=== PATIENT | male | born 1950 | race Caucasian/White ===

== ENCOUNTER 2020-12-18 05:49 | Inpatient (IN) ==
--- NOTE | 2020-12-13 11:47 | Anesthesiology Consultation ---
Date of Service December 13, 2020 Assessment & Plan (1) Encounter for pre-operative examination: Chart Review Chart Review: Acceptable Risk for Surgery (pending preop Covid testing results and DOS PRP ) and Patient NOT seen in Pre Admission Testing -Will order PRP for stat AM of surgery (not done with preop labs) Per nursing assessment 12/13/2020, patient denies any recent travel. No known Covid infection in the past 90 days. No known Covid positive contacts or Covid related symptoms. Preop Covid testing scheduled 12/16/20= will await results. History Surgery Operation Date: 12/18/20 08:45 Proposed Procedures p Posterior Fusion Instrumentation - Luz Heard MD Height/Weight Height: 5 ft 10 in Weight: 95.254 kg Allergies Allergy/AdvReac Type Severity Reaction Status Date / Time bee venom protein (honey bee) Allergy Severe ANAPHYLAXIS Verified 12/13/20 10:49 capsaicin Allergy Intermediate Mouth sores Verified 12/13/20 10:49 diclofenac Allergy Intermediate Mouth sores Verified 12/13/20 10:49 Diclopak Allergy Intermediate Mouth sores Verified 04/07/16 15:22 meloxicam Allergy Unknown mouth sores Verified 12/13/20 10:49 Medications Home Medications Medication Instructions Recorded Confirmed Last Taken EPINEPHRINE (EPIPEN) 0.3 mg IM UD #0 inj 05/11/12 12/13/20 Unknown duloxetine 30 mg capsule,delayed 30 mg PO QAM 08/17/19 12/13/20 Unknown release amoxicillin 500 mg capsule 2,000 mg PO ONCE #4 cap 08/28/19 12/13/20 Unknown atorvastatin 10 mg tablet 10 mg PO PM 09/12/19 12/13/20 Unknown methylprednisolone 4 mg tablets in 4 mg PO UD #1 packet 11/19/20 12/13/20 Unknown a dose pack diphenhydramine-acetaminophen 1 tab PO HS 12/13/20 12/13/20 Unknown [Tylenol PM Extra Strength] loratadine [Claritin] 10 mg PO DAILY PRN 12/13/20 12/13/20 Unknown pantoprazole 40 mg PO DAILY PRN 12/13/20 12/13/20 Unknown Past Medical History Medical History Degenerative joint disease, right, ankle GERD (gastroesophageal reflux disease) Hyperlipidemia Kidney stones hx Lumbar spondylosis Migraine on occasion Nausea and vomiting after administration of anesthetic agent Osteoarthritis Spinal stenosis of lumbar region Past Surgical History Surgical History History of bilateral knee replacement History of colonoscopy History of cystoscopy History of hip replacement left History of tooth extraction Hx of inguinal hernia repair Social History Smoking Status: Former smoker Do You Dip or Chew Tobacco: No (quit 2011) Smoking End Date: 1982 Hx Alcohol Use: Yes Alcohol type: beer and wine alcohol intake frequency: a few times a month Hx Substance Use: No substance use type: does not use Lab Results Anesthesia Preop Results Results Anesthesia Widget: WBC 6.51 K/uL (4.8-10.8) 12/10/20 Hgb 15.2 g/dL (14.0-18.0) 12/10/20 Hct 43.4 % (42-52) 12/10/20 Plt 142 K/uL (130-400) 12/10/20 Testing Laboratory Results Blood Type O Positive 12/10/20 11:17 Antibody Screen NEGATIVE 12/10/20 11:17 Electrocardiogram Date: 12/10/20 Findings: + NSR @ (98 bpm) Right bundle branch block. When compared to EKG from November 15, 2015PACs are no longer present, right bundle branch block is now present. Stress Test Date: 11/02/17 Type: exercise (Echo) Resting EF: 60-64% Resting LV Function: normal Stress echo was negative for inducible ischemia. Exercise capacity is above average. MPHR 97%. 10 METS achieved. Hypertensive baseline BP with a normal response to exercise. EKG response showed no evidence of ischemia. Mild concentric LVH. Grade 1 diastolic dysfunction. Moderate aortic valve r egurgitation. Proximal ascending thoracic aorta is mildly enlarged.
[2020-12-18] MEDS ORDERED: LR 15ML/HR IV SCH (06:00)
[2020-12-18] MEDS ORDERED: ceFAZolin 2000MG 2,000 MG/15 ML SYR IV SCH (06:00)
[2020-12-18] MEDS ORDERED: LR 60ML/HR IV SCH (06:00)
[2020-12-18] MEDS ORDERED: PROPOFOL IV EMULSION 10 MG/ML 20 ML VIAL IV ONE (06:44)
[2020-12-18] MEDS ORDERED: fentaNYL citrate 100 MCG/2 ML VIAL ONE ×2 (06:44→15:33)
[2020-12-18] MEDS ORDERED: GLYCOPYRROLATE 0.2 MG/ML VIAL ONE (06:44)
[2020-12-18] MEDS ORDERED: MIDAZOLAM HCL 1 MG/ML 2ML VIAL ONE (06:44)
[2020-12-18] MEDS ORDERED: LIDOCAINE 2% 2 ML VIAL/AMP(20MG/ML) INFIL ONE (06:44)
[2020-12-18] MEDS ORDERED: ONDANSETRON INJ 2 MG/ML 2 ML VIAL ONE (06:44)
[2020-12-18] MEDS ORDERED: NEOSTIGMINE METHYLSULFATE 5 MG/5 ML SYR ONE (06:44)
[2020-12-18] MEDS ORDERED: DEXAMETHASONE SOD INJ 4 MG/ML VIAL ONE (06:44)
[2020-12-18] MEDS ORDERED: SUGAMMADEX SODIUM 200 MG/2 ML VIAL IV ONE (06:50)
--- NOTE | 2020-12-18 06:54 | History & Physical Bridge Note ---
Date of Service December 18, 2020 History & Physical Bridge Note I have examined the patient, reviewed the History & Physical and in the interval since the performance of the History & Physical I have noted the following changes of clinical significance: no changes noted New changes compared to last appointment: nil Musculoskeletal: 5/5 motor strength bilateral L2-S1. Neurologic: Sensation 2/2 to light touch bilateral L2-S1. Patient marked for surgery. All new questions about procedure answered. Informed consent confirmed
[2020-12-18] MEDS ORDERED: VANCOMYCIN HCL 1000MG/20ML VIAL ONE ×2 (07:04→13:47)
[2020-12-18] MEDS ORDERED: GELATIN SPONGE SZ 100 ONE (07:04)
[2020-12-18] MEDS ORDERED: THROMBIN FOR SOLN 20000 UNIT KIT ONE (07:04)
[2020-12-18] MEDS ORDERED: ONDANSETRON INJ 2 MG/ML 2 ML VIAL IV PRN ×3 (07:08→17:26)
[2020-12-18] MEDS ORDERED: ePHEDrine sulfate 50 MG/ML AMP IV PRN ×2 (07:08→15:33)
[2020-12-18] MEDS ORDERED: ATROPINE SULFATE 0.1 MG/ML 10ML SYR IV PRN ×2 (07:08→15:33)
[2020-12-18] MEDS ORDERED: fentaNYL citrate 100 MCG/2 ML VIAL IV PRN (07:08)
[2020-12-18] MEDS ORDERED: METOCLOPRAMIDE HCL INJ 5 MG/ML 2 ML VIAL IV PRN ×2 (07:08→17:26)
[2020-12-18] MEDS ORDERED: PROMETHAZINE HCL 12.5 MG in SODIUM CHLORIDE 0.9% 50 ML IV PRN ×2 (07:08→17:26)
[2020-12-18] MEDS ORDERED: HYDROmorphone INJ 2 MG/ML SYR/VIAL IV PRN (07:08)
[2020-12-18 07:11] LABS: BUN Creatinine Ratio 22.3 (10-20); Calcium 9.1 mg/dl (8.5-10.1); Creatinine Clr Calc Pharmacy 79.2 ml/min; Est GFR (African American) 87.4 ml/min; Est GFR (Non-African American) 75.4 ml/min; Potassium 4.3 mmol/L (3.5-5.1)
[2020-12-18] MEDS ORDERED: ROCURONIUM BROMIDE 10 MG/ML 5 ML VIAL IV ONE (09:03)
[2020-12-18] MEDS ORDERED: HYDROmorphone INJ 1 MG/ML SYRINGE ONE (09:30)
[2020-12-18] MEDS ORDERED: PHENYLEPHRINE HCL 10 MG/ML VIAL ONE (09:53)
[2020-12-18] MEDS ORDERED: ALBUMIN HUMAN 5% 12.5 GM/250 ML VIAL IV ONE ×2 (10:59→13:05)
[2020-12-18] MEDS ORDERED: ceFAZolin 2000MG 2,000 MG/15 ML SYR IV ONE (12:19)
[2020-12-18] MEDS ORDERED: FLOSEAL HEMOSTATIC MATRIX 10ML TOP ONE (14:21)
--- NOTE | 2020-12-18 15:15 | Post Operative Brief Note ---
PG Immediate Post Op with CF Date of Surgery December 18, 2020 Pre & Post Diagnosis Operation Date: 12/18/20 07:15 Pre-Op Diagnosis: Neurogenic claudication from central stenosis at L4-5 with grade 2 degenerative spondylolisthesis, facet and ligamentum hypertrophy, broad-based disc bulge with right foraminal disc herniation causing severe right formainal stenosis Post-Op Diagnosis: Neurogenic claudication from central stenosis at L4-5 with grade 2 degenerative spondylolisthesis, facet and ligamentum hypertrophy, broad-based disc bulge with right foraminal disc herniation causing severe right formainal stenosis I identified the patient and participated in the time-out.: Yes Procedure L4-L5 Posterior Lumbar Decompression and Instrumented Fusion, right transforaminal lumbar interbody fusion, local autograft, allograft Surgeon Luz Heard MD In Service Coordinator Kris Dan PA-C Estimated Blood Loss 800 Findings Consistent with Post-Op Diagnosis Specimens Specimen Description: None per surgeon Drains Pineda Catheter and Marcos-Meza Drain (x2 (10fr))
--- NOTE | 2020-12-18 15:19 | XRay Report ---
LUMBAR SPINE 5 VIEWS HISTORY: L4-L5 DECOMPRESSION AND FUSION COMPARISON: November 19, 2020 FINDINGS: Multiple radiographs of the lumbar spine show placement of transpedicular screws, fixating plates in the L4-5 level as well as disc spacer into L4-5 intervertebral disc space. No acute fracture or dislocation seen. Redemonstration of mild anterolisthesis of L4 on L5. Mild narrowing of the L3-L4 intervertebral disc space is again seen. IMPRESSION: As above. ACT 112: Negative or not required by law. Electronically signed by: Cony Beck DO 12/18/2020 3:18 PM
[2020-12-18 15:24] LABS: iSTAT Arterial Blood Gas HCO3 24 meg/L (19-24); iSTAT Arterial Blood Gas pCO2 42 mmHg (35-46); iSTAT Arterial Blood Gas pH 7.37 (7.35-7.45); iSTAT Arterial Blood Gas pO2 58 mmHg (80-95); iSTAT Carbon Dioxide 26 mmol/L (24-31); iSTAT Hematocrit 32 % (42-52); iSTAT Hemoglobin 10.9 g/dl (14.0-18.0); iSTAT Potassium 4.1 mmol/L (3.3-5.0); iSTAT Sodium 139 mmol/L (135-144)
[2020-12-18 15:24] LABS: iSTAT Arterial Blood Gas HCO3 24 meg/L (19-24); iSTAT Arterial Blood Gas pCO2 40 mmHg (35-46); iSTAT Arterial Blood Gas pH 7.38 (7.35-7.45); iSTAT Arterial Blood Gas pO2 63 mmHg (80-95); iSTAT Carbon Dioxide 25 mmol/L (24-31); iSTAT Hematocrit 30 % (42-52); iSTAT Hemoglobin 10.2 g/dl (14.0-18.0); iSTAT Potassium 4.4 mmol/L (3.3-5.0); iSTAT Sodium 140 mmol/L (135-144)
[2020-12-18] MEDS ORDERED: METOPROLOL TARTRATE 1 MG/ML VIAL IV STA (15:32)
[2020-12-18] MEDS ORDERED: METOPROLOL TARTRATE 1 MG/ML VIAL IV ONE (15:32)
[2020-12-18] MEDS ORDERED: PHENYLEPHRINE 100MCG/ML 5ML SYR IV PRN (15:33)
[2020-12-18] MEDS ORDERED: HYDROmorphone INJ 1 MG/ML SYRINGE IV PRN (15:33)
[2020-12-18] MEDS: fentaNYL citrate 100 MCG/2 ML VIAL IV PRN ×4 (15:37→15:52)
--- NOTE | 2020-12-18 15:38 | Communication Note ---
Date of Service: December 18, 2020 Post-op routine neurological assessment completed Patient awake, alert No new neurological deficits noted Musculoskeletal: 5/5 motor strength bilateral L2-S1. Neurologic: Sensation 2/2 to light touch bilateral L2-S1.
--- NOTE | 2020-12-18 16:09 | Anesthesiology Progress Note ---
Date of Service December 18, 2020 Anesthesia Post Procedure Vital Signs Vital Signs: Temp Pulse Pulse Pulse Resp BP BP 12/18/20 16:05 36.6 C 86 20 12/18/20 15:55 85 20 12/18/20 15:45 85 20 12/18/20 15:37 102 H 150/86 H 12/18/20 15:35 102 H 14 12/18/20 15:25 100 H 15 12/18/20 15:15 104 H 12 12/18/20 15:08 36.7 C 127 H 16 12/18/20 06:30 36.9 C 89 22 168/92 H BP Pulse Ox 12/18/20 16:05 129/87 96 12/18/20 15:55 135/87 98 12/18/20 15:45 136/87 98 12/18/20 15:37 12/18/20 15:35 150/86 H 95 12/18/20 15:25 144/91 H 100 12/18/20 15:15 144/93 H 99 12/18/20 15:08 144/88 H 99 12/18/20 06:30 97 Pain Intensity Right Leg: Pain Intensity: 2 Back: Pain Intensity: 3 Transfer of Care Handoff Completed per policy Notes Mental Status: alert / awake / arousable Patient Amnestic to Procedure: Yes Nausea / Vomiting: adequately controlled Pain: adequately controlled Airway Patency, RR, SpO2: stable & adequate BP & HR: stable & adequate Hydration State: stable & adequate Anesthetic Complications: no major complications apparent and Pt Satisfied with anesthetic care Notes: The patient is awake and comfortable. He is moving all of his extremities and has no vision changes. His vital signs are stable.
[2020-12-18] MEDS ORDERED: diphenhydrAMINE Capsule 25 MG CAP PO PRN (17:26)
[2020-12-18] MEDS ORDERED: LORATADINE 10 MG TAB PO PRN (17:26)
[2020-12-18] MEDS ORDERED: LORazepam 0.5 MG TAB PO PRN (17:26)
[2020-12-18] MEDS ORDERED: LACTATED RINGER'S 1,000 ML IV SCH (17:26)
[2020-12-18] MEDS ORDERED: ONDANSETRON 4 MG OD TAB PO PRN (17:26)
[2020-12-18] MEDS ORDERED: HYDROmorphone INJ 0.5 MG/0.5 ML SYR IV PRN (17:26)
[2020-12-18] MEDS ORDERED: PANTOprazole 40 MG TAB PO PRN (17:26)
[2020-12-18] MEDS ORDERED: bisacodyL 10 MG SUPP PR PRN (17:26)
[2020-12-18] MEDS ORDERED: MAGNESIUM HYDROXIDE SUSP 30 ML UDC PO PRN (17:26)
[2020-12-18] MEDS ORDERED: SOD PHOSPHATE/SOD BIPHOSPHATE ENEMA 132 ML BTL PR PRN (17:26)
[2020-12-18] MEDS ORDERED: DO NOT ADMINISTER PNEUMOCOCCAL VACCINE PRN (17:26)
[2020-12-18] MEDS ORDERED: NALOXONE HCL 0.4 MG/1 ML VIAL/CARP IV PRN (17:26)
[2020-12-18] MEDS ORDERED: ALUMINUM/MAGNESIUM SUSP 30 ML UDC PO PRN (17:26)
[2020-12-18] MEDS ORDERED: DO NOT ADMINISTER FLU VACCINE PRN (17:26)
[2020-12-18] MEDS ORDERED: hydrOXYzine HCl 25 MG TAB PO PRN (17:26)
[2020-12-18] MEDS ORDERED: FAMOTIDINE 20 MG TAB PO PRN (17:26)
[2020-12-18] MEDS: HYDROCODONE/ACETAMOPHEN 5/325MG TAB PO PRN ×2 (18:27→23:22)
[2020-12-18] MEDS: ceFAZolin 2000MG 2,000 MG/15 ML SYR IV SCH (18:43)
[2020-12-18] MEDS: DOCUSATE SODIUM/SENNA 50/8.6MG TAB PO SCH (20:16)
[2020-12-18] MEDS: CYCLOBENZAPRINE HCL 10 MG TAB PO SCH (20:17)
[2020-12-18] MEDS: ATORVASTATIN 10 MG TAB PO SCH (20:17)
[2020-12-18] MEDS: GABAPENTIN 300 MG CAP PO SCH (20:18)
[2020-12-18] MEDS ORDERED: MELATONIN 3 MG TAB PO PRN (22:22)
--- NOTE | 2020-12-18 22:57 | Hospitalist Consultation ---
Date of Consultation December 18, 2020 Assessment & Plan (1) Spinal stenosis, lumbar: Final Assessment and Recommendations as follows : LSS sp surgery Clinically well Postop anemia, BP stable Hyperglycemia likely steroid-induced, rule out DM Follow H&H, transfuse PRBC if hemoglobin less than 7 and or for symptomatic anemia Hold parameters for gabapentin for sedation/confusion. Check hemoglobin A1c DVT prophylaxis. SCDs as per postop Orthopedics orders. Thank you very much for this consultation. Dr. Aquino will follow patient's progress. Text document was generated using [employer] voice recognition software. It may contain grammatical or spelling errors. Kindly contact undersigned for clarification of any documentation item in question. History of Present Illness Reason for Consultation: Medical management Requesting Physician: Dr. Heard Attending Physician: Luz Heard MD History of Present Illness PCP : Dr. Pacheco History obtained from patient and records. Medical history significant for chronic back pain, hyperlipidemia, BPH, GERD, past tobacco abuse. Last confinement June 2016 under Orthopedics service for elective left FLOR. Patient underwent elective decompression surgery for LSS today. Patient currently comfortable. Denies chest pain, S OB. 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 Allergies Allergy/AdvReac Type Severity Reaction Status Date / Time bee venom protein (honey bee) Allergy Severe ANAPHYLAXIS Verified 12/18/20 06:22 capsaicin Allergy Intermediate Mouth sores Verified 12/18/20 06:22 diclofenac Allergy Intermediate Mouth sores Verified 12/18/20 06:22 Diclopak Allergy Intermediate Mouth sores Verified 04/07/16 15:22 meloxicam Allergy Mild mouth sores Verified 12/18/20 06:22 Home Medications Medication Instructions Recorded Confirmed Type EPINEPHRINE (EPIPEN) 0.3 mg IM UD #0 inj 05/11/12 12/18/20 History duloxetine 30 mg capsule,delayed 30 mg PO QAM 08/17/19 12/18/20 History release amoxicillin 500 mg capsule 2,000 mg PO ONCE #4 cap 08/28/19 12/18/20 Rx atorvastatin 10 mg tablet 10 mg PO PM 09/12/19 12/18/20 History diphenhydramine-acetaminophen 1 tab PO HS 12/13/20 12/18/20 History [Tylenol PM Extra Strength] loratadine [Claritin] 10 mg PO DAILY PRN 12/13/20 12/18/20 History pantoprazole [Protonix] 40 mg PO DAILY PRN 12/13/20 12/18/20 History Excedrin Migraine 2 tabs PO Q4-5H PRN 12/18/20 12/18/20 History ibuprofen 3 tab PO Q6 PRN 12/18/20 12/18/20 History Patient History Medical History Degenerative joint disease, right, ankle GERD (gastroesophageal reflux disease) Hyperlipidemia Kidney stones hx Lumbar spondylosis Migraine on occasion Nausea and vomiting after administration of anesthetic agent Osteoarthritis Spinal stenosis of lumbar region Surgical History (Updated 12/18/20 @ 06:23 by Laisha Mora RN) History of bilateral knee replacement History of bilateral knee replacement History of colonoscopy History of cystoscopy History of hip replacement left History of tooth extraction Hx of inguinal hernia repair Social History Smoking Status: Former smoker Smoking End Date: 1982; Second Hand Exposure: No; Do You Dip or Chew Tobacco: No (quit 2011); Tobacco Cessation Education Requested by Patient: No Hx Alcohol Use: Yes Alcohol type: beer and wine Hx Substance Use: No Preferred Language: Egyptian Communication Ability: Effective Hands Assembler Required: No Beliefs That Will Affect Care: None marital status: Current Living Situation: Spouse current occupational status: retired Other Information That Helps Us Care for You: No Feels Safe at Home: Yes Safety Concerns: Feels Safe At This Time Assistive Devices: Glasses and Walker Review of Systems Review of Systems: As per HPI, all 10 systems reviewed, all other ROS negative Physical Exam Physical Exam: GENERAL: Comfortable, obese, pleasant, no respiratory distress SKIN: Pallor, warm HEENT: Alopecia, pale palpebral conjunctivae, no ptosis, dry buccal mucosa NECK : Supple, no tenderness CHEST : CTA, no tenderness HEART : RRR, no obvious murmurs ABDOMEN: Some distention, nontender BACK : Dressing noted EXTREMITIES : No LE swelling/tenderness, no other conspicuous deformities noted NEUROLOGIC : Coherent, no facial asymmetry, no other gross focality Results & Data Results & Data ([facility]) Vital Signs (Past 12 Hours) Vital Signs Temp Pulse Pulse Pulse Resp BP BP 12/18/20 20:05 36.7 C 91 H 20 111/66 12/18/20 19:05 36.8 C 94 H 20 124/69 12/18/20 18:01 37.1 C 90 18 12/18/20 17:31 37.0 C 95 H 17 12/18/20 17:05 36.7 C 96 H 18 12/18/20 16:35 36.6 C 89 20 12/18/20 16:25 36.6 C 91 H 20 12/18/20 16:15 36.6 C 86 20 12/18/20 16:05 36.6 C 86 20 12/18/20 15:55 85 20 12/18/20 15:45 85 20 12/18/20 15:37 102 H 150/86 H 12/18/20 15:35 102 H 14 12/18/20 15:25 100 H 15 12/18/20 15:15 104 H 12 12/18/20 15:08 36.7 C 127 H 16 BP Pulse Ox 12/18/20 20:05 98 12/18/20 19:05 97 12/18/20 18:01 120/67 98 12/18/20 17:31 115/76 98 12/18/20 17:05 131/83 98 12/18/20 16:35 128/81 97 12/18/20 16:25 134/85 97 12/18/20 16:15 139/85 96 12/18/20 16:05 129/87 96 12/18/20 15:55 135/87 98 12/18/20 15:45 136/87 98 12/18/20 15:37 12/18/20 15:35 150/86 H 95 12/18/20 15:25 144/91 H 100 12/18/20 15:15 144/93 H 99 12/18/20 15:08 144/88 H 99 Laboratory Results Laboratory Results POC Hgb 10.2 g/dl (14.0-18.0) L 12/18/20 14:09 POC Hct 30 % (42-52) L 12/18/20 14:09 POC pH 7.38 (7.35-7.45) 12/18/20 14:09 POC pCO2 40 mmHg (35-46) 12/18/20 14:09 POC pO2 63 mmHg (80-95) L 12/18/20 14:09 POC HCO3 24 iker/L (19-24) 12/18/20 14:09 POC Total CO2 25 mmol/L (24-31) 12/18/20 14:09 POC Base Excess -2.0 iker/L (-9-1.8) 12/18/20 14:09 POC ABG O2 Sat 91.0 % (90-95) 12/18/20 14:09 POC Sodium 140 mmol/L (135-144) 12/18/20 14:09 Sodium 143 mmol/L (136-145) 12/18/20 06:33 POC Potassium 4.4 mmol/L (3.3-5.0) 12/18/20 14:09 Potassium 4.3 mmol/L (3.5-5.1) 12/18/20 06:33 Chloride 110 mmol/L (98-107) H 12/18/20 06:33 Carbon Dioxide 29 mmol/L (21-32) 12/18/20 06:33 Anion Gap 4.0 (3-11) 12/18/20 06:33 BUN 22 mg/dl (7-18) H 12/18/20 06:33 Creatinine 1.00 mg/dl (0.6-1.4) 12/18/20 06:33 Est Cr Clr Drug Dosing 79.2 ml/min 12/18/20 06:33 Est GFR ( Amer) 87.4 ml/min 12/18/20 06:33 Est GFR (Non-Af Amer) 75.4 ml/min 12/18/20 06:33 BUN/Creatinine Ratio 22.3 (10-20) H 12/18/20 06:33 Glucose 113 mg/dl (70-99) H 12/18/20 06:33 POC Glucose 166 mg/dl (70-99) H 12/18/20 18:11 Calcium 9.1 mg/dl (8.5-10.1) 12/18/20 06:33 COVID-19 Eval Order Covid19 [facility] 12/18/20 06:19 SARS-CoV-2, RNA, NAAT NEGATIVE (NEGATIVE) 12/18/20 06:19 Blood Type O Positive 12/10/20 11:17 Antibody Screen NEGATIVE 12/10/20 11:17 Impressions Lumbar Spine X-Ray 12/18/20 07:15 LUMBAR SPINE 5 VIEWS HISTORY: L4-L5 DECOMPRESSION AND FUSION COMPARISON: November 19, 2020 FINDINGS: Multiple radiographs of the lumbar spine show placement of transpedicular screws, fixating plates in the L4-5 level as well as disc spacer into L4-5 intervertebral disc space. No acute fracture or dislocation seen. Redemonstration of mild anterolisthesis of L4 on L5. Mild narrowing of the L3-L4 intervertebral disc space is again seen. IMPRESSION: As above. ACT 112: Negative or not required by law. Electronically signed by: Cony Beck DO 12/18/2020 3:18 PM
[2020-12-19] MEDS: ceFAZolin 2000MG 2,000 MG/15 ML SYR IV SCH (03:04)
[2020-12-19] MEDS: CYCLOBENZAPRINE HCL 10 MG TAB PO SCH ×3 (03:04→20:16)
[2020-12-19] MEDS: POLYETHYLENE (MIRALAX) 17 GM PACK PO SCH ×4 (06:01→23:04)
[2020-12-19] MEDS: ACETAMINOPHEN 500 MG TAB PO PRN (06:01)
[2020-12-19 06:49] LABS: Basophils # (auto) 0.01 K/uL (0-0.2); Basophils % (auto) 0.1 %; Eosinophils # (auto) 0.07 K/uL (0-0.5); Eosinophils % (auto) 0.9 %; Hematocrit (blood only) 29.8 % (42-52); Hemoglobin 10.2 g/dL (14.0-18.0); Immature Granulocytes # (auto) 0.01 K/uL (0.00-0.02); Immature Granulocytes % (auto) 0.1 %; Lymphocytes % (auto) 9.8 %; Mean Corpuscular Hemoglobin 33.8 pg (25-34); Mean Corpuscular Hgb Conc 34.2 g/dL (32-36); Mean Corpuscular Volume 98.7 fL (80-100); Monocytes # (auto) 1.23 K/uL (0.11-0.59); Neutrophils # (auto) 6.06 K/uL (1.4-6.5); Neutrophils % (auto) 74.1 %; Platelet Count 139 K/uL (130-400); RDW Coefficient of Variation 12.9 % (11.5-14.5); RDW Standard Deviation 46.8 fL (36.4-46.3); Red Blood Count 3.02 M/uL (4.7-6.1); White Blood Count 8.18 K/uL (4.8-10.8)
[2020-12-19 07:16] LABS: BUN Creatinine Ratio 19.5 (10-20); Calcium 8.8 mg/dl (8.5-10.1); Creatinine Clr Calc Pharmacy 102.9 ml/min; Est GFR (African American) 105.8 ml/min; Est GFR (Non-African American) 91.3 ml/min
[2020-12-19 07:48] LABS: Estimated Average Glucose 111 mg/dl; Hemoglobin A1C 5.5 % (4.5-5.6)
--- NOTE | 2020-12-19 08:00 | Orthopedic Progress Note ---
Date of Service December 19, 2020 Assessment & Plan (1) Status post spinal surgery: PT for mobility standing x-rays when able monitor drain output with removal once output decreased d/c home once mobilizing well and drains out, possibly tomorrow Admission and Anticipated Discharge Date Admission Date: December 18, 2020 Subjective pain well controlled no new numbness/weakness no radicular pain to lower extremity mobilized out of bed after OR yesterday evening Hgb 10.2 this AM Glucose 118 this AM Physical Exam Physical Exam: vitals: see vital signs section; stable on room air this AM dressing: clean, dry intact drain: 100 deep/0 superficial cc/8hr vascular: no calf tenderness or swelling bilaterally. no signs of DVT neuro: 5/5 motor strength bilateral L2-S1 2/2 sensation to light touch bilateral L2-S1 Results & Data ([facility]) Vital Signs (Past 12 Hours) Vital Signs Temp Pulse Resp BP BP Pulse Ox 12/19/20 03:06 36.5 C 93 H 16 109/64 95 12/18/20 23:00 36.9 C 97 H 16 115/69 96 12/18/20 20:05 36.7 C 91 H 20 111/66 98 Diagnostic Findings post-op x-rays pending PG Care Time/CCT Total # of Minutes Spent Total Time Spent with Patient: Total time spent is greater than 50% in coordination of care (as documented) at patient's floor/unit and/or counseling patient: Coding Level of Care Code None Diagnoses Status post spinal surgery Z98.890
--- NOTE | 2020-12-19 08:33 | Anesthesiology Progress Note ---
Date of Service December 19, 2020 Anesthesia Post Procedure Vital Signs Vital Signs: Temp Pulse Pulse Pulse Resp BP BP 12/19/20 08:00 37.1 C 88 17 113/71 12/19/20 03:06 36.5 C 93 H 16 109/64 12/18/20 23:00 36.9 C 97 H 16 12/18/20 20:05 36.7 C 91 H 20 111/66 12/18/20 19:05 36.8 C 94 H 20 124/69 12/18/20 18:01 37.1 C 90 18 12/18/20 17:31 37.0 C 95 H 17 12/18/20 17:05 36.7 C 96 H 18 12/18/20 16:35 36.6 C 89 20 12/18/20 16:25 36.6 C 91 H 20 12/18/20 16:15 36.6 C 86 20 12/18/20 16:05 36.6 C 86 20 12/18/20 15:55 85 20 12/18/20 15:45 85 20 12/18/20 15:37 102 H 150/86 H 12/18/20 15:35 102 H 14 12/18/20 15:25 100 H 15 12/18/20 15:15 104 H 12 12/18/20 15:08 36.7 C 127 H 16 BP Pulse Ox 12/19/20 08:00 97 12/19/20 03:06 95 12/18/20 23:00 115/69 96 12/18/20 20:05 98 12/18/20 19:05 97 12/18/20 18:01 120/67 98 12/18/20 17:31 115/76 98 12/18/20 17:05 131/83 98 12/18/20 16:35 128/81 97 12/18/20 16:25 134/85 97 12/18/20 16:15 139/85 96 12/18/20 16:05 129/87 96 12/18/20 15:55 135/87 98 12/18/20 15:45 136/87 98 12/18/20 15:37 12/18/20 15:35 150/86 H 95 12/18/20 15:25 144/91 H 100 12/18/20 15:15 144/93 H 99 12/18/20 15:08 144/88 H 99 Pain Intensity Right Leg: Pain Intensity: 0 Back: Pain Intensity: 0 Notes Mental Status: alert / awake / arousable and participated in evaluation Patient Amnestic to Procedure: Yes Nausea / Vomiting: adequately controlled Pain: adequately controlled Airway Patency, RR, SpO2: stable & adequate BP & HR: stable & adequate Hydration State: stable & adequate Anesthetic Complications: no major complications apparent
--- NOTE | 2020-12-19 08:50 | XRay Report ---
LUMBAR SPINE 2 VIEWS HISTORY: Evaluate hardware. Status post lumbar spine fusion. COMPARISON: Lumbar spine 12/18/2020. FINDINGS: There is no fracture. No change in the grade 1 anterolisthesis of L4 on L5. There are pedi dipak screws and rods at L4-L5 with a disc spacer. The hardware appears intact. Mild disc space narrowi ng at L3-L4 remains unchanged. Partially visualized left total arthroplasty. There appear to be surgi genesis drains within the lumbar region. IMPRESSION: Status post L4-5 posterior decompression and fusion with pedicle screws and rods. The hardware appear s intact. ACT 112: Negative or not required by law. Electronically signed by: Jeremy Bangura M.D. 12/19/2020 8:48 AM
[2020-12-19] MEDS: DULoxetine HCL 30 MG CAP PO SCH (09:01)
[2020-12-19] MEDS: GABAPENTIN 300 MG CAP PO SCH ×2 (09:01→20:16)
--- NOTE | 2020-12-19 09:31 | Hospitalist Progress Note ---
Date of Service December 19, 2020 Assessment & Plan (1) Spinal stenosis, lumbar: This is a 70yo M with a PMH of chronic back pain, HLD, BPH, GERD, past tobacco abuse who is POD#1 s/p L4-L5 Posterior Lumbar Decompression and Instrumented Fusion. POD#1 s/p L4-L5 Posterior Lumbar Decompression and Instrumented Fusion by Dr. Heard Per ortho for pain control, wound care, anticoagulation and activities Continue incentive spirometry, PT/OT when appropriate Monitor H/H Postop anemia, BP stable Hyperglycemia improving with bsg 130 today - in postop setting after steroids. Hgb a1c from yesterday 5.5 (2) Postoperative anemia: Acute blood loss anemia in post op setting Hgb 10.2 (pre-op hgb 15.2) Asymptomatic, VSS Monitor with daily CBC (3) Hyperlipidemia: Continue statin Dispo: Per primary service Patient seen in collaboration with Dr. Aquino. Please see addendum. Admission and Anticipated Discharge Date Admission Date: December 18, 2020 Supervising Physician Co-Signing Physician Notes Pt was seen and examined. Agreed with Josi ALEXANDER exam, assessment and plan. 70yo M with a PMH of chronic back pain, HLD, BPH, GERD, Failed conservative management, s/p day#1 L4-L5 Posterior Lumbar Decompression and Instrumented Fusion. No postop complication. Continue incentive spirometry. Continue pain control as per ortho. Continue monitor H/H. PT/OT eval and fall precaution. Will continue monitor closely during the hospital course. MD Kenia Subjective Seen and examined in 305-1. Feeling well today with some surgical site pain after participating with PT/OT. Denies any pain or paresthesias in bilateral lower extremities. Denies any chest pain or shortness of breath. No nausea, vomiting or abdominal pain. Tolerating diet without issue. No issues urinating. Passing flatus. Review of Systems Review of Systems: At least ten systems reviewed and negative except as noted in the HPI. Physical Exam Physical Exam: General Appearance: WD/WN, vitals as above, NAD, sitting up in bed, pleasant, conversing easily Head: normocephalic, atraumatic Eyes: normal inspection, PERRL, conjunctivae normal, anicteric sclerae ENT: external ear and nose normal, oropharynx normal Neck: normal visual inspection, trachea midline, no thyromegaly Respiratory: normal respiratory effort, lungs clear to auscultation, no wheeze, rales, rhonchi. No accessory muscle use Cardiovascular: regular rate, rhythm, no murmur, normal peripheral pulses, no BLE edema. Vessels: no JVD Chest: normal inspection of chest Abdomen/GI: normal bowel sounds, soft, nontender, no hepatosplenomegaly Extremities/Musculoskeletal: + Lumbosacral spinal dressing c/d/i. + 2 drains visualized. No cyanosis or clubbing, extremities motor strength 5/5 Neurologic: PERRL, EOMI, accommodation nl, no face palsy, no dysarthria, CN's II-XI intact bilaterally and moves all extremities Psychiatric: A+Ox3, euthymic affect Skin: no rashes, normal color, warm/dry Results & Data Results & Data ([facility]) Vital Signs (Past 12 Hours) Vital Signs Temp Pulse Resp BP BP Pulse Ox 12/19/20 08:00 37.1 C 88 17 113/71 97 12/19/20 03:06 36.5 C 93 H 16 109/64 95 12/18/20 23:00 36.9 C 97 H 16 115/69 96 Laboratory Results Short CBC 12/19/20 Range/Units 05:28 WBC 8.18 (4.8-10.8) K/uL Hgb 10.2 L (14.0-18.0) g/dL Hct 29.8 L (42-52) % Plt Count 139 (130-400) K/uL BMP 12/19/20 05:28 Sodium 143 Potassium 4.0 Chloride 110 H Carbon Dioxide 30 BUN 15 Creatinine 0.77 Glucose 118 H Calcium 8.8 Diagnostic Findings Lumbar Spine X-Ray 12/18/20 07:15 LUMBAR SPINE 5 VIEWS HISTORY: L4-L5 DECOMPRESSION AND FUSION COMPARISON: November 19, 2020 FINDINGS: Multiple radiographs of the lumbar spine show placement of transpedicular screws, fixating plates in the L4-5 level as well as disc spacer into L4-5 intervertebral disc space. No acute fracture or dislocation seen. Redemonstration of mild anterolisthesis of L4 on L5. Mild narrowing of the L3-L4 intervertebral disc space is again seen. IMPRESSION: As above. ACT 112: Negative or not required by law. Electronically signed by: Cony Beck DO 12/18/2020 3:18 PM Lumbar Spine X-Ray 12/19/20 07:00 LUMBAR SPINE 2 VIEWS HISTORY: Evaluate hardware. Status post lumbar spine fusion. COMPARISON: Lumbar spine 12/18/2020. FINDINGS: There is no fracture. No change in the grade 1 anterolisthesis of L4 on L5. There are pedicle screws and rods at L4-L5 with a disc spacer. The hardware appears intact. Mild disc space narrowing at L3-L4 remains unchanged. Partially visualized left total arthroplasty. There appear to be surgical drains within the lumbar region. IMPRESSION: Status post L4-5 posterior decompression and fusion with pedicle screws and rods. The hardware appears intact. ACT 112: Negative or not required by law. Electronically signed by: Jeremy Bangura M.D. 12/19/2020 8:48 AM
[2020-12-19] MEDS: HYDROCODONE/ACETAMOPHEN 5/325MG TAB PO PRN ×3 (10:10→20:17)
--- NOTE | 2020-12-19 14:35 | XRay Report ---
XR lumbar spine 1V CLINICAL HISTORY: REPEAT LATERAL VIEW. Postop. Evaluate L4-5 endplates. COMPARISON STUDY: Lumbar spine 12/19/2020. FINDINGS: Single lateral view of the lumbar spine demonstrate posterior decompression and fusion at L 4-L5 with pedicle screws and rods. There is a disc spacer at this level which is unchanged in positio n. No endplate erosive changes identified. Grade 1 anterolisthesis of L4-L5 remains unchanged. There is a left hip prosthesis. Lumbar surgical drains are again noted. No fractures within the lower lumba r spine. IMPRESSION: Postoperative changes consistent with recent L4-5 posterior decompression and fusion. Th e hardware appears intact. ACT 112: Negative or not required by law. Electronically signed by: Jeremy Bangura M.D. 12/19/2020 2:34 PM
[2020-12-19] MEDS: ATORVASTATIN 10 MG TAB PO SCH (20:16)
[2020-12-19] MEDS: DOCUSATE SODIUM/SENNA 50/8.6MG TAB PO SCH (20:17)
[2020-12-20] MEDS: CYCLOBENZAPRINE HCL 10 MG TAB PO SCH ×3 (03:37→20:32)
[2020-12-20] MEDS: HYDROCODONE/ACETAMOPHEN 5/325MG TAB PO PRN (05:53)
[2020-12-20] MEDS: POLYETHYLENE (MIRALAX) 17 GM PACK PO SCH ×4 (05:54→23:11)
[2020-12-20 06:03] LABS: Hematocrit (blood only) 29.6 % (42-52); Hemoglobin 9.9 g/dL (14.0-18.0); Mean Corpuscular Hemoglobin 33.6 pg (25-34); Mean Corpuscular Hgb Conc 33.4 g/dL (32-36); Mean Corpuscular Volume 100.3 fL (80-100); Platelet Count 125 K/uL (130-400); RDW Coefficient of Variation 12.8 % (11.5-14.5); RDW Standard Deviation 46.7 fL (36.4-46.3); Red Blood Count 2.95 M/uL (4.7-6.1); White Blood Count 6.49 K/uL (4.8-10.8)
[2020-12-20 06:35] LABS: BUN Creatinine Ratio 14.6 (10-20); Est GFR (African American) 99.7 ml/min; Potassium 3.9 mmol/L (3.5-5.1)
--- NOTE | 2020-12-20 08:54 | Orthopedic Progress Note ---
Date of Service December 20, 2020 Assessment & Plan (1) Status post spinal surgery: continue PT for mobility monitor drain output with removal once output decreased d/c home once mobilizing well and drains out, likely tomorrow will need clearance from hospitalist service before discharge Admission and Anticipated Discharge Date Admission Date: December 18, 2020 Subjective pain well controlled no new numbness/weakness no radicular pain to lower extremity mobilizing well with PT Hgb 9.9 this AM Physical Exam Physical Exam: vitals: see vital signs section; stable on room air this AM, HR 100-113 dressing: clean, dry intact drain: 50 deep/0 superficial cc/8hr vascular: no calf tenderness or swelling bilaterally. no signs of DVT neuro: 5/5 motor strength bilateral L2-S1 2/2 sensation to light touch bilateral L2-S1 Results & Data ([facility] [place]) Vital Signs (Past 12 Hours) Vital Signs Temp Pulse Resp BP Pulse Ox 12/20/20 06:20 37.4 C 107 H 16 119/72 91 12/20/20 03:38 36.5 C 106 H 16 127/78 95 12/19/20 22:56 37.3 C 113 H 16 129/74 93 Diagnostic Findings post-op standing x-ray lumbar spine shows hardware in acceptable alignment PG Care Time/CCT Total # of Minutes Spent Total Time Spent with Patient: Total time spent is greater than 50% in coordination of care (as documented) at patient's floor/unit and/or counseling patient: Coding Level of Care Code None Diagnoses Status post spinal surgery Z98.890
[2020-12-20] MEDS: DULoxetine HCL 30 MG CAP PO SCH (09:17)
[2020-12-20] MEDS: GABAPENTIN 300 MG CAP PO SCH ×2 (09:17→20:33)
[2020-12-20] MEDS ORDERED: bisacodyL 5 MG TABEC PO ONE ×2 (11:25→13:45)
--- NOTE | 2020-12-20 11:44 | Electrocardiogram Report ---
Test Reason : Blood Pressure : / mmHG Vent. Rate : 107 BPM Atrial Rate : 107 BPM P-R Int : 160 ms QRS Dur : 142 ms QT Int : 392 ms P-R-T Axes : 040 -13 001 degrees QTc Int : 523 ms Sinus tachycardia Right bundle branch block Voltage criteria for left ventricular hypertrophy possible Inferior infarct , age undetermined Abnormal ECG When compared with ECG of 10-DEC-2020 11:06, Inferior infarct is now Present Confirmed by Herman Mackenzie ([id number]) on 12/20/2020 11:43:41 AM Referred By: Luz Heard Confirmed By:Sarthak Mackenzie
[2020-12-20] MEDS: METOPROLOL TARTRATE 25 MG TAB PO SCH ×2 (13:52→20:34)
[2020-12-20] MEDS: ACETAMINOPHEN 500 MG TAB PO PRN (15:18)
--- NOTE | 2020-12-20 15:39 | Hospitalist Progress Note ---
Date of Service December 20, 2020 Assessment & Plan (1) Spinal stenosis, lumbar: This is a 70yo M with a PMH of chronic back pain, HLD, BPH, GERD, past tobacco abuse with s/p L4-L5 Posterior Lumbar Decompression and Instrumented Fusion. POD#2 s/p L4-L5 Posterior Lumbar Decompression and Instrumented Fusion performed by Dr. Heard No postop complication Continue pain control as per ortho Continue incentive spirometry PT/OT eval Monitor H/H Continue monitor H/H Hyperglycemia Possible related to steroid during the hospital course Most recent Hba1c 5.5 Continue monitor BS (2) Tachycardia: Denies any chest pain and palpitation HR has been elevated during the course of the admission EKG back in 12/10 showed HR was 99 Tachycardia might be related to post op and hospital setting EKG done today showed no T wave inversion in Lead 3, that is not new compare to the EKG back in 2016 EKG reviewed with traffic sergeant that read it and agreed with my interpretation No concern as per cardiology Will start on a low dose beta martina for the tachycardia (3) Postoperative anemia: Acute blood loss anemia in post op setting Hgb 9.9 today (pre-op hgb 15.2) Continue monitor H/H (4) Hyperlipidemia: Continue statin Dispo: Per primary service Admission and Anticipated Discharge Date Admission Date: December 18, 2020 Subjective Pt was seen and examined for post op follow up Sitting in chair with no distress Pt said that he feels ok Denies any chest pain, palpitation, dizziness and SOB Review of Systems Review of Systems: All systems reviewed & are unremarkable except as noted in Subjective Physical Exam Physical Exam: General- No acute distress Head- atraumatic Eyes- PERRL, EOMI, ENT- oropharynx clear Neck- supple, no JVD Lungs- clear to auscultation Heart- +tachycardia Abdomen- normal bowel sounds, soft, nontender Extremities- no calf tenderness, +drainage Neuro- alert, oriented x 3; PERRL, EOMI; no facial palsy; no dysarthria Skin- warm & dry Results & Data Results & Data ([facility]) Vital Signs (Past 12 Hours) Vital Signs Temp Pulse Resp BP BP Pulse Ox 12/20/20 14:51 37.7 C H 114 H 18 119/65 93 12/20/20 11:10 37.6 C H 107 H 18 152/69 H 96 12/20/20 06:20 37.4 C 107 H 16 119/72 91 12/20/20 03:38 36.5 C 106 H 16 127/78 95
--- NOTE | 2020-12-20 17:28 | Orthopedic Progress Note ---
Date of Service December 21, 2020 Assessment & Plan (1) Status post spinal surgery: d/c home once cleared by hospitalist service f/u 2 weeks in office with me (already arranged) patient aware of need for a follow-up appointment with PCP this week given start of new medication (metoprolol) by hospitalist service Admission and Anticipated Discharge Date Admission Date: December 18, 2020 Subjective pain well controlled no new numbness/weakness no radicular pain to lower extremity mobilizing well with PT Assessed with ECG by hospitalist yesterday for persistent tachycardia with no concern by hospitalist as per direct discussions and note in chart Started on beta martina by hospitalist service, increased to metoprolol 25mg po otoday Focal tenderness around areas of chest paddings from surgical bed, no other chest pain No shortness of breath resolved nausea from yesterday Hgb 10.9 this AM Physical Exam Physical Exam: vitals: see vital signs section; stable on room air this AM, HR 98-114 dressing: clean, dry intact drain: removed yesterday evening vascular: no calf tenderness or swelling bilaterally. no signs of DVT neuro: 5/5 motor strength bilateral L2-S1 2/2 sensation to light touch bilateral L2-S1 Results & Data ([facility]) Vital Signs (Past 12 Hours) Vital Signs Temp Pulse Resp BP BP Pulse Ox 12/20/20 14:51 37.7 C H 114 H 18 119/65 93 12/20/20 11:10 37.6 C H 107 H 18 152/69 H 96 12/20/20 06:20 37.4 C 107 H 16 119/72 91 PG Care Time/CCT Total # of Minutes Spent Total Time Spent with Patient: Total time spent is greater than 50% in coordination of care (as documented) at patient's floor/unit and/or counseling patient: Coding Level of Care Code None Diagnoses Status post spinal surgery Z98.890
--- NOTE | 2020-12-20 17:31 | Discharge Summary ---
Date of Service December 20, 2020 Principal Diagnosis neurogenic claudication from lumbar stenosis and degenerative spondylolisthesis L4-5 Discharge Data Allergies Allergy/AdvReac Type Severity Reaction Status Date / Time bee venom protein (honey bee) Allergy Severe ANAPHYLAXIS Verified 12/18/20 06:22 capsaicin Allergy Intermediate Mouth sores Verified 12/18/20 06:22 diclofenac Allergy Intermediate Mouth sores Verified 12/18/20 06:22 Diclopak Allergy Intermediate Mouth sores Verified 04/07/16 15:22 meloxicam Allergy Mild mouth sores Verified 12/18/20 06:22 Consultations 12/18/20 22:22 Consult Hospitalist Routine Procedures Performed Operation Date: 12/18/20 07:15 Actual Procedures p L4-L5 Posterior Lumbar Decompression and Instrumented Fusion, Allograft Spinal Cord Monitoring(Not Applicable) - Luz Heard MD Hospital Course (1) Status post spinal surgery: Patient underwent the above mentioned procedure. There were no complications noted intra-op. Post-operatively, patient was sent to recovery and then floor. Pain was well-controlled throughout stay. Drain was removed on post- op day 2. Patient was followed closely by hospitalist service throughout stay and was cleared for discharge medically by this team on day of discharge. As part of care provided to patient by hospitalist service, an ECG was completed and patient was started on beta blockers. Patient is to follow-up with family doctor in upcoming week for follow-up given recent start of beta blockers in hospital. Patient was stable and able to ambulate, void, and tolerate PO intake at time of discharge. Verbal discharge and follow-up instructions were given. Total Time Total Time Spent Total Time Spent (In Minutes): 25 Discharge Plan Discharge Items Patient Disposition: Home - Home Health Services Reason For Visit: Dengenerative Spondylolisthesis L4-L5 Discharge Diagnosis: neurogenic claudication from central stenosis at L4-5 with grade 2 degenerative spondylolisthesis, facet and ligamentum hypertrophy, broad-based disc bulge with right foraminal disc herniation causing severe right formainal stenosis Activity: Per Instructions section Non-emergency contact: Surgeon Call non-emergency contact if: you have any medication questions Follow-up/Referrals: Jose Pacheco MD [Primary Care Provider] - Diet: Regular Addtl Attending Provider Instructions: Posterior Lumbar Decompression and Fusion (PLDF) Recovery What to expect You've had surgery, the first step toward the goals of decreasing back and leg pain, and stopping symptoms of nerve compression or an unstable spine from getting worse. Now it's time to focus on healing. By following these tips, you will set yourself up for a successful outcome after surgery. Top 4 things to know 1. A moderate or increased amount of back pain is expected after PLDF surgery. This will get better over the next four to six weeks. 2. Leg pain usually gets better after surgery, but may not be completely gone. Numbness, tingling and weakness take longer to get better after surgery. This is normal. 3. Do not use nicotine for at least three months. Nicotine will slow down your healing. 4. Avoid taking anti-inflammatory medications (NSAIDs) for six to 12 weeks or until your surgeon tells you it's safe to use them. NSAIDs include ibuprofen (Motrin. Advil), naproxen (Aleve. Naprosyn), meloxicam (Mobic), Celebrex and diclofenac. Pain and weakness Surgical back pain and muscle spasms are normal after spine surgery. This should get better over the next few weeks. Numbness, tingling and weakness that you had before surgery may take time to improve. Taking care of your incision Your incision may bleed and your dressing may get saturated with blood. This is normal. Change your dressing as often as needed to keep the incision clean and dry. If your incision has no drainage, you can take your dressing off three days after surgery, but always keep the incision area clean and dry. If you have skin glue or tape on your incision, try to leave it in place for the first two weeks. Showering You can take a shower three days after surgery once the incision is closed and doesn't have drainage. Let gentle soap and water run over the incision. Do not scrub it. Pat dry with a clean towel. Avoid taking tub baths, swimming and going in hot tubs until the incision is completely healed (four to six weeks). Taking medication Do not take anti-inflammatory medications (NSAIDs) for six to 12 weeks after surgery. These drugs can interfere with how you heal. NSAIDs include ibuprofen, Advil, Aleve, naproxen, Naprosyn, Mobic, meloxicam, Celebrex and diclofenac. If you need refills on your prescriptions, you may contact our office at least two days before you are out of pills so we have sufficient time to process your request. Refill requests on Wednesday afternoons and holidays likely will be addressed on the next business day Start weaning yourself from pain medications as soon as you are able. Remember, pain is a natural part of the healing process. The goal is not to eliminate all pain but to keep you comfortable as you heal. Pain medications should be used only for a short period of time. Before taking Tylenol (acetaminophen), be aware that your pain medication probably has acetaminophen in it. Taking additional Tylenol or acetaminophen can put you over the daily recommended 3,000 milligrams, which can harm your liver. If you are taking a muscle relaxant, one of the side effects is drowsiness. If you feel too drowsy to safely get up and move around, take the muscle relaxant less often. Do not use tobacco products If you had been a smoker or used tobacco, you were required to stop before surgery. You've come this far, so why not quit for good. If you cannot do so, you must not use tobacco products for at least three months. Nicotine will keep you from properly healing. Be active, but no lifting We want you to be active as soon as you get home from the hospital Get up and walk often. If you go up and down stairs, make sure you hold onto the railing and have someone with you. Avoid excessive bending and twisting your back as much as you can, and do not lift anything over 10 pounds until your surgeon says it's OK. And no driving You cannot drive until you are no longer taking narcotic pain medications or muscle relaxants and you can move well enough to be safe behind the wheel. Most patients can begin driving after the 6 week postoperative appointment. Your surgeon will let you know when you can start driving. Constipation and bloating Constipation is a common side effect of taking narcotic pain medication and a good reason to begin tapering yourself off of pain medication as soon as you can. Drink lots of fluids, be active and eat foods high in fiber to help relieve constipation. If constipation is bothering you, a stool softener or laxative may help. Try one of the following, and always follow the instructions: Milk of Magnesia, MiraLAX, Dulcolax suppository, Fleet enema, magnesium citrate Follow up with your primary care provider If you have any health concerns, see your primary care provider within one week after surgery, especially if you have any of the following: Heart disease or have had a stroke Lung disease Diabetes Are over age 65 Take a blood thinner Take more than 10 prescription medications When is it an emergency? If you have any of the following symptoms, call 911 or go to an emergency room right away: Trouble breathing Chest pain Significant new weakness since your surgery If you have any other concerns, call our office at [phone] before going to an emergency room. In most cases we can help you or get you an appointment quickly. Pending Studies at Discharge: No Stand-Alone Forms: My [facility] [place] olook, Smoking Cessation Medications and DC Order Prescriptions: New hydrocodone-acetaminophen 5-325 mg Tablet 1 - 2 tab PO Q4H PRN (Reason: pain) Qty: 30 RF: 0 ondansetron 4 mg Tablet,Disintegrating 4 mg PO Q6H PRN (Reason: nausea and vomiting) Qty: 10 RF: 0 hydrocodone-acetaminophen 5-300 mg tablet 1 tab PO Q4H PRN (Reason: pain) Qty: 20 RF: 0 cyclobenzaprine 10 mg Tablet 10 mg PO Q8H Qty: 42 RF: 0 metoprolol tartrate 25 mg Tablet 25 mg PO BID Qty: 30 RF: 0 Continued EPINEPHRINE (EPIPEN) 0.3 MG/0.3 ML INJECTION 0.3 mg IM UD Qty: 0 RF: 0 duloxetine [Cymbalta] 30 mg capsule,delayed release(DR/EC) 30 mg PO QAM RF: 0 atorvastatin [Lipitor] 10 mg tablet 10 mg PO PM RF: 0 pantoprazole [Protonix] 40 mg Tablet,Delayed Release (Dr/Ec) 40 mg PO DAILY PRN (Reason: Heartburn) RF: 0 loratadine [Claritin] 10 mg Tablet 10 mg PO DAILY PRN (Reason: Allergy Symptoms) RF: 0 Discontinued amoxicillin 500 mg capsule 2,000 mg PO ONCE Qty: 4 RF: 2 diphenhydramine-acetaminophen [Tylenol PM Extra Strength] 25-500 mg Tablet 1 tab PO HS RF: 0 Excedrin Migraine 2 tabs PO Q4-5H PRN (Reason: Pain) RF: 0 ibuprofen 3 tab PO Q6 PRN (Reason: Pain) RF: 0 Discharge Orders: Discharge Order (Routine); Ordered 12/21/20 Ordered By: Luz Heard Admission Data Admit Date/Time: 12/18/20 15:27 Attending Provider: Luz Heard Admit Provider: Luz Heard Primary Care Provider: Jose Pacheco Other Providers: Zane Guerrero ; Magdalene Aquino ; [facility] Coding Level of Care Code D/C Day Management <30 mins Diagnoses Status post spinal surgery Z98.890
[2020-12-20] MEDS: DOCUSATE SODIUM/SENNA 50/8.6MG TAB PO SCH (20:32)
[2020-12-20] MEDS: ATORVASTATIN 10 MG TAB PO SCH (20:32)
[2020-12-21] MEDS ORDERED: Nursing to Pharmacy Communication SCH (02:45)
[2020-12-21] MEDS: CYCLOBENZAPRINE HCL 10 MG TAB PO SCH ×2 (04:39→12:06)
[2020-12-21 06:12] LABS: Hematocrit (blood only) 32.5 % (42-52); Hemoglobin 10.9 g/dL (14.0-18.0); Mean Corpuscular Hemoglobin 33.9 pg (25-34); Mean Corpuscular Hgb Conc 33.5 g/dL (32-36); Mean Corpuscular Volume 100.9 fL (80-100); Mean Platelet Volume 11.2 fL (7.4-10.4); Platelet Count 176 K/uL (130-400); RDW Coefficient of Variation 12.6 % (11.5-14.5); RDW Standard Deviation 46.2 fL (36.4-46.3); Red Blood Count 3.22 M/uL (4.7-6.1); White Blood Count 8.78 K/uL (4.8-10.8)
[2020-12-21] MEDS ORDERED: METOPROLOL TARTRATE 25 MG TAB PO SCH (09:00)
[2020-12-21] MEDS: GABAPENTIN 300 MG CAP PO SCH (09:52)
[2020-12-21] MEDS: DULoxetine HCL 30 MG CAP PO SCH (09:52)
--- NOTE | 2020-12-21 11:11 | Hospitalist Progress Note ---
Date of Service December 21, 2020 Assessment & Plan (1) Spinal stenosis, lumbar: This is a 70yo M with a PMH of chronic back pain, HLD, BPH, GERD, past tobacco abuse with s/p L4-L5 Posterior Lumbar Decompression and Instrumented Fusion. POD#3 s/p L4-L5 Posterior Lumbar Decompression and Instrumented Fusion performed by Dr. Heard No postop complication Continue pain control as per ortho Continue incentive spirometry PT/OT eval Monitor H/H Continue monitor H/H Hyperglycemia Possible related to steroid during the hospital course Most recent Hba1c 5.5 Continue monitor BS (2) Tachycardia: Denies any chest pain and palpitation HR has been elevated during the course of the admission EKG back in 12/10 showed HR was 99 Tachycardia might be related to post op and hospital setting EKG done today showed no T wave inversion in Lead 3, that is not new compare to the EKG back in 2016 EKG reviewed with 2 cardiologists that read it and agreed with my interpretation No further cardiac work up since pt denies any chest pain, palpitation and SOB Metoprolol increase to 25mg BID Will need to follow up with PCP within 1 work Pt was advised if he develops any chest pain, palpitation or SOB to seek medical attention Stable from medicine standpoint to discharge with metoprolol 25mg BID (3) Postoperative anemia: Acute blood loss anemia in post op setting Hgb 10.9 today (pre-op hgb 15.2) Continue monitor H/H (4) Hyperlipidemia: Continue statin Disposition: Per primary service Admission and Anticipated Discharge Date Admission Date: December 18, 2020 Subjective Pt was seen and examined for follow up of tachycardia Sitting in chair with no distress Pt said that he feels fine He said that he is not having any chest pain, palpitation, dizziness and SOB Review of Systems Review of Systems: All systems reviewed & are unremarkable except as noted in Subjective Physical Exam Physical Exam: General- No acute distress Head- atraumatic Eyes- PERRL, EOMI, ENT- oropharynx clear Neck- supple, no JVD Lungs- clear to auscultation Heart- +tachycardia Abdomen- normal bowel sounds, soft, nontender Extremities- no calf tenderness Neuro- alert, oriented x 3; PERRL, EOMI; no facial palsy; no dysarthria Skin- warm & dry Results & Data Results & Data ([facility]) Vital Signs (Past 12 Hours) Vital Signs Temp Pulse Resp BP BP Pulse Ox 12/21/20 09:51 102 H 107/68 12/21/20 08:49 118 H 107/69 12/21/20 07:38 37.5 C 116 H 18 98/64 L 94
--- NOTE | 2020-12-24 21:22 | Operative Report ---
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 Post-Op Diagnosis: Neurogenic claudication from central stenosis at L4-5 with grade 2 degenerative spondylolisthesis, facet and ligamentum hypertrophy, broad-based disc bulge with right foraminal disc herniation causing severe right foraminal stenosis. I identified the patient and participated in the time-out.: Yes Procedure 1. Posterolateral Lumbar Fusion L4-L5 with right transforaminal lumbar interbody fusion 2. Bilateral posterior lumbar laminectomy L4-L5, medial facetectomies and foraminotomies 3. Posterior Lumbar Instrumentation same levels 4. Placement of interbody device L4-L5 5. Local Autograft for posterior lumbar fusion 6. Allograft, morselized (DBM) Surgeon Luz Heard MD Financial Management Analyst Kris Dan PA-C Estimated Blood Loss 800 Findings Consistent with Post-Op Diagnosis Specimens none Description of Procedure Indications: Patient is a 70 year old male with many year history of lower back pain and neurogenic claudication symptoms with imaging-confirmed central stenosis at L4-5 with grade 2 degenerative spondylolisthesis, facet and ligamentum hypertrophy, broad-based disc bulge with right foraminal disc herniation causing severe right foraminal stenosis. He had previously been seen by a spine surgeon in 2019 and offered a fusion procedure for this level but decided to continue with non- operative management for this problem. However, with continued exhaustion of non-op management and worsening of symptom, patient sought an appointment with me with regards to consideration for surgical management for this problem. After obtaining updated MRI imaging, and ensuring all potential remaining options for non-operative management were discussed and tried by the patient (with exception of lumbar KATHY which patient did not want to pursue), informed consent was obtained and patient was booked for above procedure. On day of surgery, patient was identified in pre-op holding area. History and Physical was updated, surgical site was marked, and consent was confirmed. Risks, benefits and alternatives were discussed again and I answered all their questions. Implants: 1. Medtronic Solera Spinal System L4: left 45mmx5.5mm, right 45mmx5.5mm polyaxial screw L5: left 40mmx5.5mm, right 45mmx5.5mm polyaxial screw 5.5mm Chromaloy Pre-Bent Ajay, 35 mm right, 30mm left 2. Medtronic [place] Transforaminal Lumbar Interbody Fusion Spinal System - Titanium 7mm height x 10mm width x 30mm length 3. Medtronic [place] DBM Drains: 1. Hemovac drain x 2 (10 [place] Island[place]), one deep and one superficial to fascia Description of procedure: Patient was brought to the operating room and underwent general anesthesia. SCDs were applied to bilateral legs to reduce risk of DVT. Patient was place prone on a Marcos table. Face, eyes, bony prominences, and peripheral nerves were well protected. The lumbar spine was prepped with alcohol and Chloraprep and draped in standard sterile fashion. A time-out was performed and documented. This included confirmation of administration of prophylactic antibiotics. A spinal needle was inserted and a lateral xray taken to localize the incision. A midline incision was made. The incision was carried through the subcutaneous tissue with cautery. The fascia was incised and subperiosteal dissection carried over the lamina. The Marta retractor was placed. A #4 [place] elevator was positioned under the lamina and a tim was place on the exposed spinous process. Lateral localization xray was taken and once appropriate level was confirmed, the level was marked. Cerebellar retractors followed by Anastasia were used to perform dissection of the facet capsule off the caudal level, carrying out the dissection to the lateral gutters with both involved transverse processes on each side dissected in full posteriorly. Facetectomies were performed of the included level bilaterally with an osteotome. Freehand pedicle screws were then placed bilaterally from L4 to L5. Screw tracts were started with a 3mm matchstick. Trajectory was assessed using localizing lateral x-ray for each level along with pre-op templating using x-ray and advanced imaging. A curved pedicle probe was used gently to identify appropriate trajectory to the length of the screw, followed by palpation with a pedicle feeler, tapping, re-palpation, burring of the transverse process posterior surface for fusion, and insertion of the screws. A 4.5mm tap was used for 5.5mm screws. Lateral and AP portable x-rays confirmed satisfactory position of all screws. Triggered EMG confirmed no activity on all screws up to a threshold of 20mA. I then proceeded with decompressing the central thecal sac and the traversing and exiting nerve roots. A high speed angel was used to perform a bilateral laminectomy of L4 up to the insertion of the ligamentum flavum. An up-angled curette was used to free the ligamentum flavum from its cranial and caudal attachments and it was removed with Kerrison rongeurs. Partial medial facetectomies and foraminotomies were performed using a angel and Kerrison rongeurs to open up the lateral recess and decompress the traversing and exiting nerve roots bilaterally. On the TLIF side, the entire facet joint was removed flush with each pedicle. Once the decompression was complete, I placed an intralaminar photoengraving apprentice. I gently retracted the traversing nerve root. I used a bipolar to cauterize and control bleeding from the epidural vessels, used a nerve root retractor to carefully retract the traversing nerve root and identified the posterior annulus. There was adhesion of the dura at the area of the disc protrusion and this was gently teased off without any dural tears noted. The annulus was incised with an 11 blade. A pituitary rongeur was used to remove the protruded disc. Pituitary rongour, disc space adiel, serrated curettes, push-pull adiel and a rasp were then used to prepare the interspace for fusion. The endplates were cleaned to punctate bleeding cortical bone. Trial sizers were used to correctly size the interbody device. It was found that size 7mm trial fit well and that size 8mm trial required significant amount of malleting to insert and maneuver within the disc space. As such, size 7 was chosen for the patient. The wound and disc space were then irrigated. Local bone that had been saved from the spinous process, lamina, and facets was morselized in a bone mill. Local bone graft and DBM allograft was inserted in the anterior half of the disc space using a cone and pusher device. The interbody device was filled with local autograft and DBM allograft prior to insertion into the interspace. The location of the interbody device was directly visualized after insertion. Lateral and AP portable x-rays confirmed satisfactory position of the inserted interbody device. It was however noted that there might be a gapin the inferior aspect of the interbody. This appeared to be secondary to concave shape of the endplates after close review of the AP films. Given this concern, the interspace was examined again in detail. Both endplates were visualized to show punctate bleeding cortical bone around visible areas anterior to the interbody. A #4 penfield was used to assess for any motion of the interbody and the interbody appeared to be firmly in place with no obvious movements under direct visualization. Serrated currettes were used on the exposed endplates and no f urther cartilage was noted on further attempts at improving the previous preparation of the endplates. I then removed the laminar photoengraving apprentice and used precut and contoured rods, performing compression to load the interbody device and prevent motion. The annulotomy was assessed and found to be further collapsed to smaller than the 7mm interbody height. All the set screws were sheared off using the torque counter-torque mechanism. The wound was then copiously irrigated. No spinal fluid leaks were identified. I decorticated the contralateral facet joint and perforemd posterolateral bone grafting. Local autograft and [place] DBM allograft was inserted in bilateral gutters between the transverse processes, and in the contralateral facet joint to the TLIF side. The wound was assessed for any sources of bleed and hemostasis was achieved prior to closure. To reduce risk of post-op infection, 2g of vancomycin powder was applied to the deep and superficial layers prior to closure. Deep and supe rficial drains were placed. The wound was closed in layers with #1 Vicryl for fascia, 2-0 Vicryl sutures for subcutaneous superficial closure and 3-0 Stratafix suture for subcuticular superficial closure. Steri-strips and sterile dressings were applied. The patient was then flipped supine, awakened and taken to the recovery room in stable condition. Neuromonitoring was performed throughout the case using EMG and triggered EMG as above. There were no intra-operative complications noted. Sponge and needle counts were correct x2 at the conclusion of the case. I attest to the content of the Intraoperative Record and any orders documented therein. Any exceptions are noted below.
== END 2020-12-21 12:37 | disposition home health service (06) | DRG 454 ==
LOC: ASU 05:49 → 3E 15:27

== ENCOUNTER 2025-06-05 06:33 | Observation (INO) ==
--- NOTE | 2025-05-08 09:35 | PAT Medication Instructions ---
Medication Instructions Date of Service May 08, 2025 Home Medications loratadine 10 mg tablet (Claritin) 10 mg PO DAILY PRN Allergy Symptoms pantoprazole 40 mg tablet,delayed release (Protonix) 40 mg PO DAILY PRN Heartburn acetaminophen 500 mg capsule 500 mg PO HS PRN Pain amoxicillin 500 mg tablet 2,000 mg PO ONCE PRN Dental Procedure ascorbic acid (vitamin C) 500 mg tablet (Vitamin C) 500 mg PO DAILY [id number]-[id number]-[id number] 250 mg-250 mg-65 mg tablet (Excedrin Extra Strength) 1 tab PO DAILY PRN Headaches atorvastatin 20 mg tablet 20 mg PO HS cholecalciferol (vitamin D3) 50 mcg (2,000 unit) capsule (Vitamin D3) 50 mcg PO DAILY clobetasol 0.05 % topical ointment 1 applic topical DAILY epinephrine 0.3 mg/0.3 mL injection, auto-injector (EpiPen) 0.3 mg IM Q4H PRN Anaphylaxis fluorouracil 5 % topical cream 1 applic topical BID PRN UD Dermatology ibuprofen 300 mg tablet 600 mg PO HS PRN Pain losartan 25 mg tablet 25 mg PO QAM Continue as directed epinephrine 0.3 mg/0.3 mL injection, auto-injector (EpiPen) 0.3 mg IM Q4H PRN Anaphylaxis ASK your surgeon for instructions ibuprofen 300 mg tablet 600 mg PO HS PRN Pain zxtgizz-xfeekkgkrnuuf-nlrxscwm 250 mg-250 mg-65 mg tablet (Excedrin Extra Strength) 1 tab PO DAILY PRN Headaches STOP taking 24 hours before surgery clobetasol 0.05 % topical ointment 1 applic topical DAILY fluorouracil 5 % topical cream 1 applic topical BID PRN UD Dermatology DO NOT take the morning of surgery loratadine 10 mg tablet (Claritin) 10 mg PO DAILY PRN Allergy Symptoms ascorbic acid (vitamin C) 500 mg tablet (Vitamin C) 500 mg PO DAILY cholecalciferol (vitamin D3) 50 mcg (2,000 unit) capsule (Vitamin D3) 50 mcg PO DAILY losartan 25 mg tablet 25 mg PO QAM Take morning of surgery With a small sip of water, OTHERWISE NOTHING TO EAT OR DRINK AFTER MIDNIGHT: pantoprazole 40 mg tablet,delayed release (Protonix) 40 mg PO DAILY PRN Heartburn (if needed) Take evening before surgery loratadine 10 mg tablet (Claritin) 10 mg PO DAILY PRN Allergy Symptoms (if needed) pantoprazole 40 mg tablet,delayed release (Protonix) 40 mg PO DAILY PRN Heartburn (if needed) acetaminophen 500 mg capsule 500 mg PO HS PRN Pain (if needed) atorvastatin 20 mg tablet 20 mg PO HS Other Notes If you have any questions please call us at [phone] or [phone] or [phone] or [phone]
--- NOTE | 2025-05-14 11:36 | Anesthesiology Consultation ---
Date of Service May 14, 2025 Assessment & Plan (1) Encounter for pre-operative examination: Chart Review Chart Review: Acceptable Risk for Surgery and Patient seen in Pre Admission Testing Pt currently scheduled as 23 hours observation. If surgeon decides to change patient to Same Day Joint, patient would be acceptable risk for FLOR, pending patient is motivated, has good support and surgeon's office completes Same Day Joint Program preop requirements. Per PAT appt on 05/14/25, no recent illness/disease exposures, illness related symptoms, or recent illness/disease positive tests. Will leave to surgeon's discretion if preop Covid testing needed Posterior L4-5 Decompression and Instrumented Fusion 12/18/20= Done under GA with Grade 3 view with MAC #3. ETT #8.0. Atraumatic. 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 MDA x 1 successful Teaching & Discussion Pre-Anesthesia Teaching/Discussion Notes: Instructed NPO after midnight before surgery,except medications with 15 cc of water. Medication instructions provided according to the PAT guidelines. History Surgery Operation Date: 06/05/25 07:00 Proposed Procedures p Right Total Hip Arthroplasty - Ronald Arreguin MD Height/Weight Height: 5 ft 11 in Weight: 101.9 kg Allergies Allergy/AdvReac Type Severity Reaction Status Date / Time bee venom protein (honey bee) Allergy Severe Anaphylaxis Verified 05/04/25 11:49 Diclopak Allergy Intermediate Mouth sores Verified 04/07/16 15:22 capsaicin AdvReac Intermediate Mouth sores Verified 05/04/25 11:49 diclofenac AdvReac Intermediate Mouth sores Verified 05/04/25 11:49 meloxicam AdvReac Intermediate Mouth sores Verified 05/04/25 11:49 Medications Home Medications Medication Instructions Recorded Confirmed Last Taken loratadine 10 mg tablet (Claritin) 10 mg PO DAILY PRN Allergy Symptoms 12/13/20 05/04/25 12/15/20 pantoprazole 40 mg tablet,delayed 40 mg PO DAILY PRN Heartburn 12/13/20 05/04/25 12/16/20 21:00 release (Protonix) acetaminophen 500 mg capsule 500 mg PO HS PRN Pain 05/04/25 05/04/25 Unknown amoxicillin 500 mg tablet 2,000 mg PO ONCE PRN Dental 05/04/25 05/04/25 Unknown Procedure ascorbic acid (vitamin C) 500 mg 500 mg PO DAILY 05/04/25 05/04/25 Unknown tablet (Vitamin C) eucaxvk-bxbykxxicpfml-sabcxvec 250 1 tab PO DAILY PRN Headaches 05/04/25 05/04/25 Unknown mg-250 mg-65 mg tablet (Excedrin Extra Strength) atorvastatin 20 mg tablet 20 mg PO HS 05/04/25 05/04/25 Unknown cholecalciferol (vitamin D3) 50 50 mcg PO DAILY 05/04/25 05/04/25 Unknown mcg (2,000 unit) capsule (Vitamin D3) clobetasol 0.05 % topical ointment 1 applic topical DAILY 05/04/25 05/04/25 Unknown epinephrine 0.3 mg/0.3 mL 0.3 mg IM Q4H PRN Anaphylaxis 05/04/25 05/04/25 Unknown injection, auto-injector (EpiPen) fluorouracil 5 % topical cream 1 applic topical BID PRN UD 05/04/25 05/04/25 Unknown Dermatology ibuprofen 300 mg tablet 600 mg PO HS PRN Pain 05/04/25 05/04/25 Unknown losartan 25 mg tablet 25 mg PO QAM 05/04/25 05/04/25 Unknown Past Medical History Medical History GERD (gastroesophageal reflux disease) well controlled and stable Hyperlipidemia Hypertension Kidney stones hx Migraine on occasion Nausea and vomiting after administration of anesthetic agent Osteoarthritis PMR (polymyalgia rheumatica) follows with Dr Lucia stable and controlled has weaned off prednisone Precancerous skin lesion Follows with [facility] Psoriasis Follows with [facility] Spinal stenosis of lumbar region Exercise / Class Metabolic Activity II 4-5 Yardwork/Stairs/Walk up hill (one flight of stairs - no chest pain or SOB ) Past Surgical History Surgical History History of ankle surgery Right - hardware present History of bilateral cataract extraction History of bilateral knee replacement History of colonoscopy History of cystoscopy with stent History of lumbar spinal fusion Hardware Present History of tooth extraction History of total left hip arthroplasty Hx of inguinal hernia repair Past Anesthesia History No Hx of Anesthesia Complications (with exception to PONV (improved/controlled with pre and perioperative anti nausea medication) ) and No Family Hx of Anesthesia Complications History of PONV No Hx of Motion Sickness and History of PONV Social History Smoking Status: Former smoker tobacco type: cigarettes Smoking cigarettes per day: 1 pack day x 20 years Do You Dip or Chew Tobacco: No (quit 08/2011 ) Smoking End Date: Hx Alcohol Use: Yes Alcohol type: beer and wine alcohol intake frequency: a few times a month Hx Substance Use: No substance use type: does not use Review of Systems - LEE - only with strenuous activity - feels due to deconditioning- chronic and stable - Hx of snoring - no hx of sleep study Patient denies chest pain, shortness of breath, cough, wheezing, palpitations. No hx of seizures, stroke, RI. No hx of blood clots or blood transfusions Physical Exam Vital Signs VITALS BP 146/77 P 69 TEMP 98.0 SP02 96% RESP 16 Constitutional no acute distress ENMT Mouth: no TMJ clicking Thyromental Distance: > or= 3.5 Finger Breadths (3.5) Mallampati Class: II Missing molars x 2 [place] to molar Neck + short neck and + limited neck extension Respiratory normal respiratory effort; no respiratory distress Auscultation: lungs clear to auscultation bilaterally; no wheezes Cardiovascular Rate/Rhythm: regular rate and regular rhythm Heart Sounds: no murmur Vessels: no carotid bruit Musculoskeletal Spine: + pain with cervical ROM Extremities: extremities normal to inspection Psychiatric Orientation: alert Lab Results Anesthesia Preop Results Results Anesthesia Widget: WBC 4.97 K/ul (4.8-10.8) 05/14/25 Hgb 14.0 g/dl (14.0-18.0) 05/14/25 Hct 41.1 % (42.0-52.0) L 05/14/25 Plt 151 K/uL (130-400) 05/14/25 Na 140 mmol/L (136-145) 05/14/25 K 4.6 mmol/L (3.5-5.1) 05/14/25 Cl 105 mmol/L (98-107) 05/14/25 CO2 28 mmol/L (21-32) 05/14/25 BUN 20 mg/dl (6-23) 05/14/25 Creat 0.89 mg/dl (0.6-1.4) 05/14/25 Glucose Level 89 mg/dl (70-99(Fasting)) 05/14/25 PT 10.7 Seconds (9.0-12.0) 05/14/25 PTT 29 Seconds (21-31) 05/14/25 INR 1.0 (0.9-1.1) 05/14/25 Blood Type O Positive 05/14/25 Antibody Screen NEGATIVE 05/14/25 Testing Electrocardiogram Date: 05/14/25 Findings: + NSR @ (70bpm) RBBB Minimal voltage criteria for LVH, may be normal variant (R in aVL) When compared to EKG from December 20, 2020- vent rate has decreased by 37 bpm, no significant change per cardio Chest X-Ray Date: 05/14/25 Findings: + NAD
--- NOTE | 2025-05-30 17:38 | History & Physical Report ---
Date of Service May 30, 2025 Assessment & Plan (1) Arthritis of right hip: 74-year-old gentleman with a history of left hip replacement and bilateral knee replacements in the past with progressive right hip pain consistent with advanced and progressive hip arthritis. He has failed conservative measures. It is felt that most of his pain is coming from his hip and though undoubtedly he is get some spine disease as well. He like to have his hip fixed. Plan: We are going to take him to the operating do a right total hip replacement. The risks met this procedure were explained. Informed consent was obtained. Will use baby head as possible to maximize his stability due to his previous spine surgery as well which increases his risk for instability. Will take Protonix for GI prophylaxis. Will use aspirin for DVT prophylaxis. He is planned to be discharged to home using [facility]. (2) History of hip replacement: (3) History of bilateral knee replacement: (4) Lumbar spondylosis: (5) Status post spinal surgery: (6) PMR (polymyalgia rheumatica): (7) Hyperlipidemia: History of Present Illness Chief Complaint: . Persistent and progressive increasing right hip pain. Primary Care Provider: Jose Pacheco MD . The patient is a 74-year-old gentleman with a history of orthopedic joint problems in the past. I have replaced his left hip and both of his knees. They have done pretty well over time. Over the past year he has developed increased pain discomfort in his right hip and leg. We did send him to the spine doctor to see if they thought this was coming from the spine. He has extensive imaging which shows progressive right hip arthritis over the past 10 months. He is got near complete loss of his joint space. It was felt that most of the pain was coming from his hip. He is now looking to have his right hip replaced. Very happy with his other joints. Allergies Allergy/AdvReac Type Severity Reaction Status Date / Time bee venom protein (honey bee) Allergy Severe Anaphylaxis Verified 05/04/25 11:49 Diclopak Allergy Intermediate Mouth sores Verified 04/07/16 15:22 capsaicin AdvReac Intermediate Mouth sores Verified 05/04/25 11:49 diclofenac AdvReac Intermediate Mouth sores Verified 05/04/25 11:49 meloxicam AdvReac Intermediate Mouth sores Verified 05/04/25 11:49 Home Medications Medication Instructions Recorded Confirmed Type loratadine 10 mg tablet (Claritin) 10 mg PO DAILY PRN Allergy Symptoms 12/13/20 05/04/25 History pantoprazole 40 mg tablet,delayed 40 mg PO DAILY PRN Heartburn 12/13/20 05/04/25 History release (Protonix) acetaminophen 500 mg capsule 500 mg PO HS PRN Pain 05/04/25 05/04/25 History amoxicillin 500 mg tablet 2,000 mg PO ONCE PRN Dental 05/04/25 05/04/25 History Procedure ascorbic acid (vitamin C) 500 mg 500 mg PO DAILY 05/04/25 05/04/25 History tablet (Vitamin C) [id number]-[id number]-[id number] 250 1 tab PO DAILY PRN Headaches 05/04/25 05/04/25 History mg-250 mg-65 mg tablet (Excedrin Extra Strength) atorvastatin 20 mg tablet 20 mg PO HS 05/04/25 05/04/25 History cholecalciferol (vitamin D3) 50 50 mcg PO DAILY 05/04/25 05/04/25 History mcg (2,000 unit) capsule (Vitamin D3) clobetasol 0.05 % topical ointment 1 applic topical DAILY 05/04/25 05/04/25 History epinephrine 0.3 mg/0.3 mL 0.3 mg IM Q4H PRN Anaphylaxis 05/04/25 05/04/25 History injection, auto-injector (EpiPen) fluorouracil 5 % topical cream 1 applic topical BID PRN UD 05/04/25 05/04/25 History Dermatology ibuprofen 300 mg tablet 600 mg PO HS PRN Pain 05/04/25 05/04/25 History losartan 25 mg tablet 25 mg PO QAM 05/04/25 05/04/25 History Past Med/Surg History Problem List Encounter for pre-operative examination Arthritis of right hip PMR (polymyalgia rheumatica) Tachycardia Status post spinal surgery Hyperlipidemia Neurogenic claudication Low back pain Spinal stenosis, lumbar Spondylolisthesis, lumbar region History of hip replacement left History of bilateral knee replacement Lumbar spondylosis Degenerative joint disease, right, ankle Medical History Hyperlipidemia Hypertension PMR (polymyalgia rheumatica) follows with Dr Lucia stable and controlled has weaned off prednisone Psoriasis Follows with [facility] Precancerous skin lesion Follows with [facility] Nausea and vomiting after administration of anesthetic agent Osteoarthritis Kidney stones hx GERD (gastroesophageal reflux disease) well controlled and stable Migraine on occasion Spinal stenosis of lumbar region Surgical History History of lumbar spinal fusion Hardware Present History of ankle surgery Right - hardware present History of total left hip arthroplasty History of bilateral cataract extraction History of bilateral knee replacement History of colonoscopy Hx of inguinal hernia repair History of cystoscopy with stent History of tooth extraction Social History Smoking Status: Former smoker Cigarettes Per Day: 1 pack day x 20 years; Second Hand Exposure: No; Do You Dip or Chew Tobacco: No (quit 08/2011 ); Hx Alcohol Use: Yes Alcohol type: beer and wine Hx Substance Use: No Preferred Language: Martiniquais Communication Ability: Effective 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 Physical Exam . Physical examination is a pleasant middle-age male. Looks in pretty good health. His HEENT exam is benign. Neck supple no lymphadenopathy. Lungs are clear to auscultation. Heart has a regular rate and rhythm. Abdomen is soft nontender nondistended extremity Emge grossly neuro vas intact as follows. Examination of right hip and leg reveal patient walks with a slight bit of a limp. He is about a half a centimeter shorter on the right compared to the l eft. He does have pain and stiffness with hip internal rotation Stickley. No knee effusion. Well-healed knee incision. He is neurologically intact. Constitutional WD/WN, vitals as above Neck trachea midline, no thyromegaly Respiratory normal respiratory effort, lungs clear to auscultation Cardiovascular RRR, no murmur, no edema Gastrointestinal (Abdomen) normal bowel sounds, soft, nontender, no hepatosplenomegaly Results & Data Results & Data Laboratory Results . Diagnostic Findings . X-rays of the hip were reviewed. It shows advanced right hip arthritis. He does have symptoms sequential films over the past year which show progression of the hip arthritis. Got near complete loss of the joint space. Mild lateral osteophyte formation. He does have a left hip replacement in place. PG Care Time/CCT Total # of Minutes Spent Total Time Spent with Patient: Total time spent is greater than 50% in coordination of care (as documented) at patient's floor/unit and/or counseling patient: Coding Level of Care Code None Diagnoses Arthritis of right hip M16.11 History of hip replacement Z96.649 History of bilateral knee replacement Z96.653 Lumbar spondylosis M47.816 Status post spinal surgery Z98.890 PMR (polymyalgia rheumatica) M35.3 Hyperlipidemia E78.5
[~2025-06-05 06:33] MED LIST: CeleBREX 200 MG CAP PO SCH
--- NOTE | 2025-06-05 06:44 | History & Physical Bridge Note ---
Date of Service June 05, 2025 History & Physical Bridge Note I have examined the patient, reviewed the History & Physical and in the interval since the performance of the History & Physical I have noted the following changes of clinical significance: no changes noted
[2025-06-05] MEDS ORDERED: BUPIVACAINE 0.5 % 5 MG/1 ML PF 10ML VIAL ONE (07:07)
[2025-06-05] MEDS ORDERED: PROPOFOL IV EMULSION 10 MG/ML 20 ML VIAL IV ONE (07:33)
[2025-06-05] MEDS ORDERED: LIDOCAINE 2% 2 ML VIAL/AMP(20MG/ML) INFIL ONE (07:33)
[2025-06-05] MEDS: dexAMETHasone**PF** 10 MG/ML VIAL IV SCH (07:34)
[2025-06-05] MEDS: ACETAMINOPHEN 500 MG TAB PO SCH ×2 (07:34→16:23)
[2025-06-05] MEDS: METOCLOPRAMIDE HCL 10 MG TABLET PO SCH (07:34)
[2025-06-05] MEDS: FAMOTIDINE 20 MG TAB PO SCH (07:34)
[2025-06-05] MEDS ORDERED: MIDAZOLAM HCL 1 MG/ML 2ML VIAL ONE (07:34)
[2025-06-05] MEDS: LR 60ML/HR IV SCH (07:34)
[2025-06-05] MEDS ORDERED: ONDANSETRON INJ 2 MG/ML 2 ML VIAL IV PRN ×2 (08:06→13:43)
[2025-06-05] MEDS ORDERED: PROMETHAZINE HCL 6.25 MG in SODIUM CHLORIDE 0.9% 50 ML IV PRN (08:06)
[2025-06-05] MEDS ORDERED: ATROPINE SULFATE 0.1 MG/ML 10ML SYR IV PRN (08:06)
[2025-06-05] MEDS: TRANEXAMIC ACID 1,000 MG **IV Pre-op IV SCH (08:50)
[2025-06-05] MEDS ORDERED: ePHEDrine sulfate 50 MG/5 ML SYR ONE (09:45)
[2025-06-05] MEDS ORDERED: PHENYLEPHRINE HCL 10 MG/ML VIAL ONE (09:45)
[2025-06-05] MEDS ORDERED: PHENYLEPHRINE 100MCG/ML 5ML SYR ONE (09:45)
[2025-06-05] MEDS: BUPIVACAINE/EPINEPHRINE 0.5% MPF 1:200,000 30 ML VIAL ONE (09:50)
[2025-06-05] MEDS ORDERED: METOPROLOL TARTRATE 1 MG/ML VIAL IV ONE ×3 (10:21→10:22)
[2025-06-05] MEDS ORDERED: ESMOLOL HCL INJ 10 MG/ML 10ML VIAL IV ONE (10:21)
--- NOTE | 2025-06-05 10:58 | Operative Report ---
"PG Post Operative Report Pre & Post Diagnosis Operation Date: 06/05/25 08:50 Pre-Op Diagnosis: Right Hip Osteoarthritis Post-Op Diagnosis: Right Hip Osteoarthritis I identified the patient and participated in the time-out.: Yes Procedure Operation Date: 06/05/25 08:50 Actual Procedures p Right Total Hip Arthroplasty(Right) - Ronald Arreguin MD Surgeon Ronald Arreguin MD Securities Consultant Madhav Zavala PA-C Estimated Blood Loss 200 Findings Consistent with Post-Op Diagnosis Operative findings were advanced right hip arthritis. He had significant joint effusion. 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 Not a lot of osteophyte formation. Specimens Right femoral head sent for pathology. Anesthesia Type Spinal MAC Complications none Disposition Accompanied Patient To Recovery: No Indications The patient is a 74-year-old gentleman with a history of multiple orthopedic joint problems and multiple joint replacements. Over the past several years she has developed increased pain discomfort in the right leg and hip. He has gone undergone extensive evaluation by the spine doctors as well as the orthopedic surgeons. It was felt that most of this pain was coming from his hip. He did show progressive hip arthritis on x-ray over the past year. He elected proceed with a right total hip arthroplasty. Description of Procedure Operative implants consist of: 1. Biomet G7 size 54 mm acetabular shell. 2. 6.5 cancellous acetabular screws 1 of 35 mm in length and 130 mm length. 3. Sidney hole registered nurse fetal. 4. Highly cross-linked polyethylene liner with a 54 mm outer diameter and a 40 mm inner diameter. 5. DePuy Karaya I size 13 KLA femoral stem. 6. +5/40 mm ceramic articular ball. The patient was taken to the operating room and placed on the operating table in the supine position. All contact areas were appropriately padded. IV antibiotics were provided by the anesthesia team. A spinal anesthetic had been implemented holding area. The patient was then placed in the left lateral decubitus position. An axillary roll was placed. A stool Birkett position was used for positioning. The right hip and leg were then prepped and draped in the usual sterile fashion. A posterolateral approach of the right hip was then performed to a curvilinear incision centered over the greater trochanter. Sharp dissection was Through subcutaneous tissue down to level the IT band gluteal fascia. The IT band gluteal fascia then incised longitudinally in line with skin incision. The underlying greater bursa was excised. The piriformis and external rotators along with the posterior hip joint capsule were then released in the posterior aspect of the hip as a single layer. The hip was internally rotated and dislocated. A femoral neck osteotomy cut was made with Final Cut about 15 mm above the lesser trochanter. Femoral head was removed and sent for pathology. The femur was retracted anteriorly. Attention then drawn the acetabulum. The acetabular labrum was excised. The Pulvinal fat was excised. Sequential reaming of the acetabulum was then performed again with a size 45 and progressing up to 53. I reamed a little bit with a 54 reamer and then placed a 54 mm Biomet cup and about 40 degrees lateral opening and 20 degrees of anteversion. I tried to put a little more anteversion in the cup due to his prior spine fusion. The cup was then secured with 2 screws. A trial liner was placed. Attention then drawn the femur. The proximal femur was entered with a cookie cutter followed by canal finder. I then broached again the size 8 and progressing up to 13. The 13 provide excellent fit. Calcar reamer was used smoothed off the calcar. Trialed the hip and the +5 | provided appropriate soft tissue tensioning and equal leg lengths and excellent stability. We elected place these implants. I did elect to placed a 40 mm head in order to maximize his stability due to his history of spine fusion and therefore increased risk for instability. All trial implants were removed. An apex hole registered nurse fetal was placed. Highly cross-linked polyethylene liner was placed. A size 13 KLA femoral stem was impacted in position. A +5/40 mm ceramic articular ball was placed. Hip was located and once again found to be stable. Attention drawn toward closing. The wound was irrigated cosigns pulsatile lavage solution. I did inject locally with 60 cc of half percent Marcaine with epinephrine. The posterior capsule and external rotators then repaired through drill holes in the posterior trochanter with #2 Tycron suture. The IT band gluteal fascia then closed in 1 PDS suture in a running fashion. Subcutaneous tissue was then closed in 2 layers the deep layer with #1 Vicryl suture in the subcutaneous tissues with 2-0 Dexon suture in a buried interrupted fashion. Skin was then closed with skin reinaldo. Leg was then cleaned and dried and a sterile dressing with Xeroform, 4 fours, sterile ABD pad and foam tape was applied. Patient then transferred to the recovery room in stable condition. Patient tolerated procedure well and there were no complications. Of note, the patient did apparently go into atrial fibrillation for a brief period during the operative intervention. The anesthesia team recognizes quickly and provided some medicine to correct that and noted he went back into sinus rhythm. I attest to the content of the Intraoperative Record and any orders documented therein. Any exceptions are noted below."
--- NOTE | 2025-06-05 11:19 | Communication Note ---
Date of Service: June 05, 2025 Intraoperative event: Patient spontaneously spiked HR 130-150, irregular. Slowing rate with esmolol showed a rhythm strip consistent with AFib/Aflut (d ifficult to differentiate because of surgical manipulation to baseline). After 5-10 minutes, the patient spontaneously converted to sinus rhythm. He then reverted to AFib+RVR which was rate controlled by metoprolol. The anesthetic was lightenened and the patient denied shortness of breath, chest pain, or palpitations. By the end of the case, the patient had again spontaneously converted to sinus rhythm in the 80s and remained hemodynamically stable. As he does not have a history of arrhythmias, we will send him to telemetry floor to catch any further arrhythmias and consult cardiology for evaluation prior to discharge.
--- NOTE | 2025-06-05 11:51 | XRay Report ---
XR hip 1V RT w pelvis CLINICAL HISTORY: IN PACU - Post Surgical COMPARISON: 04/20/2019 FINDINGS: Bilateral hip prostheses show no hardware complication. There is expected soft tissue gas on the right. Skin reinaldo are present laterally on the right. IMPRESSION: Unremarkable postoperative exam. ACT 112: Negative or not required by law. Electronically signed by: Scott Brito M.D. 06/05/2025 11:50 AM
--- NOTE | 2025-06-05 13:25 | Electrocardiogram Report ---
Test Reason : Blood Pressure : */* mmHG Vent. Rate : 84 BPM Atrial Rate : 84 BPM P-R Int : 198 ms QRS Dur : 156 ms QT Int : 440 ms P-R-T Axes : 41 -12 -5 degrees QTcB Int : 519 ms Normal sinus rhythm Right bundle branch block Minimal voltage criteria for LVH, may be normal variant ( R in aVL ) Abnormal ECG When compared with ECG of 14-May-2025 11:53, Nonspecific T wave abnormality now evident in Anterolateral leads Confirmed by Prashant Dacosta ([id number]) on 06/05/2025 1:25:26 PM Referred By: Ronald Arreguin Confirmed By: Prashant Dacosta
--- NOTE | 2025-06-05 13:34 | Anesthesiology Progress Note ---
Date of Service June 05, 2025 Anesthesia Post Procedure Vital Signs Vital Signs: Temp Pulse Resp BP Pulse Ox O2 Del Method O2 Flow Rate 06/05/25 13:25 82 15 116/75 96 Room Air 06/05/25 13:10 83 18 103/70 96 Room Air 06/05/25 12:55 36.4 C L 81 16 101/71 96 Room Air 06/05/25 12:45 84 22 112/71 96 Room Air 06/05/25 12:35 80 15 92/65 L 95 Room Air 06/05/25 12:25 81 19 107/69 96 Room Air 06/05/25 12:15 82 19 112/70 94 Room Air 06/05/25 12:05 81 19 107/72 95 Room Air 06/05/25 11:55 84 16 92/63 L 95 Room Air 06/05/25 11:45 83 21 100/61 94 Room Air 06/05/25 11:35 83 23 89/56 L 94 Room Air 06/05/25 11:25 83 25 H 94/65 L 94 Room Air 06/05/25 11:15 83 17 92/58 L 94 Room Air 06/05/25 11:05 83 20 95/64 L 94 Room Air 06/05/25 10:55 83 15 109/63 95 Oxymask 2 06/05/25 10:49 36.1 C L 85 19 90/58 L 96 Oxymask 4 06/05/25 06:40 36.8 C 104 H 18 138/87 98 Room Air Pain Intensity Right Hip: Pain Intensity: 4 Transfer of Care Handoff Completed per policy Notes Mental Status: alert / awake / arousable Patient Amnestic to Procedure: Yes Nausea / Vomiting: adequately controlled Pain: adequately controlled Airway Patency, RR, SpO2: stable & adequate BP & HR: stable & adequate Hydration State: stable & adequate Neuraxial Anesthesia: was administered and sensory block is resolving Anesthetic Complications: no major complications apparent and Pt Satisfied with anesthetic care Notes: new onset afib/aflutter with rvr seen intraoperatively. now in sinus rhythm in pacu after spontaneous conversion. patient to med-telemetry floor. Please see supplemental communication note for further details.
[2025-06-05] MEDS ORDERED: METOCLOPRAMIDE HCL INJ 5 MG/ML 2 ML VIAL IV PRN (13:43)
[2025-06-05] MEDS ORDERED: FLUOROURACIL TOP CR 5% 40 GM TUBE EXT PRN (13:43)
[2025-06-05] MEDS ORDERED: NALOXONE HCL 0.4 MG/1 ML VIAL/CARP IV PRN (13:43)
[2025-06-05] MEDS ORDERED: ALUMINUM/MAGNESIUM SUSP 30 ML UDC PO PRN (13:43)
[2025-06-05] MEDS ORDERED: HYDROmorphone INJ 0.5 MG/0.5 ML SYR IV PRN (13:43)
[2025-06-05] MEDS ORDERED: MAGNESIUM HYDROXIDE SUSP 30 ML UDC PO PRN (13:43)
[2025-06-05] MEDS ORDERED: LORATADINE 10 MG TAB PO PRN (13:43)
[2025-06-05] MEDS ORDERED: ACETAMINOPHEN 500 MG TAB PO SCH (14:00)
--- NOTE | 2025-06-05 14:33 | Cardiology Consultation ---
Date of Consultation June 05, 2025 Assessment & Plan (1) New onset atrial flutter: (2) Arthritis of right hip: (3) Hyperlipidemia: Plan 74-year-old male with only cardiac concern previously noted was right bundle branch block on routine EKG who presented underwent routine right hip replacement. Intraoperatively noted to have intermittent atrial flutter responsive to beta-martina therapy. Postoperatively asymptomatic is once again lapsed into atrial flutter with 3-1 conduction rate approximately 110 bpm. Issues addressed as follows 1. New onset atrial flutter, typical. Paroxysmal: EKG performed. Will initiate oral beta-martina with metoprolol succinate 25 mg initially once daily first dose today Lab work ordered BMP TSH magnesium level Echocardiogram order placed assess structural heart Discussed implications in detail with patient and including options of therapy as above as well as indications for anticoagulation, antiarrhythmic therapy, flutter ablation. Will plan on initiating full anticoagulation in a.m. if no bleeding issues with Eliquis 5 mg twice per day History of Present Illness Reason for Consultation: Atrial flutter, paroxysmal Requesting Physician: Dr. Arreguin Attending Physician: Ronald Arreguin MD History of Present Illness Patient is a 74-year-old male without prior history of cardiac disease with longstanding arthritic and orthopedic issues who presented for routine right hip replacement. Intraoperatively was noted to have transient atrial flutter treated with metoprolol with rate control. He spontaneously converted before case was completed and remained so in the PACU On transfer to telemetry floor was found to be in atrial flutter with controlled ventricular response rate 3-1 conduction asymptomatically. No prior history of arrhythmia or significant conduction abnormality other than right bundle branch block routinely on EKG Patient without prior history of heart disease, heart murmur, angina or myocardial infarction. No sense of tachypalpitations other than rare episode of heart pounding harder when climbing stairs. No fevers chills unexplained infections. No bleeding difficulties. No history of diabetes mellitus renal or hepatic disease. No prior history of TIA or stroke Allergies Allergy/AdvReac Type Severity Reaction Status Date / Time bee venom protein (honey bee) Allergy Severe Anaphylaxis Verified 06/05/25 06:44 Diclopak Allergy Intermediate Mouth sores Verified 04/07/16 15:22 capsaicin AdvReac Intermediate Mouth sores Verified 06/05/25 06:44 diclofenac AdvReac Intermediate Mouth sores Verified 06/05/25 06:44 meloxicam AdvReac Intermediate Mouth sores Verified 06/05/25 06:44 Home Medications Medication Instructions Recorded Confirmed Type loratadine 10 mg tablet (Claritin) 10 mg PO DAILY PRN Allergy Symptoms 12/13/20 06/05/25 History pantoprazole 40 mg tablet,delayed 40 mg PO DAILY PRN Heartburn 12/13/20 06/05/25 History release (Protonix) acetaminophen 500 mg capsule 500 mg PO HS PRN Pain 05/04/25 06/05/25 History amoxicillin 500 mg tablet 2,000 mg PO ONCE PRN Dental 05/04/25 06/05/25 History Procedure ascorbic acid (vitamin C) 500 mg 500 mg PO DAILY 05/04/25 06/05/25 History tablet (Vitamin C) uagboca-xiwizqblirgqn-bqycojbj 250 1 tab PO DAILY PRN Headaches 05/04/25 06/05/25 History mg-250 mg-65 mg tablet (Excedrin Extra Strength) atorvastatin 20 mg tablet 20 mg PO HS 05/04/25 06/05/25 History cholecalciferol (vitamin D3) 50 50 mcg PO DAILY 05/04/25 06/05/25 History mcg (2,000 unit) capsule (Vitamin D3) clobetasol 0.05 % topical ointment 1 applic topical DAILY 05/04/25 06/05/25 History epinephrine 0.3 mg/0.3 mL 0.3 mg IM Q4H PRN Anaphylaxis 05/04/25 06/05/25 History injection, auto-injector (EpiPen) fluorouracil 5 % topical cream 1 applic topical BID PRN UD 05/04/25 06/05/25 History Dermatology ibuprofen 300 mg tablet 600 mg PO HS PRN Pain 05/04/25 06/05/25 History losartan 25 mg tablet 25 mg PO QAM 05/04/25 06/05/25 History acetaminophen 500 mg tablet 1,000 mg (2 x 500 mg) PO TID pain 06/01/25 06/05/25 Rx (Tylenol Extra Strength) 30 days #180 tabs aspirin 81 mg tablet,delayed 81 mg PO BID 45 days #90 tabs 06/01/25 06/05/25 Rx release (Berto Low Dose Aspirin) cefadroxil 500 mg capsule 500 mg PO BID 7 days #14 caps 06/01/25 06/05/25 Rx ketorolac 10 mg tablet 10 mg PO Q6 pain 5 days #20 tabs 06/01/25 06/05/25 Rx ondansetron 4 mg disintegrating 4 mg PO Q8 PRN nausea #20 tabs 06/01/25 06/05/25 Rx tablet sennosides 8.6 mg tablet (Senokot) 8.6 mg PO BID prevent constipation 06/01/25 06/05/25 Rx 14 days #28 tabs tamsulosin 0.4 mg capsule (Flomax) 0.4 mg PO DAILY #7 caps 06/01/25 06/05/25 Rx tramadol 50 mg tablet 50 - 100 mg (1 - 2 x 50 mg) PO Q6 06/01/25 06/05/25 Rx PRN pain #40 tabs Patient History Medical History Hyperlipidemia Hypertension PMR (polymyalgia rheumatica) follows with Dr Lucia stable and controlled has weaned off prednisone Psoriasis Follows with [facility] Precancerous skin lesion Follows with [facility] Nausea and vomiting after administration of anesthetic agent Osteoarthritis Kidney stones hx GERD (gastroesophageal reflux disease) well controlled and stable Migraine on occasion Spinal stenosis of lumbar region Surgical History History of lumbar spinal fusion Hardware Present History of ankle surgery Right - hardware present History of total left hip arthroplasty History of bilateral cataract extraction History of bilateral knee replacement History of colonoscopy Hx of inguinal hernia repair History of cystoscopy with stent History of tooth extraction Social History Smoking Status: Former smoker Cigarettes Per Day: 1 pack day x 20 years; Smoking End Date: ; Second Hand Exposure: No; Do You Dip or Chew Tobacco: No (quit 08/2011 ); Tobacco Cessation Education Requested by Patient: No Hx Alcohol Use: Yes Alcohol type: beer Hx Substance Use: No Preferred Language: Irish Communication Ability: Effective Telemetry Tech Required: No Beliefs That Will Affect Care: None marital status: Current Living Situation: Spouse current occupational status: retired Other Information That Helps Us Care for You: No Feels Safe at Home: Yes Safety Concerns: Feels Safe At This Time Assistive Devices: Glasses and Other Assistive Devices Comment: x1 Dental Carl Review of Systems Review of Systems: All systems reviewed & are unremarkable except as noted in HPI & below Physical Exam Constitutional: WD/WN, vitals as above Eyes: PERRL, conjunctivae normal, anicteric sclerae ENMT: external ear and nose normal, oropharynx normal Neck: trachea midline, no thyromegaly Cardiovascular: Rate/Rhythm: regular rate (Irregular rhythm) and + tachycardic Heart Sounds: normal S1 and normal S2 Vessels: no JVD Extremities: no edema Gastrointestinal (Abdomen): normal bowel sounds, soft, nontender, no hepatosplenomegaly Musculoskeletal: no cyanosis or clubbing, extremities motor strength 5/5 Results & Data Vital Signs (Past 12 Hours) Vital Signs Temp Pulse Resp BP Pulse Ox O2 Del Method O2 Flow Rate 06/05/25 13:45 36.3 C L 84 16 118/74 96 Room Air 06/05/25 13:25 82 15 116/75 96 Room Air 06/05/25 13:10 83 18 103/70 96 Room Air 06/05/25 12:55 36.4 C L 81 16 101/71 96 Room Air 06/05/25 12:45 84 22 112/71 96 Room Air 06/05/25 12:35 80 15 92/65 L 95 Room Air 06/05/25 12:25 81 19 107/69 96 Room Air 06/05/25 12:15 82 19 112/70 94 Room Air 06/05/25 12:05 81 19 107/72 95 Room Air 06/05/25 11:55 84 16 92/63 L 95 Room Air 06/05/25 11:45 83 21 100/61 94 Room Air 06/05/25 11:35 83 23 89/56 L 94 Room Air 06/05/25 11:25 83 25 H 94/65 L 94 Room Air 06/05/25 11:15 83 17 92/58 L 94 Room Air 06/05/25 11:05 83 20 95/64 L 94 Room Air 06/05/25 10:55 83 15 109/63 95 Oxymask 2 06/05/25 10:49 36.1 C L 85 19 90/58 L 96 Oxymask 4 06/05/25 06:40 36.8 C 104 H 18 138/87 98 Room Air PG Care Time/CCT Total # of Minutes Spent Total Time Spent with Patient: Total time spent is greater than 50% in coordination of care (as documented) at patient's floor/unit and/or counseling patient: Coding Level of Care Code 90661 IN/OBS CONSULT LVL 4,60M Diagnoses New onset atrial flutter I48.92 Arthritis of right hip M16.11 Hyperlipidemia E78.5
[2025-06-05] MEDS: PERFLUTREN LIPID MICROSPHERE (DEFINITY) IV ONE (15:16)
[2025-06-05] MEDS: TRANEXAMIC ACID / 0.7% NACL 1,000 MG/100 ML BAG IV SCH (16:23)
[2025-06-05] MEDS: SODIUM CHLORIDE 0.9% 1,000 ML IV SCH (16:23)
--- NOTE | 2025-06-05 16:23 | XCELERA ---
[id number] [id number]
[2025-06-05] MEDS: ASCORBIC ACID 500 MG TAB PO SCH (16:56)
[2025-06-05] MEDS: METOPROLOL SUCC 25MG EXT REL TAB PO SCH (16:56)
[2025-06-05 17:33] LABS: Anion Gap 9.0 (3-11); Blood Urea Nitrogen 19.0 mg/dl (6-23); Calcium 9.1 mg/dl (8.6-10.3); Carbon Dioxide 22.0 mmol/L (21-32); Chloride 109.0 mmol/L (98-107); Creatinine Clr Calc Pharmacy 79.0 ml/min; Glucose 221.0 mg/dl (70-99(Fasting)); Magnesium 1.9 mg/dl (1.7-2.4); Potassium 4.1 mmol/L (3.5-5.1); Sodium 140.0 mmol/L (136-145)
[2025-06-05 17:42] LABS: Thyroid Stimulating Hormone 0.616 uIu/ml (0.300-4.500)
[2025-06-05] MEDS: ATORVASTATIN 20 MG TAB PO SCH (20:56)
[2025-06-05] MEDS: SENNA 8.6 MG TAB PO SCH (20:59)
[2025-06-05] MEDS: DOCUSATE SODIUM 100 MG CAP PO SCH (20:59)
[2025-06-05] MEDS ORDERED: SENNA 8.6 MG TAB PO SCH (21:00)
[2025-06-05] MEDS: KETOROLAC TROMETHAMINE 15 MG/ML VIAL IV SCH (21:03)
[2025-06-05] MEDS: ASPIRIN 81 MG ECTAB PO SCH (21:07)
[2025-06-06 07:20] VITALS: RESP 18; TEMP 97.9; O2SAT 95
[2025-06-06 07:27] LABS: Hematocrit (blood only) 33.7 % (42.0-52.0); Hemoglobin 11.8 g/dl (14.0-18.0); Immature Granulocytes # (auto) 0.06 K/uL (0.01-0.20); Immature Granulocytes % (auto) 0.5 %; Mean Corpuscular Hemoglobin 33.8 pg (25.0-34.0); Mean Corpuscular Volume 96.6 fL (80.0-100.0); Platelet Count 130 K/uL (130-400); RDW Standard Deviation 44.5 fL (36.4-46.3); Red Blood Count 3.49 M/uL (4.70-6.10); White Blood Count 12.12 K/ul (4.8-10.8)
[2025-06-06 08:06] LABS: Anion Gap 6.0 (3-11); Blood Urea Nitrogen 22.0 mg/dl (6-23); Calcium 8.7 mg/dl (8.6-10.3); Carbon Dioxide 24.0 mmol/L (21-32); Chloride 111.0 mmol/L (98-107); Creatinine Clr Calc Pharmacy 83.3 ml/min; Glucose 112.0 mg/dl (70-99(Fasting)); Potassium 4.2 mmol/L (3.5-5.1); Sodium 141.0 mmol/L (136-145)
[2025-06-06] MEDS: LOSARTAN POTASSIUM 25 MG TAB PO SCH (08:20)
[2025-06-06] MEDS: dexAMETHasone 10 MG in SYRINGE 0 ML IV SCH (08:20)
[2025-06-06] MEDS: MULTIVITAMIN TAB PO SCH (08:20)
[2025-06-06] MEDS: CHOLECALCIFEROL 25 MCG (1000 UNITS) TAB PO SCH (08:20)
[2025-06-06] MEDS: TAMSULOSIN HCL 0.4 MG CAP PO SCH (08:20)
[2025-06-06] MEDS: CLOBETASOL PROPIONATE 0.05% OINT 15 GM TUBE EXT SCH (08:20)
[2025-06-06] MEDS ORDERED: ASCORBIC ACID 500 MG TAB PO SCH (09:00)
--- NOTE | 2025-06-06 09:07 | Orthopedic Progress Note ---
Date of Service June 06, 2025 Assessment & Plan (1) S/P total right hip arthroplasty: * Continue Current Treatment * Disposition: Home * Daily treatment: Physical Therapy/ Occupational Therapy per protocol * Weight bearing status: WBAT, hip or cautions * Continue to monitor for ABLA * Pain control * DVT prophylaxis * Office/hospital f/u 2 weeks for progress check and staple/suture removal * Plan for discharge today pending PT/OT clearance, cardiology clearance (2) New onset atrial flutter: * Appreciate cardiology evaluation and treatment recommendations * Okay to initiate Eliquis from Ortho standpoint Subjective .Active Problems: S/p right FLOR POD 1 74y/o male s/p right FLOR. Doing well overall, pain managed and improved function. New onset A-fib noted during procedure, cardiology evaluation appreciated. Denies fever/chills, chest pain/SOB, nausea/vomiting. Otherwise no complaints. Review of Systems All systems reviewed & are unremarkable except as noted in HPI & below. Physical Exam . * General: Alert and oriented, no acute distress * Constitutional: well-developed, well-nourished. * Respiratory: Normal respiratory effort, no distress * Gastrointestinal: No tenderness to palpation, no rigidity or guarding. * Skin: No rash or lesion. * Neurologic: Grossly normal * Musculoskeletal: Right hip surgical dressing CDI, not removed for exam. Otherwise no obvious deformity or overlying skin changes. Diffuse TTP proximal thigh and hip region. Otherwise no specific tenderness of distal thigh, lower leg, foot/ankle. AROM hip flexion intact. AROM foot/ankle intact. Sensation intact plantar/dorsal foot. Brisk capillary refill. Results & Data Results & Data Laboratory Results . Diagnostic Findings . Hip/Pelvis X-Ray 06/05/25 10:50 XR hip 1V RT w pelvis CLINICAL HISTORY: IN PACU - Post Surgical COMPARISON: 04/20/2019 FINDINGS: Bilateral hip prostheses show no hardware complication. There is expected soft tissue gas on the right. Skin reinaldo are present laterally on the right. IMPRESSION: Unremarkable postoperative exam. ACT 112: Negative or not required by law. Electronically signed by: Scott Brito M.D. 06/05/2025 11:50 AM PG Care Time/CCT Total # of Minutes Spent Total Time Spent with Patient: Total time spent is greater than 50% in coordination of care (as documented) at patient's floor/unit and/or counseling patient: Coding Level of Care Code 19791 Post Operative Follow-Up Diagnoses S/P total right hip arthroplasty Z96.641 New onset atrial flutter I48.92
[2025-06-06 10:09] VITALS: BP 126/76; PULSE 83
--- NOTE | 2025-06-06 10:33 | Cardiology Progress Note ---
Date of Service June 06, 2025 Assessment & Plan (1) New onset atrial flutter: (2) Arthritis of right hip: (3) Hyperlipidemia: Plan 74-year-old male with only cardiac concern previously noted was right bundle branch block on routine EKG who presented underwent routine right hip replacement. Intraoperatively noted to have intermittent atrial flutter responsive to beta-martina therapy. Postoperatively asymptomatic is once again lapsed into atrial flutter with 3-1 conduction rate approximately 110 bpm. Issues addressed as follows 1. New onset atrial flutter, typical. Paroxysmal: EKG performed. Will initiate oral beta-martina with metoprolol succinate 25 mg initially once daily first dose today Lab work ordered BMP TSH magnesium level Echocardiogram order placed assess structural heart Discussed implications in detail with patient and including options of therapy as above as well as indications for anticoagulation, antiarrhythmic therapy, flutter ablation. Will plan on initiating full anticoagulation in a.m. if no bleeding issues with Eliquis 5 mg twice per day 06/06/2025 Patient doing well today converted to sinus rhythm from atrial flutter yesterday afternoon issues addressed as follows 1. New onset/paroxysmal atrial flutter Plan continue metoprolol succinate 25 mg daily Indications for anticoagulation discussed with patient we will prescribe Eliquis 5 mg twice per day Aspirin may be discontinued Pharmacy discount card forwarded to [facility] [place] w Will see patient on return in the next 3 to 4 weeks time 2. Hypertension continue losartan in addition to above changes Admission and Anticipated Discharge Date Admission Date: June 05, 2025 Subjective Patient was seen and personally examined, chart, medications, telemetry reviewed Feels well this morning Surgical incision healing Converted from atrial flutter to sinus rhythm yesterday evening. No further arrhythmias. Physical Exam Constitutional: WD/WN, vitals as above Eyes: PERRL, conjunctivae normal, anicteric sclerae ENMT: external ear and nose normal, oropharynx normal Neck: trachea midline, no thyromegaly Cardiovascular: Rate/Rhythm: regular rate (Irregular rhythm) and + tachycardic Heart Sounds: normal S1 and normal S2 Vessels: no JVD Extremities: no edema Gastrointestinal (Abdomen): normal bowel sounds, soft, nontender, no hepatosplenomegaly Musculoskeletal: no cyanosis or clubbing, extremities motor strength 5/5 Results & Data Vital Signs (Past 12 Hours) Vital Signs Temp Pulse Pulse Pulse Resp BP BP 11/05/25 10:00 36.6 C 83 84 18 137/80 126/76 06/06/25 07:19 36.6 C 84 18 137/80 06/06/25 06:45 87 06/06/25 03:42 36.5 C 83 20 125/72 06/06/25 00:04 36.6 C 58 L 18 126/76 Pulse Ox O2 Del Method 06/06/25 10:00 95 06/06/25 07:19 95 Room Air 06/06/25 06:45 06/06/25 03:42 93 Room Air 06/06/25 00:04 93 Room Air PG Care Time/CCT Total # of Minutes Spent Total Time Spent with Patient: Total time spent is greater than 50% in coordination of care (as documented) at patient's floor/unit and/or counseling patient: Coding Level of Care Code 18128 SUB INP/OBS CARE 3/50MIN Diagnoses New onset atrial flutter I48.92 Arthritis of right hip M16.11 Hyperlipidemia E78.5 Time Spent (min) 60
--- NOTE | 2025-06-06 12:31 | Electrocardiogram Report ---
Test Reason : Blood Pressure : */* mmHG Vent. Rate : 109 BPM Atrial Rate : 277 BPM P-R Int : * ms QRS Dur : 160 ms QT Int : 370 ms P-R-T Axes : * -11 -13 degrees QTcB Int : 498 ms Atrial flutter with variable A-V block with premature ventricular or aberrantly conducted complexes Right bundle branch block Minimal voltage criteria for LVH, may be normal variant ( R in aVL ) Abnormal ECG When compared with ECG of 05-Jun-2025 10:55, Atrial flutter has replaced Sinus rhythm T wave inversion now evident in Anterior leads Confirmed by Prashant Dacosta ([id number]) on 06/06/2025 12:31:24 PM Referred By: Ronald Arreguin Confirmed By: Prashant Dacosta
[2025-06-06] MEDS ORDERED: APIXABAN 5 MG TABLET PO SCH (21:00)
== END 2025-06-06 14:33 | disposition home health service (06) ==
LOC: 2N 06:33 → ASU 06:33

== ENCOUNTER 2025-06-08 19:47 | Inpatient (IN) ==
[2025-06-08] MEDS: SODIUM CHLORIDE 0.9% 1,000 ML IV ONE ×2 (20:00→20:53)
[2025-06-08 20:31] LABS: Hematocrit (blood only) 37.6 % (42.0-52.0); Hemoglobin 13.3 g/dl (14.0-18.0); Immature Granulocytes # (auto) 0.03 K/uL (0.01-0.20); Immature Granulocytes % (auto) 0.3 %; Mean Corpuscular Hemoglobin 33.8 pg (25.0-34.0); Mean Corpuscular Volume 95.4 fL (80.0-100.0); Platelet Count 145 K/uL (130-400); RDW Standard Deviation 44.1 fL (36.4-46.3); Red Blood Count 3.94 M/uL (4.70-6.10); White Blood Count 9.96 K/ul (4.8-10.8)
[2025-06-08 20:50] LABS: Alanine Aminotransferase 18.0 U/L (7-52); Albumin Level 3.7 gm/dl (3.4-5.0); Alkaline Phosphatase 49.0 U/L (34-104); Anion Gap 9.0 (3-11); Bilirubin,Total 2.5 mg/dl (0.2-1.0); Blood Urea Nitrogen 18.0 mg/dl (6-23); Calcium 9.0 mg/dl (8.6-10.3); Carbon Dioxide 24.0 mmol/L (21-32); Chloride 106.0 mmol/L (98-107); Creatinine Clr Calc Pharmacy 94.0 ml/min; Glucose 129.0 mg/dl (70-99(Fasting)); Magnesium 1.7 mg/dl (1.7-2.4); Potassium 3.8 mmol/L (3.5-5.1); Sodium 139.0 mmol/L (136-145); Total Protein 6.9 gm/dl (6.0-8.3)
[2025-06-08 21:14] LABS: INR 1.1 (0.9-1.1); Partial Thromboplastin Time 30 Seconds (21-31); Prothrombin Time 11.3 Seconds (9.0-12.0)
[2025-06-08 21:52] LABS: Base Excess VBG -1.7 mEq/L; HCO3 VBG 24 mmol/L; Oxygen Saturation VBG < 60.0 %; PCO2 VBG 45 mmHg (38-50); PO2 VBG 31 mmHg; pH VBG 7.34 (7.36-7.41)
--- NOTE | 2025-06-08 22:09 | XRay Report ---
Exam(s): XR HIP + PELVIS, 2-3 views EXAM: XR Right Hip With Pelvis When Performed, 2 or 3 Views CLINICAL HISTORY: Post op Fever. TECHNIQUE: Two or three views of the right hip with pelvis when performed. COMPARISON: No relevant prior studies available. FINDINGS: Bones/joints: Bilateral hip prostheses are in good position without evidence of hardware failure. No acute fracture. No dislocation. Soft tissues: Postsurgical changes of the soft tissues of the right thigh are noted. IMPRESSION: Bilateral hip prostheses are in good position without evidence of hardware failure. Electronically signed by: Patria Main MD 06/08/25 22:09 PM
--- NOTE | 2025-06-08 22:11 | XRay Report ---
Exam(s): XR CXR 1 VIEW EXAM: XR Chest, 1 View CLINICAL HISTORY: Sepsis. TECHNIQUE: Frontal view of the chest. COMPARISON: No relevant prior studies available. FINDINGS: Lungs: Low lung volumes accentuate pulmonary markings. No consolidation. Pleural space: Unremarkable. No pneumothorax. Heart: Cardiomegaly. Mediastinum: Unremarkable. Normal mediastinal contour. Bones/joints: There are degenerative changes of the spine. No acute fracture. Tubes, lines and devices: A left implanted cardiac device is noted. IMPRESSION: Cardiomegaly. Electronically signed by: Patria Main MD 06/08/25 22:11 PM
[2025-06-08 22:21] LABS: Appearance Urine Clear (Clear); Glucose Urine UA Negative (Negative)
[2025-06-08] MEDS: SODIUM CHLORIDE 0.9% 1,000 ML IV SCH (22:49)
[2025-06-08] MEDS: STAT IV Infusion **Titration per Protocol STA (23:05)
[2025-06-08 23:09] LABS: Chlamydia pneumoniae PCR Not Detected (NotDetected); Coronavirus 229E PCR Not Detected (NotDetected); Coronavirus CoV-2 (COVID19)PCR Not Detected (NotDetected); Coronavirus HKU1 PCR Not Detected (NotDetected); Coronavirus NL63 PCR Not Detected (NotDetected); Coronavirus OC43PCR Not Detected (NotDetected); Human Metapneumovirus PCR Not Detected (NotDetected); Parainfluenza Virus 1 PCR Not Detected (NotDetected); Parainfluenza Virus 2 PCR Not Detected (NotDetected); Parainfluenza Virus 3 PCR Not Detected (NotDetected); Parainfluenza Virus 4 PCR Not Detected (NotDetected); Respiratory Syncytial VirusPCR Not Detected (NotDetected); Rhinovirus/Enterovirus PCR Not Detected (NotDetected)
--- NOTE | 2025-06-08 23:54 | Emergency Department Note ---
History of Present Illness General Chief complaint: Fever Stated complaint: POST SURGERY, PAIN AND HIGH FEVER Time Seen by Provider: 06/08/25 20:07 History of Present Illness Provider complaint: Fever Onset (ago): day(s) 2 Maximum Pain Intensity: 2 74-year-old male presents emergency department for fever. Patient reports he has had fever for last 2 days. Patient reports he had just recently had his hip replaced by Dr. Arreguin. He reports no drainage or redness around the incision. He reports no dysuria or hematuria. He reports no chest pain difficulty breathing. Home Medications Medication Instructions Recorded Confirmed Type loratadine 10 mg tablet (Claritin) 10 mg PO DAILY PRN Allergy Symptoms 12/13/20 06/08/25 History pantoprazole 40 mg tablet,delayed 40 mg PO HS PRN Heartburn 12/13/20 06/08/25 History release (Protonix) amoxicillin 500 mg tablet 2,000 mg PO DIRECTED PRN Dental 05/04/25 06/08/25 History Procedure ascorbic acid (vitamin C) 500 mg 500 mg PO DAILY 05/04/25 06/08/25 History tablet (Vitamin C) [id number]-[id number]-jmbbslmc 250 1 tab PO DAILY PRN Headaches 05/04/25 06/08/25 History mg-250 mg-65 mg tablet (Excedrin Extra Strength) atorvastatin 20 mg tablet 20 mg PO HS 05/04/25 06/08/25 History cholecalciferol (vitamin D3) 50 50 mcg PO DAILY 05/04/25 06/08/25 History mcg (2,000 unit) capsule (Vitamin D3) clobetasol 0.05 % topical ointment 1 applic topical DAILY PRN Skin 05/04/25 06/08/25 History Irritation epinephrine 0.3 mg/0.3 mL 0.3 mg IM Q4H PRN Anaphylaxis 05/04/25 06/08/25 History injection, auto-injector (EpiPen) fluorouracil 5 % topical cream 1 applic topical BID PRN UD 05/04/25 06/08/25 History Dermatology losartan 25 mg tablet 25 mg PO QAM 05/04/25 06/08/25 History acetaminophen 500 mg tablet 1,000 mg (2 x 500 mg) PO TID pain 06/01/25 06/08/25 Rx (Tylenol Extra Strength) 30 days #180 tabs ondansetron 4 mg disintegrating 4 mg PO Q8 PRN nausea #20 tabs 06/01/25 06/08/25 Rx tablet sennosides 8.6 mg tablet (Senokot) 8.6 mg PO BID prevent constipation 06/01/25 06/08/25 Rx 14 days #28 tabs tramadol 50 mg tablet 50 - 100 mg (1 - 2 x 50 mg) PO Q6 06/01/25 06/08/25 Rx PRN pain #40 tabs Amnio Acid Tablets 2 tab PO TID 06/08/25 06/08/25 History apixaban 5 mg tablet (Eliquis) 5 mg PO BID 06/08/25 06/08/25 History metoprolol succinate 25 mg 25 mg PO QAM 06/08/25 06/08/25 History tablet,extended release 24 hr tamsulosin 0.4 mg capsule (Flomax) 0.4 mg PO DAILY PRN TROUBLE 06/08/25 06/08/25 History URINATING Allergies Allergy/AdvReac Type Severity Reaction Status Date / Time bee venom protein (honey bee) Allergy Severe Anaphylaxis Verified 06/08/25 22:56 capsaicin AdvReac Intermediate Mouth sores Verified 06/08/25 22:56 diclofenac AdvReac Intermediate Mouth sores Verified 06/08/25 22:56 meloxicam AdvReac Intermediate Mouth sores Verified 06/08/25 22:56 Past Med/Surg History Problem List (Updated 06/09/25 @ 00:01 by Joe Nguyen MD) Atrial flutter with rapid ventricular response (Acute) S/P total right hip arthroplasty New onset atrial flutter Encounter for pre-operative examination Arthritis of right hip PMR (polymyalgia rheumatica) Tachycardia Status post spinal surgery Hyperlipidemia Neurogenic claudication Low back pain Spinal stenosis, lumbar Spondylolisthesis, lumbar region History of hip replacement left History of bilateral knee replacement Lumbar spondylosis Degenerative joint disease, right, ankle Medical History Hyperlipidemia Hypertension PMR (polymyalgia rheumatica) follows with Dr Lucia stable and controlled has weaned off prednisone Psoriasis Follows with Abner Shelley Precancerous skin lesion Follows with Abner Shelley Nausea and vomiting after administration of anesthetic agent Osteoarthritis Kidney stones hx GERD (gastroesophageal reflux disease) well controlled and stable Migraine on occasion Spinal stenosis of lumbar region Surgical History History of lumbar spinal fusion Hardware Present History of ankle surgery Right - hardware present History of total left hip arthroplasty History of bilateral cataract extraction History of bilateral knee replacement History of colonoscopy Hx of inguinal hernia repair History of cystoscopy with stent History of tooth extraction Social History Smoking Status: Never smoker Cigarettes Per Day: 1 pack day x 20 years; Second Hand Exposure: No; Do You Dip or Chew Tobacco: No (quit 08/2011 ); Hx Alcohol Use: Yes Alcohol type: beer Hx Substance Use: No Preferred Language: Nepalese Communication Ability: Effective Motorized Squad Captain Required: No Beliefs That Will Affect Care: None marital status: Current Living Situation: Spouse current occupational status: retired Feels Safe at Home: Yes Assistive Devices: Crutches, Walker and Other Physical Exam Vital Signs Vital Signs - 24 hr 06/08/25 19:51 06/08/25 20:10 06/08/25 20:24 Temperature 38.3 C H Temperature Source Oral Pulse Rate 125 H 155 H Pulse Rate [Apical] 149 H Pulse Rate from SpO2 Sensor Pulse Rhythm Regular Pulse Rhythm [Apical] Regular Pulse Strength [Apical] Normal Respiratory Rate 18 25 H Respiratory Effort / Characteristics Non-Labored Spontaneous Respiratory Depth Normal Normal Respiratory Pattern Blood Pressure 112/69 Blood Pressure [Left Arm] 120/81 Blood Pressure Mean 83 Blood Pressure Mean [Left Arm] 94 Blood Pressure Position [Left Arm] Pulse Oximetry 94 93 Oxygen Delivery Method Room Air Room Air Sepsis Recent Fever Within 48 Hours Yes Sepsis New/Unexplained Change in Mental Status No Sepsis Action Taken by Nursing No Action Required 06/08/25 20:24 06/08/25 20:25 06/08/25 20:29 Temperature Temperature Source Pulse Rate 138 H 148 H Pulse Rate [Apical] 149 H Pulse Rate from SpO2 Sensor 125 H Pulse Rhythm Pulse Rhythm [Apical] Regular Pulse Strength [Apical] Normal Respiratory Rate 23 25 H 23 Respiratory Effort / Characteristics Spontaneous Respiratory Depth Normal Respiratory Pattern Blood Pressure 120/81 131/66 Blood Pressure [Left Arm] 120/81 Blood Pressure Mean 93 86 Blood Pressure Mean [Left Arm] 94 Blood Pressure Position [Left Arm] Sitting Pulse Oximetry 93 93 92 Oxygen Delivery Method Room Air Sepsis Recent Fever Within 48 Hours Sepsis New/Unexplained Change in Mental Status Sepsis Action Taken by Nursing 06/08/25 20:30 06/08/25 20:30 06/08/25 20:30 Temperature Temperature Source Pulse Rate Pulse Rate [Apical] Pulse Rate from SpO2 Sensor Pulse Rhythm Pulse Rhythm [Apical] Pulse Strength [Apical] Respiratory Rate Respiratory Effort / Characteristics Respiratory Depth Respiratory Pattern Blood Pressure 133/66 133/66 133/66 Blood Pressure [Left Arm] Blood Pressure Mean 105 105 105 Blood Pressure Mean [Left Arm] Blood Pressure Position [Left Arm] Pulse Oximetry Oxygen Delivery Method Sepsis Recent Fever Within 48 Hours Sepsis New/Unexplained Change in Mental Status Sepsis Action Taken by Nursing 06/08/25 20:30 06/08/25 20:42 06/08/25 20:45 Temperature Temperature Source Pulse Rate 135 H 150 H Pulse Rate [Apical] Pulse Rate from SpO2 Sensor 241 H 130 H Pulse Rhythm Pulse Rhythm [Apical] Pulse Strength [Apical] Respiratory Rate 22 22 Respiratory Effort / Characteristics Respiratory Depth Respiratory Pattern Blood Pressure 133/66 Blood Pressure [Left Arm] Blood Pressure Mean 105 Blood Pressure Mean [Left Arm] Blood Pressure Position [Left Arm] Pulse Oximetry 93 94 Oxygen Delivery Method Sepsis Recent Fever Within 48 Hours Sepsis New/Unexplained Change in Mental Status Sepsis Action Taken by Nursing 06/08/25 20:45 06/08/25 20:45 06/08/25 20:45 Temperature Temperature Source Pulse Rate Pulse Rate [Apical] Pulse Rate from SpO2 Sensor Pulse Rhythm Pulse Rhythm [Apical] Pulse Strength [Apical] Respiratory Rate Respiratory Effort / Characteristics Respiratory Depth Respiratory Pattern Blood Pressure 146/92 H 146/92 H 146/92 H Blood Pressure [Left Arm] Blood Pressure Mean 107 107 107 Blood Pressure Mean [Left Arm] Blood Pressure Position [Left Arm] Pulse Oximetry Oxygen Delivery Method Sepsis Recent Fever Within 48 Hours Sepsis New/Unexplained Change in Mental Status Sepsis Action Taken by Nursing 06/08/25 20:45 06/08/25 20:48 06/08/25 20:50 Temperature Temperature Source Pulse Rate 126 H Pulse Rate [Apical] Pulse Rate from SpO2 Sensor 132 H Pulse Rhythm Pulse Rhythm [Apical] Pulse Strength [Apical] Respiratory Rate 23 Respiratory Effort / Characteristics Respiratory Depth Respiratory Pattern Blood Pressure 146/92 H 149/94 H Blood Pressure [Left Arm] Blood Pressure Mean 107 112 Blood Pressure Mean [Left Arm] Blood Pressure Position [Left Arm] Pulse Oximetry 92 Oxygen Delivery Method Sepsis Recent Fever Within 48 Hours Sepsis New/Unexplained Change in Mental Status Sepsis Action Taken by Nursing 06/08/25 20:50 06/08/25 20:50 06/08/25 20:51 Temperature Temperature Source Pulse Rate 152 H Pulse Rate [Apical] Pulse Rate from SpO2 Sensor 215 H Pulse Rhythm Pulse Rhythm [Apical] Pulse Strength [Apical] Respiratory Rate 24 Respiratory Effort / Characteristics Respiratory Depth Respiratory Pattern Blood Pressure 149/94 H 149/94 H Blood Pressure [Left Arm] Blood Pressure Mean 112 112 Blood Pressure Mean [Left Arm] Blood Pressure Position [Left Arm] Pulse Oximetry 93 Oxygen Delivery Method Sepsis Recent Fever Within 48 Hours Sepsis New/Unexplained Change in Mental Status Sepsis Action Taken by Nursing 06/08/25 20:52 06/08/25 20:52 06/08/25 20:52 Temperature Temperature Source Pulse Rate Pulse Rate [Apical] Pulse Rate from SpO2 Sensor Pulse Rhythm Pulse Rhythm [Apical] Pulse Strength [Apical] Respiratory Rate Respiratory Effort / Characteristics Respiratory Depth Respiratory Pattern Blood Pressure 144/87 H 144/87 H 144/87 H Blood Pressure [Left Arm] Blood Pressure Mean 98 98 98 Blood Pressure Mean [Left Arm] Blood Pressure Position [Left Arm] Pulse Oximetry Oxygen Delivery Method Sepsis Recent Fever Within 48 Hours Sepsis New/Unexplained Change in Mental Status Sepsis Action Taken by Nursing 06/08/25 20:52 06/08/25 20:52 06/08/25 20:54 Temperature Temperature Source Pulse Rate 120 H Pulse Rate [Apical] Pulse Rate from SpO2 Sensor 162 H Pulse Rhythm Pulse Rhythm [Apical] Pulse Strength [Apical] Respiratory Rate 31 H Respiratory Effort / Characteristics Respiratory Depth Respiratory Pattern Blood Pressure 144/87 H 144/87 H Blood Pressure [Left Arm] Blood Pressure Mean 98 98 Blood Pressure Mean [Left Arm] Blood Pressure Position [Left Arm] Pulse Oximetry 82 L Oxygen Delivery Method Sepsis Recent Fever Within 48 Hours Sepsis New/Unexplained Change in Mental Status Sepsis Action Taken by Nursing 06/08/25 21:00 06/08/25 21:00 06/08/25 21:00 Temperature Temperature Source Pulse Rate 114 H Pulse Rate [Apical] Pulse Rate from SpO2 Sensor 111 H Pulse Rhythm Pulse Rhythm [Apical] Pulse Strength [Apical] Respiratory Rate 24 Respiratory Effort / Characteristics Respiratory Depth Respiratory Pattern Blood Pressure 147/87 H 147/87 H 147/87 H Blood Pressure [Left Arm] Blood Pressure Mean 109 109 109 Blood Pressure Mean [Left Arm] Blood Pressure Position [Left Arm] Pulse Oximetry 93 Oxygen Delivery Method Sepsis Recent Fever Within 48 Hours Sepsis New/Unexplained Change in Mental Status Sepsis Action Taken by Nursing 06/08/25 21:00 06/08/25 21:00 06/08/25 21:05 Temperature Temperature Source Pulse Rate 112 H Pulse Rate [Apical] Pulse Rate from SpO2 Sensor Pulse Rhythm Pulse Rhythm [Apical] Pulse Strength [Apical] Respiratory Rate 23 Respiratory Effort / Characteristics Respiratory Depth Respiratory Pattern Blood Pressure 147/87 H 147/87 H Blood Pressure [Left Arm] Blood Pressure Mean 109 109 Blood Pressure Mean [Left Arm] Blood Pressure Position [Left Arm] Pulse Oximetry 93 Oxygen Delivery Method Room Air Sepsis Recent Fever Within 48 Hours Sepsis New/Unexplained Change in Mental Status Sepsis Action Taken by Nursing 06/08/25 21:12 06/08/25 21:15 06/08/25 21:15 Temperature Temperature Source Pulse Rate 111 H 121 H Pulse Rate [Apical] Pulse Rate from SpO2 Sensor 114 H 115 H Pulse Rhythm Pulse Rhythm [Apical] Pulse Strength [Apical] Respiratory Rate 20 25 H Respiratory Effort / Characteristics Respiratory Depth Respiratory Pattern Blood Pressure 144/86 H Blood Pressure [Left Arm] Blood Pressure Mean 104 Blood Pressure Mean [Left Arm] Blood Pressure Position [Left Arm] Pulse Oximetry 92 93 Oxygen Delivery Method Sepsis Recent Fever Within 48 Hours Sepsis New/Unexplained Change in Mental Status Sepsis Action Taken by Nursing 06/08/25 21:15 06/08/25 21:15 06/08/25 21:15 Temperature Temperature Source Pulse Rate Pulse Rate [Apical] Pulse Rate from SpO2 Sensor Pulse Rhythm Pulse Rhythm [Apical] Pulse Strength [Apical] Respiratory Rate Respiratory Effort / Characteristics Respiratory Depth Respiratory Pattern Blood Pressure 144/86 H 144/86 H 144/86 H Blood Pressure [Left Arm] Blood Pressure Mean 104 104 104 Blood Pressure Mean [Left Arm] Blood Pressure Position [Left Arm] Pulse Oximetry Oxygen Delivery Method Sepsis Recent Fever Within 48 Hours Sepsis New/Unexplained Change in Mental Status Sepsis Action Taken by Nursing 06/08/25 21:15 06/08/25 21:15 06/08/25 21:21 Temperature Temperature Source Pulse Rate 127 H Pulse Rate [Apical] Pulse Rate from SpO2 Sensor Pulse Rhythm Pulse Rhythm [Apical] Pulse Strength [Apical] Respiratory Rate 24 Respiratory Effort / Characteristics Respiratory Depth Respiratory Pattern Blood Pressure 144/86 H Blood Pressure [Left Arm] Blood Pressure Mean 104 Blood Pressure Mean [Left Arm] Blood Pressure Position [Left Arm] Pulse Oximetry 99 Oxygen Delivery Method Room Air Sepsis Recent Fever Within 48 Hours Sepsis New/Unexplained Change in Mental Status Sepsis Action Taken by Nursing 06/08/25 21:30 06/08/25 21:30 06/08/25 21:31 Temperature Temperature Source Pulse Rate 117 H Pulse Rate [Apical] Pulse Rate from SpO2 Sensor 128 H Pulse Rhythm Pulse Rhythm [Apical] Pulse Strength [Apical] Respiratory Rate 28 H Respiratory Effort / Characteristics Respiratory Depth Respiratory Pattern Blood Pressure 138/72 Blood Pressure [Left Arm] Blood Pressure Mean 81 Blood Pressure Mean [Left Arm] Blood Pressure Position [Left Arm] Pulse Oximetry 90 98 Oxygen Delivery Method Room Air Sepsis Recent Fever Within 48 Hours Sepsis New/Unexplained Change in Mental Status Sepsis Action Taken by Nursing 06/08/25 21:31 06/08/25 21:31 06/08/25 21:31 Temperature Temperature Source Pulse Rate Pulse Rate [Apical] Pulse Rate from SpO2 Sensor Pulse Rhythm Pulse Rhythm [Apical] Pulse Strength [Apical] Respiratory Rate Respiratory Effort / Characteristics Respiratory Depth Respiratory Pattern Blood Pressure 138/72 138/72 138/72 Blood Pressure [Left Arm] Blood Pressure Mean 81 81 81 Blood Pressure Mean [Left Arm] Blood Pressure Position [Left Arm] Pulse Oximetry Oxygen Delivery Method Sepsis Recent Fever Within 48 Hours Sepsis New/Unexplained Change in Mental Status Sepsis Action Taken by Nursing 06/08/25 21:31 06/08/25 21:33 06/08/25 21:42 Temperature Temperature Source Pulse Rate 129 H 140 H Pulse Rate [Apical] Pulse Rate from SpO2 Sensor 137 H 118 H Pulse Rhythm Pulse Rhythm [Apical] Pulse Strength [Apical] Respiratory Rate 26 H 29 H Respiratory Effort / Characteristics Respiratory Depth Respiratory Pattern Blood Pressure 138/72 Blood Pressure [Left Arm] Blood Pressure Mean 81 Blood Pressure Mean [Left Arm] Blood Pressure Position [Left Arm] Pulse Oximetry 93 92 Oxygen Delivery Method Sepsis Recent Fever Within 48 Hours Sepsis New/Unexplained Change in Mental Status Sepsis Action Taken by Nursing 06/08/25 21:45 06/08/25 22:00 06/08/25 22:15 Temperature Temperature Source Pulse Rate 143 H 140 H Pulse Rate [Apical] Pulse Rate from SpO2 Sensor 123 H Pulse Rhythm Pulse Rhythm [Apical] Pulse Strength [Apical] Respiratory Rate 26 H 32 H 16 Respiratory Effort / Characteristics Respiratory Depth Respiratory Pattern Blood Pressure 134/78 122/67 106/59 L Blood Pressure [Left Arm] Blood Pressure Mean 96 77 75 Blood Pressure Mean [Left Arm] Blood Pressure Position [Left Arm] Pulse Oximetry 92 91 91 Oxygen Delivery Method Sepsis Recent Fever Within 48 Hours Sepsis New/Unexplained Change in Mental Status Sepsis Action Taken by Nursing 06/08/25 22:30 06/08/25 22:42 06/08/25 22:45 Temperature Temperature Source Pulse Rate 148 H 141 H 132 H Pulse Rate [Apical] Pulse Rate from SpO2 Sensor 132 H 132 H Pulse Rhythm Pulse Rhythm [Apical] Pulse Strength [Apical] Respiratory Rate 21 26 H 25 H Respiratory Effort / Characteristics Respiratory Depth Respiratory Pattern Blood Pressure 90/46 L 128/62 Blood Pressure [Left Arm] Blood Pressure Mean 68 84 Blood Pressure Mean [Left Arm] Blood Pressure Position [Left Arm] Pulse Oximetry 91 91 91 Oxygen Delivery Method Sepsis Recent Fever Within 48 Hours Sepsis New/Unexplained Change in Mental Status Sepsis Action Taken by Nursing 06/08/25 22:46 06/08/25 22:46 06/08/25 22:51 Temperature Temperature Source Pulse Rate 130 H Pulse Rate [Apical] Pulse Rate from SpO2 Sensor 134 H Pulse Rhythm Pulse Rhythm [Apical] Pulse Strength [Apical] Respiratory Rate 24 Respiratory Effort / Characteristics Respiratory Depth Respiratory Pattern Blood Pressure 128/62 128/62 Blood Pressure [Left Arm] Blood Pressure Mean 74 74 Blood Pressure Mean [Left Arm] Blood Pressure Position [Left Arm] Pulse Oximetry 90 Oxygen Delivery Method Sepsis Recent Fever Within 48 Hours Sepsis New/Unexplained Change in Mental Status Sepsis Action Taken by Nursing 06/08/25 23:00 Temperature Temperature Source Pulse Rate Pulse Rate [Apical] 133 H Pulse Rate from SpO2 Sensor Pulse Rhythm Pulse Rhythm [Apical] Regular Pulse Strength [Apical] Normal Respiratory Rate 25 H Respiratory Effort / Characteristics Non-Labored Respiratory Depth Normal Respiratory Pattern Regular Blood Pressure Blood Pressure [Left Arm] 116/69 Blood Pressure Mean Blood Pressure Mean [Left Arm] 84 Blood Pressure Position [Left Arm] Lying Pulse Oximetry 90 Oxygen Delivery Method Room Air Sepsis Recent Fever Within 48 Hours Sepsis New/Unexplained Change in Mental Status Sepsis Action Taken by Nursing Physical Exam GENERAL: oriented to person, place, and time. appears well-developed and well- nourished. HENT: Exam performed. - Head: Normocephalic and atraumatic. EYES: Conjunctivae and EOM are normal. Right eye exhibits no discharge. Left eye exhibits no discharge. No scleral icterus. NECK: Normal range of motion. Neck supple. No JVD present. CV: Tachycardic rate, irregular rhythm, normal heart sounds and intact distal pulses. There is no peripheral edema. Palpable radial pulses bue. PULM/CHEST: Effort normal and breath sounds normal. No respiratory distress. No stridor. no wheezes. no rales. ABD: The abdomen is soft. There is no tenderness. NEURO: Motor and sensation grossly intact. SKIN: Surgical incision on patient's right hip is clean and dry with no surrounding erythema or discharge from the surgical incision. Course Course 2006: The patient was evaluated in room B3. A complete history and physical exam was performed Cardiac monitoring: An order was placed for continuous cardiac monitoring. The monitor shows a rate of 140-160 with atrial flutter rhythm interpreted by me Patient is febrile and tachycardic. Sepsis protocols initiated. Medical records reviewed. During the patient's admission it was discovered the patient had atrial flutter with RVR. Patient was started on Eliquis and metoprolol in the a.m. reports that the patient has been compliant with his medications and took metoprolol this morning as well as the Eliquis. Echocardiogram during the patient's admission showed ejection fraction with 55%. 2054: Patient's white blood cell count and lactic acid are within normal limits. Patient still remains tachycardic with ventricular rate 140-170. Less likely thought to be true sepsis from bacterial infection given the patient's negative white blood cell count and lactic acid. Cardizem 15 mg ordered for the patient IV push which improved the patient's ventricular rate. Patient will be started on Cardizem drip. 2244: Labs are unremarkable. Imaging unremarkable. [facility]. Administered Medications Diltiazem HCl 125 mg/ Dextrose 125 mls @ 5 mls/hr IV .Q24H [facility]; Protocol Stop: 07/08/25 20:59 Last Titration: 06/09/25 00:31 Dose: 10 mg/hr, 10 mls/hr Documented By: BRANNON Co-signed By: david Titration: 06/08/25 22:49 Dose: 7.5 mg/hr, 7.5 mls/hr Documented By: BRANNON Co-signed By: nicole Admin: 06/08/25 21:24 Dose: 5 mg/hr, 5 mls/hr Documented By: BRANNON Co-signed By: nicole Sodium Chloride (Nss) 1,000 mls @ 125 mls/hr IV .Q8H CARINA Stop: 06/11/25 22:44 Last Admin: 06/08/25 22:49 Dose: 125 mls/hr Documented By: BRANNON Discontinued Medications Diltiazem HCl (Diltiazem Hcl 5 Mg/Ml 5 Ml Vial) 15 mg IV NOW STA Stop: 06/08/25 20:45 Last Admin: 06/08/25 20:54 Dose: 15 mg Documented By: BRANNON Co-signed By: [facility] [place] Sodium Chloride (Nss) 1,000 mls @ 999 mls/hr IV .Q1H1M ONE Stop: 06/08/25 21:07 Last Infusion: 06/08/25 21:01 Dose: Infused Documented By: Admin: 06/08/25 20:00 Dose: 999 mls/hr Documented By: BRANNON Sodium Chloride (Nss) 1,000 mls @ 999 mls/hr IV .Q1H1M ONE Stop: 06/08/25 21:22 Last Infusion: 06/08/25 21:54 Dose: Infused Documented By: Admin: 06/08/25 20:53 Dose: 999 mls/hr Documented By: BRANNON Ioversol (Optiray 320 125ml) 115 ml IV ONCE ONE Stop: 06/09/25 00:14 Last Admin: 06/09/25 00:13 Dose: 115 ml Documented By: ABILIO Miscellaneous (Stat Iv Infusion Titration Per Protocol) 1 each N/A NOW STA Stop: 06/08/25 20:55 Last Admin: 06/08/25 23:05 Dose: Not Given Documented By: BRANNON Critical Care Time Critical Care Time: Yes Total Critical Care Time: 57 I have personally spent greater than 57 minutes of critical care time in the direct management of this patient. This includes bedside care, interpretation of diagnostic studies, and testing, discussion with consultants, patient, and family members, and other required patient management activities. This 57 minutes is in excess of all separately billable procedures. Medical Decision Making Laboratory Data Attestation: I reviewed the patient's lab results. 06/08/25 20:17 06/08/25 20:17 Lab Results 06/08/25 06/08/25 06/08/25 Range/Units 20:17 21:41 22:00 WBC 9.96 (4.8-10.8) K/ul RBC 3.94 L (4.70-6.10) M/uL Hgb 13.3 L (14.0-18.0) g/dl Hct 37.6 L (42.0-52.0) % MCV 95.4 (80.0-100.0) fL MCH 33.8 (25.0-34.0) pg MCHC 35.4 (32.0-36.0) g/dL RDW Std Deviation 44.1 (36.4-46.3) fL RDW Coeff of Chiny[place] 12.6 (11.5-14.5) % Plt Count 145 (130-400) K/uL MPV 11.9 (9.4-12.4) fL Immature Gran % (Auto) 0.3 % Neut % (Auto) 86.0 % Lymph % (Auto) 7.9 % Bonner % (Auto) 5.3 % Eos % (Auto) 0.3 % Baso % (Auto) 0.2 % Neut # (Auto) 8.56 H (1.40-6.50) K/uL Lymph # (Auto) 0.79 L (1.20-3.40) K/uL Bonner # (Auto) 0.53 (0.11-0.59) K/uL Eos # (Auto) 0.03 (0.00-0.50) K/uL Baso # (Auto) 0.02 (0.00-0.20) K/uL Immature Gran # (Auto) 0.03 (0.01-0.20) K/uL PT 11.3 (9.0-12.0) Seconds INR 1.1 (0.9-1.1) APTT 30 (21-31) Seconds PTT Ratio 1.1 VBG pH 7.34 L (7.36-7.41) VBG pCO2 45 (38-50) mmHg VBG pO2 31 mmHg VBG HCO3 24 mmol/L VBG O2 Saturation < 60.0 % VBG Base Excess -1.7 mEq/L Sodium 139 (136-145) mmol/L Potassium 3.8 (3.5-5.1) mmol/L Chloride 106 (98-107) mmol/L Carbon Dioxide 24 (21-32) mmol/L Anion Gap 9 (3-11) BUN 18 (6-23) mg/dl Creatinine 0.81 (0.6-1.4) mg/dl Est Cr Clr Drug Dosing 94.0 ml/min eGFR 91.95 BUN/Creatinine Ratio 22.2 H (10-20) Glucose 129 H (70-99(Fasting)) mg/dl Lactate 1.2 (0.4-2.0) mmol/L Calcium 9.0 (8.6-10.3) mg/dl Magnesium 1.7 (1.7-2.4) mg/dl Total Bilirubin 2.5 H (0.2-1.0) mg/dl Direct Bilirubin 0.4 H (0-0.2) mg/dl AST 38 (13-39) U/L ALT 18 (7-52) U/L Alkaline Phosphatase 49 (34-104) U/L Troponin I High Sens 15.0 (0-20) pg/ml Total Protein 6.9 (6.0-8.3) gm/dl Albumin 3.7 (3.4-5.0) gm/dl Procalcitonin 0.08 (0-0.5) ng/ml Urine Color Yellow Urine Appearance Clear (Clear) Urine pH 5.5 (4.5-7.5) Ur Specific [place] 1.014 (1.000-1.030) Urine Protein Negative (Negative) Urine Glucose (UA) Negative (Negative) Urine Ketones 1+ H (Negative) Urine Blood Negative (Negative) Urine Nitrite Negative (Negative) Urine Bilirubin Negative (Negative) Urine Urobilinogen Negative (Negative) Ur Leukocyte Esterase Negative (Negative) Urine Comment Adenovirus (PCR) Not Detected (NotDetected) B. pertussis DNA (PCR) Not Detected (NotDetected) B.parapertussis DNA PCR Not Detected (NotDetected) C. pneumoniae DNA (PCR) Not Detected (NotDetected) Coronavirus OC43 (PCR) Not Detected (NotDetected) Coronavirus HKU1 (PCR) Not Detected (NotDetected) Coronavirus 229E (PCR) Not Detected (NotDetected) SARS-CoV-2 (PCR) Not Detected (NotDetected) Coronavirus NL63 (PCR) Not Detected (NotDetected) Human Metapneumovir PCR Not Detected (NotDetected) Influenza Type A (PCR) Not Detected (NotDetected) Influenza Type B (PCR) Not Detected (NotDetected) M. pneumoniae (PCR) Not Detected (NotDetected) Parainfluenza 1 (PCR) Not Detected (NotDetected) Parainfluenza 2 (PCR) Not Detected (NotDetected) Parainfluenza 3 (PCR) Not Detected (NotDetected) Parainfluenza 4 (PCR) Not Detected (NotDetected) RSV (PCR) Not Detected (NotDetected) Entero/Rhino (PCR) Not Detected (NotDetected) Imaging Data Attestation: I personally reviewed and interpreted this imaging study as follows: My Impression: Chest x-ray negative. Airway clear. No pneumothorax. No consolidation. No cardiomegaly or cephalization.. No free air under the diaphragm. No fractures of the skeletal structures. Radiologist's Impression: Chest X-Ray 06/08/25 20:07 Exam(s): XR CXR 1 VIEW EXAM: XR Chest, 1 View CLINICAL HISTORY: Sepsis. TECHNIQUE: Frontal view of the chest. COMPARISON: No relevant prior studies available. FINDINGS: Lungs: Low lung volumes accentuate pulmonary markings. No consolidation. Pleural space: Unremarkable. No pneumothorax. Heart: Cardiomegaly. Mediastinum: Unremarkable. Normal mediastinal contour. Bones/joints: There are degenerative changes of the spine. No acute fracture. Tubes, lines and devices: A left implanted cardiac device is noted. IMPRESSION: Cardiomegaly. Electronically signed by: Patria Main MD 06/08/25 22:11 PM Hip/Pelvis X-Ray 06/08/25 20:08 Exam(s): XR HIP + PELVIS, 2-3 views EXAM: XR Right Hip With Pelvis When Performed, 2 or 3 Views CLINICAL HISTORY: Post op Fever. TECHNIQUE: Two or three views of the right hip with pelvis when performed. COMPARISON: No relevant prior studies available. FINDINGS: Bones/joints: Bilateral hip prostheses are in good position without evidence of hardware failure. No acute fracture. No dislocation. Soft tissues: Postsurgical changes of the soft tissues of the right thigh are noted. IMPRESSION: Bilateral hip prostheses are in good position without evidence of hardware failure. Electronically signed by: Patria Main MD 06/08/25 22:09 PM ECG Data Attestation: I personally reviewed and interpreted this ECG as follows: Additional Comments: EKG #1 at 2008: Atrial flutter with a rate of 143. QRS [address] elevation or ST depression EKG #2 at 2052: Atrial flutter with a rate of 117. QRS [address] elevation or ST depression [facility] Narrative 2006: The patient was evaluated in room B3. A complete history and physical exam was performed Cardiac monitoring: An order was placed for continuous cardiac monitoring. The monitor shows a rate of 140-160 with atrial flutter rhythm interpreted by me Patient is febrile and tachycardic. Sepsis protocols initiated. Medical records reviewed. During the patient's admission it was discovered the patient had atrial flutter with RVR. Patient was started on Eliquis and metoprolol in the a.m. reports that the patient has been compliant with his medications and took metoprolol this morning as well as the Eliquis. Echocardiogram during the patient's admission showed ejection fraction with 55%. 2054: Patient's white blood cell count and lactic acid are within normal limits. Patient still remains tachycardic with ventricular rate 140-170. Less likely thought to be true sepsis from bacterial infection given the patient's negative white blood cell count and lactic acid. Cardizem 15 mg ordered for the patient IV push which improved the patient's ventricular rate. Patient will be started on Cardizem drip. 2244: Labs are unremarkable. Imaging unremarkable. Patient will be admitted to the [facility] hospitalist team. Impression & Plan Atrial flutter with rapid ventricular response Discharge Plan Visit Data Chief Complaint: Fever Stated Complaint: POST SURGERY, PAIN AND HIGH FEVER ED Provider: Joe Nguyen Discharge Problem: Atrial flutter with rapid ventricular response Patient Disposition: Being Evaluated by Hospitalist Condition: Serious Forms Stand Alone Forms: My [employer] Prescriptions Prescriptions: No Action tramadol 50 mg tablet 50 - 100 mg PO Q6 PRN (Reason: pain) Qty: 40 0RF Rx Instructions: Take as needed for pain ondansetron 4 mg tablet,disintegrating 4 mg PO Q8 PRN (Reason: nausea) Qty: 20 1RF Rx Instructions: Take as needed for nausea sennosides [Senokot] 8.6 mg tablet 8.6 mg PO BID 14 Days Qty: 28 0RF Rx Instructions: Take two times a day to prevent/treat constipation acetaminophen [Tylenol Extra Strength] 500 mg tablet 1,000 mg PO TID 30 Days Qty: 180 0RF Rx Instructions: Take 3 times per day to lessen pain. pantoprazole [Protonix] 40 mg Tablet,Delayed Release (Dr/Ec) 40 mg PO HS PRN (Reason: Heartburn) loratadine [Claritin] 10 mg Tablet 10 mg PO DAILY PRN (Reason: Allergy Symptoms) atorvastatin 20 mg tablet 20 mg PO HS epinephrine [EpiPen] 0.3 mg/0.3 mL Auto-Injector 0.3 mg IM Q4H PRN (Reason: Anaphylaxis) amoxicillin 500 mg tablet 2,000 mg PO DIRECTED PRN (Reason: Dental Procedure) Rx Instructions: TAKE 4 TABLETS ONE HOUR PRIOR TO DENTAL WORK ascorbic acid (vitamin C) [Vitamin C] 500 mg Tablet 500 mg PO DAILY losartan 25 mg Tablet 25 mg PO QAM clobetasol 0.05 % ointment 1 applic TOPICAL DAILY PRN (Reason: Skin Irritation) cholecalciferol (vitamin D3) [Vitamin D3] 50 mcg (2,000 unit) Capsule 50 mcg PO DAILY fluorouracil 5 % Cream 1 applic TOPICAL BID PRN (Reason: UD Dermatology ) Patient Comments: "I haven't started it, I am waiting to speak with Derm before starting" Rx Instructions: ON HOLD [id number] [Excedrin Extra Strength] 250-250-65 mg Tablet 1 tab PO DAILY PRN (Reason: Headaches) metoprolol succinate 25 mg tablet extended release 24 hr 25 mg PO QAM Eliquis 5 mg tablet 5 mg PO BID tamsulosin [Flomax] 0.4 mg capsule 0.4 mg PO DAILY PRN (Reason: TROUBLE URINATING) Amnio Acid Tablets 2 tab PO TID Referrals Referrals: Jose Pacheco MD [Primary Care Provider] -
[2025-06-09] MEDS: OPTIRAY 320 125ml IV ONE (00:13)
--- NOTE | 2025-06-09 00:18 | History & Physical Report ---
Date of Service June 08, 2025 Assessment & Plan (1) Atrial flutter with rapid ventricular response: Plan: 74-year-old male with past medical history significant for gout, dyslipidemia, allergic rhinitis, GERD, BPH, polymyalgia rheumatica, osteoarthritis, history of kidney stones presents with fevers and found to be in rapid A-Flutter Patient recently on 06/05/2025 had right hip replacement. During the surgery patient went into a flutter which was responsive to beta-martina. Postoperatively he was asymptomatic but again went into rapid a flutter. During that admission he was seen by cardiology for new onset a flutter and was started on metoprolol s uccinate and also Eliquis. Patient was discharged on 06/06/2025. Patient had monitor placed today. Patient states since yesterday evening having fevers. His fevers are not getting better so he came to the ER today. In the ER he was found to be in rapid A-Flutter. Currently on Cardizem drip. Patient complains of some knotty feeling in his stomach and is having abdominal discomfort. Denies any chest pain or shortness of breath. No cough. No headache. No runny nose or sore throat. He has some watering and itching of the eyes. Appetite is okay. Normal bowel and bladder movements. A-flutter with rapid ventricular response Currently on Cardizem will drip which will be continued Continue Eliquis Close monitor in telemetry Continue home metoprolol succinate Echo done 06/05/2025 shows normal EF 55 to 60%. Mild concentric left ventricular hypertrophy. Left atrium mildly dilated. Cardial consult in a.m. for further recommendations Fevers Recent right hip replacement Surgical sites look okay No leukocytosis. Lactic acid okay. Procalcitonin okay Respiratory BioFire negative. Chest x-ray no acute findings. UA negative. Has abdominal discomfort Will follow CT chest and CT abdomen pelvis Close monitor Prolonged QTc Avoid QT prolonging drugs Follow repeat EKG. Mild elevation of bilirubin Will follow repeat labs Hyperlipidemia On statin Hypertension On losartan and metoprolol succinate Will monitor Recent Right hip replacement surgery site looks ok will consult ortho. DVT prophylaxis Eliquis Disposition Telemetry Full code. Addendum: CT abd/pelvis showing b/l perinephric fat stranding and mild diverticulitis. Will follow repeat UA. Started on Zosyn. History of Present Illness Chief Complaint: Rapid A-fib and fevers Primary Care Provider: Jose Pacheco MD 74-year-old male with past medical history significant for gout, dyslipidemia, allergic rhinitis, GERD, BPH, polymyalgia rheumatica, osteoarthritis, history of kidney stones presents with fevers and found to be in rapid A-Flutter Patient recently on 06/05/2025 had right hip replacement. During the surgery patient went into a flutter which was responsive to beta-martina. Postoperatively he was asymptomatic but again went into rapid a flutter. During that admission he was seen by cardiology for new onset a flutter and was started on metoprolol succinate and also Eliquis. Patient was discharged on 06/06/2025. Patient had monitor placed today. Patient states since yesterday evening having fevers. His fevers are not getting better so he came to the ER today. In the ER he was found to be in rapid A-Flutter. Currently on Cardizem drip. Patient complains of some knotty feeling in his stomach and is having abdominal discomfort. Denies any chest pain or shortness of breath. No cough. No headache. No runny nose or sore throat. He has some watering and itching of the eyes. Appetite is okay. Normal bowel and bladder movements. Past medical history. As mentioned above. Past surgical history. Bilateral knee arthroplasties. Colonoscopy. Cystoscopy. Cystoscopy and stent removal. Bilateral cataracts. Repair of left inguinal hernia. Left total hip replacement in 2016. Right total hip replacement 06/05/2025. Social history. . Quit smoking 1983. Smoked 1 pack a day for 15 years. Alcohol 1 or 2/week. No drug use. Family history. Father had arthritis. Subdural hematoma. Mother had diabetes. CHF. Cirrhosis. Allergies Allergy/AdvReac Type Severity Reaction Status Date / Time bee venom protein (honey bee) Allergy Severe Anaphylaxis Verified 06/08/25 22:56 capsaicin AdvReac Intermediate Mouth sores Verified 06/08/25 22:56 diclofenac AdvReac Intermediate Mouth sores Verified 06/08/25 22:56 meloxicam AdvReac Intermediate Mouth sores Verified 06/08/25 22:56 Home Medications Medication Instructions Recorded Confirmed Type loratadine 10 mg tablet (Claritin) 10 mg PO DAILY PRN Allergy Symptoms 12/13/20 06/08/25 History pantoprazole 40 mg tablet,delayed 40 mg PO HS PRN Heartburn 12/13/20 06/08/25 History release (Protonix) amoxicillin 500 mg tablet 2,000 mg PO DIRECTED PRN Dental 05/04/25 06/08/25 History Procedure ascorbic acid (vitamin C) 500 mg 500 mg PO DAILY 05/04/25 06/08/25 History tablet (Vitamin C) [id number] 250 1 tab PO DAILY PRN Headaches 05/04/25 06/08/25 History mg-250 mg-65 mg tablet (Excedrin Extra Strength) atorvastatin 20 mg tablet 20 mg PO HS 05/04/25 06/08/25 History cholecalciferol (vitamin D3) 50 50 mcg PO DAILY 05/04/25 06/08/25 History mcg (2,000 unit) capsule (Vitamin D3) clobetasol 0.05 % topical ointment 1 applic topical DAILY PRN Skin 05/04/25 06/08/25 History Irritation epinephrine 0.3 mg/0.3 mL 0.3 mg IM Q4H PRN Anaphylaxis 05/04/25 06/08/25 History injection, auto-injector (EpiPen) fluorouracil 5 % topical cream 1 applic topical BID PRN UD 05/04/25 06/08/25 History Dermatology losartan 25 mg tablet 25 mg PO QAM 05/04/25 06/08/25 History acetaminophen 500 mg tablet 1,000 mg (2 x 500 mg) PO TID pain 06/01/25 06/08/25 Rx (Tylenol Extra Strength) 30 days #180 tabs ondansetron 4 mg disintegrating 4 mg PO Q8 PRN nausea #20 tabs 06/01/25 06/08/25 Rx tablet sennosides 8.6 mg tablet (Senokot) 8.6 mg PO BID prevent constipation 06/01/25 06/08/25 Rx 14 days #28 tabs tramadol 50 mg tablet 50 - 100 mg (1 - 2 x 50 mg) PO Q6 06/01/25 06/08/25 Rx PRN pain #40 tabs Amnio Acid Tablets 2 tab PO TID 06/08/25 06/08/25 History apixaban 5 mg tablet (Eliquis) 5 mg PO BID 06/08/25 06/08/25 History metoprolol succinate 25 mg 25 mg PO QAM 06/08/25 06/08/25 History tablet,extended release 24 hr tamsulosin 0.4 mg capsule (Flomax) 0.4 mg PO DAILY PRN TROUBLE 06/08/25 06/08/25 History URINATING Past Med/Surg History Problem List (Updated 06/09/25 @ 00:01 by Joe Nguyen MD) Atrial flutter with rapid ventricular response (Acute) S/P total right hip arthroplasty New onset atrial flutter Encounter for pre-operative examination Arthritis of right hip PMR (polymyalgia rheumatica) Tachycardia Status post spinal surgery Hyperlipidemia Neurogenic claudication Low back pain Spinal stenosis, lumbar Spondylolisthesis, lumbar region History of hip replacement left History of bilateral knee replacement Lumbar spondylosis Degenerative joint disease, right, ankle Medical History Hyperlipidemia Hypertension PMR (polymyalgia rheumatica) follows with Dr Lucia stable and controlled has weaned off prednisone Psoriasis Follows with [facility] Precancerous skin lesion Follows with [facility] Nausea and vomiting after administration of anesthetic agent Osteoarthritis Kidney stones hx GERD (gastroesophageal reflux disease) well controlled and stable Migraine on occasion Spinal stenosis of lumbar region Surgical History History of lumbar spinal fusion Hardware Present History of ankle surgery Right - hardware present History of total left hip arthroplasty History of bilateral cataract extraction History of bilateral knee replacement History of colonoscopy Hx of inguinal hernia repair History of cystoscopy with stent History of tooth extraction Social History Smoking Status: Former smoker Cigarettes Per Day: 1 pack day x 20 years; Second Hand Exposure: No; Do You Dip or Chew Tobacco: No; Hx Alcohol Use: Yes Alcohol type: beer and wine Hx Substance Use: No Preferred Language: Portuguese Communication Ability: Effective Building And Construction Manager Required: No Beliefs That Will Affect Care: None marital status: Current Living Situation: Spouse current occupational status: retired Feels Safe at Home: Yes Safety Concerns: Feels Safe At This Time Assistive Devices: Walker Review of Systems Review of Systems: All systems reviewed & are unremarkable except as noted in HPI & below Physical Exam Physical Exam: General- Not in acute distress. Head- atraumatic Eyes- PERRL, EOMI. ENT- oropharynx clear Neck- supple, no JVD. Lungs- clear to auscultation no wheezing or crackles. Heart- irregular rhythm; tachycardia murmur, no gallop. Abdomen- normal bowel sounds, soft, nontender, no distension Extremities- no pretibial edema, no erythema seen. Right hip surgery site sutures intact, no erythema or obvious drainage seen Neuro- alert, oriented PERRL, no facial palsy; no dysarthria; moves extremities Results & Data Results & Data Vital Signs (Past 12 Hours) Vital Signs Temp Pulse Pulse Resp BP BP Pulse Ox 06/08/25 23:00 133 H 25 H 116/69 90 06/08/25 22:51 130 H 24 90 06/08/25 22:46 128/62 06/08/25 22:46 128/62 06/08/25 22:45 132 H 25 H 128/62 91 06/08/25 22:42 141 H 26 H 91 06/08/25 22:30 148 H 21 90/46 L 91 06/08/25 22:15 140 H 16 106/59 L 91 06/08/25 22:00 143 H 32 H 122/67 91 06/08/25 21:45 26 H 134/78 92 06/08/25 21:42 140 H 29 H 92 06/08/25 21:33 129 H 26 H 93 06/08/25 21:31 138/72 06/08/25 21:31 138/72 06/08/25 21:31 138/72 06/08/25 21:31 138/72 06/08/25 21:31 138/72 06/08/25 21:30 98 06/08/25 21:30 117 H 28 H 90 06/08/25 21:21 127 H 24 06/08/25 21:15 99 06/08/25 21:15 144/86 H 06/08/25 21:15 144/86 H 06/08/25 21:15 144/86 H 06/08/25 21:15 144/86 H 06/08/25 21:15 144/86 H 06/08/25 21:15 121 H 25 H 93 06/08/25 21:12 111 H 20 92 06/08/25 21:05 112 H 23 93 06/08/25 21:00 147/87 H 06/08/25 21:00 147/87 H 06/08/25 21:00 147/87 H 06/08/25 21:00 147/87 H 06/08/25 21:00 114 H 24 147/87 H 93 06/08/25 20:54 120 H 31 H 82 L 06/08/25 20:52 144/87 H 06/08/25 20:52 144/87 H 06/08/25 20:52 144/87 H 06/08/25 20:52 144/87 H 06/08/25 20:52 144/87 H 06/08/25 20:51 152 H 24 93 06/08/25 20:50 149/94 H 06/08/25 20:50 149/94 H 06/08/25 20:50 149/94 H 06/08/25 20:48 126 H 23 92 06/08/25 20:45 146/92 H 06/08/25 20:45 146/92 H 06/08/25 20:45 146/92 H 06/08/25 20:45 146/92 H 06/08/25 20:45 150 H 22 94 06/08/25 20:42 135 H 22 93 06/08/25 20:30 133/66 06/08/25 20:30 133/66 06/08/25 20:30 133/66 06/08/25 20:30 133/66 06/08/25 20:29 148 H 23 131/66 92 06/08/25 20:25 149 H 25 H 120/81 93 06/08/25 20:24 138 H 23 120/81 93 06/08/25 20:24 149 H 25 H 120/81 93 06/08/25 20:10 155 H 06/08/25 19:51 38.3 C H 125 H 18 112/69 94 O2 Del Method 06/08/25 23:00 Room Air 06/08/25 22:51 06/08/25 22:46 06/08/25 22:46 06/08/25 22:45 06/08/25 22:42 06/08/25 22:30 06/08/25 22:15 06/08/25 22:00 06/08/25 21:45 06/08/25 21:42 06/08/25 21:33 06/08/25 21:31 06/08/25 21:31 06/08/25 21:31 06/08/25 21:31 06/08/25 21:31 06/08/25 21:30 Room Air 06/08/25 21:30 06/08/25 21:21 06/08/25 21:15 Room Air 06/08/25 21:15 06/08/25 21:15 06/08/25 21:15 06/08/25 21:15 06/08/25 21:15 06/08/25 21:15 06/08/25 21:12 06/08/25 21:05 Room Air 06/08/25 21:00 06/08/25 21:00 06/08/25 21:00 06/08/25 21:00 06/08/25 21:00 06/08/25 20:54 06/08/25 20:52 06/08/25 20:52 06/08/25 20:52 06/08/25 20:52 06/08/25 20:52 06/08/25 20:51 06/08/25 20:50 06/08/25 20:50 06/08/25 20:50 06/08/25 20:48 06/08/25 20:45 06/08/25 20:45 06/08/25 20:45 06/08/25 20:45 06/08/25 20:45 06/08/25 20:42 06/08/25 20:30 06/08/25 20:30 06/08/25 20:30 06/08/25 20:30 06/08/25 20:29 06/08/25 20:25 Room Air 06/08/25 20:24 06/08/25 20:24 Room Air 06/08/25 20:10 06/08/25 19:51 Room Air Diagnostic Findings Laboratory Results WBC 9.96 K/ul (4.8-10.8) 06/08/25 20:17 RBC 3.94 M/uL (4.70-6.10) L 06/08/25 20:17 Hgb 13.3 g/dl (14.0-18.0) L 06/08/25 20:17 Hct 37.6 % (42.0-52.0) L 06/08/25 20:17 MCV 95.4 fL (80.0-100.0) 06/08/25 20:17 MCH 33.8 pg (25.0-34.0) 06/08/25 20:17 MCHC 35.4 g/dL (32.0-36.0) 06/08/25 20:17 RDW Std Deviation 44.1 fL (36.4-46.3) 06/08/25 20:17 RDW Coeff of [place] 12.6 % (11.5-14.5) 06/08/25 20:17 Plt Count 145 K/uL (130-400) 06/08/25 20:17 MPV 11.9 fL (9.4-12.4) 06/08/25 20:17 Immature Gran % (Auto) 0.3 % 06/08/25 20:17 Neut % (Auto) 86.0 % 06/08/25 20:17 Lymph % (Auto) 7.9 % 06/08/25 20:17 [place] % (Auto) 5.3 % 06/08/25 20:17 Eos % (Auto) 0.3 % 06/08/25 20:17 Baso % (Auto) 0.2 % 06/08/25 20:17 Neut # (Auto) 8.56 K/uL (1.40-6.50) H 06/08/25 20:17 Lymph # (Auto) 0.79 K/uL (1.20-3.40) L 06/08/25 20:17 [place]ion # (Auto) 0.53 K/uL (0.11-0.59) 06/08/25 20:17 Eos # (Auto) 0.03 K/uL (0.00-0.50) 06/08/25 20:17 Baso # (Auto) 0.02 K/uL (0.00-0.20) 06/08/25 20:17 Immature Gran # (Auto) 0.03 K/uL (0.01-0.20) 06/08/25 20:17 PT 11.3 Seconds (9.0-12.0) 06/08/25 20:17 INR 1.1 (0.9-1.1) 06/08/25 20:17 APTT 30 Seconds (21-31) 06/08/25 20:17 PTT Ratio 1.1 06/08/25 20:17 VBG pH 7.34 (7.36-7.41) L 06/08/25 21:41 VBG pCO2 45 mmHg (38-50) 06/08/25 21:41 VBG pO2 31 mmHg 06/08/25 21:41 VBG HCO3 24 mmol/L 06/08/25 21:41 VBG O2 Saturation < 60.0 % 06/08/25 21:41 VBG Base Excess -1.7 mEq/L 06/08/25 21:41 Sodium 139 mmol/L (136-145) 06/08/25 20:17 Potassium 3.8 mmol/L (3.5-5.1) 06/08/25 20:17 Chloride 106 mmol/L (98-107) 06/08/25 20:17 Carbon Dioxide 24 mmol/L (21-32) 06/08/25 20:17 Anion Gap 9 (3-11) 06/08/25 20:17 BUN 18 mg/dl (6-23) 06/08/25 20:17 Creatinine 0.81 mg/dl (0.6-1.4) 06/08/25 20:17 Est Cr Clr Drug Dosing 94.0 ml/min 06/08/25 20:17 eGFR 91.95 06/08/25 20:17 BUN/Creatinine Ratio 22.2 (10-20) H 06/08/25 20:17 Glucose 129 mg/dl (70-99(Fasting)) H 06/08/25 20:17 Lactate 1.2 mmol/L (0.4-2.0) 06/08/25 20:17 Calcium 9.0 mg/dl (8.6-10.3) 06/08/25 20:17 Magnesium 1.7 mg/dl (1.7-2.4) 06/08/25 20:17 Total Bilirubin 2.5 mg/dl (0.2-1.0) H 06/08/25 20:17 Direct Bilirubin 0.4 mg/dl (0-0.2) H 06/08/25 20:17 AST 38 U/L (13-39) 06/08/25 20:17 ALT 18 U/L (7-52) 06/08/25 20:17 Alkaline Phosphatase 49 U/L (34-104) 06/08/25 20:17 Troponin I High Sens 15.0 pg/ml (0-20) 06/08/25 20:17 Total Protein 6.9 gm/dl (6.0-8.3) 06/08/25 20:17 Albumin 3.7 gm/dl (3.4-5.0) 06/08/25 20:17 Procalcitonin 0.08 ng/ml (0-0.5) 06/08/25 20:17 Urine Color Yellow 06/08/25 22:00 Urine Appearance Clear (Clear) 06/08/25 22:00 Urine pH 5.5 (4.5-7.5) 06/08/25 22:00 Ur Specific [place] 1.014 (1.000-1.030) 06/08/25 22:00 Urine Protein Negative (Negative) 06/08/25 22:00 Urine Glucose (UA) Negative (Negative) 06/08/25 22:00 Urine Ketones 1+ (Negative) H 06/08/25 22:00 Urine Blood Negative (Negative) 06/08/25 22:00 Urine Nitrite Negative (Negative) 06/08/25 22:00 Urine Bilirubin Negative (Negative) 06/08/25 22:00 Urine Urobilinogen Negative (Negative) 06/08/25 22:00 Ur Leukocyte Esterase Negative (Negative) 06/08/25 22:00 Urine Comment 06/08/25 22:00 Adenovirus (PCR) Not Detected (NotDetected) 06/08/25 22:00 B. pertussis DNA (PCR) Not Detected (NotDetected) 06/08/25 22:00 B.parapertussis DNA PCR Not Detected (NotDetected) 06/08/25 22:00 C. pneumoniae DNA (PCR) Not Detected (NotDetected) 06/08/25 22:00 Coronavirus OC43 (PCR) Not Detected (NotDetected) 06/08/25 22:00 Coronavirus HKU1 (PCR) Not Detected (NotDetected) 06/08/25 22:00 Coronavirus 229E (PCR) Not Detected (NotDetected) 06/08/25 22:00 SARS-CoV-2 (PCR) Not Detected (NotDetected) 06/08/25 22:00 Coronavirus NL63 (PCR) Not Detected (NotDetected) 06/08/25 22:00 Human Metapneumovir PCR Not Detected (NotDetected) 06/08/25 22:00 Influenza Type A (PCR) Not Detected (NotDetected) 06/08/25 22:00 Influenza Type B (PCR) Not Detected (NotDetected) 06/08/25 22:00 M. pneumoniae (PCR) Not Detected (NotDetected) 06/08/25 22:00 Parainfluenza 1 (PCR) Not Detected (NotDetected) 06/08/25 22:00 Parainfluenza 2 (PCR) Not Detected (NotDetected) 06/08/25 22:00 Parainfluenza 3 (PCR) Not Detected (NotDetected) 06/08/25 22:00 Parainfluenza 4 (PCR) Not Detected (NotDetected) 06/08/25 22:00 RSV (PCR) Not Detected (NotDetected) 06/08/25 22:00 Entero/Rhino (PCR) Not Detected (NotDetected) 06/08/25 22:00 Impressions Chest X-Ray 06/08/25 20:07 Exam(s): XR CXR 1 VIEW EXAM: XR Chest, 1 View CLINICAL HISTORY: Sepsis. TECHNIQUE: Frontal view of the chest. COMPARISON: No relevant prior studies available. FINDINGS: Lungs: Low lung volumes accentuate pulmonary markings. No consolidation. Pleural space: Unremarkable. No pneumothorax. Heart: Cardiomegaly. Mediastinum: Unremarkable. Normal mediastinal contour. Bones/joints: There are degenerative changes of the spine. No acute fracture. Tubes, lines and devices: A left implanted cardiac device is noted. IMPRESSION: Cardiomegaly. Electronically signed by: Patria Main MD 06/08/25 22:11 PM Hip/Pelvis X-Ray 06/08/25 20:08 Exam(s): XR HIP + PELVIS, 2-3 views EXAM: XR Right Hip With Pelvis When Performed, 2 or 3 Views CLINICAL HISTORY: Post op Fever. TECHNIQUE: Two or three views of the right hip with pelvis when performed. COMPARISON: No relevant prior studies available. FINDINGS: Bones/joints: Bilateral hip prostheses are in good position without evidence of hardware failure. No acute fracture. No dislocation. Soft tissues: Postsurgical changes of the soft tissues of the right thigh are noted. IMPRESSION: Bilateral hip prostheses are in good position without evidence of hardware failure. Electronically signed by: Patria Main MD 06/08/25 22:09 PM ECG Additional Comments: ECG. A flutter with variable AV block at rate of 117. Right bundle branch block. QTc 530 Code Status & VTE Plan VTE Prophylaxis Plan VTE Prophylaxis will be ordered: Yes
--- NOTE | 2025-06-09 01:29 | CT Scan Report ---
EXAM: CT angio chest PE protocol CLINICAL HISTORY: PE TECHNIQUE: Contiguous axial images were obtained from the base of the neck through the upper abdomen following intravenous administration of iodinated contrast material. Angiographic images were processed, and 3D MIP images were acquired for interpretation. If IV contrast material had not been administered, the likelihood of detecting abnormalities relevant to the patient's condition would have been substantially decreased. Coronal and sagittal 3-D MIPs were likewise performed and indicated to increase the sensitivity of detecting diffuse clinically relevant pathology. The CT scan was performed according to ALARA (as low as reasonably achievable) principles. COMPARISON: None. FINDINGS: There is an adequate contrast bolus without evidence of pulmonary embolism. Dependent reticulations are seen. Few subsegmental atelectasis bands in bilateral lung bases. The central airways are patent. The remainder of the lungs is clear. There is no pleural effusion. The heart, aorta, and pulmonary arteries are of normal size and configuration. No pericardial effusion is identified. There are appreciable coronary artery and aortic atherosclerotic calcifications. The thyroid is unremarkable. No mediastinal, hilar, or axillary lymphadenopathy is noted. No suspicious lytic or sclerotic osseous lesions are identified. Degenerative changes are seen in the visualized spine. Note is made of a left renal cortical cyst. IMPRESSION: 1. No evidence of pulmonary embolism or significant pulmonary disease. 2. Few subsegmental atelectasis bands in bilateral lung bases.Likely post inflammatory changes Electronically signed by Lemuel Yepez 06-09-2025 01:29 AM
--- NOTE | 2025-06-09 01:30 | CT Scan Report ---
EXAM: CT abd pelvis IV con only CLINICAL HISTORY: abd pain TECHNIQUE: Multiple contiguous axial images were obtained from the level of the diaphragm to the pubic symphysis. This study was acquired after the IV administration of iodinated contrast material, given the patient's indications for the examination. If IV contrast material had not been administered, the likelihood of detecting abnormalities relevant to the patient's condition would have been substantially decreased. Coronal and sagittal reformatted images were generated and reviewed to improve anatomic localization and optimize lesion detection. CT scan was performed according to ALARA (as low as reasonably achievable). COMPARISON: None. FINDINGS: Dependent reticulations and atelectasis are seen. The rest of the visualized lung bases are clear. The liver is normal in size and attenuation. No focal liver lesions are seen. There is no intrahepatic or extrahepatic biliary ductal dilatation. Hepatic vasculature is patent. The gallbladder is unremarkable. The spleen, pancreas, and adrenal glands are unremarkable. The kidneys are normal in size and attenuation. A well-defined, thin-walled cyst measuring 23 mm is seen in the upper pole of the left kidney. There is no hydronephrosis. Mild bilateral perinephric fat stranding is seen. Two tiny foci of calcification, measuring 2-3 mm, are seen in the interpolar calyceal region of the left kidney. The ureters are normal in caliber and no ureteral calculi are seen. The bladder is normal in contour. A small sliding hiatal hernia is seen. Multiple colonic diverticula are seen. No evidence of focal or diffuse bowel wall thickening or bowel obstruction is identified. No adenopathy or fluid collections are seen. The aorta is normal in caliber and shows atherosclerotic wall calcification. No aggressive-appearing osseous lesions are identified. Degenerative changes are seen in the visualized spine. There is grade 1 anterolisthesis of L4 over L5. Metallic artifacts are seen arising from lower lumbar spine fixation screws and bilateral hip replacement prostheses. IMPRESSION: 1. Left renal simple cortical cyst. Non-obstructive left renal concretions. 2. Mild bilateral perinephric fat stranding. 3. Colonic diverticulosis with mild inflammatory changes adjoining the sigmoid colon, suggesting acute diverticulitis. 4. Small sliding hiatal hernia. Electronically signed by Lemuel Yepez 06-09-2025 01:30 AM
[2025-06-09] MEDS ORDERED: LORATADINE 10 MG TAB PO PRN (02:10)
[2025-06-09] MEDS ORDERED: NITROGLYCERIN SL 0.4 MG/TAB TAB SL PRN (02:10)
[2025-06-09] MEDS ORDERED: EPINEPHrine INJ 1 MG/ML AMP IM PRN (02:26)
[2025-06-09] MEDS: KETOROLAC TROMETHAMINE 15 MG/ML VIAL IV ONE (02:39)
[2025-06-09 06:28] LABS: Hematocrit (blood only) 31.4 % (42.0-52.0); Hemoglobin 10.9 g/dl (14.0-18.0); Immature Granulocytes # (auto) 0.09 K/uL (0.01-0.20); Immature Granulocytes % (auto) 0.6 %; Mean Corpuscular Hemoglobin 33.9 pg (25.0-34.0); Mean Corpuscular Volume 97.5 fL (80.0-100.0); Platelet Count 119 K/uL (130-400); RDW Standard Deviation 46.2 fL (36.4-46.3); Red Blood Count 3.22 M/uL (4.70-6.10); White Blood Count 16.04 K/ul (4.8-10.8)
[2025-06-09] MEDS ORDERED: VANCOMYCIN CONSULT ACTIVE PRN (06:45)
[2025-06-09 06:46] LABS: Alanine Aminotransferase 12.0 U/L (7-52); Albumin Level 3.2 gm/dl (3.4-5.0); Alkaline Phosphatase 35.0 U/L (34-104); Anion Gap 7.0 (3-11); Bilirubin,Total 2.8 mg/dl (0.2-1.0); Blood Urea Nitrogen 15.0 mg/dl (6-23); Calcium 8.0 mg/dl (8.6-10.3); Carbon Dioxide 23.0 mmol/L (21-32); Chloride 109.0 mmol/L (98-107); Creatinine Clr Calc Pharmacy 81.0 ml/min; Glucose 113.0 mg/dl (70-99(Fasting)); Magnesium 1.7 mg/dl (1.7-2.4); Potassium 3.6 mmol/L (3.5-5.1); Sodium 139.0 mmol/L (136-145); Total Protein 5.5 gm/dl (6.0-8.3)
--- NOTE | 2025-06-09 07:13 | Hospitalist Progress Note ---
Date of Service June 09, 2025 Assessment & Plan (1) Atrial flutter with rapid ventricular response: Plan: 74 yo M with past medical history significant for gout, dyslipidemia, allergic rhinitis, GERD, BPH, polymyalgia rheumatica, osteoarthritis, history of kidney stones presents with fevers and found to be in rapid A-Flutter Patient recently on 06/05/2025 had right hip replacement. During the surgery patient went into a flutter which was responsive to beta-martina. Postoperatively he was asymptomatic but again went into rapid a flutter. During that admission he was seen by cardiology for new onset a flutter and was started on metoprolol succinate and also Eliquis. Patient was discharged on 06/06/2025. Patient had monitor placed today. Patient states since yesterday evening having fevers. His fevers are not getting better so he came to the ER today. In the ER he was found to be in rapid A-Flutter. Currently on Cardizem drip. Patient complains of some knotty feeling in his stomach and is having abdominal discomfort. Denies any chest pain or shortness of breath. No cough. No headache. No runny nose or sore throat. He has some watering and itching of the eyes. Appetite is okay. Normal bowel and bladder movements. A-flutter with rapid ventricular response Was started on Cardizem drip on admission --> Pt converted to sinus rhythm this AM (06/09) Continue Eliquis Close monitor in telemetry Continue home metoprolol succinate Echo done 06/05/2025 shows normal EF 55 to 60%. Mild concentric left ventricular hypertrophy. Left atrium mildly dilated. Will keep K > 4, Mag > 2 Cardiology consulted Fevers Recent right hip replacement Surgical sites look okay No leukocytosis in ER but this AM WBC 16K (06/09). Lactic acid normal, Procalcitonin negat. in ED Respiratory BioFire negative. Chest x-ray no acute findings. UA negative. Blood cultx - pending Orthopedics consulted Has abdominal discomfort CT chest - 1. No evidence of pulmonary embolism or significant pulmonary disease. 2. Few subsegmental atelectasis bands in bilateral lung bases.Likely post inflammatory changes CT abdomen pelvis - 1. Left renal simple cortical cyst. Non-obstructive left renal concretions. 2. Mild bilateral perinephric fat stranding. 3. Colonic diverticulosis with mild inflammatory changes adjoining the sigmoid colon, suggesting acute diverticulitis. 4. Small sliding hiatal hernia. Acute diverticulitis - started on broad spectrum abx - will follow blood cultx Prolonged QTc Avoid QT prolonging drugs Follow repeat EKG. Mild elevation of bilirubin Will follow repeat labs Hyperlipidemia On statin Hypertension On losartan and metoprolol succinate Will monitor Recent Right hip replacement surgery site looks ok will consult ortho. DVT prophylaxis Eliquis Disposition Telemetry Full code. Admission and Anticipated Discharge Date Admission Date: June 08, 2025 Subjective Pt seen in follow up, presents with Afib RVR and fevers, recent hx of hip surgery Was started on cardizem drip and converted to sinus rhythm this AM WBC in ED normal but elevated at 16K this AM. Imaging obtained and c/w diverticulitis. Blood cultx obtained in ED - pending Started on broad spectrum antibiotic Pt is lying in bed in NAD, says he already feels much better. Pt's present at the bedside. Pt reports lower abd. discomfort/ pain Denies chest pain, shortness of breath R hip with some postsurgical pain, no drainage, erythema , or significant edema noted, and per pt pain is not that significant. Review of Systems Review of Systems: All systems reviewed & are unremarkable except as noted in Subjective Physical Exam Physical Exam: General- WD/WN M in NAD Head- atraumatic Eyes- PERRL, EOMI. Neck- supple, no JVD. Lungs- clear to auscultation no wheezing or crackles. Heart- rrr Abdomen- normal bowel sounds, soft, + mildly tender to palp. lower abd. Extremities- no pretibial edema, no erythema seen. Right hip surgery site sutures intact, no erythema or obvious drainage seen Neuro- alert, oriented PERRL, no facial palsy; no dysarthria; moves extremities Results & Data Results & Data Vital Signs (Past 12 Hours) Vital Signs Temp Pulse Pulse Resp BP BP Pulse Ox 06/09/25 02:10 06/09/25 01:45 38.4 C H 122 H 18 127/75 92 06/09/25 01:20 119 H 18 116/66 92 06/09/25 00:11 119 H 06/09/25 00:00 37.3 C 120 H 20 115/67 92 06/08/25 23:00 133 H 25 H 116/69 90 06/08/25 22:51 130 H 24 90 06/08/25 22:46 128/62 06/08/25 22:46 128/62 06/08/25 22:45 132 H 25 H 128/62 91 06/08/25 22:42 141 H 26 H 91 06/08/25 22:30 148 H 21 90/46 L 91 06/08/25 22:15 140 H 16 106/59 L 91 06/08/25 22:00 143 H 32 H 122/67 91 06/08/25 21:45 26 H 134/78 92 06/08/25 21:42 140 H 29 H 92 06/08/25 21:33 129 H 26 H 93 06/08/25 21:31 138/72 06/08/25 21:31 138/72 06/08/25 21:31 138/72 06/08/25 21:31 138/72 06/08/25 21:31 138/72 06/08/25 21:30 98 06/08/25 21:30 117 H 28 H 90 06/08/25 21:21 127 H 24 06/08/25 21:15 99 06/08/25 21:15 144/86 H 06/08/25 21:15 144/86 H 06/08/25 21:15 144/86 H 06/08/25 21:15 144/86 H 06/08/25 21:15 144/86 H 06/08/25 21:15 121 H 25 H 93 06/08/25 21:12 111 H 20 92 06/08/25 21:05 112 H 23 93 06/08/25 21:00 147/87 H 06/08/25 21:00 147/87 H 06/08/25 21:00 147/87 H 06/08/25 21:00 147/87 H 06/08/25 21:00 114 H 24 147/87 H 93 06/08/25 20:54 120 H 31 H 82 L 06/08/25 20:52 144/87 H 06/08/25 20:52 144/87 H 06/08/25 20:52 144/87 H 06/08/25 20:52 144/87 H 06/08/25 20:52 144/87 H 06/08/25 20:51 152 H 24 93 06/08/25 20:50 149/94 H 06/08/25 20:50 149/94 H 06/08/25 20:50 149/94 H 06/08/25 20:48 126 H 23 92 06/08/25 20:45 146/92 H 06/08/25 20:45 146/92 H 06/08/25 20:45 146/92 H 06/08/25 20:45 146/92 H 06/08/25 20:45 150 H 22 94 06/08/25 20:42 135 H 22 93 06/08/25 20:30 133/66 06/08/25 20:30 133/66 06/08/25 20:30 133/66 06/08/25 20:30 133/66 06/08/25 20:29 148 H 23 131/66 92 06/08/25 20:25 149 H 25 H 120/81 93 06/08/25 20:24 138 H 23 120/81 93 06/08/25 20:24 149 H 25 H 120/81 93 06/08/25 20:10 155 H 06/08/25 19:51 38.3 C H 125 H 18 112/69 94 Pulse Ox O2 Del Method O2 Del Method 06/09/25 02:10 92 Room Air 06/09/25 01:45 Room Air 06/09/25 01:20 Room Air 06/09/25 00:11 06/09/25 00:00 Room Air 06/08/25 23:00 Room Air 06/08/25 22:51 06/08/25 22:46 06/08/25 22:46 06/08/25 22:45 06/08/25 22:42 06/08/25 22:30 06/08/25 22:15 06/08/25 22:00 06/08/25 21:45 06/08/25 21:42 06/08/25 21:33 06/08/25 21:31 06/08/25 21:31 06/08/25 21:31 06/08/25 21:31 06/08/25 21:31 06/08/25 21:30 Room Air 06/08/25 21:30 06/08/25 21:21 06/08/25 21:15 Room Air 06/08/25 21:15 06/08/25 21:15 06/08/25 21:15 06/08/25 21:15 06/08/25 21:15 06/08/25 21:15 06/08/25 21:12 06/08/25 21:05 Room Air 06/08/25 21:00 06/08/25 21:00 06/08/25 21:00 06/08/25 21:00 06/08/25 21:00 06/08/25 20:54 06/08/25 20:52 06/08/25 20:52 06/08/25 20:52 06/08/25 20:52 06/08/25 20:52 06/08/25 20:51 06/08/25 20:50 06/08/25 20:50 06/08/25 20:50 06/08/25 20:48 06/08/25 20:45 06/08/25 20:45 06/08/25 20:45 06/08/25 20:45 06/08/25 20:45 06/08/25 20:42 06/08/25 20:30 06/08/25 20:30 06/08/25 20:30 06/08/25 20:30 06/08/25 20:29 06/08/25 20:25 Room Air 06/08/25 20:24 06/08/25 20:24 Room Air 06/08/25 20:10 06/08/25 19:51 Room Air Laboratory Results 06/09/25 06/09/25 06/08/25 Range/Units 05:39 02:51 22:00 WBC 16.04 H (4.8-10.8) K/ul RBC 3.22 L (4.70-6.10) M/uL Hgb 10.9 L (14.0-18.0) g/dl Hct 31.4 L (42.0-52.0) % MCV 97.5 (80.0-100.0) fL MCH 33.9 (25.0-34.0) pg MCHC 34.7 (32.0-36.0) g/dL RDW Std Deviation 46.2 (36.4-46.3) fL RDW Coeff of Chinyere 12.8 (11.5-14.5) % Plt Count 119 L (130-400) K/uL MPV 12.1 (9.4-12.4) fL Immature Gran % (Auto) 0.6 % Neut % (Auto) 88.8 % Lymph % (Auto) 5.7 % Love % (Auto) 4.7 % Eos % (Auto) 0.0 % Baso % (Auto) 0.2 % Neut # (Auto) 14.25 H (1.40-6.50) K/uL Lymph # (Auto) 0.91 L (1.20-3.40) K/uL Love # (Auto) 0.76 H (0.11-0.59) K/uL Eos # (Auto) 0.00 (0.00-0.50) K/uL Baso # (Auto) 0.03 (0.00-0.20) K/uL Immature Gran # (Auto) 0.09 (0.01-0.20) K/uL PT (9.0-12.0) Seconds INR (0.9-1.1) APTT (21-31) Seconds PTT Ratio VBG pH (7.36-7.41) VBG pCO2 (38-50) mmHg VBG pO2 mmHg VBG HCO3 mmol/L VBG O2 Saturation % VBG Base Excess mEq/L Sodium 139 (136-145) mmol/L Potassium 3.6 (3.5-5.1) mmol/L Chloride 109 H (98-107) mmol/L Carbon Dioxide 23 (21-32) mmol/L Anion Gap 7 (3-11) BUN 15 (6-23) mg/dl Creatinine 0.90 (0.6-1.4) mg/dl Est Cr Clr Drug Dosing 81.0 ml/min eGFR 89.07 BUN/Creatinine Ratio 16.7 (10-20) Glucose 113 H (70-99(Fasting)) mg/dl Lactate (0.4-2.0) mmol/L Calcium 8.0 L (8.6-10.3) mg/dl Magnesium 1.7 (1.7-2.4) mg/dl Total Bilirubin 2.8 H (0.2-1.0) mg/dl Direct Bilirubin 0.7 H (0-0.2) mg/dl AST 25 (13-39) U/L ALT 12 (7-52) U/L Alkaline Phosphatase 35 (34-104) U/L Troponin I High Sens 29.8 H D (0-20) pg/ml Total Protein 5.5 L D (6.0-8.3) gm/dl Albumin 3.2 L (3.4-5.0) gm/dl Procalcitonin (0-0.5) ng/ml Urine Color Yellow Urine Appearance Clear (Clear) Urine pH 5.5 (4.5-7.5) Ur Specific Marvin 1.014 (1.000-1.030) Urine Protein Negative (Negative) Urine Glucose (UA) Negative (Negative) Urine Ketones 1+ H (Negative) Urine Blood Negative (Negative) Urine Nitrite Negative (Negative) Urine Bilirubin Negative (Negative) Urine Urobilinogen Negative (Negative) Ur Leukocyte Esterase Negative (Negative) Urine Comment Adenovirus (PCR) Not Detected (NotDetected) B. pertussis DNA (PCR) Not Detected (NotDetected) B.parapertussis DNA PCR Not Detected (NotDetected) C. pneumoniae DNA (PCR) Not Detected (NotDetected) Coronavirus OC43 (PCR) Not Detected (NotDetected) Coronavirus HKU1 (PCR) Not Detected (NotDetected) Coronavirus 229E (PCR) Not Detected (NotDetected) SARS-CoV-2 (PCR) Not Detected (NotDetected) Coronavirus NL63 (PCR) Not Detected (NotDetected) Hepatitis C Ab Screen Negative (Negative) Human Metapneumovir PCR Not Detected (NotDetected) Influenza Type A (PCR) Not Detected (NotDetected) Influenza Type B (PCR) Not Detected (NotDetected) M. pneumoniae (PCR) Not Detected (NotDetected) Parainfluenza 1 (PCR) Not Detected (NotDetected) Parainfluenza 2 (PCR) Not Detected (NotDetected) Parainfluenza 3 (PCR) Not Detected (NotDetected) Parainfluenza 4 (PCR) Not Detected (NotDetected) RSV (PCR) Not Detected (NotDetected) Entero/Rhino (PCR) Not Detected (NotDetected) 06/08/25 06/08/25 Range/Units 21:41 20:17 WBC 9.96 (4.8-10.8) K/ul RBC 3.94 L (4.70-6.10) M/uL Hgb 13.3 L (14.0-18.0) g/dl Hct 37.6 L (42.0-52.0) % MCV 95.4 (80.0-100.0) fL MCH 33.8 (25.0-34.0) pg MCHC 35.4 (32.0-36.0) g/dL RDW Std Deviation 44.1 (36.4-46.3) fL RDW Coeff of Chinyere 12.6 (11.5-14.5) % Plt Count 145 (130-400) K/uL MPV 11.9 (9.4-12.4) fL Immature Gran % (Auto) 0.3 % Neut % (Auto) 86.0 % Lymph % (Auto) 7.9 % Love % (Auto) 5.3 % Eos % (Auto) 0.3 % Baso % (Auto) 0.2 % Neut # (Auto) 8.56 H (1.40-6.50) K/uL Lymph # (Auto) 0.79 L (1.20-3.40) K/uL Love # (Auto) 0.53 (0.11-0.59) K/uL Eos # (Auto) 0.03 (0.00-0.50) K/uL Baso # (Auto) 0.02 (0.00-0.20) K/uL Immature Gran # (Auto) 0.03 (0.01-0.20) K/uL PT 11.3 (9.0-12.0) Seconds INR 1.1 (0.9-1.1) APTT 30 (21-31) Seconds PTT Ratio 1.1 VBG pH 7.34 L (7.36-7.41) VBG pCO2 45 (38-50) mmHg VBG pO2 31 mmHg VBG HCO3 24 mmol/L VBG O2 Saturation < 60.0 % VBG Base Excess -1.7 mEq/L Sodium 139 (136-145) mmol/L Potassium 3.8 (3.5-5.1) mmol/L Chloride 106 (98-107) mmol/L Carbon Dioxide 24 (21-32) mmol/L Anion Gap 9 (3-11) BUN 18 (6-23) mg/dl Creatinine 0.81 (0.6-1.4) mg/dl Est Cr Clr Drug Dosing 94.0 ml/min eGFR 91.95 BUN/Creatinine Ratio 22.2 H (10-20) Glucose 129 H (70-99(Fasting)) mg/dl Lactate 1.2 (0.4-2.0) mmol/L Calcium 9.0 (8.6-10.3) mg/dl Magnesium 1.7 (1.7-2.4) mg/dl Total Bilirubin 2.5 H (0.2-1.0) mg/dl Direct Bilirubin 0.4 H (0-0.2) mg/dl AST 38 (13-39) U/L ALT 18 (7-52) U/L Alkaline Phosphatase 49 (34-104) U/L Troponin I High Sens 15.0 (0-20) pg/ml Total Protein 6.9 (6.0-8.3) gm/dl Albumin 3.7 (3.4-5.0) gm/dl Procalcitonin 0.08 (0-0.5) ng/ml Urine Color Urine Appearance (Clear) Urine pH (4.5-7.5) Ur Specific Marvin (1.000-1.030) Urine Protein (Negative) Urine Glucose (UA) (Negative) Urine Ketones (Negative) Urine Blood (Negative) Urine Nitrite (Negative) Urine Bilirubin (Negative) Urine Urobilinogen (Negative) Ur Leukocyte Esterase (Negative) Urine Comment Adenovirus (PCR) (NotDetected) B. pertussis DNA (PCR) (NotDetected) B.parapertussis DNA PCR (NotDetected) C. pneumoniae DNA (PCR) (NotDetected) Coronavirus OC43 (PCR) (NotDetected) Coronavirus HKU1 (PCR) (NotDetected) Coronavirus 229E (PCR) (NotDetected) SARS-CoV-2 (PCR) (NotDetected) Coronavirus NL63 (PCR) (NotDetected) Hepatitis C Ab Screen (Negative) Human Metapneumovir PCR (NotDetected) Influenza Type A (PCR) (NotDetected) Influenza Type B (PCR) (NotDetected) M. pneumoniae (PCR) (NotDetected) Parainfluenza 1 (PCR) (NotDetected) Parainfluenza 2 (PCR) (NotDetected) Parainfluenza 3 (PCR) (NotDetected) Parainfluenza 4 (PCR) (NotDetected) RSV (PCR) (NotDetected) Entero/Rhino (PCR) (NotDetected) Medications Administered Current Inpatient Medications Acetaminophen (Acetaminophen 325 Mg Tab) 650 mg PO Q4H PRN PRN Reason: Pain or Fever Stop: 07/09/25 02:09 Acetaminophen (Acetaminophen 500 Mg Tab) 1,000 mg PO TID CARINA Stop: 07/09/25 08:59 Apixaban (Apixaban 5 Mg Tablet) 5 mg PO BID CARINA Stop: 07/09/25 08:59 Ascorbic Acid (Ascorbic Acid 500 Mg Tab) 500 mg PO DAILY CARINA Stop: 07/09/25 08:59 Atorvastatin Calcium (Atorvastatin 20 Mg Tab) 20 mg PO HS CARINA Stop: 07/09/25 20:59 Epinephrine HCl (Epinephrine Inj 1 Mg/Ml Amp) 0.3 mg IM Q4H PRN PRN Reason: Anaphylaxis Stop: 07/09/25 02:25 Diltiazem HCl 125 mg/ Dextrose 125 mls @ 10 mls/hr IV .[id number] CARINA; Protocol Stop: 07/08/25 20:59 Last Titration: 06/09/25 00:31 Dose: 10 mg/hr, 10 mls/hr Sodium Chloride (Nss) 1,000 mls @ 125 mls/hr IV .Q8H CARINA Stop: 06/09/25 10:09 Piperacillin Sod/Tazobactam Sod (Zosyn) 4.5 gm in 100 mls @ 25 mls/hr IV Q8H CARINA; Protocol Stop: 06/19/25 06:44 Piperacillin Sod/Tazobactam Sod (Zosyn) 4.5 gm in 100 mls @ 200 mls/hr IV NOW STA; Protocol Stop: 06/09/25 07:22 Vancomycin HCl 1,750 mg/ (Sodium Chloride) 535 mls @ 200 mls/hr IV NOW STA Stop: 06/09/25 09:34 Loratadine (Loratadine 10 Mg Tab) 10 mg PO DAILY PRN PRN Reason: Allergy Symptoms Stop: 07/09/25 02:09 Losartan Potassium (Losartan Potassium 25 Mg Tab) 25 mg PO QAM CARINA Stop: 07/09/25 08:59 Metoprolol Succinate (Metoprolol Succ 25mg Ext Rel Tab) 25 mg PO QAM CARINA Stop: 07/09/25 08:59 Miscellaneous Information (Vancomycin Consult Active) 1 each N/A UD PRN PRN Reason: Consult Stop: 07/09/25 06:44 Nitroglycerin (Nitroglycerin Sl 0.4 Mg/Tab Tab) 0.4 mg SL Q5M PRN PRN Reason: Chest Pain Stop: 07/09/25 02:09 Pantoprazole Sodium (Pantoprazole 40 Mg Tab) 40 mg PO HS PRN PRN Reason: Heartburn Stop: 07/09/25 02:09 Polyethylene Glycol (Polyethylene (Miralax) 17 Gm Pack) 17 gm PO DAILY PRN PRN Reason: Constipation Stop: 07/09/25 02:09 Sennosides (Senna 8.6 Mg Tab) 8.6 mg PO BID CARINA Stop: 07/09/25 08:59 Tamsulosin HCl (Tamsulosin Hcl 0.4 Mg Cap) 0.4 mg PO DAILY PRN PRN Reason: TROUBLE URINATING Stop: 07/09/25 02:09 Tramadol HCl (Tramadol Hcl 50 Mg Tablet) 50 - 100 mg PO Q6 PRN PRN Reason: pain Stop: 07/09/25 02:09 Vitamin D (Cholecalciferol 25 Mcg (1000 Units) Tab) 50 mcg PO DAILY CARINA Stop: 07/09/25 08:59
--- NOTE | 2025-06-09 07:43 | Cardiology Consultation ---
Date of Consultation June 09, 2025 Assessment & Plan (1) Atrial flutter with rapid ventricular response: (2) S/P total right hip arthroplasty: (3) Fever: (4) Acute diverticulitis: (5) Hyperlipidemia: Plan Assessment: 74 year old male with recent Right Total hip replacement found to have Atrial flutter intraoperatively, spontaneously converted that returned to the ER 2 days post discharge with acute concerns of fever and abdominal pain. EKG at time of admission demonstrated Atrial flutter with RVR and chronic Right BBB. Cardiology consulted for further evaluation/recommendations. Plan: 1. Atrial flutter with RVR: -Initially diagnosed intraoperatively for total hip replacement on 06/05/2025. Transient in nature and had spontaneously converted. Echocardiogram demonstrated normal LVEF, no wall motion abnormalities and no significant valvular disease. Patient was discharged home on Metoprolol succinate 25mg PO QAM and Eliquis 5mg PO BID. -Patient remains asymptomatic with regards to atrial flutter. He had spontaneously converted at 0446, but converted back to Atrial flutter at 0038. -give an additional one time dose of Toprol xl 25mg now. Continues on Cardizem gtt, but will work to wean down/off with additional beta martina as blood pressures are running lower normal limits. -Explained in detail the pathophysiology of atrial arrhythmias to patient and spouse. Reviewed EKG, recent echocardiogram and telemetry readings. -Euvolemic on exam -Atrial flutter initially found in the intraoperative setting of surgery, anesthesia agents and likely volume loss. Now presenting with fevers and a CT ABD/Pelvis showing an acute diverticulitis which is likely the precipitating factor. -Fevers controlled at this time. -urine culture pending, blood cultures pending, continued management of acute diverticulitis per Primary team. Currently receiving IV Zosyn and IV vancomycin. -Continue Losartan as per home regimen for blood pressure control -Continue Atorvastatin as per home regimen for cholesterol control. -patient is currently wearing a zio monitor, please leave in place. patient is aware to continue to wear zio for its ordered duration and send back as instructed. OP cardiology appt as scheduled on 07/16/2025 with Anusha Tellez PA-C Case has been discussed with Dr. Whitney. Further recommendations regarding plan of care as per his assessment. I spent a total of 60 minutes on the date of service in preparation, delivery, documentation of the care provided to the patient excluding any time spent in the performance of separately billed services. JEFF Hanna [facility] Cardiology [facility] Supervising Physician Co-Signing Physician Notes Attending attestation: Case reviewed with the advanced practitioner. I have personally performed a history and physical examination on the patient. I have reviewed the advanced practitioner's documentation on the date of service referenced in note, and I agree with, and take responsibility for the plan of care. Subjective: patient comfortable at the time of my assessment at around 1600 today. Denies chest discomfort or shortness of breath. Abdominal discomfort improved. Denies fevers or chills at present. Patient with noted atrial fibrillation/flutter with rapid ventricular response earlier today with spontaneous conversion to sinus rhythm. He then reverted back to atrial fibrillation/flutter with rapid ventricular response ultimately converted to sinus rhythm on at 1330, while he was having a bowel movement and was on a diltiazem infusion. Currently sinus rhythm in the 80s noted. Exam: Cardiovascular: Regular rhythm, no murmurs, no edema Data: EKG tracings reviewed revealing atrial fibrillation/flutter with rapid ventricul ar response. Previous tracing dating back to 06/05/2025 revealed sinus rhythm with right bundle branch block QRS duration 156 ms. Corrected QT interval just over 500 ms. TSH within normal limits earlier this week. AST/ALT within normal limits, mild bilirubin elevation. Stable CT chest findings without significant underlying interstitial lung disease. Impression/ Plan: Recurrent atrial fibrillation/flutter with rapid ventricular response Underlying right bundle branch block Sepsis syndrome, presumed to be due to acute diverticulitis Recent right hip replacement - Continue Eliquis 5 mg twice daily for stroke prevention -Continue metoprolol succinate 25 mg daily. - Discontinue diltiazem infusion in favor of short-term use of amiodarone infusion to start at 1 mg/min x 6 hours and then down to 0.5 mg/min thereafter without loading bolus. -Although corrected QT interval was just over 500 ms on his recent sinus rhythm EKG on 06/26, this must be interpreted with keeping the right bundle branch block into account, and is felt that a trial of amiodarone is warranted. -Repeat EKG am of 06/10/25. Ronald Whitney DO History of Present Illness Reason for Consultation: Rapid A-fib Requesting Physician: [facility] hospitalist Attending Physician: Adolfo Garibay MD History of Present Illness HPI: Patient is a 74 year old male with no prior cardiac history that was recently hospitalized for a routine right hip replacement. Patient had developed transient atrial flutter intraoperatiely which was treated with metoprolol. He had spontaneously converted prior to completion of the case, but was seen by cardiology post operatively for further recommendations. Echocardiogram was preformed showing preserved LVEF, no significant valvular disease. He was recomm ended to remain on Toprol xl and Eliquis upon discharge as well has be placed on protracted cardiac monitoring to assess A-fib/flutter burden. patient states that last evening he had developed fevers and "a knotty feeling in my stomach" for which he presented to the ER. patient is resting comfortably in bed at time of my examination. Family at bedside. Denies any chest pain, pressure, palpitations, shortness of breath, PND, pre-syncope, syncope or edema. EKG on admission Atrial flutter with variable AV block, right BBB (not new) Rate 117bpm Elevated WBC and neutrophils. High sensitivity troponin 15.0/29.8 CTA chest negative for PE CT ABD/Pelvis: IMPRESSION: 1. Left renal simple cortical cyst. Non-obstructive left renal concretions. 2. Mild bilateral perinephric fat stranding. 3. Colonic diverticulosis with mild inflammatory changes adjoining the sigmoid colon, suggesting acute diverticulitis. 4. Small sliding hiatal hernia. Review of telemetry shows SR with PAC's rate 80's at 0830. 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 Allergies Allergy/AdvReac Type Severity Reaction Status Date / Time bee venom protein (honey bee) Allergy Severe Anaphylaxis Verified 06/08/25 22:56 capsaicin AdvReac Intermediate Mouth sores Verified 06/08/25 22:56 diclofenac AdvReac Intermediate Mouth sores Verified 06/08/25 22:56 meloxicam AdvReac Intermediate Mouth sores Verified 06/08/25 22:56 Home Medications Medication Instructions Recorded Confirmed Type loratadine 10 mg tablet (Claritin) 10 mg PO DAILY PRN Allergy Symptoms 12/13/20 06/08/25 History pantoprazole 40 mg tablet,delayed 40 mg PO HS PRN Heartburn 12/13/20 06/08/25 History release (Protonix) amoxicillin 500 mg tablet 2,000 mg PO DIRECTED PRN Dental 05/04/25 06/08/25 History Procedure ascorbic acid (vitamin C) 500 mg 500 mg PO DAILY 05/04/25 06/08/25 History tablet (Vitamin C) riracwr-oytnxvnaaycvb-srjedzne 250 1 tab PO DAILY PRN Headaches 05/04/25 06/08/25 History mg-250 mg-65 mg tablet (Excedrin Extra Strength) atorvastatin 20 mg tablet 20 mg PO HS 05/04/25 06/08/25 History cholecalciferol (vitamin D3) 50 50 mcg PO DAILY 05/04/25 06/08/25 History mcg (2,000 unit) capsule (Vitamin D3) clobetasol 0.05 % topical ointment 1 applic topical DAILY PRN Skin 05/04/25 06/08/25 History Irritation epinephrine 0.3 mg/0.3 mL 0.3 mg IM Q4H PRN Anaphylaxis 05/04/25 06/08/25 History injection, auto-injector (EpiPen) fluorouracil 5 % topical cream 1 applic topical BID PRN UD 05/04/25 06/08/25 History Dermatology losartan 25 mg tablet 25 mg PO QAM 05/04/25 06/08/25 History acetaminophen 500 mg tablet 1,000 mg (2 x 500 mg) PO TID pain 06/01/25 06/08/25 Rx (Tylenol Extra Strength) 30 days #180 tabs ondansetron 4 mg disintegrating 4 mg PO Q8 PRN nausea #20 tabs 06/01/25 06/08/25 Rx tablet sennosides 8.6 mg tablet (Senokot) 8.6 mg PO BID prevent constipation 06/01/25 06/08/25 Rx 14 days #28 tabs tramadol 50 mg tablet 50 - 100 mg (1 - 2 x 50 mg) PO Q6 06/01/25 06/08/25 Rx PRN pain #40 tabs Amnio Acid Tablets 2 tab PO TID 06/08/25 06/08/25 History apixaban 5 mg tablet (Eliquis) 5 mg PO BID 06/08/25 06/08/25 History metoprolol succinate 25 mg 25 mg PO QAM 06/08/25 06/08/25 History tablet,extended release 24 hr tamsulosin 0.4 mg capsule (Flomax) 0.4 mg PO DAILY PRN TROUBLE 06/08/25 06/08/25 History URINATING Patient History Medical History Hyperlipidemia Hypertension PMR (polymyalgia rheumatica) follows with Dr Lucia stable and controlled has weaned off prednisone Psoriasis Follows with Abner Shelley Precancerous skin lesion Follows with Abner Shelley Nausea and vomiting after administration of anesthetic agent Osteoarthritis Kidney stones hx GERD (gastroesophageal reflux disease) well controlled and stable Migraine on occasion Spinal stenosis of lumbar region Surgical History History of lumbar spinal fusion Hardware Present History of ankle surgery Right - hardware present History of total left hip arthroplasty History of bilateral cataract extraction History of bilateral knee replacement History of colonoscopy Hx of inguinal hernia repair History of cystoscopy with stent History of tooth extraction Social History Smoking Status: Former smoker Cigarettes Per Day: 1 pack day x 20 years; Second Hand Exposure: No; Do You Dip or Chew Tobacco: No; Hx Alcohol Use: Yes Alcohol type: beer and wine Hx Substance Use: No Preferred Language: Greek Communication Ability: Effective 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 Beliefs That Will Affect Care: None marital status: Current Living Situation: Spouse current occupational status: retired Feels Safe at Home: Yes Safety Concerns: Feels Safe At This Time Assistive Devices: Walker Review of Systems Review of Systems: All systems reviewed & are unremarkable except as noted in HPI & below Physical Exam Constitutional: well developed and well nourished; no acute distress and not ill appearing Neck: normal visual inspection and trachea midline Respiratory: normal respiratory effort, lungs clear to auscultation Cardiovascular: Rate/Rhythm: regular rate and + irregularly irregular Heart Sounds: normal S1 and normal S2 Vessels: dorsalis pedis pulses present; no JVD Extremities: no edema Skin: no rashes, warm and dry bandage to Right hip s/p FLOR Psychiatric: A+Ox3, euthymic affect Results & Data Vital Signs (Past 12 Hours) Vital Signs Temp Pulse Pulse Resp BP BP Pulse Ox 06/09/25 07:11 37.2 C 86 18 102/57 L 91 06/09/25 02:10 06/09/25 01:45 38.4 C H 122 H 18 127/75 92 06/09/25 01:20 119 H 18 116/66 92 06/09/25 00:11 119 H 06/09/25 00:00 37.3 C 120 H 20 115/67 92 06/08/25 23:00 133 H 25 H 116/69 90 06/08/25 22:51 130 H 24 90 06/08/25 22:46 128/62 06/08/25 22:46 128/62 06/08/25 22:45 132 H 25 H 128/62 91 06/08/25 22:42 141 H 26 H 91 06/08/25 22:30 148 H 21 90/46 L 91 06/08/25 22:15 140 H 16 106/59 L 91 06/08/25 22:00 143 H 32 H 122/67 91 06/08/25 21:45 26 H 134/78 92 06/08/25 21:42 140 H 29 H 92 06/08/25 21:33 129 H 26 H 93 06/08/25 21:31 138/72 06/08/25 21:31 138/72 06/08/25 21:31 138/72 06/08/25 21:31 138/72 06/08/25 21:31 138/72 06/08/25 21:30 98 06/08/25 21:30 117 H 28 H 90 06/08/25 21:21 127 H 24 06/08/25 21:15 99 06/08/25 21:15 144/86 H 06/08/25 21:15 144/86 H 06/08/25 21:15 144/86 H 06/08/25 21:15 144/86 H 06/08/25 21:15 144/86 H 06/08/25 21:15 121 H 25 H 93 06/08/25 21:12 111 H 20 92 06/08/25 21:05 112 H 23 93 06/08/25 21:00 147/87 H 06/08/25 21:00 147/87 H 06/08/25 21:00 147/87 H 06/08/25 21:00 147/87 H 06/08/25 21:00 114 H 24 147/87 H 93 06/08/25 20:54 120 H 31 H 82 L 06/08/25 20:52 144/87 H 06/08/25 20:52 144/87 H 06/08/25 20:52 144/87 H 06/08/25 20:52 144/87 H 06/08/25 20:52 144/87 H 06/08/25 20:51 152 H 24 93 06/08/25 20:50 149/94 H 06/08/25 20:50 149/94 H 06/08/25 20:50 149/94 H 06/08/25 20:48 126 H 23 92 06/08/25 20:45 146/92 H 06/08/25 20:45 146/92 H 06/08/25 20:45 146/92 H 06/08/25 20:45 146/92 H 06/08/25 20:45 150 H 22 94 06/08/25 20:42 135 H 22 93 06/08/25 20:30 133/66 06/08/25 20:30 133/66 06/08/25 20:30 133/66 06/08/25 20:30 133/66 06/08/25 20:29 148 H 23 131/66 92 06/08/25 20:25 149 H 25 H 120/81 93 06/08/25 20:24 138 H 23 120/81 93 06/08/25 20:24 149 H 25 H 120/81 93 06/08/25 20:10 155 H 06/08/25 19:51 38.3 C H 125 H 18 112/69 94 Pulse Ox O2 Del Method O2 Del Method 06/09/25 07:11 Room Air 06/09/25 02:10 92 Room Air 06/09/25 01:45 Room Air 06/09/25 01:20 Room Air 06/09/25 00:11 06/09/25 00:00 Room Air 06/08/25 23:00 Room Air 06/08/25 22:51 06/08/25 22:46 06/08/25 22:46 06/08/25 22:45 06/08/25 22:42 06/08/25 22:30 06/08/25 22:15 06/08/25 22:00 06/08/25 21:45 06/08/25 21:42 06/08/25 21:33 06/08/25 21:31 06/08/25 21:31 06/08/25 21:31 06/08/25 21:31 06/08/25 21:31 06/08/25 21:30 Room Air 06/08/25 21:30 06/08/25 21:21 06/08/25 21:15 Room Air 06/08/25 21:15 06/08/25 21:15 06/08/25 21:15 06/08/25 21:15 06/08/25 21:15 06/08/25 21:15 06/08/25 21:12 06/08/25 21:05 Room Air 06/08/25 21:00 06/08/25 21:00 06/08/25 21:00 06/08/25 21:00 06/08/25 21:00 06/08/25 20:54 06/08/25 20:52 06/08/25 20:52 06/08/25 20:52 06/08/25 20:52 06/08/25 20:52 06/08/25 20:51 06/08/25 20:50 06/08/25 20:50 06/08/25 20:50 06/08/25 20:48 06/08/25 20:45 06/08/25 20:45 06/08/25 20:45 06/08/25 20:45 06/08/25 20:45 06/08/25 20:42 06/08/25 20:30 06/08/25 20:30 06/08/25 20:30 06/08/25 20:30 06/08/25 20:29 06/08/25 20:25 Room Air 06/08/25 20:24 06/08/25 20:24 Room Air 06/08/25 20:10 06/08/25 19:51 Room Air Laboratory Results Cardiac Enzymes 06/08/25 06/09/25 06/09/25 Range/Units 20:17 05:39 09:16 AST 38 25 (13-39) U/L Troponin I High Sens 15.0 29.8 H D 27.8 H (0-20) pg/ml Coagulation 06/08/25 Range/Units 20:17 PT 11.3 (9.0-12.0) Seconds APTT 30 (21-31) Seconds CBC 06/08/25 06/09/25 Range/Units 20:17 05:39 WBC 9.96 16.04 H (4.8-10.8) K/ul RBC 3.94 L 3.22 L (4.70-6.10) M/uL Hgb 13.3 L 10.9 L (14.0-18.0) g/dl Hct 37.6 L 31.4 L (42.0-52.0) % Plt Count 145 119 L (130-400) K/uL Neut # (Auto) 8.56 H 14.25 H (1.40-6.50) K/uL Lymph # (Auto) 0.79 L 0.91 L (1.20-3.40) K/uL [place] # (Auto) 0.53 0.76 H (0.11-0.59) K/uL Eos # (Auto) 0.03 0.00 (0.00-0.50) K/uL Baso # (Auto) 0.02 0.03 (0.00-0.20) K/uL Comprehensive Metabolic Panel 06/08/25 06/09/25 Range/Units 20:17 05:39 Sodium 139 139 (136-145) mmol/L Potassium 3.8 3.6 (3.5-5.1) mmol/L Chloride 106 109 H (98-107) mmol/L Carbon Dioxide 24 23 (21-32) mmol/L BUN 18 15 (6-23) mg/dl Creatinine 0.81 0.90 (0.6-1.4) mg/dl Glucose 129 H 113 H (70-99(Fasting)) mg/dl Calcium 9.0 8.0 L (8.6-10.3) mg/dl Direct Bilirubin 0.4 H 0.7 H (0-0.2) mg/dl AST 38 25 (13-39) U/L ALT 18 12 (7-52) U/L Alkaline Phosphatase 49 35 (34-104) U/L Total Protein 6.9 5.5 L D (6.0-8.3) gm/dl Albumin 3.7 3.2 L (3.4-5.0) gm/dl Intake and Output 11/02/2306/09/25 06/09/25 22:59 06:59 14:59 Intake Total 112. / 1200 / 1200 Output Total 300 / 300 Balance -187. 1200 / 1200 Intake: IV 12. 1200 / 1200 Piperacillin/Tazobactam 4.5 gm 100 / 100 In 100 ml @ 200 mls/hr IV NOW STA Rx#:[id number] Potassium Chloride / Wtr 10 meq 100 / 100 In 100 ml @ 100 mls/hr IV Q1H [facility] Rx#:[id number] Sodium Chloride 0.9% 1,000 ml @ 2000 / 2000 1000 / 1000 125 mls/hr IV .Q8H [facility] Rx#: [id number] dilTIAZem HCL 125 mg In 7.08 12. Dextrose 5% 100 ml @ 10 MG/HR 10 mls/hr IV .[id number] [facility] Rx#: [id number] Oral 100 / 100 Output: Urine 300 / 300 Other: # Unmeasured Voids 2 Weight 101.3 kg 92.3 kg Weight Measurement Method Chair Scale Built in [facility] Diagnostic Findings Echocardiogram 06/05/25 Atrial flutter with elevated ventricular response rate LV normal in size Mild concentric LVH LV wall motion is normal LVEF 55-60% Left atrium is mildly dilated Aortic valve sclerosis without stenosis PG Care Time/CCT Total # of Minutes Spent Total Time Spent with Patient: Total time spent is greater than 50% in coordination of care (as documented) at patient's floor/unit and/or counseling patient: Coding Level of Care Code 64151 IN/OBS CONSULT LVL 5,80M Diagnoses Atrial flutter with rapid ventricular response I48.92 S/P total right hip arthroplasty Z96.641 Fever R50.9 Acute diverticulitis K57.92 Hyperlipidemia E78.5 Time Spent (min) 60
[2025-06-09] MEDS: MAGNESIUM SULFATE / D5W 1 GM/100 ML BAG IV ONE (07:58)
[2025-06-09] MEDS: POTASSIUM CHLORIDE / WTR 10 MEQ/100 ML PLCT IV SCH (07:58)
[2025-06-09] MEDS: 4.5GM X1 IV STA (07:58)
[2025-06-09] MEDS: VANCOMYCIN HCL 1,750 MG in SODIUM CHLORIDE 0.9% 500 ML IV STA (07:58)
[2025-06-09] MEDS: SODIUM CHLORIDE 0.9% 1,000 ML IV SCH (09:35)
[2025-06-09] MEDS: ACETAMINOPHEN 500 MG TAB PO SCH (09:39)
[2025-06-09] MEDS: LOSARTAN POTASSIUM 25 MG TAB PO SCH (09:40)
[2025-06-09] MEDS: ASCORBIC ACID 500 MG TAB PO SCH (09:40)
[2025-06-09] MEDS: APIXABAN 5 MG TABLET PO SCH (09:40)
[2025-06-09] MEDS: CHOLECALCIFEROL 25 MCG (1000 UNITS) TAB PO SCH (09:40)
[2025-06-09] MEDS: TAMSULOSIN HCL 0.4 MG CAP PO PRN (09:40)
[2025-06-09] MEDS: METOPROLOL SUCC 25MG EXT REL TAB PO SCH (09:44)
[2025-06-09] MEDS: SENNA 8.6 MG TAB PO SCH (09:47)
--- NOTE | 2025-06-09 10:18 | Pharmacy Report ---
Pharmacy PK ABX Note - Date of Service June 09, 2025 - Assessment and Plan Assessment 74 year old M receiving ZOSYN for treatment of diverticulitis. Patient continues with fevers this morning. Hx of recent hip replacement. Orthopedics has been consulted. WBC increased this morning and vancomycin was added for additional empiric coverage. Pertinent microbiologic data includes: blood cultures pending Plan Vancomycin * Loading dose: 1750 mg IV x 1 * Maintenance dose: 1000 mg IV every 12 hours * Regimen is predicted to achieve target AUC/GUILLERMO of 400-600 mg/L.hr * Random level to be ordered if continued greater than 48 hours Pharmacy will continue to follow and will adjust dose/frequency as necessary. Thank you. Pharmacy has transitioned to AUC monitoring for vancomycin. AUC/GUILLERMO is the preferred PK/PD target and is associated with decreased risk of nephrotoxicity compared to traditional trough targets.
[2025-06-09] MEDS: METOPROLOL SUCC 25MG EXT REL TAB PO STA (10:57)
[2025-06-09] MEDS: PIPERACILLIN/TAZOBACTAM 4.5 GM/100 ML BAG IV SCH (13:05)
[2025-06-09 13:36] LABS: Appearance Urine Clear (Clear); Bacteria Urine Automated None Seen (None Seen); Cast Urine Automated 0-2 /lpf (0-2); Epithelial Cell Urine Auto 0-2 /hpf (0-2); Glucose Urine UA Negative (Negative); RBC Urine Automated 0-2 /hpf (0-2); WBC Urine Automated 0-5 /hpf (0-5)
[2025-06-09] MEDS ORDERED: 0.2 MICRON FILTER SET 1 EACH IV ONE (16:49)
[2025-06-09] MEDS: VANCOMYCIN HCL / NSS 1,000 MG/270 ML BAG IV SCH (17:04)
[2025-06-09] MEDS: AMIODARONE / D5W 360 MG/200 ML BAG IV ONE (17:04)
[2025-06-09] MEDS: ATORVASTATIN 20 MG TAB PO SCH (20:02)
[2025-06-09] MEDS: AMIODARONE / D5W 360 MG/200 ML BAG IV SCH (23:15)
[2025-06-10 06:31] LABS: Hematocrit (blood only) 34.4 % (42.0-52.0); Hemoglobin 11.6 g/dl (14.0-18.0); Mean Corpuscular Hemoglobin 33.3 pg (25.0-34.0); Mean Corpuscular Volume 98.9 fL (80.0-100.0); Platelet Count 121 K/uL (130-400); RDW Standard Deviation 47.2 fL (36.4-46.3); Red Blood Count 3.48 M/uL (4.70-6.10); White Blood Count 14.35 K/ul (4.8-10.8)
[2025-06-10 06:54] LABS: Alanine Aminotransferase 11.0 U/L (7-52); Albumin Globulin Ratio 1.1 (0.9-2); Albumin Level 3.2 gm/dl (3.4-5.0); Alkaline Phosphatase 41.0 U/L (34-104); Anion Gap 7.0 (3-11); Bilirubin,Total 2.3 mg/dl (0.2-1.0); Blood Urea Nitrogen 16.0 mg/dl (6-23); Calcium 8.5 mg/dl (8.6-10.3); Carbon Dioxide 24.0 mmol/L (21-32); Chloride 107.0 mmol/L (98-107); Creatinine Clr Calc Pharmacy 78.4 ml/min; Globulin 2.9 gm/dl (2.5-4.0); Glucose 131.0 mg/dl (70-99(Fasting)); Magnesium 2.2 mg/dl (1.7-2.4); Potassium 3.5 mmol/L (3.5-5.1); Sodium 138.0 mmol/L (136-145); Total Protein 6.1 gm/dl (6.0-8.3)
[2025-06-10] MEDS: PROMETHAZINE 12.5 MG/50.5 ML BAG IV STA (07:18)
--- NOTE | 2025-06-10 08:11 | Orthopedic Consultation ---
Date of Service June 10, 2025 Assessment & Plan (1) S/P total right hip arthroplasty: 74-year-old gentleman 5 days out from uncomplicated total hip replacement readmitted fever, abdominal discomfort, diverticulitis, and recurrent atrial flutter. Patient does not appear febrile now. His white count is a bit elevated. His hip incision is a completely benign. He is having abdominal pain and CTs scan findings consistent with some diverticulitis. Plan: From the orthopedic standpoint his hip looks to be doing well. He had no significant pain and this is not appear to be a source of fever and elevated white count. From the orthopedic standpoint he can resume therapy. He can be fully weight-bear on his right leg. Needs to obey hip precautions. Does not really require any wound care. He has been placed on the antibiotics I assume for the diverticulitis which is sounds like this is the source of his nausea. I would really try and limit any narcotics as he is not have much in the way of hip pain and would only exacerbate any bowel issues. He is on anticoagulation for his atrial flutter. Any orthopedic questions can be decameter [phone]. (2) Acute diverticulitis: (3) Atrial flutter with rapid ventricular response: (4) New onset atrial flutter: History of Present Illness Reason for Consultation: . Recent right hip replacement. Requesting Physician: . Attending Physician: Adolfo Garibay MD . Patient is a 74-year-old gentleman who is now about 5 days out from a right unc emented total hip replacement. During his surgery he did go into a atrial flutter for a brief period of time responded to beta-martina. He was monitored postoperatively and done well. Since discharge he has been nauseated some with apparent a fever. He was readmitted to the hospital last night with fever and recurrent atrial fibrillation. He was placed on Eliquis. He denies any loss of he is still having significant nausea and abdominal discomfort. Does say has been passing gas. Allergies Allergy/AdvReac Type Severity Reaction Status Date / Time bee venom protein (honey bee) Allergy Severe Anaphylaxis Verified 06/08/25 22:56 capsaicin AdvReac Intermediate Mouth sores Verified 06/08/25 22:56 diclofenac AdvReac Intermediate Mouth sores Verified 06/08/25 22:56 meloxicam AdvReac Intermediate Mouth sores Verified 06/08/25 22:56 Home Medications Medication Instructions Recorded Confirmed Type loratadine 10 mg tablet (Claritin) 10 mg PO DAILY PRN Allergy Symptoms 12/13/20 06/08/25 History pantoprazole 40 mg tablet,delayed 40 mg PO HS PRN Heartburn 12/13/20 06/08/25 History release (Protonix) amoxicillin 500 mg tablet 2,000 mg PO DIRECTED PRN Dental 05/04/25 06/08/25 History Procedure ascorbic acid (vitamin C) 500 mg 500 mg PO DAILY 05/04/25 06/08/25 History tablet (Vitamin C) xcyutac-wcjfhauamrcjw-kechzpwe 250 1 tab PO DAILY PRN Headaches 05/04/25 06/08/25 History mg-250 mg-65 mg tablet (Excedrin Extra Strength) atorvastatin 20 mg tablet 20 mg PO HS 05/04/25 06/08/25 History cholecalciferol (vitamin D3) 50 50 mcg PO DAILY 05/04/25 06/08/25 History mcg (2,000 unit) capsule (Vitamin D3) clobetasol 0.05 % topical ointment 1 applic topical DAILY PRN Skin 05/04/25 06/08/25 History Irritation epinephrine 0.3 mg/0.3 mL 0.3 mg IM Q4H PRN Anaphylaxis 05/04/25 06/08/25 History injection, auto-injector (EpiPen) fluorouracil 5 % topical cream 1 applic topical BID PRN UD 05/04/25 06/08/25 History Dermatology losartan 25 mg tablet 25 mg PO QAM 05/04/25 06/08/25 History acetaminophen 500 mg tablet 1,000 mg (2 x 500 mg) PO TID pain 06/01/25 06/08/25 Rx (Tylenol Extra Strength) 30 days #180 tabs ondansetron 4 mg disintegrating 4 mg PO Q8 PRN nausea #20 tabs 06/01/25 06/08/25 Rx tablet sennosides 8.6 mg tablet (Senokot) 8.6 mg PO BID prevent constipation 06/01/25 06/08/25 Rx 14 days #28 tabs tramadol 50 mg tablet 50 - 100 mg (1 - 2 x 50 mg) PO Q6 06/01/25 06/08/25 Rx PRN pain #40 tabs Amnio Acid Tablets 2 tab PO TID 06/08/25 06/08/25 History apixaban 5 mg tablet (Eliquis) 5 mg PO BID 06/08/25 06/08/25 History metoprolol succinate 25 mg 25 mg PO QAM 06/08/25 06/08/25 History tablet,extended release 24 hr tamsulosin 0.4 mg capsule (Flomax) 0.4 mg PO DAILY PRN TROUBLE 06/08/25 06/08/25 History URINATING Past Med/Surg History Problem List Acute diverticulitis Fever Atrial flutter with rapid ventricular response (Acute) S/P total right hip arthroplasty New onset atrial flutter Encounter for pre-operative examination Arthritis of right hip PMR (polymyalgia rheumatica) Tachycardia Status post spinal surgery Hyperlipidemia Neurogenic claudication Low back pain Spinal stenosis, lumbar Spondylolisthesis, lumbar region History of hip replacement left History of bilateral knee replacement Lumbar spondylosis Degenerative joint disease, right, ankle Medical History Hyperlipidemia Hypertension PMR (polymyalgia rheumatica) follows with Dr Lucia stable and controlled has weaned off prednisone Psoriasis Follows with [facility] Precancerous skin lesion Follows with [facility] Nausea and vomiting after administration of anesthetic agent Osteoarthritis Kidney stones hx GERD (gastroesophageal reflux disease) well controlled and stable Migraine on occasion Spinal stenosis of lumbar region Surgical History History of lumbar spinal fusion Hardware Present History of ankle surgery Right - hardware present History of total left hip arthroplasty History of bilateral cataract extraction History of bilateral knee replacement History of colonoscopy Hx of inguinal hernia repair History of cystoscopy with stent History of tooth extraction Social History Smoking Status: Former smoker Cigarettes Per Day: 1 pack day x 20 years; Second Hand Exposure: No; Do You Dip or Chew Tobacco: No; Hx Alcohol Use: Yes Alcohol type: beer and wine Hx Substance Use: No Preferred Language: Mongolian Communication Ability: Effective 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 Physical Exam . Physical examination reveals a pleasant middle-aged elderly male. He is lying in bed this morning looks okay. Examination of the right hip reveals the incision to be completely benign. Some mild swelling. There is no drainage. Thigh is soft and supple. Leg lengths are equal. Hip is located. He is neurologically intact. Results & Data Results & Data Laboratory Results . Labs reveal elevated white count of 14.35 today. Hemoglobin is 11.6. Macro 34.4. Electrolytes are stable. Diagnostic Findings . PG Care Time/CCT Total # of Minutes Spent Total Time Spent with Patient: Total time spent is greater than 50% in coordination of care (as documented) at patient's floor/unit and/or counseling patient: Coding Level of Care Code None Diagnoses S/P total right hip arthroplasty Z96.641 Acute diverticulitis K57.92 Atrial flutter with rapid ventricular response I48.92 New onset atrial flutter I48.92
[2025-06-10] MEDS: POLYETHYLENE (MIRALAX) 17 GM PACK PO PRN (08:35)
--- NOTE | 2025-06-10 10:01 | Cardiology Progress Note ---
Date of Service June 10, 2025 Assessment & Plan (1) Atrial flutter with rapid ventricular response: (2) S/P total right hip arthroplasty: (3) Fever: (4) Acute diverticulitis: (5) Hyperlipidemia: Plan Assessment: 74 year old male with recent Right Total hip replacement found to have Atrial flutter intraoperatively, spontaneously converted that returned to the ER 2 days post discharge with acute concerns of fever and abdominal pain. EKG at time of admission demonstrated Atrial flutter with RVR and chronic Right BBB. Cardiology consulted for further evaluation/recommendations. Plan: 1. Atrial flutter with RVR: -Initially diagnosed intraoperatively for total hip replacement on 06/05/2025. Transient in nature and had spontaneously converted. Echocardiogram demonstrated normal LVEF, no wall motion abnormalities and no significant valvular disease. Patient was discharged home on Metoprolol succinate 25mg PO QAM and Eliquis 5mg PO BID. -Patient remains asymptomatic with regards to atrial flutter. He had multiple episodes of Atrial flutter yesterday, he was started on an Amiodarone gtt with conversion overnight to Sinus Rhythm. -Review of telemetry shows SR with PAC's rates 80's. -Euvolemic on exam -Atrial flutter initially found in the intraoperative setting of surgery, anesthesia agents and likely volume loss. Now presenting with fevers and a CT ABD/Pelvis showing an acute diverticulitis which is likely the precipitating factor. -Fevers remain controlled at this time. -Preliminary blood cultures negative after 24 hours, continued management of acute diverticulitis per Primary team. Currently receiving IV Zosyn and IV vancomycin. -Continue Toprol xl 25mg PO QD -Continue Losartan as per home regimen for blood pressure control -Continue Atorvastatin as per home regimen for cholesterol control. -patient is currently wearing a zio monitor, please leave in place. patient is aware to continue to wear zio for its ordered duration and send back as instructed. OP cardiology appt as scheduled on 07/16/2025 with Anusha Tellez PA-C Case has been discussed with Dr. Whitney. Further recommendations regarding plan of care as per his assessment. JEFF [facility] Admission and Anticipated Discharge Date Admission Date: June 08, 2025 Supervising Physician Co-Signing Physician Notes Attending attestation: Case reviewed with the advanced practitioner. I have personally performed a history and physical examination on the patient. I have reviewed the advanced practitioner's documentation on the date of service referenced in note, and I agree with, and take responsibility for the plan of care. Subjective: Patient had been back in sinus rhythm during my assessment on 06/09/2025. Diltiazem was discontinued in favor of amiodarone infusion with IV formulation favored given diverticulitis issues. He had since reverted back to atrial fibrillation with rapid ventricular response at 5 PM on 06/09/2025 and converted back to sinus rhythm at just after midnight. At present has been feeling well with the exception of recurrent nauseousness similar to his presenting symptom and I do not think this is related to his atrial arrhythmia. With regards to his recent hip replacement he has been getting up and doing some walking and making good progress from this regard. Exam: Cardiovascular: Regular rhythm, no murmurs. Impression/ Plan: Atrial fibrillation/flutter Recent hip replacement Diverticulitis - Continue metoprolol succinate 25 mg daily in the morning -Continue IV amiodarone for now, with plans to transition to oral for at least short-term treatment as he improves to tolerate solids. - Continue Eliquis 5 mg twice daily Ronald Whitney DO Subjective 06/10/2025: Patient seen and examined in follow up today. Feeling well from a cardiac perspective. He is out of bed resting in the recliner chart with no acute concerns. Denies any chest pain, pressure, palpitations, no shortness of breath, P ND, pre-syncope, syncope or edema Labs, vitals, diagnostics, telemetry and documentation reviewed. Telemetry reviewed showing sinus rhythm with occasional PAC's rate 80's. Patient had converted from Atrial flutter to SR overnight. Review of Systems Review of Systems: All systems reviewed & are unremarkable except as noted in HPI & below Physical Exam Constitutional: well developed and well nourished; no acute distress and not ill appearing Neck: normal visual inspection and trachea midline Respiratory: normal respiratory effort, lungs clear to auscultation Cardiovascular: Rate/Rhythm: regular rate and + irregularly irregular Heart Sounds: normal S1 and normal S2 Vessels: dorsalis pedis pulses present; no JVD Extremities: no edema Skin: no rashes, warm and dry Psychiatric: A+Ox3, euthymic affect Results & Data Vital Signs (Past 12 Hours) Vital Signs Temp Pulse Pulse Resp BP Pulse Ox O2 Del Method 06/10/25 07:07 36.9 C 91 H 18 142/85 H 91 Room Air 06/10/25 05:30 89 06/10/25 03:30 37.1 C 91 H 18 148/75 H 93 Room Air 06/09/25 22:51 37.7 C H 87 18 131/71 93 Room Air Laboratory Results Cardiac Enzymes 06/10/25 Range/Units 05:37 AST 19 (13-39) U/L CBC 06/10/25 Range/Units 05:37 WBC 14.35 H (4.8-10.8) K/ul RBC 3.48 L (4.70-6.10) M/uL Hgb 11.6 L (14.0-18.0) g/dl Hct 34.4 L (42.0-52.0) % Plt Count 121 L (130-400) K/uL Comprehensive Metabolic Panel 06/10/25 Range/Units 05:37 Sodium 138 (136-145) mmol/L Potassium 3.5 (3.5-5.1) mmol/L Chloride 107 (98-107) mmol/L Carbon Dioxide 24 (21-32) mmol/L BUN 16 (6-23) mg/dl Creatinine 0.93 (0.6-1.4) mg/dl Glucose 131 H (70-99(Fasting)) mg/dl Calcium 8.5 L (8.6-10.3) mg/dl AST 19 (13-39) U/L ALT 11 (7-52) U/L Alkaline Phosphatase 41 (34-104) U/L Total Protein 6.1 (6.0-8.3) gm/dl Albumin 3.2 L (3.4-5.0) gm/dl Intake and Output 06/09/25 06/10/25 06/10/25 22:59 06:59 14:59 Intake Total 1644.666 / 4739.400 809.067 / 4739.400 150.5 / 150.5 Output Total 100 / 800 300 / 800 Balance 1544.666 / 3939.400 509.067 / 3939.400 150.5 / 150.5 Intake: IV 1444.666 / 4139.400 659.067 / 4139.400 150.5 / 150.5 Amiodarone / D5w 360 mg In 200 289.067 / 289.067 ml @ 0.5 MG/MIN 16.667 mls/hr IV .Q12H [facility] Rx#:[id number] Piperacillin/Tazobactam 4.5 gm 100 / 200 100 / 200 100 / 100 In 100 ml @ 25 mls/hr IV Q8H [facility] Rx#:[id number] Promethazine 12.5 mg In 50.5 ml 50.5 / 50.5 @ 202 mls/hr IV [facility] Rx#: [id number] Sodium Chloride 0.9% 1,000 ml @ 970.833 / 970.833 125 mls/hr IV .Q8H [facility] Rx#: [id number] Vancomycin HCl / Nss 1,000 mg 270 / 540 270 / 540 In 270 ml @ 200 mls/hr IV Q12H [facility] Rx#:[id number] dilTIAZem HCL 125 mg In 103.833 / 204.500 Dextrose 5% 100 ml @ 10 MG/HR 10 mls/hr IV .[id number] [facility] Rx#: [id number] Oral 200 / 600 150 / 600 Output: Urine 100 / 800 300 / 800 Other: Weight 92.4 kg Weight Measurement Method Built in [facility] Coding Level of Care Code 69840 SUB INP/OBS CARE 3/50MIN Diagnoses Atrial flutter with rapid ventricular response I48.92 S/P total right hip arthroplasty Z96.641 Fever R50.9 Acute diverticulitis K57.92 Hyperlipidemia E78.5
--- NOTE | 2025-06-10 10:17 | Hospitalist Progress Note ---
Date of Service June 10, 2025 Assessment & Plan (1) Atrial flutter with rapid ventricular response: Plan: 74 yo M with past medical history significant for gout, dyslipidemia, allergic rhinitis, GERD, BPH, polymyalgia rheumatica, osteoarthritis, history of kidney stones presents with fevers and found to be in rapid A-Flutter Patient recently on 06/05/2025 had right hip replacement. During the surgery patient went into a flutter which was responsive to beta-martina. Postoperatively he was asymptomatic but again went into rapid a flutter. During that admission he was seen by cardiology for new onset a flutter and was started on metoprolol succinate and also Eliquis. Patient was discharged on 06/06/2025. Patient had monitor placed today. Patient states since yesterday evening having fevers. His fevers are not getting better so he came to the ER today. In the ER he was found to be in rapid A-Flutter. Currently on Cardizem drip. Patient complains of some knotty feeling in his stomach and is having abdominal discomfort. Denies any chest pain or shortness of breath. No cough. No headache. No runny nose or sore throat. He has some watering and itching of the eyes. Appetite is okay. Normal bowel and bladder movements. A-flutter with rapid ventricular response Was started on Cardizem drip on admission --> Pt converted to sinus rhythm AM (06/09) -> then again back to Aflutter -> was started on amio drip by cardiology on 06/09 --> currently in sinus this AM (06/10) Continue Eliquis Close monitor in telemetry Continue home metoprolol succinate Echo done 06/05/2025 shows normal EF 55 to 60%. Mild concentric left ventricular hypertrophy. Left atrium mildly dilated. Will keep K > 4, Mag > 2 Cardiology consulted - currently on amio drip Fevers Recent right hip replacement Surgical sites look okay No leukocytosis in ER but AM WBC 16K (06/09). Now down to 14K (06/10) Lactic acid normal, Procalcitonin negat. in ED Respiratory BioFire negative. Chest x-ray no acute findings. UA negative. Blood cultx - negat. in 24 hrs Orthopedics consulted - so far no concern Has abdominal discomfort CT chest - 1. No evidence of pulmonary embolism or significant pulmonary disease. 2. Few subsegmental atelectasis bands in bilateral lung bases.Likely post inflammatory changes CT abdomen pelvis - 1. Left renal simple cortical cyst. Non-obstructive left renal concretions. 2. Mild bilateral perinephric fat stranding. 3. Colonic diverticulosis with mild inflammatory changes adjoining the sigmoid colon, suggesting acute diverticulitis. 4. Small sliding hiatal hernia. Acute diverticulitis - started on broad spectrum abx - cont. with clear liquid diet/ as tolerated - will follow blood cultx Prolonged QTc Avoid QT prolonging drugs Follow repeat EKG. Mild elevation of bilirubin Will follow repeat labs Hyperlipidemia On statin Hypertension On losartan and metoprolol succinate Will monitor Recent Right hip replacement surgery site looks ok will consult ortho. DVT prophylaxis Eliquis Disposition Telemetry Full code. Admission and Anticipated Discharge Date Admission Date: June 08, 2025 Subjective Pt seen in follow up, presents with Afib RVR and fevers, recent hx of hip surgery Was started on cardizem drip in ED and converted to sinus rhythm next morning, then back to Aflutter - started on amio drip yesterday by cardiology -> this AM in sinus WBC in ED normal but elevated at 16K in the morning. Imaging obtained and c/w diverticulitis. Blood cultx obtained in ED - so far negative Started on broad spectrum antibiotic Pt is sitting up in recliner chair in NAD, says he already feels much better. Reports abdominal pain is much improved. Denies chest pain, shortness of breath R hip with some postsurgical pain, no drainage, erythema , or significant edema noted, and per pt pain is not that significant. Orthopedics also saw pt this AM - so far no concerns Review of Systems Review of Systems: All systems reviewed & are unremarkable except as noted in Subjective Physical Exam Physical Exam: General- WD/WN M in NAD Head- atraumatic Eyes- PERRL, EOMI. Neck- supple, no JVD. Lungs- clear to auscultation no wheezing or crackles. Heart- rrr Abdomen- normal bowel sounds, soft, + mildly tender to palp. lower abd. Extremities- no pretibial edema, no erythema seen. Right hip surgery site sutures intact, no erythema or obvious drainage seen Neuro- alert, oriented PERRL, no facial palsy; no dysarthria; moves extremities Results & Data Results & Data Vital Signs (Past 12 Hours) Vital Signs Temp Pulse Pulse Resp BP Pulse Ox O2 Del Method 06/10/25 07:07 36.9 C 91 H 18 142/85 H 91 Room Air 06/10/25 05:30 89 06/10/25 03:30 37.1 C 91 H 18 148/75 H 93 Room Air 06/09/25 22:51 37.7 C H 87 18 131/71 93 Room Air Laboratory Results 06/10/25 06/09/25 Range/Units 05:37 Unknown WBC 14.35 H (4.8-10.8) K/ul RBC 3.48 L (4.70-6.10) M/uL Hgb 11.6 L (14.0-18.0) g/dl Hct 34.4 L (42.0-52.0) % MCV 98.9 (80.0-100.0) fL MCH 33.3 (25.0-34.0) pg MCHC 33.7 (32.0-36.0) g/dL RDW Std Deviation 47.2 H (36.4-46.3) fL RDW Coeff of Chiny[place] 13.1 (11.5-14.5) % Plt Count 121 L (130-400) K/uL MPV 12.1 (9.4-12.4) fL Sodium 138 (136-145) mmol/L Potassium 3.5 (3.5-5.1) mmol/L Chloride 107 (98-107) mmol/L Carbon Dioxide 24 (21-32) mmol/L Anion Gap 7 (3-11) BUN 16 (6-23) mg/dl Creatinine 0.93 (0.6-1.4) mg/dl Est Cr Clr Drug Dosing 78.4 ml/min eGFR 85.63 BUN/Creatinine Ratio 17.2 (10-20) Glucose 131 H (70-99(Fasting)) mg/dl Calcium 8.5 L (8.6-10.3) mg/dl Phosphorus 2.0 L (2.5-4.9) mg/dl Magnesium 2.2 (1.7-2.4) mg/dl Total Bilirubin 2.3 H (0.2-1.0) mg/dl AST 19 (13-39) U/L ALT 11 (7-52) U/L Alkaline Phosphatase 41 (34-104) U/L Total Protein 6.1 (6.0-8.3) gm/dl Albumin 3.2 L (3.4-5.0) gm/dl Globulin 2.9 (2.5-4.0) gm/dl Albumin/Globulin Ratio 1.1 (0.9-2) Urine Color Yellow Urine Appearance Clear (Clear) Urine pH 5.5 (4.5-7.5) Ur Specific [place] > 1.045 H (1.000-1.030) Urine Protein Trace H (Negative) Urine Glucose (UA) Negative (Negative) Urine Ketones Trace H (Negative) Urine Blood Negative (Negative) Urine Nitrite Negative (Negative) Urine Bilirubin Negative (Negative) Urine Urobilinogen Negative (Negative) Ur Leukocyte Esterase Negative (Negative) Urine WBC (Auto) 0-5 (0-5) /hpf Urine RBC (Auto) 0-2 (0-2) /hpf U Hyaline Cast (Auto) 0-2 (0-2) /lpf U Epithel Cells (Auto) 0-2 (0-2) /hpf Urine Bacteria (Auto) None Seen (None Seen) Urine Comment Medications Administered Current Inpatient Medications Acetaminophen (Acetaminophen 325 Mg Tab) 650 mg PO Q4H PRN PRN Reason: Pain or Fever Stop: 07/09/25 02:09 Acetaminophen (Acetaminophen 500 Mg Tab) 1,000 mg PO TID [facility] Stop: 07/09/25 08:59 Last Admin: 06/10/25 08:39 Dose: 1,000 mg Apixaban (Apixaban 5 Mg Tablet) 5 mg PO BID [facility] Stop: 07/09/25 08:59 Last Admin: 06/10/25 08:38 Dose: 5 mg Ascorbic Acid (Ascorbic Acid 500 Mg Tab) 500 mg PO DAILY [facility] Stop: 07/09/25 08:59 Last Admin: 06/10/25 08:38 Dose: 500 mg Atorvastatin Calcium (Atorvastatin 20 Mg Tab) 20 mg PO HS [facility] Stop: 07/09/25 20:59 Last Admin: 06/09/25 20:02 Dose: 20 mg Epinephrine HCl (Epinephrine Inj 1 Mg/Ml Amp) 0.3 mg IM Q4H PRN PRN Reason: Anaphylaxis Stop: 07/09/25 02:25 Piperacillin Sod/Tazobactam Sod (Zosyn) 4.5 gm in 100 mls @ 25 mls/hr IV Q8H [facility]; Protocol Stop: 06/19/25 12:59 Last Infusion: 06/10/25 07:50 Dose: Infused Vancomycin HCl (Vancomycin Hcl / Nss) 1,000 mg in 270 mls @ 200 mls/hr IV Q12H [facility] Stop: 06/11/25 15:59 Last Infusion: 06/10/25 04:46 Dose: Infused Amiodarone HCl/Dextrose (Nexterone / D5w) 360 mg in 200 mls @ 16.667 mls/hr IV .Q12H [facility] Stop: 07/09/25 22:44 Last Admin: 06/10/25 04:35 Dose: 0.5 mg/min, 16.7 mls/hr Loratadine (Loratadine 10 Mg Tab) 10 mg PO DAILY PRN PRN Reason: Allergy Symptoms Stop: 07/09/25 02:09 Losartan Potassium (Losartan Potassium 25 Mg Tab) 25 mg PO QAM [facility] Stop: 07/09/25 08:59 Last Admin: 06/09/25 09:40 Dose: 25 mg Metoprolol Succinate (Metoprolol Succ 25mg Ext Rel Tab) [facility] Stop: 07/09/25 08:59 Last Admin: 06/10/25 08:38 Dose: 25 mg Miscellaneous Information (Vancomycin Consult Active) 1 each N/A UD PRN PRN Reason: Consult Stop: 07/09/25 06:44 Nitroglycerin (Nitroglycerin Sl 0.4 Mg/Tab Tab) 0.4 mg SL Q5M PRN PRN Reason: Chest Pain Stop: 07/09/25 02:09 Pantoprazole Sodium (Pantoprazole 40 Mg Tab) 40 mg PO HS PRN PRN Reason: Heartburn Stop: 07/09/25 02:09 Last Admin: 06/10/25 08:38 Dose: 40 mg Polyethylene Glycol (Polyethylene (Miralax) 17 Gm Pack) 17 gm PO DAILY PRN PRN Reason: Constipation Stop: 07/09/25 02:09 Last Admin: 06/10/25 08:35 Dose: 17 gm Sennosides (Senna 8.6 Mg Tab) 8.6 mg PO BID [facility] Stop: 07/09/25 08:59 Last Admin: 06/10/25 08:35 Dose: 8.6 mg Tamsulosin HCl (Tamsulosin Hcl 0.4 Mg Cap) 0.4 mg PO DAILY PRN PRN Reason: TROUBLE URINATING Stop: 07/09/25 02:09 Last Admin: 06/10/25 08:38 Dose: 0.4 mg Tramadol HCl (Tramadol Hcl 50 Mg Tablet) 50 - 100 mg PO Q6 PRN PRN Reason: pain Stop: 07/09/25 02:09 Vitamin D (Cholecalciferol 25 Mcg (1000 Units) Tab) 50 mcg PO DAILY [facility] Stop: 07/09/25 08:59 Last Admin: 06/10/25 08:37 Dose: 50 mcg
[2025-06-10] MEDS: FAMOTIDINE 20MG IV PUSH 20 MG/5 ML SYR IV SCH (15:37)
[2025-06-10] MEDS: PROMETHAZINE 6.25 MG/50.25 ML BAG IV STA (18:11)
[2025-06-11] MEDS: PROMETHAZINE 12.5 MG/50.5 ML BAG IV STA (02:25)
[2025-06-11] MEDS: MoRPHine SULFATE 4 MG/ML 1 ML CARP\\VIAL IV STA (02:32)
[2025-06-11] MEDS: OPTIRAY 320 100ml IV ONE (03:02)
--- NOTE | 2025-06-11 03:36 | CT Scan Report ---
EXAM: CT abd pelvis IV con only CLINICAL HISTORY: RLQ abd pain TECHNIQUE: Contiguous axial images were obtained from the level of the diaphragm to the pubic symphysis with intravenous contrast. Coronal and sagittal reconstructions were likewise performed and indicated to increase the sensitivity for detecting clinically relevant pathology. If IV contrast material had not been administered, the likelihood of detecting abnormalities relevant to the patient's condition would have been substantially decreased. CT scan was performed according to ALARA (as low as reasonably achievable). COMPARISON: 22:57:42 BUNDLE WRAPPER FINDINGS: Mild bilateral pleural effusion with basal subsegmental collapse of both lower lobes is seen. A small sliding hiatal hernia is seen. The liver is normal in size and attenuation. No focal liver lesions are seen. There is no intrahepatic or extrahepatic biliary ductal dilatation. The hepatic vasculature is patent. The gallbladder is unremarkable. The spleen, pancreas, and adrenal glands are unremarkable. The kidneys are normal in size and attenuation. A well-defined, thin-walled cyst measuring 23 mm is seen in the upper pole of the left kidney. There is no hydronephrosis. Mild bilateral perinephric fat stranding is seen. Two tiny foci of calcification, measuring 2-3 mm, are seen in the interpolar calyceal region of the left kidney. The ureters are normal in caliber and no ureteral calculi are seen. The bladder is normal in contour. Multiple colonic diverticula are seen. Mild inflammatory changes adjoining the sigmoid colon are suggestive of acute diverticulitis. Mild pneumoperitoneum is noted. Mild wall thickening of small bowel loops involves the distal ileum adjacent to the area of diverticulosis in the right lower quadrant. Evidence of multiple dilated small bowel loops is noted, involving the mid and lower quadrants of the abdomen, with a maximum diameter measuring about 3.8 cm, suggestive of small bowel obstruction. No adenopathy or fluid collections are seen. The aorta is normal in caliber and shows atherosclerotic wall calcification. No aggressive-appearing osseous lesions are identified. Degenerative changes are seen in the visualized spine. There is grade 1 anterolisthesis of L4 over L5. Metallic artifacts are seen arising from lower lumbar spine fixation screws and bilateral hip replacement prostheses. IMPRESSION: 1. Evidence of multiple dilated small bowel loops is noted, involving the mid and lower quadrants of the abdomen, with maximum diameter measuring about 3.8 cm, suggestive of small bowel obstruction. Transition point likely being in right side of pelvis. 2. Colonic diverticulosis with mild inflammatory changes adjoining the sigmoid colon, suggesting acute diverticulitis. More or less stable. 3. Mild pneumoperitoneum is noted, suggestive of hollow viscus perforation. Slightly reduced compared to prior study. 4. Mild wall thickening of small bowel loops involving the distal ileum adjacent to the area of diverticulosis in the right lower quadrant could be reactive. Appears increased compared to prior study. 5. Left renal simple cortical cyst. Non-obstructive left renal concretions. Stable. 6. Mild bilateral perinephric fat stranding. Stable. 7. Small sliding hiatal hernia. Stable. Electronically signed by Lemuel Yepez 06-11-2025 03:36 AM
[2025-06-11] MEDS: SODIUM CHLORIDE 0.9% 1,000 ML IV SCH (04:07)
[2025-06-11 06:14] LABS: Hematocrit (blood only) 36.8 % (42.0-52.0); Hemoglobin 12.9 g/dl (14.0-18.0); Mean Corpuscular Hemoglobin 34.1 pg (25.0-34.0); Mean Corpuscular Volume 97.4 fL (80.0-100.0); Platelet Count 140 K/uL (130-400); RDW Standard Deviation 46.4 fL (36.4-46.3); Red Blood Count 3.78 M/uL (4.70-6.10); White Blood Count 12.09 K/ul (4.8-10.8)
[2025-06-11 06:31] LABS: Alanine Aminotransferase 13.0 U/L (7-52); Albumin Globulin Ratio 1.0 (0.9-2); Albumin Level 3.4 gm/dl (3.4-5.0); Alkaline Phosphatase 41.0 U/L (34-104); Anion Gap 8.0 (3-11); Bilirubin,Total 2.0 mg/dl (0.2-1.0); Blood Urea Nitrogen 16.0 mg/dl (6-23); Calcium 9.2 mg/dl (8.6-10.3); Carbon Dioxide 26.0 mmol/L (21-32); Chloride 106.0 mmol/L (98-107); Creatinine Clr Calc Pharmacy 79.1 ml/min; Globulin 3.4 gm/dl (2.5-4.0); Glucose 114.0 mg/dl (70-99(Fasting)); Magnesium 2.3 mg/dl (1.7-2.4); Potassium 3.8 mmol/L (3.5-5.1); Sodium 140.0 mmol/L (136-145); Total Protein 6.8 gm/dl (6.0-8.3)
--- NOTE | 2025-06-11 07:44 | Hospitalist Progress Note ---
Date of Service June 11, 2025 Assessment & Plan (1) Atrial flutter with rapid ventricular response: Plan: 74 yo M with past medical history significant for gout, dyslipidemia, allergic rhinitis, GERD, BPH, polymyalgia rheumatica, osteoarthritis, history of kidney stones presents with fevers and found to be in rapid A-Flutter Patient recently on 06/05/2025 had right hip replacement. During the surgery patient went into a flutter which was responsive to beta-martina. Postoperatively he was asymptomatic but again went into rapid a flutter. During that admission he was seen by cardiology for new onset a flutter and was started on metoprolol succina te and also Eliquis. Patient was discharged on 06/06/2025. Patient had monitor placed today. Patient states since yesterday evening having fevers. His fevers are not getting better so he came to the ER today. In the ER he was found to be in rapid A-Flutter. Currently on Cardizem drip. Patient complains of some knotty feeling in his stomach and is having abdominal discomfort. Denies any chest pain or shortness of breath. No cough. No headache. No runny nose or sore throat. He has some watering and itching of the eyes. Appetite is okay. Normal bowel and bladder movements. A-flutter with rapid ventricular response Was started on Cardizem drip on admission --> Pt converted to sinus rhythm AM (06/09) -> then again back to Aflutter -> was started on amio drip by cardiology on 06/09 --> currently sinus tachycardia (06/11) Continued Eliquis --> will switch to iv heparin Close monitor in telemetry Continued home metoprolol succinate Echo done 06/05/2025 shows normal EF 55 to 60%. Mild concentric left ventricular hypertrophy. Left atrium mildly dilated. Will keep K > 4, Mag > 2 Cardiology consulted - currently on amio drip Fevers Recent right hip replacement Surgical sites look good No leukocytosis in ER but AM WBC 16K (06/09). Now down to 12K (06/11) Lactic acid normal, Procalcitonin negat. in ED Respiratory BioFire negative. Chest x-ray no acute findings. UA negative. Blood cultx - negat. in 48 hrs Orthopedics consulted - so far no concern Has abdominal discomfort CT chest - 1. No evidence of pulmonary embolism or significant pulmonary disease. 2. Few subsegmental atelectasis bands in bilateral lung bases.Likely post inflammatory changes CT abdomen pelvis - 1. Left renal simple cortical cyst. Non-obstructive left renal concretions. 2. Mild bilateral perinephric fat stranding. 3. Colonic diverticulosis with mild inflammatory changes adjoining the sigmoid colon, suggesting acute diverticulitis. 4. Small sliding hiatal hernia. Acute diverticulitis, SBO, Mild pneumoperitoneum, perforation - started on broad spectrum abx - cont. with clear liquid diet/ as tolerated --> switch to NPO - will follow blood cultx - 06/11 Pt febrile again this AM. In addition overnight CT abd/pelvis repeated as pt had worsening abd. pain and nausea. Given concern for perforation as noted pneumoperitoneum and SBO, surgery was contacted overnight by milking system installer. This AM discussed w/ surgery PA at the bedside, at this time no plan for surgery, will cont. to monitor. Cont. Abx, NPO, will switch eliquis to IV heparin. 1. Evidence of multiple dilated small bowel loops is noted, involving the mid and lower quadrants of the abdomen, with maximum diameter measuring about 3.8 cm, suggestive of small bowel obstruction. Transition point likely being in right side of pelvis. 2. Colonic diverticulosis with mild inflammatory changes adjoining the sigmoid colon, suggesting acute diverticulitis. More or less stable. 3. Mild pneumoperitoneum is noted, suggestive of hollow viscus perforation. Slightly reduced compared to prior study. 4. Mild wall thickening of small bowel loops involving the distal ileum adjacent to the area of diverticulosis in the right lower quadrant could be reactive. Appears increased compared to prior study. 5. Left renal simple cortical cyst. Non-obstructive left renal concretions. Stable. 6. Mild bilateral perinephric fat stranding. Stable. 7. Small sliding hiatal hernia. Stable. Prolonged QTc Avoid QT prolonging drugs Follow repeat EKG. Mild elevation of bilirubin Will follow repeat labs Hyperlipidemia On statin Hypertension On losartan and metoprolol succinate Will monitor Recent Right hip replacement surgery site looks ok orthopedics consulted - no concern at this time about R hip DVT prophylaxis Eliquis --> to IV heparin Disposition Telemetry Full code. Admission and Anticipated Discharge Date Admission Date: June 08, 2025 Subjective Pt seen in follow up, presents with Afib / flutter RVR and fevers, recent hx of hip surgery R hip with some postsurgical pain, no drainage, erythema , or significant edema noted, and per pt pain is not that significant. Orthopedics also saw the pt - so far no concerns Pt was started on cardizem drip in ED and converted to sinus rhythm next morning, then back to Aflutter -> started on amio drip by cardiology -> currently sinus tachycardia WBC in ED normal but elevated at 16K in the morning. Imaging obtained and c/w diverticulitis. Blood cultx obtained in ED - so far negative. Started on broad spectrum antibiotic. Been afebrile since then, but again febrile this AM on 06/11/2025. Overnight had more abd. pain, nausea. CT abd/pelvis was repeated and gen surgery was consulted overnight - as CT shows some pneumoperitoneum. Currently, pt is sitting up in bed in NAD, says he feels comfortable. Reports abdominal pain is improved. Surgery PA present at the bedside, as well as pt's . Pt denies chest pain, shortness of breath. Review of Systems Review of Systems: All systems reviewed & are unremarkable except as noted in Subjective Physical Exam Physical Exam: General- WD/WN M in NAD Head- atraumatic Eyes- PERRL, EOMI. Neck- supple, no JVD. Lungs- clear to auscultation no wheezing or crackles. Heart- mildly tachycardic HR 90s Abdomen- normal bowel sounds, soft, + mildly tender to palp. lower abd. Extremities- no pretibial edema, no erythema seen. Right hip surgery site sutures intact, no erythema or obvious drainage seen Neuro- alert, oriented PERRL, no facial palsy; no dysarthria; moves extremities Results & Data Results & Data Vital Signs (Past 12 Hours) Vital Signs Temp Pulse Pulse Resp BP Pulse Ox O2 Del Method 06/11/25 04:11 36.7 C 91 H 18 151/82 H 95 Room Air 06/10/25 22:57 36.5 C 90 18 133/81 95 Room Air 06/10/25 22:00 92 H 06/10/25 19:49 36.9 C 95 H 18 148/81 H 94 Room Air Laboratory Results 06/11/25 Range/Units 05:39 WBC 12.09 H (4.8-10.8) K/ul RBC 3.78 L (4.70-6.10) M/uL Hgb 12.9 L (14.0-18.0) g/dl Hct 36.8 L (42.0-52.0) % MCV 97.4 (80.0-100.0) fL MCH 34.1 H (25.0-34.0) pg MCHC 35.1 (32.0-36.0) g/dL RDW Std Deviation 46.4 H (36.4-46.3) fL RDW Coeff of Chinyere 12.9 (11.5-14.5) % Plt Count 140 (130-400) K/uL MPV 11.9 (9.4-12.4) fL Sodium 140 (136-145) mmol/L Potassium 3.8 (3.5-5.1) mmol/L Chloride 106 (98-107) mmol/L Carbon Dioxide 26 (21-32) mmol/L Anion Gap 8 (3-11) BUN 16 (6-23) mg/dl Creatinine 0.92 (0.6-1.4) mg/dl Est Cr Clr Drug Dosing 79.1 ml/min eGFR 86.75 BUN/Creatinine Ratio 17.4 (10-20) Glucose 114 H (70-99(Fasting)) mg/dl Lactate 1.2 (0.4-2.0) mmol/L Calcium 9.2 (8.6-10.3) mg/dl Phosphorus 2.8 (2.5-4.9) mg/dl Magnesium 2.3 (1.7-2.4) mg/dl Total Bilirubin 2.0 H (0.2-1.0) mg/dl AST 17 (13-39) U/L ALT 13 (7-52) U/L Alkaline Phosphatase 41 (34-104) U/L Total Protein 6.8 (6.0-8.3) gm/dl Albumin 3.4 (3.4-5.0) gm/dl Globulin 3.4 (2.5-4.0) gm/dl Albumin/Globulin Ratio 1.0 (0.9-2) Medications Administered Current Inpatient Medications Acetaminophen (Acetaminophen 325 Mg Tab) 650 mg PO Q4H PRN PRN Reason: Pain or Fever Stop: 07/09/25 02:09 Acetaminophen (Acetaminophen 500 Mg Tab) 1,000 mg PO TID CARINA Stop: 07/09/25 08:59 Last Admin: 06/10/25 19:56 Dose: 1,000 mg Apixaban (Apixaban 5 Mg Tablet) 5 mg PO BID CARINA Stop: 07/09/25 08:59 Last Admin: 06/10/25 19:56 Dose: 5 mg Ascorbic Acid (Ascorbic Acid 500 Mg Tab) 500 mg PO DAILY CARINA Stop: 07/09/25 08:59 Last Admin: 06/10/25 08:38 Dose: 500 mg Atorvastatin Calcium (Atorvastatin 20 Mg Tab) 20 mg PO HS CARINA Stop: 07/09/25 20:59 Last Admin: 06/10/25 19:55 Dose: 20 mg Epinephrine HCl (Epinephrine Inj 1 Mg/Ml Amp) 0.3 mg IM Q4H PRN PRN Reason: Anaphylaxis Stop: 07/09/25 02:25 Piperacillin Sod/Tazobactam Sod (Zosyn) 4.5 gm in 100 mls @ 25 mls/hr IV Q8H [facility]; Protocol Stop: 06/19/25 12:59 Last Admin: 06/11/25 03:53 Dose: 25 mls/hr Vancomycin HCl (Vancomycin Hcl / Nss) 1,000 mg in 270 mls @ 200 mls/hr IV Q12H [facility] Stop: 06/11/25 15:59 Last Infusion: 06/11/25 04:40 Dose: Infused Amiodarone HCl/Dextrose (Nexterone / D5w) 360 mg in 200 mls @ 16.667 mls/hr IV .Q12H [facility] Stop: 07/09/25 22:44 Last Admin: 06/11/25 03:53 Dose: 0.5 mg/min, 16.7 mls/hr Famotidine (Pepcid 20mg Iv Push) 20 mg in 5 mls @ 2.5 mls/min IV Q12H [facility] Stop: 07/10/25 14:59 Last Admin: 06/11/25 03:08 Dose: 2.5 mls/min Sodium Chloride (Nss) 1,000 mls @ 100 mls/hr IV .Q10H [facility] Stop: 06/14/25 03:59 Last Admin: 06/11/25 04:07 Dose: 100 mls/hr Loratadine (Loratadine 10 Mg Tab) 10 mg PO DAILY PRN PRN Reason: Allergy Symptoms Stop: 07/09/25 02:09 Losartan Potassium (Losartan Potassium 25 Mg Tab) 25 mg PO QAM [facility] Stop: 07/09/25 08:59 Last Admin: 06/09/25 09:40 Dose: 25 mg Metoprolol Succinate (Metoprolol Succ 25mg Ext Rel Tab) 25 mg PO QAM [facility] Stop: 07/09/25 08:59 Last Admin: 06/10/25 08:38 Dose: 25 mg Miscellaneous Information (Vancomycin Consult Active) 1 each N/A UD PRN PRN Reason: Consult Stop: 07/09/25 06:44 Nitroglycerin (Nitroglycerin Sl 0.4 Mg/Tab Tab) 0.4 mg SL Q5M PRN PRN Reason: Chest Pain Stop: 07/09/25 02:09 Pantoprazole Sodium (Pantoprazole 40 Mg Tab) 40 mg PO BID [facility] Stop: 07/10/25 20:59 Last Admin: 06/10/25 15:37 Dose: 40 mg Polyethylene Glycol (Polyethylene (Miralax) 17 Gm Pack) 17 gm PO DAILY PRN PRN Reason: Constipation Stop: 07/09/25 02:09 Last Admin: 06/10/25 08:35 Dose: 17 gm Sennosides (Senna 8.6 Mg Tab) 8.6 mg PO BID [facility] Stop: 07/09/25 08:59 Last Admin: 06/10/25 19:56 Dose: 8.6 mg Tamsulosin HCl (Tamsulosin Hcl 0.4 Mg Cap) 0.4 mg PO DAILY PRN PRN Reason: TROUBLE URINATING Stop: 07/09/25 02:09 Last Admin: 06/10/25 08:38 Dose: 0.4 mg Tramadol HCl (Tramadol Hcl 50 Mg Tablet) 50 - 100 mg PO Q6 PRN PRN Reason: pain Stop: 07/09/25 02:09 Vitamin D (Cholecalciferol 25 Mcg (1000 Units) Tab) 50 mcg PO DAILY [facility] Stop: 07/09/25 08:59 Last Admin: 06/10/25 08:37 Dose: 50 mcg
[2025-06-11] MEDS: Heparin IV Adult Wt-Based Standard *NO* INITIAL Bolus Protocol IV STA (08:41)
[2025-06-11] MEDS: ACETAMINOPHEN 1,000 MG/100 ML VIAL IV PRN (09:51)
[2025-06-11] MEDS: HEPARIN 25000 UNIT/500 ML D5W 25,000 UNITS/500 ML BAG IV SCH (09:52)
[2025-06-11] MEDS: PROMETHAZINE 6.25 MG/50.25 ML BAG IV PRN (10:11)
[2025-06-11 10:13] LABS: INR 1.1 (0.9-1.1); Partial Thromboplastin Time 33 Seconds (21-31); Prothrombin Time 11.8 Seconds (9.0-12.0)
[2025-06-11] MEDS: PANTOprazole 40 MG/10 ML SYR IV SCH (10:27)
--- NOTE | 2025-06-11 11:17 | Surgery Consultation ---
Date of Consultation June 11, 2025 Assessment & Plan (1) Acute diverticulitis: (2) Small bowel obstruction: (3) Pneumoperitoneum: Plan Patient currently does have some right sided abdominal pain/tenderness, but no overt peritoneal signs. He did have a low-grade fever of 38.0, but has defervesced with Tylenol [id number], white blood cell count is elevated, but trending down. Repeat CAT scan earlier this morning was reviewed and does show findings of sigmoid diverticulitis with perforation and adjacent pneumoperitoneum and scant locules of free air scattered throughout the abdomen, but also with associated small bowel dilation concerning for possible SBO. We feel that the small bowel findings are likely related to the diverticulitis and not a true adhesive SBO. His initial CAT scan was also reviewed that also showed evidence of pneumoperitoneum, however this was not mentioned by the radiologist. There is no identifiable abscess or drainable fluid collection. Currently, the patient does not have any peritoneal signs, is hemodynamically stable, and white blood cell count is slowly trending down, so there is no indication for emergent surgical exploration at this time. We believe that we can continue with conservative treatment for his diverticulitis with microperforation and continue with IV antibiotics and bowel rest. If the patient continues to have significant nausea and/or vomiting, would recommend placement of an NG tube. Monitor for return of bowel function. Continue to trend white blood cell count and temps. We agree with transitioning off of Eliquis and onto IV heparin due to the A-flutter in case surgical intervention is needed/indicated on this admission. Remainder of his care per the primary medicine team, general surgery will continue to follow, but [facility] general surgery will follow for the rest of this week. History of Present Illness Reason for Consultation: pneumoperitoneum concerning for bowel perforation and SBO Attending Physician: Adolfo Garibay MD History of Present Illness Patient is a 74-year-old male with a past medical history significant for hyperlipidemia, GERD, BPH, polymyalgia rheumatica, osteoarthritis, and history of kidney stones who initially presented to [facility] emergency department on June 08, 2025 due to significant fevers at home. Patient states that he recently had a right total hip replacement on June 05, 2025 and recovered well from this and was discharged home, however then developed significant fevers with shaking chills and came to the emergency department for evaluation. In the ER, he was found to be tachycardic and in a flutter. Of note, during his total hip replacement there were IntraOp findings consistent with new onset a flutter, but postoperatively this was responsive to beta- martina and he was discharged home on June 06, 2025. Then, on June 08, he developed significant fevers and tachycardia and in the emergency department was found to be in a flutter with RVR. He was started on a Cardizem drip with appropriate reduction in his heart rate, but then he began complaining of vague and generalized abdominal pain. He had a CAT scan of the abdomen pelvis that on initial read showed findings of sigmoid diverticulitis, so he was admitted to the hospital service for IV antibiotics and continued on a Cardizem drip. The patient initially seemed to respond well to IV antibiotics, however, last night, developed significant amount of nausea and vomiting as well as increased abdominal pain. He had a repeat CAT scan of the abdomen pelvis that again showed findings of sigmoid diverticulitis, but now with small bowel dilation as well as locules of free air concerning for perforated viscus. General surgery was then consulted today for our evaluation. Upon our initial evaluation, he was seen with his present who called their niece who is an ER physician and was on speaker phone, and the patient states that his abdominal pain seemed improved, still localized to the right flank, but mild to moderate in intensity, worse with movement, somewhat better at rest, well-tolerated with current pain medication regimen. He also had a low-grade fever of 38.0 Celsius, but was not tachycardic or hypotensive. He denies any flatus or bowel movement, states that his nausea is much improved. Patient mentions that his abdominal pain improved after vomiting last night. Allergies Allergy/AdvReac Type Severity Reaction Status Date / Time bee venom protein (honey bee) Allergy Severe Anaphylaxis Verified 06/08/25 22:56 capsaicin AdvReac Intermediate Mouth sores Verified 06/08/25 22:56 diclofenac AdvReac Intermediate Mouth sores Verified 06/08/25 22:56 meloxicam AdvReac Intermediate Mouth sores Verified 06/08/25 22:56 Home Medications Medication Instructions Recorded Confirmed Type loratadine 10 mg tablet (Claritin) 10 mg PO DAILY PRN Allergy Symptoms 12/13/20 06/08/25 History pantoprazole 40 mg tablet,delayed 40 mg PO HS PRN Heartburn 12/13/20 06/08/25 History release (Protonix) amoxicillin 500 mg tablet 2,000 mg PO DIRECTED PRN Dental 05/04/25 06/08/25 History Procedure ascorbic acid (vitamin C) 500 mg 500 mg PO DAILY 05/04/25 06/08/25 History tablet (Vitamin C) [id number]-zqgggjxszizuo-jrwozsmg 250 1 tab PO DAILY PRN Headaches 05/04/25 06/08/25 History mg-250 mg-65 mg tablet (Excedrin Extra Strength) atorvastatin 20 mg tablet 20 mg PO HS 05/04/25 06/08/25 History cholecalciferol (vitamin D3) 50 50 mcg PO DAILY 05/04/25 06/08/25 History mcg (2,000 unit) capsule (Vitamin D3) clobetasol 0.05 % topical ointment 1 applic topical DAILY PRN Skin 05/04/25 06/08/25 History Irritation epinephrine 0.3 mg/0.3 mL 0.3 mg IM Q4H PRN Anaphylaxis 05/04/25 06/08/25 History injection, auto-injector (EpiPen) fluorouracil 5 % topical cream 1 applic topical BID PRN UD 05/04/25 06/08/25 History Dermatology losartan 25 mg tablet 25 mg PO QAM 05/04/25 06/08/25 History acetaminophen 500 mg tablet 1,000 mg (2 x 500 mg) PO TID pain 06/01/25 06/08/25 Rx (Tylenol Extra Strength) 30 days #180 tabs ondansetron 4 mg disintegrating 4 mg PO Q8 PRN nausea #20 tabs 06/01/25 06/08/25 Rx tablet sennosides 8.6 mg tablet (Senokot) 8.6 mg PO BID prevent constipation 06/01/25 06/08/25 Rx 14 days #28 tabs tramadol 50 mg tablet 50 - 100 mg (1 - 2 x 50 mg) PO Q6 06/01/25 06/08/25 Rx PRN pain #40 tabs Amnio Acid Tablets 2 tab PO TID 06/08/25 06/08/25 History apixaban 5 mg tablet (Eliquis) 5 mg PO BID 06/08/25 06/08/25 History metoprolol succinate 25 mg 25 mg PO QAM 06/08/25 06/08/25 History tablet,extended release 24 hr tamsulosin 0.4 mg capsule (Flomax) 0.4 mg PO DAILY PRN TROUBLE 06/08/25 06/08/25 History URINATING Patient History Medical History Hyperlipidemia Hypertension PMR (polymyalgia rheumatica) follows with Dr Lucia stable and controlled has weaned off prednisone Psoriasis Follows with [facility] Precancerous skin lesion Follows with [facility] Nausea and vomiting after administration of anesthetic agent Osteoarthritis Kidney stones hx GERD (gastroesophageal reflux disease) well controlled and stable Migraine on occasion Spinal stenosis of lumbar region Surgical History History of lumbar spinal fusion Hardware Present History of ankle surgery Right - hardware present History of total left hip arthroplasty History of bilateral cataract extraction History of bilateral knee replacement History of colonoscopy Hx of inguinal hernia repair History of cystoscopy with stent History of tooth extraction Social History Smoking Status: Former smoker Cigarettes Per Day: 1 pack day x 20 years; Second Hand Exposure: No; Do You Dip or Chew Tobacco: No; Hx Alcohol Use: Yes Alcohol type: beer and wine Hx Substance Use: No Preferred Language: Macedonian Communication Ability: Effective 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 Beliefs That Will Affect Care: None marital status: Current Living Situation: Spouse current occupational status: retired Feels Safe at Home: Yes Safety Concerns: Feels Safe At This Time Assistive Devices: Walker Review of Systems Review of Systems: All systems reviewed & are unremarkable except as noted in HPI & below Physical Exam Physical Exam: Gen: Awake and alert, resting comfortably in bed in NAD CV: RRR PULM: non-labored breathing Abd: Abd soft, mildly distended, tender to palpation to the right lower quadrant, but no guarding or rigidity ext: no edema to bilateral lower ext, SCDs in place, non-tender, feet warm and well perfused Results & Data Vital Signs (Past 12 Hours) Vital Signs Temp Pulse Pulse Resp BP Pulse Ox O2 Del Method 06/11/25 10:59 36.7 C 94 H 23 156/88 H 94 Room Air 06/11/25 08:39 97 H 06/11/25 07:42 38.0 C H 96 H 23 164/85 H 93 Room Air 06/11/25 04:11 36.7 C 91 H 18 151/82 H 95 Room Air Diagnostic Findings CT Abd/Pelvis: IMPRESSION: 1. Evidence of multiple dilated small bowel loops is noted, involving the mid and lower quadrants of the abdomen, with maximum diameter measuring about 3.8 cm, suggestive of small bowel obstruction. Transition point likely being in right side of pelvis. 2. Colonic diverticulosis with mild inflammatory changes adjoining the sigmoid colon, suggesting acute diverticulitis. More or less stable. 3. Mild pneumoperitoneum is noted, suggestive of hollow viscus perforation. Slightly reduced compared to prior study. 4. Mild wall thickening of small bowel loops involving the distal ileum adjacent to the area of diverticulosis in the right lower quadrant could be reactive. Appears increased compared to prior study. 5. Left renal simple cortical cyst. Non-obstructive left renal concretions. Stable. 6. Mild bilateral perinephric fat stranding. Stable. 7. Small sliding hiatal hernia. Stable. PG Care Time/CCT Total # of Minutes Spent Total Time Spent with Patient: Total time spent is greater than 50% in coordination of care (as documented) at patient's floor/unit and/or counseling patient: [place] [address] IN/OBS CONSULT LVL 5,80M Patient Type New History Problem Focused Exam Problem Focused Medical Decision Making Moderate Complexity Diagnoses Acute diverticulitis K57.92 Small bowel obstruction K56.609 Pneumoperitoneum K66.8
--- NOTE | 2025-06-11 11:17 | Cardiology Progress Note ---
Date of Service June 11, 2025 Assessment & Plan (1) Atrial flutter with rapid ventricular response: (2) S/P total right hip arthroplasty: (3) Fever: (4) Acute diverticulitis: (5) Hyperlipidemia: Plan Assessment: 74 year old male with recent Right Total hip replacement found to have Atrial flutter intraoperatively, spontaneously converted to NSR, then re- admitted with acute concerns of fever and abdominal pain. EKG at time of admission demonstrated Atrial flutter with RVR and chronic Right BBB. Cardiology consulted for further evaluation/recommendations. Ultimately diagnosed with acute diverticulitis, now with possible small perforation and SBO. Plan: 1. Atrial flutter with RVR in setting of acute diverticulitis: -Initially diagnosed intraoperatively for total hip replacement on 06/05/2025. Transient in nature and had spontaneously converted. Echocardiogram demonstrated normal LVEF, no wall motion abnormalities and no significant valvular disease. Patient was discharged home on Metoprolol succinate 25mg PO QAM and Eliquis 5mg PO BID. -Patient remains asymptomatic with regards to atrial flutter. He had multiple episodes of Atrial flutter earlier this admission, he was started on an Amiodarone gtt with conversion to Sinus Rhythm. -He has remained in NSR/Sinus tachycardia over jackelin last 24 hours -Continue IV amiodarone for now as patient is NPO (even water and meds). Will resume oral metoprolol when able. -Review of telemetry shows SR with PAC's rates in the 90's -Euvolemic on exam -Eliquis held and transitioned to IV heparin in case surgery needed. Will resume oral eliquis when able prior to discharge. -Preliminary blood cultures negative, continued management of acute diverticulitis per Primary team. Currently receiving IV Zosyn and IV vancomycin. Other oral meds including losartan and atorvastatin on hold as patient is NPO -If additional antihypertensive therapy needed, could consider IV metoprolol 5 mg q 4-6 hours, as this would aid his HR as well OR IV hydralazine -patient is currently wearing a zio monitor. If patient needs surgery, this can be removed if needed. Case has been discussed with Dr. Whitney. Will follow I spent a total of 45 minutes on the date of service in preparation, delivery, and documentation of the care provided to this patient, excluding any time spent in the performance of separately billed services. Darlyn Bender PA-C Department of Cardiology, [facility] This chart was completed in part utilizing Speech Voice Recognition Software. Grammatical errors, random word insertions, pronoun errors, and incomplete sentences are an occasional consequence of this system due to software limitations, ambient noise, and hardware issues. Any formal questions or concerns about the content, text, or information contained within the body of this dictation should be directly addressed to the provider for clarification. Admission and Anticipated Discharge Date Admission Date: June 08, 2025 Supervising Physician Co-Signing Physician Notes Attending attestation: Case reviewed with the advanced practitioner. I have personally performed a history and physical examination on the patient. I have reviewed the advanced practitioner's documentation on the date of service referenced in note, and I agree with, and take responsibility for the plan of care. Subjective:Patient with ongoing mild nauseousness. He is now n.p.o. and Eliquis has been transition to heparin. Exam: Cardiovascular: Regular rhythm, no murmurs. Impression/ Plan: Atrial fibrillation/flutter Recent hip replacement Diverticulitis * Patient remained in sinus rhythm overnight last night and thus far today, currently sinus rhythm in the 90s to 100s noted. * Will discontinue metoprolol succinate. Add IV metoprolol 5 mg IV every 6 hours for blood pressure and heart rate control. * Continue amiodarone infusion 0.5 mg / Minute. * Heparin bridge while Elquis on hold and patient is on bowel rest. Ronald Whitney, DO Subjective Patient resting in bed comfortably this morning. Unfortunately last night patient had recurrent nausea and significant vomiting with black/green emesis.Abdominal CT scan with ongoing diverticulitis and small possible perforation with possible small bowel obstruction. awaiting surgery recommendations Patient is strict NPO no water or medications. He remains in sinus and sinus tach on telemetry. He remains on IV Amiodarone. No chest pain or shortness of breath reported. No sense of palpitations. Review of Systems Review of Systems: All systems reviewed & are unremarkable except as noted in HPI & below Physical Exam Constitutional: well developed and well nourished; no acute distress and not ill appearing Neck: normal visual inspection and trachea midline Respiratory: normal respiratory effort, lungs clear to auscultation Cardiovascular: Rate/Rhythm: regular rhythm and + tachycardic Heart Sounds: normal S1 and normal S2 Vessels: dorsalis pedis pulses present; no JVD Extremities: no edema Skin: no rashes, warm and dry Psychiatric: A+Ox3, euthymic affect Results & Data Vital Signs (Past 12 Hours) Vital Signs Temp Pulse Pulse Resp BP Pulse Ox O2 Del Method 06/11/25 10:59 36.7 C 94 H 23 156/88 H 94 Room Air 06/11/25 08:39 97 H 06/11/25 07:42 38.0 C H 96 H 23 164/85 H 93 Room Air 06/11/25 04:11 36.7 C 91 H 18 151/82 H 95 Room Air Laboratory Results Cardiac Enzymes 06/11/25 Range/Units 05:39 AST 17 (13-39) U/L Coagulation 06/11/25 Range/Units 09:21 PT 11.8 (9.0-12.0) Seconds APTT 33 H (21-31) Seconds CBC 06/11/25 Range/Units 05:39 WBC 12.09 H (4.8-10.8) K/ul RBC 3.78 L (4.70-6.10) M/uL Hgb 12.9 L (14.0-18.0) g/dl Hct 36.8 L (42.0-52.0) % Plt Count 140 (130-400) K/uL Comprehensive Metabolic Panel 06/11/25 Range/Units 05:39 Sodium 140 (136-145) mmol/L Potassium 3.8 (3.5-5.1) mmol/L Chloride 106 (98-107) mmol/L Carbon Dioxide 26 (21-32) mmol/L BUN 16 (6-23) mg/dl Creatinine 0.92 (0.6-1.4) mg/dl Glucose 114 H (70-99(Fasting)) mg/dl Calcium 9.2 (8.6-10.3) mg/dl AST 17 (13-39) U/L ALT 13 (7-52) U/L Alkaline Phosphatase 41 (34-104) U/L Total Protein 6.8 (6.0-8.3) gm/dl Albumin 3.4 (3.4-5.0) gm/dl Diagnostic Findings Telemetry reviewed: Sinus and sinus tach with heart rates ranging 90-110. No recurrent atrial flutter noted over the last 24 hours Medications Administered Current Inpatient Medications Acetaminophen (Acetaminophen 325 Mg Tab) 650 mg PO Q4H PRN PRN Reason: Pain or Fever Stop: 07/09/25 02:09 Acetaminophen (Acetaminophen 500 Mg Tab) 1,000 mg PO TID CARINA Stop: 07/09/25 08:59 Last Admin: 06/10/25 19:56 Dose: 1,000 mg Ascorbic Acid (Ascorbic Acid 500 Mg Tab) 500 mg PO DAILY [facility]INA Stop: 07/09/25 08:59 Last Admin: 06/11/25 08:20 Dose: Not Given Atorvastatin Calcium (Atorvastatin 20 Mg Tab) 20 mg PO HS CARINA Stop: 07/09/25 20:59 Last Admin: 06/10/25 19:55 Dose: 20 mg Epinephrine HCl (Epinephrine Inj 1 Mg/Ml Amp) 0.3 mg IM Q4H PRN PRN Reason: Anaphylaxis Stop: 07/09/25 02:25 Piperacillin Sod/Tazobactam Sod (Zosyn) 4.5 gm in 100 mls @ 25 mls/hr IV Q8H [facility]; Protocol Stop: 06/19/25 12:59 Last Infusion: 06/11/25 08:07 Dose: Infused Vancomycin HCl (Vancomycin Hcl / Nss) 1,000 mg in 270 mls @ 200 mls/hr IV Q12H [facility] Stop: 06/14/25 23:59 Last Infusion: 06/11/25 04:40 Dose: Infused Amiodarone HCl/Dextrose (Nexterone / D5w) 360 mg in 200 mls @ 16.667 mls/hr IV .Q12H [facility] Stop: 07/09/25 22:44 Last Admin: 06/11/25 03:53 Dose: 0.5 mg/min, 16.7 mls/hr Famotidine (Pepcid 20mg Iv Push) 20 mg in 5 mls @ 2.5 mls/min IV Q12H [facility] Stop: 07/10/25 14:59 Last Admin: 06/11/25 03:08 Dose: 2.5 mls/min Sodium Chloride (Nss) 1,000 mls @ 100 mls/hr IV .Q10H [facility] Stop: 06/14/25 03:59 Last Admin: 06/11/25 04:07 Dose: 100 mls/hr Acetaminophen (Ofirmev) 1,000 mg in 100 mls @ 400 mls/hr IV Q8H PRN PRN Reason: fever or pain Stop: 06/14/25 08:08 Last Infusion: 06/11/25 10:11 Dose: Infused Heparin Sodium/Dextrose (Heparin 66711 Unit/500 Ml D5w) 25,000 units in 500 mls @ 29 mls/hr IV .[id number] [facility]; Protocol Stop: 07/11/25 08:59 Last Admin: 06/11/25 09:52 Dose: 1,450 units/hr, 29 mls/hr Promethazine HCl (Phenergan) 6.25 mg in 50.25 mls @ 201 mls/hr IV Q6H PRN PRN Reason: Nausea And Vomiting Stop: 07/11/25 09:48 Last Infusion: 06/11/25 10:27 Dose: Infused Pantoprazole Sodium (Protonix) 40 mg in 10 mls @ 5 mls[facility] Stop: 07/11/25 09:59 Last Admin: 06/11/25 10:27 Dose: 5 mls/min Loratadine (Loratadine 10 Mg Tab) 10 mg PO DAILY PRN PRN Reason: Allergy Symptoms Stop: 07/09/25 02:09 Losartan Potassium (Losartan Potassium 25 Mg Tab) 25 mg PO [facility] Stop: 07/09/25 08:59 Last Admin: 06/09/25 09:40 Dose: 25 mg Metoprolol Succinate (Metoprolol Succ 25mg Ext Rel Tab) 25 mg PO [facility] Stop: 07/09/25 08:59 Last Admin: 06/11/25 08:21 Dose: Not Given Miscellaneous Information (Vancomycin Consult Active) 1 each N/A UD PRN PRN Reason: Consult Stop: 07/09/25 06:44 Nitroglycerin (Nitroglycerin Sl 0.4 Mg/Tab Tab) 0.4 mg SL Q5M PRN PRN Reason: Chest Pain Stop: 07/09/25 02:09 Pantoprazole Sodium (Pantoprazole 40 Mg Tab) 40 mg PO BID [facility] Stop: 07/10/25 20:59 Last Admin: 06/11/25 08:21 Dose: Not Given Polyethylene Glycol (Polyethylene (Miralax) 17 Gm Pack) 17 gm PO DAILY PRN PRN Reason: Constipation Stop: 07/09/25 02:09 Last Admin: 06/10/25 08:35 Dose: 17 gm Sennosides (Senna 8.6 Mg Tab) 8.6 mg PO BID [facility] Stop: 07/09/25 08:59 Last Admin: 06/11/25 08:21 Dose: Not Given Tamsulosin HCl (Tamsulosin Hcl 0.4 Mg Cap) 0.4 mg PO DAILY PRN PRN Reason: TROUBLE URINATING Stop: 07/09/25 02:09 Last Admin: 06/10/25 08:38 Dose: 0.4 mg Tramadol HCl (Tramadol Hcl 50 Mg Tablet) 50 - 100 mg PO Q6 PRN PRN Reason: pain Stop: 07/09/25 02:09 Vitamin D (Cholecalciferol 25 Mcg (1000 Units) Tab) 50 mcg PO DAILY [facility] Stop: 07/09/25 08:59 Last Admin: 06/11/25 08:21 Dose: Not Given Coding Level of Care Code 44424 SUB INP/OBS CARE 3/50MIN Diagnoses Atrial flutter with rapid ventricular response I48.92 S/P total right hip arthroplasty Z96.641 Fever R50.9 Acute diverticulitis K57.92 Hyperlipidemia E78.5
[2025-06-11] MEDS: METOPROLOL TARTRATE 1 MG/ML VIAL IV SCH (12:26)
[2025-06-11] MEDS: PROMETHAZINE 6.25 MG/50.25 ML BAG IV STA (13:08)
--- NOTE | 2025-06-11 13:30 | XRay Report ---
XR chest 1V portable CLINICAL HISTORY: NG tube insertion COMPARISON STUDY: 06/08/2025 FINDINGS: Nasogastric tube tip is in the proximal stomach. There is dilated small bowel in the visual ized upper abdomen. IMPRESSION: Nasogastric tube tip is in the proximal stomach. ACT 112: Negative or not required by law. Electronically signed by: Scott Brito M.D. 06/11/2025 1:28 PM
--- NOTE | 2025-06-11 13:48 | Pharmacy Report ---
Pharmacy PK ABX Note - Date of Service June 11, 2025 - Assessment and Plan Assessment 06/11: * Vancomycin level came back at ~9.2 mcg/ml - current dosing associated with AUC/GUILLERMO below goal, therefore will increase to 1250 mg iv q 12 hours 06/10: * 74 year old M receiving ZOSYN for treatment of diverticulitis. Patient continues with fevers this morning. Hx of recent hip replacement. Orthopedics has been consulted. WBC increased this morning and vancomycin was added for additional empiric coverage. Pertinent microbiologic data includes: blood cultures pending Plan Vancomycin * Increase to 1250 mg iv q 12 hours Pharmacy will continue to follow and will adjust dose/frequency as necessary. Thank you. Pharmacy has transitioned to AUC monitoring for vancomycin. AUC/GUILLERMO is the preferred PK/PD target and is associated with decreased risk of nephrotoxicity compared to traditional trough targets.
[2025-06-11] MEDS ORDERED: MoRPHine SULFATE 4 MG/ML 1 ML CARP\\VIAL IV PRN (15:48)
--- NOTE | 2025-06-11 15:51 | Surgery Progress Note ---
Date of Service June 11, 2025 Assessment & Plan (1) Pneumoperitoneum: (2) Acute diverticulitis: (3) Small bowel obstruction: Plan Repeat CT scan today showing possible SBO, likely reactive to the acute perforated sigmoid diverticulitis as the sigmoid colon is in proximity to the distal small bowel. NGT placed and patient feeling better. Had long discussion with family at bedside, Niece (ER pHysician at [facility]) as to findings and recommendations. Continue conservative measures with NGT to LIS, bowel rest, IV fluids, IV antibiotics, Pain management as needed, OOB to chair and ambulation to increase GI motility. Will keep NGT until abdomen less distended, good return of bowel function, pain improvement and low NGT output. Will schedule IV tylenol and add IV morphine prn. Will follow along closely. Discussed with Dr. Fuentes who agrees with above. Admission and Anticipated Discharge Date Admission Date: June 08, 2025 Subjective feeling better since NGT placed, not feeling as bloated still having RLQ abdominal pain, comes in waves no nausea Family at bedside Review of Systems Review of Systems: All systems reviewed & are unremarkable except as noted in HPI & below Physical Exam Constitutional: cooperative, comfortable and + overweight; no acute distress, not in distress and not diaphoretic Respiratory: normal respiratory effort, lungs clear to auscultation Cardiovascular: RRR, no murmur, no edema Gastrointestinal (Abdomen): Inspection/Auscultation: + abdomen distended Percussion/Palpation: + abdomen tender (generalized but more in RLQ), + guarding (RLQ) and abdomen soft; abdomen not rigid and abdomen not firm No peritonitis Skin: no rashes, warm and dry Psychiatric: Orientation: alert and oriented x 3 Results & Data Vital Signs (Past 12 Hours) Vital Signs Temp Pulse Pulse Resp BP BP Pulse Ox 06/11/25 12:41 82 138/88 06/11/25 12:26 94 H 147/74 H 06/11/25 10:59 36.7 C 94 H 23 156/88 H 94 06/11/25 08:39 97 H 06/11/25 07:42 38.0 C H 96 H 23 164/85 H 93 06/11/25 04:11 36.7 C 91 H 18 151/82 H 95 O2 Del Method 06/11/25 12:41 06/11/25 12:26 06/11/25 10:59 Room Air 06/11/25 08:39 06/11/25 07:42 Room Air 06/11/25 04:11 Room Air Laboratory Results 06/11/25 06/11/25 06/11/25 Range/Units 12:10 09:21 05:39 WBC 12.09 H (4.8-10.8) K/ul RBC 3.78 L (4.70-6.10) M/uL Hgb 12.9 L (14.0-18.0) g/dl Hct 36.8 L (42.0-52.0) % MCV 97.4 (80.0-100.0) fL MCH 34.1 H (25.0-34.0) pg MCHC 35.1 (32.0-36.0) g/dL RDW Std Deviation 46.4 H (36.4-46.3) fL RDW Coeff of Chinyere 12.9 (11.5-14.5) % Plt Count 140 (130-400) K/uL MPV 11.9 (9.4-12.4) fL PT 11.8 (9.0-12.0) Seconds INR 1.1 (0.9-1.1) APTT 33 H (21-31) Seconds PTT Ratio 1.2 Sodium 140 (136-145) mmol/L Potassium 3.8 (3.5-5.1) mmol/L Chloride 106 (98-107) mmol/L Carbon Dioxide 26 (21-32) mmol/L Anion Gap 8 (3-11) BUN 16 (6-23) mg/dl Creatinine 0.92 (0.6-1.4) mg/dl Est Cr Clr Drug Dosing 79.1 ml/min eGFR 86.75 BUN/Creatinine Ratio 17.4 (10-20) Glucose 114 H (70-99(Fasting)) mg/dl Lactate 1.2 (0.4-2.0) mmol/L Calcium 9.2 (8.6-10.3) mg/dl Phosphorus 2.8 (2.5-4.9) mg/dl Magnesium 2.3 (1.7-2.4) mg/dl Total Bilirubin 2.0 H (0.2-1.0) mg/dl AST 17 (13-39) U/L ALT 13 (7-52) U/L Alkaline Phosphatase 41 (34-104) U/L Total Protein 6.8 (6.0-8.3) gm/dl Albumin 3.4 (3.4-5.0) gm/dl Globulin 3.4 (2.5-4.0) gm/dl Albumin/Globulin Ratio 1.0 (0.9-2) Random Vancomycin 9.2 L (10-20) mcg/ml Diagnostic Findings [place] [phone] CT Scan Report Patient: HANNAH LEE Admit Date: 06/08/25 MR#: [id number] Address1: [address] [place] [address] Acct ID:[id number] Address2: Date: 1950 [facility] Zip: [place] [id number] Age: 74 Location: 4W Sex: M Room/Bed: [facility] Att Phy: Adolfo Garibay MD Diagnosis: RAPID AFIB, FEVERS Teodora Phy: Jose Pacheco MD Service Date: 06/11/25 Fam Phy: Interpreting Phy: Lemuel Barrera MDAdmit Phy: Mekhi Dunn MD Ordering Phy: Mekhi Dunn MD cc: ~ ADDENDUM Addendum Report EXAM: CT abd pelvis IV con only ADDENDUM: [facility] was called at [phone] at 02:39 AM CONSTRUCTION MGR, 06/11/2025 and Nurse Berkley was informed regarding the critical medical findings in the report. Electronically signed by Lemuel Barrera 06-11-2025 03:43 AM ADDENDUM END ADDENDUM Addendum Report EXAM: CT abd pelvis IV con only ADDENDUM: [facility] was called at [phone] at 02:39 AM CONSTRUCTION MGR, 06/11/2025 and Nurse Berkley was informed regarding the critical medical findings in the report. Electronically signed by Lemuel Barrera 06-11-2025 03:43 AM ADDENDUM END EXAM: CT abd pelvis IV con only CLINICAL HISTORY: RLQ abd pain TECHNIQUE: Contiguous axial images were obtained from the level of the diaphragm to the pubic symphysis with intravenous contrast. Coronal and sagittal reconstructions were likewise performed and indicated to increase the sensitivity for detecting clinically relevant pathology. If IV contrast material had not been administered, the likelihood of detecting abnormalities relevant to the patient's condition would have been substantially decreased. CT scan was performed according to ALARA (as low as reasonably achievable). COMPARISON: 22:57:42 CONSTRUCTION MGR FINDINGS: Mild bilateral pleural effusion with basal subsegmental collapse of both lower lobes is seen. A small sliding hiatal hernia is seen. The liver is normal in size and attenuation. No focal liver lesions are seen. There is no intrahepatic or extrahepatic biliary ductal dilatation. The hepatic vasculature is patent. The gallbladder is unremarkable. The spleen, pancreas, and adrenal glands are unremarkable. The kidneys are normal in size and attenuation. A well-defined, thin-walled cyst measuring 23 mm is seen in the upper pole of the left kidney. There is no hydronephrosis. Mild bilateral perinephric fat stranding is seen. Two tiny foci of calcification, measuring 2-3 mm, are seen in the interpolar calyceal region of the left kidney. The ureters are normal in caliber and no ureteral calculi are seen. The bladder is normal in contour. Multiple colonic diverticula are seen. Mild inflammatory changes adjoining the sigmoid colon are suggestive of acute diverticulitis. Mild pneumoperitoneum is noted. Mild wall thickening of small bowel loops involves the distal ileum adjacent to the area of diverticulosis in the right lower quadrant. Evidence of multiple dilated small bowel loops is noted, involving the mid and lower quadrants of the abdomen, with a maximum diameter measuring about 3.8 cm, suggestive of small bowel obstruction. No adenopathy or fluid collections are seen. The aorta is normal in caliber and shows atherosclerotic wall calcification. No aggressive-appearing osseous lesions are identified. Degenerative changes are seen in the visualized spine. There is grade 1 anterolisthesis of L4 over L5. Metallic artifacts are seen arising from lower lumbar spine fixation screws and bilateral hip replacement prostheses. IMPRESSION: 1. Evidence of multiple dilated small bowel loops is noted, involving the mid and lower quadrants of the abdomen, with maximum diameter measuring about 3.8 cm, suggestive of small bowel obstruction. Transition point likely being in right side of pelvis. 2. Colonic diverticulosis with mild inflammatory changes adjoining the sigmoid colon, suggesting acute diverticulitis. More or less stable. 3. Mild pneumoperitoneum is noted, suggestive of hollow viscus perforation. Slightly reduced compared to prior study. 4. Mild wall thickening of small bowel loops involving the distal ileum adjacent to the area of diverticulosis in the right lower quadrant could be reactive. Appears increased compared to prior study. 5. Left renal simple cortical cyst. Non-obstructive left renal concretions. Stable. 6. Mild bilateral perinephric fat stranding. Stable. 7. Small sliding hiatal hernia. Stable. Personally reviewed ct scan images and concur with above findings.
[2025-06-11] MEDS: VANCOMYCIN HCL 1,250 MG in SODIUM CHLORIDE 0.9% 250 ML IV SCH (16:13)
[2025-06-11 16:41] LABS: ANTI-Xa, UFH(UnfractionatedHep 0.67 IU/ml (0.3-0.7)
[2025-06-11] MEDS: HYDROmorphone INJ 0.5 MG/0.5 ML SYR IV STA (17:12)
[2025-06-11] MEDS: ACETAMINOPHEN 1,000 MG/100 ML VIAL IV SCH (17:26)
[2025-06-12 06:28] LABS: Hematocrit (blood only) 34.5 % (42.0-52.0); Hemoglobin 12.1 g/dl (14.0-18.0); Immature Granulocytes # (auto) 0.04 K/uL (0.01-0.20); Immature Granulocytes % (auto) 0.4 %; Mean Corpuscular Hemoglobin 33.3 pg (25.0-34.0); Mean Corpuscular Volume 95.0 fL (80.0-100.0); Platelet Count 150 K/uL (130-400); RDW Standard Deviation 46.5 fL (36.4-46.3); Red Blood Count 3.63 M/uL (4.70-6.10); White Blood Count 10.66 K/ul (4.8-10.8)
[2025-06-12 06:46] LABS: Anion Gap 7.0 (3-11); Blood Urea Nitrogen 15.0 mg/dl (6-23); Calcium 8.3 mg/dl (8.6-10.3); Carbon Dioxide 25.0 mmol/L (21-32); Chloride 108.0 mmol/L (98-107); Creatinine Clr Calc Pharmacy 89.0 ml/min; Glucose 118.0 mg/dl (70-99(Fasting)); Magnesium 2.1 mg/dl (1.7-2.4); Potassium 3.3 mmol/L (3.5-5.1); Sodium 140.0 mmol/L (136-145)
[2025-06-12 07:03] LABS: ANTI-Xa, UFH(UnfractionatedHep 0.42 IU/ml (0.3-0.7)
--- NOTE | 2025-06-12 08:14 | Hospitalist Progress Note ---
Date of Service June 12, 2025 Assessment & Plan (1) Atrial flutter with rapid ventricular response: Plan: 74 yo M with past medical history significant for gout, dyslipidemia, allergic rhinitis, GERD, BPH, polymyalgia rheumatica, osteoarthritis, history of kidney stones presents with fevers and found to be in rapid A-Flutter Patient recently on 06/05/2025 had right hip replacement. During the surgery patient went into a flutter which was responsive to beta-martina. Postoperatively he was asymptomatic but again went into rapid a flutter. During that admission he was seen by cardiology for new onset a flutter and was started on metoprolol succina te and also Eliquis. Patient was discharged on 06/06/2025. Patient had monitor placed today. Patient states since yesterday evening having fevers. His fevers are not getting better so he came to the ER today. In the ER he was found to be in rapid A-Flutter. Currently on Cardizem drip. Patient complains of some knotty feeling in his stomach and is having abdominal discomfort. Denies any chest pain or shortness of breath. No cough. No headache. No runny nose or sore throat. He has some watering and itching of the eyes. Appetite is okay. Normal bowel and bladder movements. A-flutter with rapid ventricular response Was started on Cardizem drip on admission --> Pt converted to sinus rhythm AM (06/09) -> then again back to Aflutter -> was started on amio drip by cardiology on 06/09 --> currently sinus rhythm (06/12) Continued Eliquis --> will switch to iv heparin Close monitor in telemetry Continued home metoprolol succinate Echo done 06/05/2025 shows normal EF 55 to 60%. Mild concentric left ventricular hypertrophy. Left atrium mildly dilated. Will keep K > 4, Mag > 2 Cardiology consulted Fevers Recent right hip replacement Surgical sites look good No leukocytosis in ER but AM WBC 16K (06/09). Now down to 10.6K (06/12)- normalized Lactic acid normal, Procalcitonin negat. in ED Respiratory BioFire negative. Chest x-ray no acute findings. UA negative. Blood cultx - negat. in 48 hrs Orthopedics consulted - so far no concern Has abdominal discomfort CT chest - 1. No evidence of pulmonary embolism or significant pulmonary disease. 2. Few subsegmental atelectasis bands in bilateral lung bases.Likely post inflammatory changes CT abdomen pelvis - 1. Left renal simple cortical cyst. Non-obstructive left renal concretions. 2. Mild bilateral perinephric fat stranding. 3. Colonic diverticulosis with mild inflammatory changes adjoining the sigmoid colon, suggesting acute diverticulitis. 4. Small sliding hiatal hernia. Acute diverticulitis, SBO, Mild pneumoperitoneum, perforation - initially started on broad spectrum abx, cont. w/ zosyn - cont. NPO - will follow blood cultx, as above - surgery consulted and following closely - NG tube placed yesterday (06/11), abd. discomfort much improved - eliquis switched to Iv heparin for now CT abd/pelvis 1. Evidence of multiple dilated small bowel loops is noted, involving the mid and lower quadrants of the abdomen, with maximum diameter measuring about 3.8 cm, suggestive of small bowel obstruction. Transition point likely being in right side of pelvis. 2. Colonic diverticulosis with mild inflammatory changes adjoining the sigmoid colon, suggesting acute diverticulitis. More or less stable. 3. Mild pneumoperitoneum is noted, suggestive of hollow viscus perforation. Slightly reduced compared to prior study. 4. Mild wall thickening of small bowel loops involving the distal ileum adjacent to the area of diverticulosis in the right lower quadrant could be reactive. Appears increased compared to prior study. 5. Left renal simple cortical cyst. Non-obstructive left renal concretions. Stable. 6. Mild bilateral perinephric fat stranding. Stable. 7. Small sliding hiatal hernia. Stable. Prolonged QTc Avoid QT prolonging drugs Follow repeat EKG. Mild elevation of bilirubin Will follow repeat labs Hyperlipidemia On statin Hypertension On losartan and metoprolol succinate at home, now utilizing Iv meds Will monitor Recent Right hip replacement surgery site looks good. Pt has some postsurgical pain, but there is no drainage, erythema , or significant edema noted, and per pt pain is not that significant. Orthopedics consulted - no concern at this time about R hip DVT prophylaxis Eliquis --> to IV heparin Disposition Telemetry Full code. Admission and Anticipated Discharge Date Admission Date: June 08, 2025 Subjective Pt seen in follow up, presents with Afib / flutter RVR and fevers, recent hx of hip surgery, found to have diverticulitis and perforation Currently in sinus rhythm, and cardiology following. Pt denies any chest pain, palpitations, shortness of breath. NG tube placed yesterday, abdomen now feels much more comfortable. Surgery following. Currently afebrile and WBC down to 10.6 K Review of Systems Review of Systems: All systems reviewed & are unremarkable except as noted in Subjective Physical Exam Physical Exam: General- WD/WN M in NAD Head- atraumatic Eyes- PERRL, EOMI. Neck- supple, no JVD. Lungs- clear to auscultation no wheezing or crackles. Heart- RRR Abdomen- normal bowel sounds, soft, + mildly tender to palp. lower abd. Extremities- no pretibial edema, no erythema seen. Right hip surgery site sutures intact, no erythema or obvious drainage seen Neuro- alert, oriented PERRL, no facial palsy; no dysarthria; moves extremities Results & Data Results & Data Vital Signs (Past 12 Hours) Vital Signs Temp Pulse Pulse Resp BP BP BP 06/12/25 07:21 37.0 C 74 18 155/83 H 06/12/25 06:34 73 146/73 H 06/12/25 06:20 81 159/80 H 06/12/25 04:48 36.6 C 83 16 158/86 H 06/12/25 01:05 79 133/83 06/12/25 00:46 37.8 C H 99 H 16 145/79 H 06/12/25 00:46 99 H 145/79 H 06/11/25 21:45 92 H Pulse Ox O2 Del Method 06/12/25 07:21 95 Room Air 06/12/25 06:34 06/12/25 06:20 06/12/25 04:48 97 Room Air 06/12/25 01:05 06/12/25 00:46 95 Room Air 06/12/25 00:46 06/11/25 21:45 Laboratory Results 06/12/25 06/11/25 06/11/25 Range/Units 05:44 15:51 12:10 WBC 10.66 (4.8-10.8) K/ul RBC 3.63 L (4.70-6.10) M/uL Hgb 12.1 L (14.0-18.0) g/dl Hct 34.5 L (42.0-52.0) % MCV 95.0 (80.0-100.0) fL MCH 33.3 (25.0-34.0) pg MCHC 35.1 (32.0-36.0) g/dL RDW Std Deviation 46.5 H (36.4-46.3) fL RDW Coeff of Chinyere 13.1 (11.5-14.5) % Plt Count 150 (130-400) K/uL MPV 11.4 (9.4-12.4) fL Immature Gran % (Auto) 0.4 % Neut % (Auto) 78.0 % Lymph % (Auto) 8.7 % [place] % (Auto) 11.3 % Eos % (Auto) 1.3 % Baso % (Auto) 0.3 % Neut # (Auto) 8.32 H (1.40-6.50) K/uL Lymph # (Auto) 0.93 L (1.20-3.40) K/uL [place] # (Auto) 1.20 H (0.11-0.59) K/uL Eos # (Auto) 0.14 (0.00-0.50) K/uL Baso # (Auto) 0.03 (0.00-0.20) K/uL Immature Gran # (Auto) 0.04 (0.01-0.20) K/uL PT (9.0-12.0) Seconds INR (0.9-1.1) APTT (21-31) Seconds PTT Ratio Heparin Anti-Xa, Unfract 0.42 0.67 (0.3-0.7) IU/ml Sodium 140 (136-145) mmol/L Potassium 3.3 L (3.5-5.1) mmol/L Chloride 108 H (98-107) mmol/L Carbon Dioxide 25 (21-32) mmol/L Anion Gap 7 (3-11) BUN 15 (6-23) mg/dl Creatinine 0.82 (0.6-1.4) mg/dl Est Cr Clr Drug Dosing 89.0 ml/min eGFR 91.61 BUN/Creatinine Ratio 18.3 (10-20) Glucose 118 H (70-99(Fasting)) mg/dl Calcium 8.3 L (8.6-10.3) mg/dl Phosphorus 2.8 (2.5-4.9) mg/dl Magnesium 2.1 (1.7-2.4) mg/dl Random Vancomycin 9.2 L (10-20) mcg/ml 06/11/25 Range/Units 09:21 WBC (4.8-10.8) K/ul RBC (4.70-6.10) M/uL Hgb (14.0-18.0) g/dl Hct (42.0-52.0) % MCV (80.0-100.0) fL MCH (25.0-34.0) pg MCHC (32.0-36.0) g/dL RDW Std Deviation (36.4-46.3) fL RDW Coeff of Chinyere (11.5-14.5) % Plt Count (130-400) K/uL MPV (9.4-12.4) fL Immature Gran % (Auto) % Neut % (Auto) % Lymph % (Auto) % [place] % (Auto) % Eos % (Auto) % Baso % (Auto) % Neut # (Auto) (1.40-6.50) K/uL Lymph # (Auto) (1.20-3.40) K/uL [place] # (Auto) (0.11-0.59) K/uL Eos # (Auto) (0.00-0.50) K/uL Baso # (Auto) (0.00-0.20) K/uL Immature Gran # (Auto) (0.01-0.20) K/uL PT 11.8 (9.0-12.0) Seconds INR 1.1 (0.9-1.1) APTT 33 H (21-31) Seconds PTT Ratio 1.2 Heparin Anti-Xa, Unfract (0.3-0.7) IU/ml Sodium (136-145) mmol/L Potassium (3.5-5.1) mmol/L Chloride (98-107) mmol/L Carbon Dioxide (21-32) mmol/L Anion Gap (3-11) BUN (6-23) mg/dl Creatinine (0.6-1.4) mg/dl Est Cr Clr Drug Dosing ml/min eGFR BUN/Creatinine Ratio (10-20) Glucose (70-99(Fasting)) mg/dl Calcium (8.6-10.3) mg/dl Phosphorus (2.5-4.9) mg/dl Magnesium (1.7-2.4) mg/dl Random Vancomycin (10-20) mcg/ml Medications Administered Current Inpatient Medications Acetaminophen (Acetaminophen 325 Mg Tab) 650 mg PO Q4H PRN PRN Reason: Pain or Fever Stop: 07/09/25 02:09 Acetaminophen (Acetaminophen 500 Mg Tab) 1,000 mg PO TID CARINA Stop: 07/09/25 08:59 Last Admin: 06/10/25 19:56 Dose: 1,000 mg Ascorbic Acid (Ascorbic Acid 500 Mg Tab) 500 mg PO DAILY CARINA Stop: 07/09/25 08:59 Last Admin: 06/11/25 08:20 Dose: Not Given Atorvastatin Calcium (Atorvastatin 20 Mg Tab) 20 mg PO HS CARINA Stop: 07/09/25 20:59 Last Admin: 06/11/25 19:49 Dose: Not Given Epinephrine HCl (Epinephrine Inj 1 Mg/Ml Amp) 0.3 mg IM Q4H PRN PRN Reason: Anaphylaxis Stop: 07/09/25 02:25 Piperacillin Sod/Tazobactam Sod (Zosyn) 4.5 gm in 100 mls @ 25 mls/hr IV Q8H [facility]; Protocol Stop: 06/19/25 12:59 Last Admin: 06/12/25 06:20 Dose: 25 mls/hr Amiodarone HCl/Dextrose (Nexterone / D5w) 360 mg in 200 mls @ 16.667 mls/hr IV .Q12H [facility] Stop: 07/09/25 22:44 Last Admin: 06/12/25 02:34 Dose: 0.5 mg/min, 16.7 mls/hr Famotidine (Pepcid 20mg Iv Push) 20 mg in 5 mls @ 2.5 mls/min IV Q12H CARINA Stop: 07/10/25 14:59 Last Admin: 06/12/25 02:34 Dose: 2.5 mls/min Sodium Chloride (Nss) 1,000 mls @ 100 mls/hr IV .Q10H [facility] Stop: 06/14/25 03:59 Last Admin: 06/12/25 00:46 Dose: 100 mls/hr Heparin Sodium/Dextrose (Heparin 80343 Unit/500 Ml D5w) 25,000 units in 500 mls @ 29 mls/hr IV .[id number] [facility]; Protocol Stop: 07/11/25 08:59 Last Titration: 06/12/25 07:08 Dose: 1,450 units/hr, 29 mls/hr Promethazine HCl (Phenergan) 6.25 mg in 50.25 mls @ 201 mls/hr IV Q6H PRN PRN Reason: Nausea And Vomiting Stop: 07/11/25 09:48 Last Infusion: 06/12/25 07:58 Dose: Infused Pantoprazole Sodium (Protonix) 40 mg in 10 mls @ 5 mls/min IV QAM [facility] Stop: 07/11/25 09:59 Last Admin: 06/12/25 07:42 Dose: 5 mls/min Acetaminophen (Ofirmev) 1,000 mg in 100 mls @ 400 mls/hr IV Q8H [facility] Stop: 06/14/25 15:59 Last Infusion: 06/12/25 07:58 Dose: Infused Potassium Chloride (K Erik / Wtr) 10 meq in 100 mls @ 100 mls/hr IV Q1H [facility] Stop: 06/12/25 10:14 Loratadine (Loratadine 10 Mg Tab) 10 mg PO DAILY PRN PRN Reason: Allergy Symptoms Stop: 07/09/25 02:09 Losartan Potassium (Losartan Potassium 25 Mg Tab) [facility] [place] Stop: 07/09/25 08:59 Last Admin: 06/09/25 09:40 Dose: 25 mg Metoprolol Tartrate (Metoprolol Tartrate 1 Mg/Ml Vial) 5 mg IV Q6 [facility] Stop: 07/11/25 11:59 Last Admin: 06/12/25 06:20 Dose: 5 mg Morphine Sulfate (Morphine Sulfate 4 Mg/Ml 1 Ml Carp\Vial) 2 mg IV Q3H PRN PRN Reason: Moderate Pain (Scale 4, 5, 6) Stop: 06/25/25 15:47 Morphine Sulfate (Morphine Sulfate 4 Mg/Ml 1 Ml Carp\Vial) 4 mg IV Q3H PRN PRN Reason: Severe Pain (Scale 7, 8, 9,10) Stop: 06/25/25 15:41 Nitroglycerin (Nitroglycerin Sl 0.4 Mg/Tab Tab) 0.4 mg SL Q5M PRN PRN Reason: Chest Pain Stop: 07/09/25 02:09 Pantoprazole Sodium (Pantoprazole 40 Mg Tab) 40 mg PO BID CARINA Stop: 07/10/25 20:59 Last Admin: 06/11/25 08:21 Dose: Not Given Polyethylene Glycol (Polyethylene (Miralax) 17 Gm Pack) 17 gm PO DAILY PRN PRN Reason: Constipation Stop: 07/09/25 02:09 Last Admin: 06/10/25 08:35 Dose: 17 gm Sennosides (Senna 8.6 Mg Tab) 8.6 mg PO BID CARINA Stop: 07/09/25 08:59 Last Admin: 06/11/25 08:21 Dose: Not Given Tamsulosin HCl (Tamsulosin Hcl 0.4 Mg Cap) 0.4 mg PO DAILY PRN PRN Reason: TROUBLE URINATING Stop: 07/09/25 02:09 Last Admin: 06/10/25 08:38 Dose: 0.4 mg Tramadol HCl (Tramadol Hcl 50 Mg Tablet) 50 - 100 mg PO Q6 PRN PRN Reason: pain Stop: 07/09/25 02:09 Vitamin D (Cholecalciferol 25 Mcg (1000 Units) Tab) 50 mcg PO DAILY CARINA Stop: 07/09/25 08:59 Last Admin: 06/11/25 08:21 Dose: Not Given
[2025-06-12] MEDS: POTASSIUM CHLORIDE / WTR 10 MEQ/100 ML PLCT IV SCH (08:45)
--- NOTE | 2025-06-12 09:06 | Surgery Progress Note ---
Date of Service June 12, 2025 Assessment & Plan (1) Pneumoperitoneum: (2) Acute diverticulitis: (3) Small bowel obstruction: Plan afebrile vss pain better controlled NGGT with 800 cc since placement no bowel movement yet Continue conservative measures with NGT to LIS, bowel rest, IV fluids, IV antibiotics, Pain management as needed, OOB to chair and ambulation to increase GI motility. Will keep NGT until abdomen less distended, good return of bowel function, pain improvement, and low NGT output. Continue IV tylenol scheduled and add IV morphine prn. Will follow along closely. Discussed with Dr. Fuentes who agrees with above. Admission and Anticipated Discharge Date Admission Date: June 08, 2025 Subjective feeling better this morning not having much pain right now, more with examination only taking IV tylenol mild nausea this am, no vomiting no fevers or chills urinating without difficulty passing small amount of gas no bowel movement yet Review of Systems Review of Systems: All systems reviewed & are unremarkable except as noted in HPI & below Physical Exam Constitutional: cooperative and comfortable; no acute distress and not ill appearing Respiratory: normal respiratory effort, lungs clear to auscultation Cardiovascular: RRR, no murmur, no edema Gastrointestinal (Abdomen): Inspection/Auscultation: + abdomen distended (moderate) Percussion/Palpation: + abdomen tender (RLQ), + guarding (voluntary RLQ) and abdomen soft; abdomen not rigid and abdomen not firm no peritonitis Skin: no rashes, warm and dry Psychiatric: Orientation: alert and oriented x 3 Results & Data Vital Signs (Past 12 Hours) Vital Signs Temp Pulse Pulse Resp BP BP BP 06/12/25 07:21 37.0 C 74 18 155/83 H 06/12/25 06:34 73 146/73 H 06/12/25 06:20 81 159/80 H 06/12/25 04:48 36.6 C 83 16 158/86 H 06/12/25 01:05 79 133/83 06/12/25 00:46 37.8 C H 99 H 16 145/79 H 06/12/25 00:46 99 H 145/79 H 06/11/25 21:45 92 H Pulse Ox O2 Del Method 06/12/25 07:21 95 Room Air 06/12/25 06:34 06/12/25 06:20 06/12/25 04:48 97 Room Air 06/12/25 01:05 06/12/25 00:46 95 Room Air 06/12/25 00:46 06/11/25 21:45 Laboratory Results 06/12/25 06/11/25 06/11/25 Range/Units 05:44 15:51 12:10 WBC 10.66 (4.8-10.8) K/ul RBC 3.63 L (4.70-6.10) M/uL Hgb 12.1 L (14.0-18.0) g/dl Hct 34.5 L (42.0-52.0) % MCV 95.0 (80.0-100.0) fL MCH 33.3 (25.0-34.0) pg MCHC 35.1 (32.0-36.0) g/dL RDW Std Deviation 46.5 H (36.4-46.3) fL RDW Coeff of Chinyere 13.1 (11.5-14.5) % Plt Count 150 (130-400) K/uL MPV 11.4 (9.4-12.4) fL Immature Gran % (Auto) 0.4 % Neut % (Auto) 78.0 % Lymph % (Auto) 8.7 % [place] % (Auto) 11.3 % Eos % (Auto) 1.3 % Baso % (Auto) 0.3 % Neut # (Auto) 8.32 H (1.40-6.50) K/uL Lymph # (Auto) 0.93 L (1.20-3.40) K/uL [place] # (Auto) 1.20 H (0.11-0.59) K/uL Eos # (Auto) 0.14 (0.00-0.50) K/uL Baso # (Auto) 0.03 (0.00-0.20) K/uL Immature Gran # (Auto) 0.04 (0.01-0.20) K/uL Heparin Anti-Xa, Unfract 0.42 0.67 (0.3-0.7) IU/ml Sodium 140 (136-145) mmol/L Potassium 3.3 L (3.5-5.1) mmol/L Chloride 108 H (98-107) mmol/L Carbon Dioxide 25 (21-32) mmol/L Anion Gap 7 (3-11) BUN 15 (6-23) mg/dl Creatinine 0.82 (0.6-1.4) mg/dl Est Cr Clr Drug Dosing 89.0 ml/min eGFR 91.61 BUN/Creatinine Ratio 18.3 (10-20) Glucose 118 H (70-99(Fasting)) mg/dl Calcium 8.3 L (8.6-10.3) mg/dl Phosphorus 2.8 (2.5-4.9) mg/dl Magnesium 2.1 (1.7-2.4) mg/dl Random Vancomycin 9.2 L (10-20) mcg/ml
--- NOTE | 2025-06-12 09:51 | Electrocardiogram Report ---
Test Reason : Blood Pressure : */* mmHG Vent. Rate : 117 BPM Atrial Rate : 326 BPM P-R Int : * ms QRS Dur : 136 ms QT Int : 380 ms P-R-T Axes : 66 -18 3 degrees QTcB Int : 530 ms Atrial flutter with variable A-V block Right bundle branch block Minimal voltage criteria for LVH, may be normal variant ( R in aVL ) Abnormal ECG When compared with ECG of 08-Jun-2025 20:09, (unconfirmed) No significant change was found Confirmed by Dewey Pickens ([id number]) on 06/12/2025 9:51:17 AM Referred By: REFERRED SELF Confirmed By: Dewey Pickens
--- NOTE | 2025-06-12 09:51 | Electrocardiogram Report ---
Test Reason : Blood Pressure : */* mmHG Vent. Rate : 143 BPM Atrial Rate : 344 BPM P-R Int : * ms QRS Dur : 130 ms QT Int : 338 ms P-R-T Axes : * -22 -10 degrees QTcB Int : 521 ms Atrial flutter with variable A-V block with premature ventricular or aberrantly conducted complexes Right bundle branch block Minimal voltage criteria for LVH, may be normal variant ( R in aVL ) Abnormal ECG When compared with ECG of 05-Jun-2025 14:23, T wave inversion more evident in Anterior leads Confirmed by Dewey Pickens ([id number]) on 06/12/2025 9:51:09 AM Referred By: REFERRED SELF Confirmed By: Dewey Pickens
--- NOTE | 2025-06-12 09:55 | Electrocardiogram Report ---
Test Reason : Blood Pressure : */* mmHG Vent. Rate : 86 BPM Atrial Rate : 86 BPM P-R Int : 168 ms QRS Dur : 156 ms QT Int : 400 ms P-R-T Axes : 36 -12 1 degrees QTcB Int : 478 ms Normal sinus rhythm Right bundle branch block Minimal voltage criteria for LVH, may be normal variant ( R in aVL ) Abnormal ECG When compared with ECG of 08-Jun-2025 20:53, (unconfirmed) Sinus rhythm has replaced Atrial flutter T wave inversion no longer evident in Anterior leads Confirmed by Dewey Pickens ([id number]) on 06/12/2025 9:54:59 AM Referred By: REFERRED SELF Confirmed By: Dewey Pickens
--- NOTE | 2025-06-12 10:06 | Electrocardiogram Report ---
Test Reason : Blood Pressure : */* mmHG Vent. Rate : 88 BPM Atrial Rate : 326 BPM P-R Int : * ms QRS Dur : 148 ms QT Int : 408 ms P-R-T Axes : 260 -9 1 degrees QTcB Int : 493 ms Atrial flutter with variable A-V block Right bundle branch block Minimal voltage criteria for LVH, may be normal variant ( R in aVL ) Abnormal ECG When compared with ECG of 06/09/2025 Atrial flutter is now Present Confirmed by Dewey Pickens ([id number]) on 06/12/2025 10:06:50 AM Referred By: REFERRED SELF Confirmed By: Dewey Pickens
--- NOTE | 2025-06-12 12:11 | Cardiology Progress Note ---
Date of Service June 12, 2025 Assessment & Plan (1) Atrial flutter with rapid ventricular response: (2) S/P total right hip arthroplasty: (3) Fever: (4) Acute diverticulitis: (5) Hyperlipidemia: Plan Assessment: 74 year old male with recent Right Total hip replacement (06/05/25) found to have Atrial flutter intraoperatively, spontaneously converted to NSR, then re-admitted with acute concerns of fever and abdominal pain. EKG at time of admission demonstrated Atrial flutter with RVR and chronic Right BBB. Cardiology consulted for further evaluation/recommendations. Ultimately diagnosed with acute diverticulitis, now with possible small perforation and SBO. Plan: 1. Atrial flutter with RVR in setting of acute diverticulitis/Small bowel obstruction/pneumoperitoneum: -Initially diagnosed intraoperatively for total hip replacement on 06/05/2025. Transient in nature and had spontaneously converted. Echocardiogram demonstrated normal LVEF, no wall motion abnormalities and no significant valvular disease. Patient was discharged home on Metoprolol succinate 25mg PO QAM and Eliquis 5mg PO BID. -Patient remains asymptomatic with regards to atrial flutter. He had multiple episodes of Atrial flutter earlier this admission, he was started on an Amiodarone gtt with conversion to Sinus Rhythm. -He has remained in NSR/Sinus tachycardia over the last 48 hours -Continue IV amiodarone for now as patient is NPO (even water and meds). -EKG this morning confirms NSR with RBBB. Mildly prolonged QTC noted, likely due to RBBB. Will monitor. -Oral metoprolol on hold. Transitioned to metoprolol 5 mg IV q6 hours. -Euvolemic on exam -Eliquis held and transitioned to IV heparin in case surgery needed. Will resume oral eliquis when able prior to discharge. -Preliminary blood cultures negative, continued management of acute di verticulitis per Primary team. Currently receiving IV Zosyn and IV vancomycin. Other oral meds including losartan and atorvastatin on hold as patient is NPO -patient is currently wearing a zio monitor. If patient needs surgery, this can be removed if needed. Case has been discussed with Dr. Whitney. Will follow Darlyn Bender PA-C Department of Cardiology, [facility] This chart was completed in part utilizing Speech Voice Recognition Software. Grammatical errors, random word insertions, pronoun errors, and incomplete sentences are an occasional consequence of this system due to software limitations, ambient noise, and hardware issues. Any formal questions or concerns about the content, text, or information contained within the body of this dictation should be directly addressed to the provider for clarification. Admission and Anticipated Discharge Date Admission Date: June 08, 2025 Supervising Physician Co-Signing Physician Notes Attending attestation: Case reviewed with the advanced practitioner. I have personally performed a history and physical examination on the patient. I have reviewed the advanced practitioner's documentation on the date of service referenced in note, and I agree with, and take responsibility for the plan of care. Subjective:Patient with ongoing mild nauseousness. He is now n.p.o. and Eliquis has been transition to heparin. Exam: Cardiovascular: Regular rhythm, no murmurs. Impression/ Plan: Atrial fibrillation/flutter Recent hip replacement Diverticulitis /Small bowel obstruction /Pneumoperitoneum * Patient remained in sinus rhythm overnight last night and thus far today, currently sinus rhythm in the 90s to 100s noted. * Will discontinue metoprolol succinate. Add IV metoprolol 5 mg IV every 6 hours for blood pressure and heart rate control. * Continue amiodarone infusion 0.5 mg / Minute. * Heparin bridge while Elquis on hold and patient is on bowel rest / NG tube. * Monitor volume status. May need occasional diuretic dose given treatment with Zosyn and IV fluids. Ronald Whitney, DO Subjective Patient resting in bed comfortably. Abdominal pain improving compared to yesterday. NG tube placed yesterday as well. He remains in normal sinus rhythm on telemetry. He denies complaints of palpitations, chest pain or shortness of breath. Review of Systems Review of Systems: All systems reviewed & are unremarkable except as noted in HPI & below Physical Exam Constitutional: well developed and well nourished; no acute distress and not ill appearing ENMT: NG tube in place Neck: normal visual inspection and trachea midline Respiratory: normal respiratory effort, lungs clear to auscultation Cardiovascular: Rate/Rhythm: regular rhythm and + tachycardic Heart Sounds: normal S1 and normal S2 Vessels: dorsalis pedis pulses present; no JVD Extremities: no edema Skin: no rashes, warm and dry Psychiatric: A+Ox3, euthymic affect Results & Data Vital Signs (Past 12 Hours) Vital Signs Temp Pulse Pulse Resp BP BP BP 06/12/25 11:02 37.0 C 67 20 143/81 H 06/12/25 07:45 06/12/25 07:21 37.0 C 74 18 155/83 H 06/12/25 07:01 82 06/12/25 06:34 73 146/73 H 06/12/25 06:20 81 159/80 H 06/12/25 04:48 36.6 C 83 16 158/86 H 06/12/25 01:05 79 133/83 06/12/25 00:46 37.8 C H 99 H 16 145/79 H 06/12/25 00:46 99 H 145/79 H Pulse Ox O2 Del Method 06/12/25 11:02 95 Room Air 06/12/25 07:45 Room Air 06/12/25 07:21 95 Room Air 06/12/25 07:01 06/12/25 06:34 06/12/25 06:20 06/12/25 04:48 97 Room Air 06/12/25 01:05 06/12/25 00:46 95 Room Air 06/12/25 00:46 Laboratory Results CBC 06/12/25 Range/Units 05:44 WBC 10.66 (4.8-10.8) K/ul RBC 3.63 L (4.70-6.10) M/uL Hgb 12.1 L (14.0-18.0) g/dl Hct 34.5 L (42.0-52.0) % Plt Count 150 (130-400) K/uL Neut # (Auto) 8.32 H (1.40-6.50) K/uL Lymph # (Auto) 0.93 L (1.20-3.40) K/uL [place] # (Auto) 1.20 H (0.11-0.59) K/uL Eos # (Auto) 0.14 (0.00-0.50) K/uL Baso # (Auto) 0.03 (0.00-0.20) K/uL Comprehensive Metabolic Panel 06/12/25 Range/Units 05:44 Sodium 140 (136-145) mmol/L Potassium 3.3 L (3.5-5.1) mmol/L Chloride 108 H (98-107) mmol/L Carbon Dioxide 25 (21-32) mmol/L BUN 15 (6-23) mg/dl Creatinine 0.82 (0.6-1.4) mg/dl Glucose 118 H (70-99(Fasting)) mg/dl Calcium 8.3 L (8.6-10.3) mg/dl Intake and Output 06/11/25 06/12/25 06/12/25 22:59 06:59 14:59 Intake Total 841.800 / 3991.535 1865.902 / 3991.535 1582.683 / 1582.683 Output Total 950 / 1900 700 / 1900 200 / 200 Balance -108.200 / 2091.535 1165.902 / 2091.535 1382.683 / 1382.683 Intake: IV 841.800 / 3991.535 1865.902 / 3991.535 1582.683 / 1582.683 Acetaminophen 1,000 mg In 100 100 / 100 100 / 100 ml @ 400 mls/hr IV Q8H [facility] Rx#: [id number] Amiodarone / D5w 360 mg In 200 200 / 373.402 173.402 / 373.402 ml @ 0.5 MG/MIN 16.667 mls/hr IV .Q12H [facility] Rx#:[id number] Heparin 87291 Unit/500 ml D5w 266.800 / 484.300 217.5 / 484.300 132.433 / 132.433 25,000 units In 500 ml @ 1,450 UNITS/HR 29 mls/hr IV .[id number] [facility] Rx#:[id number] Piperacillin/Tazobactam 4.5 gm 100 / 300 100 / 300 100 / 100 In 100 ml @ 25 mls/hr IV Q8H [facility] Rx#:[id number] Potassium Chloride / Wtr 10 meq 200 / 200 In 100 ml @ 100 mls/hr IV Q1H [facility] Rx#:[id number] Promethazine 6.25 mg In 50.25 50.25 / 50.25 ml @ 201 mls/hr IV Q6H PRN Rx#: [id number] Sodium Chloride 0.9% 1,000 ml @ 1000 / 2076.041 0853 / 1000 100 mls/hr IV .Q10H [facility] Rx#: [id number] Vancomycin HCl 1,250 mg In 275 / 550 275 / 550 Sodium Chloride 0.9% 250 ml @ 200 mls/hr IV Q12H [facility] Rx#: [id number] Output: Urine 350 / 1100 500 / 1100 200 / 200 Gastric Drainage 600 / 800 200 / 800 Left Nare 600 / 800 200 / 800 Other: Other Intake Source NPO Weight 92.6 kg Weight Measurement Method Built in [facility] Diagnostic Findings Telemetry reviewed: Normal sinus rhythm in the 80s. No recurrent atrial fibrillation or flutter. EKG reviewed from this morning dated 06/12/2025: Normal sinus rhythm at 80 bpm Right bundle branch block Voltage criteria for LVH Compared with prior EKG, no significant changes noted. QT/QTc measuring 458/528 ms - this is due to the bundle branch block. Will monitor Medications Administered Current Inpatient Medications Acetaminophen (Acetaminophen 325 Mg Tab) 650 mg PO Q4H PRN PRN Reason: Pain or Fever Stop: 07/09/25 02:09 Acetaminophen (Acetaminophen 500 Mg Tab) 1,000 mg PO TID [facility] Stop: 07/09/25 08:59 Last Admin: 06/10/25 19:56 Dose: 1,000 mg Ascorbic Acid (Ascorbic Acid 500 Mg Tab) 500 mg PO DAILY [facility] Stop: 07/09/25 08:59 Last Admin: 06/11/25 08:20 Dose: Not Given Atorvastatin Calcium (Atorvastatin 20 Mg Tab) 20 mg PO HS [facility] Stop: 07/09/25 20:59 Last Admin: 06/11/25 19:49 Dose: Not Given Epinephrine HCl (Epinephrine Inj 1 Mg/Ml Amp) 0.3 mg IM Q4H PRN PRN Reason: Anaphylaxis Stop: 07/09/25 02:25 Piperacillin Sod/Tazobactam Sod (Zosyn) 4.5 gm in 100 mls @ 25 mls/hr IV Q8H [facility]; Protocol Stop: 06/19/25 12:59 Last Infusion: 06/12/25 11:11 Dose: Infused Amiodarone HCl/Dextrose (Nexterone / D5w) 360 mg in 200 mls @ 16.667 mls/hr IV .Q12H [facility] Stop: 07/09/25 22:44 Last Admin: 06/12/25 02:34 Dose: 0.5 mg/min, 16.7 mls/hr Famotidine (Pepcid 20mg Iv Push) 20 mg in 5 mls @ 2.5 mls/min IV Q12H [facility] Stop: 07/10/25 14:59 Last Admin: 06/12/25 02:34 Dose: 2.5 mls/min Sodium Chloride (Nss) 1,000 mls @ 100 mls/hr IV .Q10H [facility] Stop: 06/14/25 03:59 Last Admin: 06/12/25 11:10 Dose: 100 mls/hr Heparin Sodium/Dextrose (Heparin 90404 Unit/500 Ml D5w) 25,000 units in 500 mls @ 29 mls/hr IV .[id number] [facility]; Protocol Stop: 07/11/25 08:59 Last Titration: 06/12/25 07:08 Dose: 1,450 units/hr, 29 mls/hr Promethazine HCl (Phenergan) 6.25 mg in 50.25 mls @ 201 mls/hr IV Q6H PRN PRN Reason: Nausea And Vomiting Stop: 07/11/25 09:48 Last Infusion: 06/12/25 07:58 Dose: Infused Pantoprazole Sodium (Protonix) 40 mg in 10 mls @ 5 mls/min IV QAM [facility] Stop: 07/11/25 09:59 Last Admin: 06/12/25 07:42 Dose: 5 mls/min Acetaminophen (Ofirmev) 1,000 mg in 100 mls @ 400 mls/hr IV Q8H [facility] Stop: 06/14/25 15:59 Last Infusion: 06/12/25 07:58 Dose: Infused Loratadine (Loratadine 10 Mg Tab) 10 mg PO DAILY PRN PRN Reason: Allergy Symptoms Stop: 07/09/25 02:09 Losartan Potassium (Losartan Potassium 25 Mg Tab) 25 mg PO QAM [facility] Stop: 07/09/25 08:59 Last Admin: 06/09/25 09:40 Dose: 25 mg Metoprolol Tartrate (Metoprolol Tartrate 1 Mg/Ml Vial) 5 mg IV Q6 [facility] Stop: 07/11/25 11:59 Last Admin: 06/12/25 06:20 Dose: 5 mg Morphine Sulfate (Morphine Sulfate 4 Mg/Ml 1 Ml Carp\Vial) 2 mg IV Q3H PRN PRN Reason: Moderate Pain (Scale 4, 5, 6) Stop: 06/25/25 15:47 Morphine Sulfate (Morphine Sulfate 4 Mg/Ml 1 Ml Carp\Vial) 4 mg IV Q3H PRN PRN Reason: Severe Pain (Scale 7, 8, 9,10) Stop: 06/25/25 15:41 Nitroglycerin (Nitroglycerin Sl 0.4 Mg/Tab Tab) 0.4 mg SL Q5M PRN PRN Reason: Chest Pain Stop: 07/09/25 02:09 Pantoprazole Sodium (Pantoprazole 40 Mg Tab) 40 mg PO BID [facility] Stop: 07/10/25 20:59 Last Admin: 06/11/25 08:21 Dose: Not Given Polyethylene Glycol (Polyethylene (Miralax) 17 Gm Pack) 17 gm PO DAILY PRN PRN Reason: Constipation Stop: 07/09/25 02:09 Last Admin: 06/10/25 08:35 Dose: 17 gm Sennosides (Senna 8.6 Mg Tab) 8.6 mg PO BID [facility] Stop: 07/09/25 08:59 Last Admin: 06/11/25 08:21 Dose: Not Given Tamsulosin HCl (Tamsulosin Hcl 0.4 Mg Cap) 0.4 mg PO DAILY PRN PRN Reason: TROUBLE URINATING Stop: 07/09/25 02:09 Last Admin: 06/10/25 08:38 Dose: 0.4 mg Tramadol HCl (Tramadol Hcl 50 Mg Tablet) 50 - 100 mg PO Q6 PRN PRN Reason: pain Stop: 07/09/25 02:09 Vitamin D (Cholecalciferol 25 Mcg (1000 Units) Tab) 50 mcg PO DAILY [facility] Stop: 07/09/25 08:59 Last Admin: 06/11/25 08:21 Dose: Not Given Coding Level of Care Code 35555 SUB INP/OBS CARE 3/50MIN Diagnoses Atrial flutter with rapid ventricular response I48.92 S/P total right hip arthroplasty Z96.641 Fever R50.9 Acute diverticulitis K57.92 Hyperlipidemia E78.5
--- NOTE | 2025-06-12 14:11 | Orthopedic Progress Note ---
Date of Service June 12, 2025 Assessment & Plan (1) S/P total right hip arthroplasty: Plan: 74-year-old gentleman now 1 week out from left total hip replacement complicated by arrhythmia and now what diverticulitis. He is doing quite a bit better clinically. From the orthopedic standpoint sips seems to be doing fine. Really not much pain. Wound looks to be healing appropriately. There is no signs of infection. Plan: At this point he continues to need DVT prophylaxis. I believe he has been converted from Eliquis to heparin due to concerns that he may need surgery. Continue teds and SCDs. He can fully weight-bear as tolerated. Needs to obey h ip precautions. Routine wound care. Rose Marie need to come out 2 to 3 weeks out from surgery date and sooner. If there are any orthopedic questions or concerns please contact me at [phone] (2) Small bowel obstruction: (3) Pneumoperitoneum: Admission and Anticipated Discharge Date Admission Date: June 08, 2025 Subjective 74-year-old gentleman now postop day 7 from a uncomplicated total hip replacement which was complicated postoperatively by a arrhythmia. He was been readmitted with fever and recurrence of his arrhythmia along with diverticulitis. He is being managed medically and doing a much better since he has NG tube in. His hip is doing well. No particular hip pain. Is been no drainage. Physical Exam Physical Exam: Physical examination was a pleasant middle-age male. Sitting in his bedside chair talking with the family. Looks quite comfortable. Examination of the right hip reveals the incision to be clean dry and intact. There is no draina ge. Fairly minimal swelling. He can dorsiflex and plantarflex his foot appropriately. He is neurologically intact. Results & Data Vital Signs (Past 12 Hours) Vital Signs Temp Pulse Pulse Resp BP BP BP 06/12/25 13:24 72 124/76 06/12/25 12:59 85 129/74 06/12/25 11:02 37.0 C 67 20 143/81 H 06/12/25 07:45 06/12/25 07:21 37.0 C 74 18 155/83 H 06/12/25 07:01 82 06/12/25 06:34 73 146/73 H 06/12/25 06:20 81 159/80 H 06/12/25 04:48 36.6 C 83 16 158/86 H Pulse Ox O2 Del Method 06/12/25 13:24 06/12/25 12:59 06/12/25 11:02 95 Room Air 06/12/25 07:45 Room Air 06/12/25 07:21 95 Room Air 06/12/25 07:01 06/12/25 06:34 06/12/25 06:20 06/12/25 04:48 97 Room Air
[2025-06-13 06:26] LABS: Hematocrit (blood only) 32.2 % (42.0-52.0); Hemoglobin 11.0 g/dL (14.0-18.0); Immature Granulocytes # (auto) 0.06 K/uL (0.01-0.20); Immature Granulocytes % (auto) 0.6 %; Mean Corpuscular Hemoglobin 32.7 pg (25.0-34.0); Mean Corpuscular Volume 95.8 fL (80.0-100.0); Platelet Count 168 K/uL (130-400); RDW Standard Deviation 46.8 fL (36.4-46.3); Red Blood Count 3.36 M/uL (4.70-6.10); White Blood Count 10.13 K/ul (4.8-10.8)
[2025-06-13 06:55] LABS: ANTI-Xa, UFH(UnfractionatedHep 0.20 IU/ml (0.3-0.7)
[2025-06-13 07:01] LABS: Anion Gap 9.0 (3-11); Blood Urea Nitrogen 13.0 mg/dl (6-23); Calcium 8.4 mg/dl (8.6-10.3); Carbon Dioxide 23.0 mmol/L (21-32); Chloride 108.0 mmol/L (98-107); Creatinine Clr Calc Pharmacy 104.5 ml/min; Glucose 105.0 mg/dl (70-99(Fasting)); Magnesium 2.0 mg/dl (1.7-2.4); Potassium 3.1 mmol/L (3.5-5.1); Sodium 140.0 mmol/L (136-145)
[2025-06-13] MEDS: MoRPHine SULFATE 4 MG/ML 1 ML CARP\\VIAL IV PRN (07:23)
[2025-06-13] MEDS: POTASSIUM CHLORIDE / WTR 10 MEQ/100 ML PLCT IV SCH (08:40)
--- NOTE | 2025-06-13 09:55 | Surgery Progress Note ---
Date of Service June 13, 2025 Assessment & Plan (1) Pneumoperitoneum: (2) Acute diverticulitis: (3) Small bowel obstruction: Plan afebrile vss pain better controlled NGGT with 650 cc last shift, 100 cc this am no bowel movement since yesterday, flatus minimal Continue conservative measures with NGT to low continuous suction, bowel rest, IV fluids, IV antibiotics, Pain management as needed, OOB to chair and ambulation to increase GI motility. Will keep NGT until abdomen less distended, good return of bowel function, pain improvement, and low NGT output. Continue IV tylenol scheduled and add IV morphine prn. Will follow along closely. Discussed with Dr. Fuentes who agrees with above. Patient seen again at 3:45 pm doing well, family at bedside pain stable no nausea NGT clearing up, still with decent output on continuous suction about 600 cc today Abdomen less distended and softer, RLQ pain on deep palpation Continue NGT to low continuous suction encouraged ambulation more frequently Will need to consider peripheral nutrition as its been about 1 week since last solid meal continue pain management Admission and Anticipated Discharge Date Admission Date: June 08, 2025 Subjective had a rough night, nausea, GERD, NGT put out a lot on continuous suction No change in abdominal pain hip pain this morning required IV Tylenol urinating without difficulty flatus has slowed down, no further bowel movements Physical Exam Constitutional: WD/WN, vitals as above cooperative and comfortable; no acute distress and not ill appearing Respiratory: normal respiratory effort; no respiratory distress, no labored breathing and no retractions Cardiovascular: RRR, no murmur, no edema Gastrointestinal (Abdomen): Inspection/Auscultation: + abdomen distended; + abnormal bowel sounds Percussion/Palpation: + abdomen tender (RLQ on deep palpation, improving) and abdomen soft; no guarding, abdomen not rigid and abdomen not firm Skin: no rashes, warm and dry Psychiatric: Orientation: alert and oriented x 3 Results & Data Vital Signs (Past 12 Hours) Vital Signs Temp Pulse Pulse Resp BP BP Pulse Ox 06/13/25 07:47 75 06/13/25 07:19 36.7 C 75 19 140/73 95 06/13/25 06:18 72 133/71 06/13/25 06:03 75 168/88 H 06/13/25 03:47 36.5 C 77 16 168/86 H 95 06/13/25 00:26 72 157/79 H 06/13/25 00:11 82 157/81 H 06/12/25 23:54 36.8 C 68 18 157/81 H 96 06/12/25 23:13 75 O2 Del Method 06/13/25 07:47 06/13/25 07:19 Room Air 06/13/25 06:18 06/13/25 06:03 06/13/25 03:47 Room Air 06/13/25 00:26 06/13/25 00:11 06/12/25 23:54 Room Air 06/12/25 23:13 Laboratory Results 06/13/25 Range/Units 05:33 WBC 10.13 (4.8-10.8) K/ul RBC 3.36 L (4.70-6.10) M/uL Hgb 11.0 L (14.0-18.0) g/dL Hct 32.2 L (42.0-52.0) % MCV 95.8 (80.0-100.0) fL MCH 32.7 (25.0-34.0) pg MCHC 34.2 (32.0-36.0) g/dL RDW Std Deviation 46.8 H (36.4-46.3) fL RDW Coeff of [place] 13.2 (11.5-14.5) % Plt Count 168 (130-400) K/uL MPV 11.3 (9.4-12.4) fL Immature Gran % (Auto) 0.6 % Neut % (Auto) 78.9 % Lymph % (Auto) 9.1 % [place] % (Auto) 8.7 % Eos % (Auto) 2.5 % Baso % (Auto) 0.2 % Neut # (Auto) 8.00 H (1.40-6.50) K/uL Lymph # (Auto) 0.92 L (1.20-3.40) K/uL [place] # (Auto) 0.88 H (0.11-0.59) K/uL Eos # (Auto) 0.25 (0.00-0.50) K/uL Baso # (Auto) 0.02 (0.00-0.20) K/uL Immature Gran # (Auto) 0.06 (0.01-0.20) K/uL Heparin Anti-Xa, Unfract 0.20 L (0.3-0.7) IU/ml Sodium 140 (136-145) mmol/L Potassium 3.1 L (3.5-5.1) mmol/L Chloride 108 H (98-107) mmol/L Carbon Dioxide 23 (21-32) mmol/L Anion Gap 9 (3-11) BUN 13 (6-23) mg/dl Creatinine 0.74 (0.6-1.4) mg/dl Est Cr Clr Drug Dosing 104.5 ml/min eGFR 94.49 BUN/Creatinine Ratio 17.6 (10-20) Glucose 105 H (70-99(Fasting)) mg/dl Calcium 8.4 L (8.6-10.3) mg/dl Phosphorus 2.8 (2.5-4.9) mg/dl Magnesium 2.0 (1.7-2.4) mg/dl
--- NOTE | 2025-06-13 12:32 | Hospitalist Progress Note ---
Date of Service June 13, 2025 Assessment & Plan (1) Atrial flutter with rapid ventricular response: Plan: 74 yo M with past medical history significant for gout, dyslipidemia, allergic rhinitis, GERD, BPH, polymyalgia rheumatica, osteoarthritis, history of kidney stones presents with fevers and found to be in rapid A-Flutter Patient recently on 06/05/2025 had right hip replacement. #Diverticulitis #SBO -Bowel perforation secondary to complicated diverticulitis -Surgery consulted and elected to pursue conservative management -BM on 06/12 -Pain improving -Blood cultures NGTD -Leukocytosis resolved. afebrile Plan -NG tube per surgery. NPO for now -Switch to D5 LR -Continue empiric zosyn, follow blood cx -Pain control -Encourage ambulation -Daily labs #A-flutter with RVR -Currently in NSR on amio drip Plan -Continue amio drip per cardio while NPO -Continue IV lopressor q 6 -Continue heparin drip for now until surgery is ruled out -Switch back to eliquis upon discharge -Cardiac monitoring #Anemia -POA -No s/s acute blood loss -Follow Hgb closely while on AC #Hypokalemia -Replace and follow -Mg normal #Prolonged QTc Avoid QT prolonging drugs Follow repeat EKG. #Hyperlipidemia On statin #Hypertension On losartan and metoprolol succinate at home, now utilizing Iv meds Will monitor #Recent Right hip replacement Orthopedics consulted - no concern at this time about R hip DVT prophylaxis Eliquis --> to IV heparin Disposition Telemetry Full code. I spent a total of 60 minutes coordinating, documenting, and providing care for this patient excluding time spent in the performance of separately billed services. This included personally reviewing all current laboratories and imaging studies, medical reconciliation, outpatient chart review and discussion with specialists Admission and Anticipated Discharge Date Admission Date: June 08, 2025 Subjective Feeling well today. minimal abd pain. passing gas and had a BM yesterday. No f/c cp palp dyspnea cough wheez Physical Exam Physical Exam: Vitals and labs reviewed General: Well appearing, NAD HEENT: EOMI, PERRLA Neck: Supple Cardiac: RRR no rubs gallops or murmurs Lungs: CTA no rhonchi wheezing or rales Abd: NG tube. distended. mild TTP. BS hypoactive : Deffered MSK: Full ROM. No obvious deformities Ext: No Edema cyanosis Skin: Warm, Dry Neuro: AOx3 No focal deficits. Psych: Normal Mood Results & Data Results & Data Vital Signs (Past 12 Hours) Vital Signs Temp Pulse Pulse Resp BP BP Pulse Ox 06/13/25 12:17 37.0 C 82 19 128/74 97 06/13/25 07:47 75 06/13/25 07:19 36.7 C 75 19 140/73 95 06/13/25 06:18 72 133/71 06/13/25 06:03 75 168/88 H 06/13/25 03:47 36.5 C 77 16 168/86 H 95 O2 Del Method 06/13/25 12:17 Room Air 06/13/25 07:47 06/13/25 07:19 Room Air 06/13/25 06:18 06/13/25 06:03 06/13/25 03:47 Room Air Laboratory Results Abnormal lab results 06/13/25 Range/Units 05:33 RBC 3.36 L (4.70-6.10) M/uL Hgb 11.0 L (14.0-18.0) g/dL Hct 32.2 L (42.0-52.0) % RDW Std Deviation 46.8 H (36.4-46.3) fL Neut # (Auto) 8.00 H (1.40-6.50) K/uL Lymph # (Auto) 0.92 L (1.20-3.40) K/uL [place] # (Auto) 0.88 H (0.11-0.59) K/uL Heparin Anti-Xa, Unfract 0.20 L (0.3-0.7) IU/ml Potassium 3.1 L (3.5-5.1) mmol/L Chloride 108 H (98-107) mmol/L Glucose 105 H (70-99(Fasting)) mg/dl Calcium 8.4 L (8.6-10.3) mg/dl
[2025-06-13] MEDS: D5W AND LACTATED RINGERS 1,000 ML IV SCH (12:47)
[2025-06-13 13:41] LABS: ANTI-Xa, UFH(UnfractionatedHep 0.22 IU/ml (0.3-0.7)
--- NOTE | 2025-06-13 14:32 | Cardiology Progress Note ---
Date of Service June 13, 2025 Assessment & Plan (1) Atrial flutter with rapid ventricular response: (2) S/P total right hip arthroplasty: (3) Fever: (4) Acute diverticulitis: (5) Hyperlipidemia: Plan Assessment: 74 year old male with recent Right Total hip replacement (06/05/25) found to have Atrial flutter intraoperatively, spontaneously converted to NSR, then re-admitted with acute concerns of fever and abdominal pain. EKG at time of admission demonstrated Atrial flutter with RVR and chronic Right BBB. Cardiology consulted for further evaluation/recommendations. Ultimately diagnosed with acute diverticulitis, now with possible small perforation and SBO. Plan: 1. Atrial flutter with RVR in setting of acute diverticulitis/Small bowel obstruction/pneumoperitoneum: -Initially diagnosed intraoperatively for total hip replacement on 06/05/2025. Transient in nature and had spontaneously converted. Echocardiogram demonstrated normal LVEF, no wall motion abnormalities and no significant valvular disease. Patient was discharged home on Metoprolol succinate 25mg PO QAM and Eliquis 5mg PO BID. -Patient remains asymptomatic with regards to atrial flutter. He had multiple episodes of Atrial flutter earlier this admission, he was started on an Amiodarone gtt with conversion to Sinus Rhythm. -He has remained in NSR/Sinus tachycardia over the last 48 hours -Continue IV amiodarone for now as patient is NPO (even water and meds). -Oral metoprolol on hold. Transitioned to metoprolol 5 mg IV q6 hours. -Euvolemic on exam -Eliquis held and transitioned to IV heparin in case surgery needed. Will resume oral eliquis when able prior to discharge. -Preliminary blood cultures negative, continued management of acute diverticulitis per Primary team. Currently receiving IV Zosyn and IV vancomycin. Other oral meds including losartan and atorvastatin on hold as patient is NPO -patient is currently wearing a zio monitor. If patient needs surgery, this can be removed if needed. -Once NG tube is removed and patient able to take oral meds, will transition to oral amio, oral metoprolol and eliquis for anticoagulation. Case has been discussed with Dr. Vang Will follow Darlyn Bender PA-C Department of Cardiology, [facility] This chart was completed in part utilizing Speech Voice Recognition Software. Grammatical errors, random word insertions, pronoun errors, and incomplete sentences are an occasional consequence of this system due to software limitations, ambient noise, and hardware issues. Any formal questions or concerns about the content, text, or information contained within the body of this dictation should be directly addressed to the provider for clarification. Admission and Anticipated Discharge Date Admission Date: June 08, 2025 Supervising Physician Co-Signing Physician Notes I have personally performed a history and physical examination on the patient. I have reviewed the advance practitioner's documentation, and I agree with, and take responsibility for the plan of care. 74-year-old male with recent hip arthroplasty, acute diverticulitis with perforated viscus and paroxysmal atrial flutter with rapid ventricular response. Patient asymptomatic during periods of atrial flutter. Remains in sinus rhythm. N.p.o. at this time. IV amiodarone and IV metoprolol prescribed. Continue anticoagulant with intravenous heparin. Transition to oral meds when able. Cardiology will continue to follow. Maintain telemetry during hospi talization. Daniel Vang DO, [facility] I spent a total of 30 minutes on the date of service in preparation, delivery, and documentation of the care provided to this patient, excluding any time spent in the performance of separately billed services. Subjective Patient sitting in chair. Feeling better. NG tube still in place. Review of Systems Review of Systems: All systems reviewed & are unremarkable except as noted in HPI & below Physical Exam Constitutional: well developed and well nourished; no acute distress and not ill appearing Neck: normal visual inspection and trachea midline Respiratory: normal respiratory effort, lungs clear to auscultation Cardiovascular: Rate/Rhythm: regular rhythm and + tachycardic Heart Sounds: normal S1 and normal S2 Vessels: dorsalis pedis pulses present; no JVD Ex tremities: no edema Skin: no rashes, warm and dry Psychiatric: A+Ox3, euthymic affect Results & Data Vital Signs (Past 12 Hours) Vital Signs Temp Pulse Pulse Resp BP BP Pulse Ox 06/13/25 12:47 78 06/13/25 12:26 82 128/74 06/13/25 12:17 37.0 C 82 19 128/74 97 06/13/25 07:47 75 06/13/25 07:19 36.7 C 75 19 140/73 95 06/13/25 06:18 72 133/71 06/13/25 06:03 75 168/88 H 06/13/25 03:47 36.5 C 77 16 168/86 H 95 O2 Del Method 06/13/25 12:47 06/13/25 12:26 06/13/25 12:17 Room Air 06/13/25 07:47 06/13/25 07:19 Room Air 06/13/25 06:18 06/13/25 06:03 06/13/25 03:47 Room Air Laboratory Results CBC 06/13/25 Range/Units 05:33 WBC 10.13 (4.8-10.8) K/ul RBC 3.36 L (4.70-6.10) M/uL Hgb 11.0 L (14.0-18.0) g/dL Hct 32.2 L (42.0-52.0) % Plt Count 168 (130-400) K/uL Neut # (Auto) 8.00 H (1.40-6.50) K/uL Lymph # (Auto) 0.92 L (1.20-3.40) K/uL Perkins # (Auto) 0.88 H (0.11-0.59) K/uL Eos # (Auto) 0.25 (0.00-0.50) K/uL Baso # (Auto) 0.02 (0.00-0.20) K/uL Comprehensive Metabolic Panel 06/13/25 Range/Units 05:33 Sodium 140 (136-145) mmol/L Potassium 3.1 L (3.5-5.1) mmol/L Chloride 108 H (98-107) mmol/L Carbon Dioxide 23 (21-32) mmol/L BUN 13 (6-23) mg/dl Creatinine 0.74 (0.6-1.4) mg/dl Glucose 105 H (70-99(Fasting)) mg/dl Calcium 8.4 L (8.6-10.3) mg/dl Intake and Output 06/12/25 06/13/25 06/13/25 22:59 06:59 14:59 Intake Total 1540.817 / 4759.398 1435.898 / 4759.398 1815.006 / 1815.006 Output Total 850 / 2500 1150 / 2500 Balance 690.817 / 2259.398 285.898 / 2259.398 1815.006 / 1815.006 Intake: IV 1540.817 / 4759.398 1435.898 / 4759.398 1815.006 / 1815.006 Acetaminophen 1,000 mg In 100 100 / 300 100 / 300 100 / 100 ml @ 400 mls/hr IV Q8H [facility] Rx#: [id number] Amiodarone / D5w 360 mg In 200 185.648 / 385.648 181.473 / 181.473 ml @ 0.5 MG/MIN 16.667 mls/hr IV .Q12H [facility] Rx#:[id number] Heparin 89873 Unit/500 ml D5w 359.150 / 491.583 521.867 / 521.867 25,000 units In 500 ml @ 1,450 UNITS/HR 29 mls/hr IV .[id number] [facility] Rx#:[id number] Piperacillin/Tazobactam 4.5 gm 100 / 300 100 / 300 100 / 100 In 100 ml @ 25 mls/hr IV Q8H [facility] Rx#:[id number] Potassium Chloride / Wtr 10 meq 388.333 / 388.333 In 100 ml @ 100 mls/hr IV Q1H [facility] Rx#:[id number] Promethazine 6.25 mg In 50.25 50.25 / 100.50 ml @ 201 mls/hr IV Q6H PRN Rx#: [id number] Sodium Chloride 0.9% 1,000 ml @ 981.667 / 2981.667 1000 / 2981.667 523.333 / 523.333 100 mls/hr IV .Q10H [facility] Rx#: [id number] Output: Urine 200 / 1200 500 / 1200 Gastric Drainage 650 / 1300 650 / 1300 Left Nare 650 / 1300 650 / 1300 Other: Other Intake Source NPO NPO Weight 104.7 kg Weight Measurement Method Standing Scale Diagnostic Findings Telemetry reviewed: NSR in the 80's Medications Administered Current Inpatient Medications Acetaminophen (Acetaminophen 325 Mg Tab) 650 mg PO Q4H PRN PRN Reason: Pain or Fever Stop: 07/09/25 02:09 Acetaminophen (Acetaminophen 500 Mg Tab) 1,000 mg PO TID [facility] Stop: 07/09/25 08:59 Last Admin: 06/10/25 19:56 Dose: 1,000 mg Ascorbic Acid (Ascorbic Acid 500 Mg Tab) 500 mg PO DAILY [facility] Stop: 07/09/25 08:59 Last Admin: 06/11/25 08:20 Dose: Not Given Atorvastatin Calcium (Atorvastatin 20 Mg Tab) 20 mg PO HS [facility] Stop: 07/09/25 20:59 Last Admin: 06/12/25 20:06 Dose: Not Given Epinephrine HCl (Epinephrine Inj 1 Mg/Ml Amp) 0.3 mg IM Q4H PRN PRN Reason: Anaphylaxis Stop: 07/09/25 02:25 Piperacillin Sod/Tazobactam Sod (Zosyn) 4.5 gm in 100 mls @ 25 mls/hr IV Q8H [facility]; Protocol Stop: 06/19/25 12:59 Last Admin: 06/13/25 12:47 Dose: 25 mls/hr Amiodarone HCl/Dextrose (Nexterone / D5w) 360 mg in 200 mls @ 16.667 mls/hr IV .Q12H [facility] Stop: 07/09/25 22:44 Last Admin: 06/13/25 12:59 Dose: 0.5 mg/min, 16.7 mls/hr Famotidine (Pepcid 20mg Iv Push) 20 mg in 5 mls @ 2.5 mls/min IV Q12H [facility] Stop: 07/10/25 14:59 Last Admin: 06/13/25 00:07 Dose: 2.5 mls/min Heparin Sodium/Dextrose (Heparin 64088 Unit/500 Ml D5w) 25,000 units in 500 mls @ 33 mls/hr IV .[id number] [facility]; Protocol Stop: 07/11/25 08:59 Last Admin: 06/13/25 13:53 Dose: Not Given Promethazine HCl (Phenergan) 6.25 mg in 50.25 mls @ 201 mls/hr IV Q6H PRN PRN Reason: Nausea And Vomiting Stop: 07/11/25 09:48 Last Infusion: 06/13/25 00:26 Dose: Infused Pantoprazole Sodium (Protonix) 40 mg in 10 mls @ 5 mls/min IV QAM [facility] Stop: 07/11/25 09:59 Last Admin: 06/13/25 08:40 Dose: 5 mls/min Acetaminophen (Ofirmev) 1,000 mg in 100 mls @ 400 mls/hr IV Q8H [facility] Stop: 06/14/25 15:59 Last Infusion: 06/13/25 09:05 Dose: Infused Dextrose/Lactated Ringer's (D5w And Lactated Ringers) 1,000 mls @ 80 mls/hr IV .[id number] [facility] Stop: 06/16/25 12:29 Last Admin: 06/13/25 12:47 Dose: 80 mls/hr Loratadine (Loratadine 10 Mg Tab) 10 mg PO DAILY PRN PRN Reason: Allergy Symptoms Stop: 07/09/25 02:09 Losartan Potassium (Losartan Potassium 25 Mg Tab) 25 mg PO QAM [facility] Stop: 07/09/25 08:59 Last Admin: 06/09/25 09:40 Dose: 25 mg Metoprolol Tartrate (Metoprolol Tartrate 1 Mg/Ml Vial) 5 mg IV Q6 [facility] Stop: 07/11/25 11:59 Last Admin: 06/13/25 12:26 Dose: 5 mg Morphine Sulfate (Morphine Sulfate 4 Mg/Ml 1 Ml Carp\Vial) 2 mg IV Q3H PRN PRN Reason: Moderate Pain (Scale 4, 5, 6) Stop: 06/25/25 15:47 Morphine Sulfate (Morphine Sulfate 4 Mg/Ml 1 Ml Carp\Vial) 4 mg IV Q3H PRN PRN Reason: Severe Pain (Scale 7, 8, 9,10) Stop: 06/25/25 15:41 Last Admin: 06/13/25 07:23 Dose: 4 mg Nitroglycerin (Nitroglycerin Sl 0.4 Mg/Tab Tab) 0.4 mg SL Q5M PRN PRN Reason: Chest Pain Stop: 07/09/25 02:09 Pantoprazole Sodium (Pantoprazole 40 Mg Tab) 40 mg PO BID [facility] Stop: 07/10/25 20:59 Last Admin: 06/11/25 08:21 Dose: Not Given Polyethylene Glycol (Polyethylene (Miralax) 17 Gm Pack) 17 gm PO DAILY PRN PRN Reason: Constipation Stop: 07/09/25 02:09 Last Admin: 06/10/25 08:35 Dose: 17 gm Sennosides (Senna 8.6 Mg Tab) 8.6 mg PO BID [facility] Stop: 07/09/25 08:59 Last Admin: 06/11/25 08:21 Dose: Not Given Tamsulosin HCl (Tamsulosin Hcl 0.4 Mg Cap) 0.4 mg PO DAILY PRN PRN Reason: TROUBLE URINATING Stop: 07/09/25 02:09 Last Admin: 06/10/25 08:38 Dose: 0.4 mg Tramadol HCl (Tramadol Hcl 50 Mg Tablet) 50 - 100 mg PO Q6 PRN PRN Reason: pain Stop: 07/09/25 02:09 Vitamin D (Cholecalciferol 25 Mcg (1000 Units) Tab) 50 mcg PO DAILY [facility] Stop: 07/09/25 08:59 Last Admin: 06/11/25 08:21 Dose: Not Given PG Care Time/CCT Total # of Minutes Spent Total Time Spent with Patient: Total time spent is greater than 50% in coordination of care (as documented) at patient's floor/unit and/or counseling patient: 30 minutes Coding Level of Care Code 84999 SUB INP/OBS CARE 3/50MIN Diagnoses Atrial flutter with rapid ventricular response I48.92 S/P total right hip arthroplasty Z96.641 Fever R50.9 Acute diverticulitis K57.92 Hyperlipidemia E78.5
[2025-06-13 20:52] LABS: ANTI-Xa, UFH(UnfractionatedHep 0.22 IU/ml (0.3-0.7)
[2025-06-14 03:09] LABS: Hematocrit (blood only) 28.0 % (42.0-52.0); Hemoglobin 9.9 g/dL (14.0-18.0); Mean Corpuscular Hemoglobin 33.6 pg (25.0-34.0); Mean Corpuscular Volume 94.9 fL (80.0-100.0); Platelet Count 169 K/uL (130-400); RDW Standard Deviation 46.3 fL (36.4-46.3); Red Blood Count 2.95 M/uL (4.70-6.10); White Blood Count 11.17 K/ul (4.8-10.8)
[2025-06-14 03:24] LABS: Anion Gap 7.0 (3-11); Blood Urea Nitrogen 10.0 mg/dl (6-23); Calcium 8.1 mg/dl (8.6-10.3); Carbon Dioxide 25.0 mmol/L (21-32); Chloride 108.0 mmol/L (98-107); Creatinine Clr Calc Pharmacy 97.9 ml/min; Glucose 151.0 mg/dl (70-99(Fasting)); Potassium 3.1 mmol/L (3.5-5.1); Sodium 140.0 mmol/L (136-145)
[2025-06-14 03:49] LABS: ANTI-Xa, UFH(UnfractionatedHep 0.25 IU/ml (0.3-0.7)
--- NOTE | 2025-06-14 07:31 | Orthopedic Progress Note ---
Date of Service June 14, 2025 Assessment & Plan (1) S/P total right hip arthroplasty: Plan: 74-year-old gentleman 9 days postop from a total hip replacement readmitted with abdominal issues, small bowel obstruction, pneumoperitoneum making a slow recovery. This certainly is set him back. His hip seems to be doing fine. Does seem to be responding to treatment but is been slow. Plan: From the orthopedic standpoint he continue would just weightbearing as tolerated. Needs to obey hip precautions. Routine wound care. Medical management as per the medicine service. He is on anticoagulation. I will continue to do a plan on seeing him in about a week in clinic. Any orthopedic questions can be directly [phone]. (2) History of hip replacement: (3) History of bilateral knee replacement: (4) Pneumoperitoneum: (5) Small bowel obstruction: Admission and Anticipated Discharge Date Admission Date: June 08, 2025 Subjective 74-year-old gentleman now 9 days out from a right total hip replacement readmitted with diverticulitis. His hips been doing fine. Really not much pain. To get up and walking. He is slowly getting better from the GI issue. Still has an NG tube in place. Physical Exam Physical Exam: Physical nation is a pleasant middle-age male. He is sitting up his bedside and looks a little bit better today. Examination of the right hip reveals the incision to be clean dry and intact. Fairly mild swelling. No drainage. No redness. Hips located. He is neurologically intact. Results & Data Vital Signs (Past 12 Hours) Vital Signs Temp Pulse Pulse Resp BP BP BP 06/14/25 07:16 36.7 C 72 19 140/91 06/14/25 06:13 70 118/73 06/14/25 05:58 78 128/80 06/14/25 03:37 36.6 C 75 18 127/71 06/14/25 00:31 89 06/14/25 00:01 73 118/67 06/13/25 23:46 78 160/78 H 06/13/25 22:48 36.4 C L 85 16 160/78 H 06/13/25 19:58 06/13/25 19:53 36.7 C 76 18 124/71 Pulse Ox O2 Del Method 06/14/25 07:16 95 Room Air 06/14/25 06:13 06/14/25 05:58 06/14/25 03:37 95 Room Air 06/14/25 00:31 06/14/25 00:01 06/13/25 23:46 06/13/25 22:48 95 Room Air 06/13/25 19:58 Room Air 06/13/25 19:53 96 Room Air Laboratory Results White cell count 11.17. Hemoglobin 9.9. Hematocrit 28.0. Potassium is a bit low at 3.1.
[2025-06-14] MEDS ORDERED: Nursing to Pharmacy Communication SCH ×2 (08:00→19:30)
[2025-06-14] MEDS: POTASSIUM CHLORIDE / WTR 10 MEQ/100 ML PLCT IV SCH (10:09)
--- NOTE | 2025-06-14 10:11 | Hospitalist Progress Note ---
Date of Service June 14, 2025 Assessment & Plan (1) Atrial flutter with rapid ventricular response: Plan: 74 yo M with past medical history significant for gout, dyslipidemia, allergic rhinitis, GERD, BPH, polymyalgia rheumatica, osteoarthritis, history of kidney stones presents with fevers and found to be in rapid A-Flutter Patient recently on 06/05/2025 had right hip replacement. #Diverticulitis #SBO -Bowel perforation secondary to complicated diverticulitis -Surgery consulted and elected to pursue conservative management -BM on 06/12 -Pain improving -Blood cultures NGTD -Leukocytosis resolved. afebrile Plan -NG tube per surgery. NPO for now -Surgery to determine if NG tube can be clamed today -May need TPN/PPN if unable to start diet by tomorrow -Continue D5 LR -Continue empiric zosyn, follow blood cx -Pain control -Encourage ambulation -Daily labs #A-flutter with RVR -Currently in NSR on amio drip Plan -Continue amio drip per cardio while NPO -Continue IV lopressor q 6 -Continue heparin drip for now until surgery is ruled out -Switch back to eliquis upon discharge -Cardiac monitoring #Anemia -POA -No s/s acute blood loss -Hgb 10.0 today -Follow Hgb closely while on AC #Hypokalemia -Replace and follow -Mg normal #Prolonged QTc Avoid QT prolonging drugs Follow repeat EKG. #Hyperlipidemia On statin #Hypertension On losartan and metoprolol succinate at home, now utilizing Iv meds Will monitor #Recent Right hip replacement Orthopedics consulted - no concern at this time about R hip DVT prophylaxis Eliquis --> to IV heparin Disposition Telemetry Full code. I spent a total of 55 minutes coordinating, documenting, and providing care for this patient excluding time spent in the performance of separately billed services. This included personally reviewing all current laboratories and imaging studies, medical reconciliation, outpatient chart review and discussion with specialists Admission and Anticipated Discharge Date Admission Date: June 08, 2025 Subjective Feeling about the same. Had a BM yesterday and a small one this AM. does not like the NG tube. d/w on phone Physical Exam Physical Exam: Vitals and labs reviewed General: Well appearing, NAD HEENT: EOMI, PERRLA Neck: Supple Cardiac: RRR no rubs gallops or murmurs Lungs: CTA no rhonchi wheezing or rales Abd: NG tube. distended. mild TTP. BS hypoactive : Deffered MSK: Full ROM. No obvious deformities Ext: No Edema cyanosis Skin: Warm, Dry Neuro: AOx3 No focal deficits. Psych: Normal Mood Results & Data Results & Data Vital Signs (Past 12 Hours) Vital Signs Temp Pulse Pulse Resp BP BP BP 06/14/25 07:55 77 06/14/25 07:16 36.7 C 72 19 140/91 06/14/25 06:13 70 118/73 06/14/25 05:58 78 128/80 06/14/25 03:37 36.6 C 75 18 127/71 06/14/25 00:31 89 06/14/25 00:01 73 118/67 06/13/25 23:46 78 160/78 H 06/13/25 22:48 36.4 C L 85 16 160/78 H Pulse Ox O2 Del Method 06/14/25 07:55 06/14/25 07:16 95 Room Air 06/14/25 06:13 06/14/25 05:58 06/14/25 03:37 95 Room Air 06/14/25 00:31 06/14/25 00:01 06/13/25 23:46 06/13/25 22:48 95 Room Air Laboratory Results Abnormal lab results 06/13/25 06/13/25 06/14/25 Range/Units 12:58 20:01 02:51 WBC 11.17 H (4.8-10.8) K/ul RBC 2.95 L (4.70-6.10) M/uL Hgb 9.9 L (14.0-18.0) g/dL Hct 28.0 L (42.0-52.0) % Heparin Anti-Xa, Unfract 0.22 L 0.22 L 0.25 L (0.3-0.7) IU/ml Potassium 3.1 L (3.5-5.1) mmol/L Chloride 108 H (98-107) mmol/L Glucose 151 H (70-99(Fasting)) mg/dl Calcium 8.1 L (8.6-10.3) mg/dl
[2025-06-14 10:18] LABS: ANTI-Xa, UFH(UnfractionatedHep 0.24 IU/ml (0.3-0.7)
--- NOTE | 2025-06-14 11:12 | Surgery Progress Note ---
Date of Service June 14, 2025 Assessment & Plan (1) Pneumoperitoneum: (2) Acute diverticulitis: (3) Small bowel obstruction: Plan afebrile vss pain better controlled NGGT with 450 cc last shift, + two bowel movements since yesterday evening, + flatus Plan: Clamp NGT for 4 hours, will check residual and determine if ready to remove. Low threshold to keep NGT if any nausea, pain or bloating while NGT clamped encouraged ambulation more frequently Will need to consider peripheral nutrition as its been about 1 week since last solid meal if unable to remove NGT today and start clears. Would recommend PPN and hopeful to remove NGT soon continue pain management Continue medical management Admission and Anticipated Discharge Date Admission Date: June 08, 2025 Subjective feeling good today no increase in abdominal pain or nausea last night no fevers or chills no vomiting passing gas and had two bowel movements since yesterday 5 pm abdomen feels almost normal regarding bloating Review of Systems Review of Systems: All systems reviewed & are unremarkable except as noted in HPI & below Physical Exam Constitutional: WD/WN, vitals as above cooperative and comfortable; no acute distress and not ill appearing Respiratory: normal respiratory effort; no respiratory distress, no labored breathing and no retractions Gastrointestinal (Abdomen): Inspection/Auscultation: abdomen normal to inspection; abdomen not distended Percussion/Palpation: + abdomen tender (RLQ on deep palpation), + guarding (RLQ voluntary on deep palpation) and abdomen soft; abdomen not rigid and abdomen not firm NGT with light green output in the tubing, dark green in canister about 450 cc last shift Skin: no rashes, warm and dry Psychiatric: Orientation: alert and oriented x 3 Results & Data Vital Signs (Past 12 Hours) Vital Signs Temp Pulse Pulse Resp BP BP BP 06/14/25 07:55 77 06/14/25 07:16 36.7 C 72 19 140/91 06/14/25 06:13 70 118/73 06/14/25 05:58 78 128/80 06/14/25 03:37 36.6 C 75 18 127/71 06/14/25 00:31 89 06/14/25 00:01 73 118/67 06/13/25 23:46 78 160/78 H Pulse Ox O2 Del Method 06/14/25 07:55 06/14/25 07:16 95 Room Air 06/14/25 06:13 06/14/25 05:58 06/14/25 03:37 95 Room Air 06/14/25 00:31 06/14/25 00:01 06/13/25 23:46 Laboratory Results 06/14/25 06/14/25 06/13/25 Range/Units 09:39 02:51 20:01 WBC 11.17 H (4.8-10.8) K/ul RBC 2.95 L (4.70-6.10) M/uL Hgb 9.9 L (14.0-18.0) g/dL Hct 28.0 L (42.0-52.0) % MCV 94.9 (80.0-100.0) fL MCH 33.6 (25.0-34.0) pg MCHC 35.4 (32.0-36.0) g/dL RDW Std Deviation 46.3 (36.4-46.3) fL RDW Coeff of Chinyere 13.2 (11.5-14.5) % Plt Count 169 (130-400) K/uL MPV 10.7 (9.4-12.4) fL Heparin Anti-Xa, Unfract 0.24 L 0.25 L 0.22 L (0.3-0.7) IU/ml Sodium 140 (136-145) mmol/L Potassium 3.1 L (3.5-5.1) mmol/L Chloride 108 H (98-107) mmol/L Carbon Dioxide 25 (21-32) mmol/L Anion Gap 7 (3-11) BUN 10 (6-23) mg/dl Creatinine 0.79 (0.6-1.4) mg/dl Est Cr Clr Drug Dosing 97.9 ml/min eGFR 92.64 BUN/Creatinine Ratio 12.7 (10-20) Glucose 151 H (70-99(Fasting)) mg/dl Calcium 8.1 L (8.6-10.3) mg/dl 06/13/25 Range/Units 12:58 WBC (4.8-10.8) K/ul RBC (4.70-6.10) M/uL Hgb (14.0-18.0) g/dL Hct (42.0-52.0) % MCV (80.0-100.0) fL MCH (25.0-34.0) pg MCHC (32.0-36.0) g/dL RDW Std Deviation (36.4-46.3) fL RDW Coeff of Chinyere (11.5-14.5) % Plt Count (130-400) K/uL MPV (9.4-12.4) fL Heparin Anti-Xa, Unfract 0.22 L (0.3-0.7) IU/ml Sodium (136-145) mmol/L Potassium (3.5-5.1) mmol/L Chloride (98-107) mmol/L Carbon Dioxide (21-32) mmol/L Anion Gap (3-11) BUN (6-23) mg/dl Creatinine (0.6-1.4) mg/dl Est Cr Clr Drug Dosing ml/min eGFR BUN/Creatinine Ratio (10-20) Glucose (70-99(Fasting)) mg/dl Calcium (8.6-10.3) mg/dl
--- NOTE | 2025-06-14 12:21 | Electrocardiogram Report ---
Test Reason : Blood Pressure : */* mmHG Vent. Rate : 92 BPM Atrial Rate : 92 BPM P-R Int : 174 ms QRS Dur : 158 ms QT Int : 432 ms P-R-T Axes : 38 -18 17 degrees QTcB Int : 534 ms Sinus rhythm with Premature atrial complexes Right bundle branch block Minimal voltage criteria for LVH, may be normal variant ( R in aVL ) Abnormal ECG When compared with ECG of 09-Jun-2025 10:07, (unconfirmed) Sinus rhythm has replaced Atrial flutter Confirmed by Dewey Pickens ([id number]) on 06/14/2025 12:20:56 PM Referred By: REFERRED SELF Confirmed By: Dewey Pickens
--- NOTE | 2025-06-14 12:22 | Cardiology Progress Note ---
Date of Service June 14, 2025 Assessment & Plan (1) Atrial flutter with rapid ventricular response: (2) S/P total right hip arthroplasty: (3) Fever: (4) Acute diverticulitis: (5) Hyperlipidemia: Plan Assessment: 74 year old male with recent Right Total hip replacement (06/05/25) found to have Atrial flutter intraoperatively, spontaneously converted to NSR, then re-admitted with acute concerns of fever and abdominal pain. EKG at time of admission demonstrated Atrial flutter with RVR and chronic Right BBB. Cardiology consulted for further evaluation/recommendations. Ultimately diagnosed with acute diverticulitis, now with possible small perforation and SBO. Plan: 1. Atrial flutter with RVR in setting of acute diverticulitis/Small bowel obstruction/pneumoperitoneum: -Initially diagnosed intraoperatively for total hip replacement on 06/05/2025. Transient in nature and had spontaneously converted. Echocardiogram demonstrated normal LVEF, no wall motion abnormalities and no significant valvular disease. Patient was discharged home on Metoprolol succinate 25mg PO QAM and Eliquis 5mg PO BID. -recurrent afib in the setting ofa cute diverticulitis, converting to NSR with IV amiodarone. -Continue IV amiodarone for now as patient is NPO (No water and meds). -Oral metoprolol on hold. Transitioned to metoprolol 5 mg IV q6 hours. -Euvolemic on exam -Eliquis held and transitioned to IV heparin in case surgery needed. Will resume oral eliquis when able prior to discharge. -Final blood cultures negative, continued management of acute diverticulitis per Primary team. Currently receiving IV Zosyn and IV vancomycin. Other oral meds including losartan and atorvastatin on hold as patient is NPO -patient is currently wearing a zio monitor. If patient needs surgery, this can be removed if needed. -Once NG tube is removed and patient able to take oral meds, will transition to oral amio, oral metoprolol and eliquis for anticoagulation. Case has been discussed with Dr. Whitney Will follow Darlyn Bender PA-C Department of Cardiology, [facility] This chart was completed in part utilizing Speech Voice Recognition Software. Grammatical errors, random word insertions, pronoun errors, and incomplete sentences are an occasional consequence of this system due to software limitations, ambient noise, and hardware issues. Any formal questions or concerns about the content, text, or information contained within the body of this dictation should be directly addressed to the provider for clarification. Admission and Anticipated Discharge Date Admission Date: June 08, 2025 Supervising Physician Co-Signing Physician Notes I have personally performed a history and physical examination on the patient. I have reviewed the advance practitioner's documentation, and I agree with, and take responsibility for the plan of care. Remains in sinus rhythm. Continue IV heparin, IV amiodarone, IV metoprolol Willow Whitney DO Subjective Patient resting in chair. Mild nausea reported this morning. No abdominal pain. Was able to ambulate some yesterday without complaints. Hip pain controlled. No recurrent afib/flutter. No chest pain or SOB. Review of Systems Review of Systems: All systems reviewed & are unremarkable except as noted in HPI & below Physical Exam Constitutional: well developed and well nourished; no acute distress and not ill appearing Neck: normal visual inspection and trachea midline Respiratory: normal respiratory effort, lungs clear to auscultation Cardiovascular: Rate/Rhythm: regular rhythm and + tachycardic Heart Sounds: normal S1 and normal S2 Vessels: dorsalis pedis pulses present; no JVD Extremities: no edema Skin: no rashes, warm and dry Psychiatric: A+Ox3, euthymic affect Results & Data Vital Signs (Past 12 Hours) Vital Signs Temp Pulse Pulse Resp BP BP BP 06/14/25 12:00 77 06/14/25 11:16 36.6 C 81 20 137/77 06/14/25 07:55 77 06/14/25 07:16 36.7 C 72 19 140/91 06/14/25 06:13 70 118/73 06/14/25 05:58 78 128/80 06/14/25 03:37 36.6 C 75 18 127/71 06/14/25 00:31 89 Pulse Ox O2 Del Method 06/14/25 12:00 06/14/25 11:16 96 Room Air 06/14/25 07:55 06/14/25 07:16 95 Room Air 06/14/25 06:13 06/14/25 05:58 06/14/25 03:37 95 Room Air 06/14/25 00:31 Laboratory Results CBC 06/14/25 Range/Units 02:51 WBC 11.17 H (4.8-10.8) K/ul RBC 2.95 L (4.70-6.10) M/uL Hgb 9.9 L (14.0-18.0) g/dL Hct 28.0 L (42.0-52.0) % Plt Count 169 (130-400) K/uL Comprehensive Metabolic Panel 06/14/25 Range/Units 02:51 Sodium 140 (136-145) mmol/L Potassium 3.1 L (3.5-5.1) mmol/L Chloride 108 H (98-107) mmol/L Carbon Dioxide 25 (21-32) mmol/L BUN 10 (6-23) mg/dl Creatinine 0.79 (0.6-1.4) mg/dl Glucose 151 H (70-99(Fasting)) mg/dl Calcium 8.1 L (8.6-10.3) mg/dl Intake and Output 06/13/25 06/14/25 06/14/25 22:59 06:59 14:59 Intake Total 435.4 / 3887.505 1637.099 / 3887.505 474.00 / 474.00 Output Total 750 / 1410 660 / 1410 Balance -314.6 / 2477.505 977.099 / 2477.505 474.00 / 474.00 Intake: IV 435.4 / 3887.505 1637.099 / 3887.505 474.00 / 474.00 Acetaminophen 1,000 mg In 100 100 / 300 100 / 300 100 / 100 ml @ 400 mls/hr IV Q8H [facility] Rx#: [id number] Amiodarone / D5w 360 mg In 200 196.782 / 378.255 ml @ 0.5 MG/MIN 16.667 mls/hr IV .Q12H [facility] Rx#:[id number] D5w and Lactated Ringers 1,000 1000 / 1000 ml @ 80 mls/hr IV .[id number] [facility] Rx#:[id number] Heparin 62664 Unit/500 ml D5w 235.4 / 997.584 240.317 / 997.584 231.25 / 231.25 25,000 units In 500 ml @ 1,850 UNITS/HR 37 mls/hr IV .[id number] [facility] Rx#:[id number] Piperacillin/Tazobactam 4.5 gm 100 / 300 100 / 300 In 100 ml @ 25 mls/hr IV Q8H [facility] Rx#:[id number] Potassium Chloride / Wtr 10 meq 92.5 / 92.5 In 100 ml @ 100 mls/hr IV Q1H [facility] Rx#:[id number] Promethazine 6.25 mg In 50.25 50.25 / 50.25 ml @ 201 mls/hr IV Q6H [facility] Rx#: [id number] Output: Urine 250 / 460 210 / 460 Gastric Drainage 500 / 950 450 / 950 Left Nare 500 / 950 450 / 950 Other: Other Intake Source NPO NPO # Unmeasured Voids 1 Weight 105.7 kg Weight Measurement Method Standing Scale Diagnostic Findings Telemetry reviewed: NSR in the 's. No atrial fib or flutter. Medications Administered Current Inpatient Medications Acetaminophen (Acetaminophen 325 Mg Tab) 650 mg PO Q4H PRN PRN Reason: Pain or Fever Stop: 07/09/25 02:09 Acetaminophen (Acetaminophen 500 Mg Tab) 1,000 mg PO TID [facility] Stop: 07/09/25 08:59 Last Admin: 06/10/25 19:56 Dose: 1,000 mg Ascorbic Acid (Ascorbic Acid 500 Mg Tab) 500 mg PO DAILY [facility] Stop: 07/09/25 08:59 Last Admin: 06/11/25 08:20 Dose: Not Given Atorvastatin Calcium (Atorvastatin 20 Mg Tab) 20 mg PO HS [facility] Stop: 07/09/25 20:59 Last Admin: 06/13/25 19:48 Dose: Not Given Epinephrine HCl (Epinephrine Inj 1 Mg/Ml Amp) 0.3 mg IM Q4H PRN PRN Reason: Anaphylaxis Stop: 07/09/25 02:25 Piperacillin Sod/Tazobactam Sod (Zosyn) 4.5 gm in 100 mls @ 25 mls/hr IV Q8H [facility]; Protocol Stop: 06/14/25 13:00 Last Admin: 06/14/25 08:22 Dose: 25 mls/hr Amiodarone HCl/Dextrose (Nexterone / D5w) 360 mg in 200 mls @ 16.667 mls/hr IV .Q12H [facility] Stop: 07/09/25 22:44 Last Admin: 06/14/25 00:46 Dose: 0.5 mg/min, 16.7 mls/hr Famotidine (Pepcid 20mg Iv Push) 20 mg in 5 mls @ 2.5 mls/min IV Q12H [facility] Stop: 07/10/25 14:59 Last Admin: 06/14/25 03:20 Dose: 2.5 mls/min Heparin Sodium/Dextrose (Heparin 76069 Unit/500 Ml D5w) 25,000 units in 500 mls @ 39 mls/hr IV .[id number] [facility]; Protocol Stop: 07/11/25 08:59 Last Admin: 06/14/25 10:30 Dose: 1,950 units/hr, 39 mls/hr Promethazine HCl (Phenergan) 6.25 mg in 50.25 mls @ 201 mls/hr IV Q6H PRN PRN Reason: Nausea And Vomiting Stop: 07/11/25 09:48 Last Infusion: 06/14/25 09:04 Dose: Infused Pantoprazole Sodium (Protonix) 40 mg in 10 mls @ 5 mls/min IV [facility] Stop: 07/11/25 09:59 Last Admin: 06/14/25 08:32 Dose: 5 mls/min Acetaminophen (Ofirmev) 1,000 mg in 100 mls @ 400 mls/hr IV Q8H [facility] Stop: 06/14/25 15:59 Last Infusion: 06/14/25 09:22 Dose: Infused Dextrose/Lactated Ringer's (D5w And Lactated Ringers) 1,000 mls @ 80 mls/hr IV .[id number] [facility] Stop: 06/16/25 12:29 Last Admin: 06/14/25 02:15 Dose: 80 mls/hr Piperacillin Sod/Tazobactam Sod (Zosyn) 4.5 gm in 100 mls @ 25 mls/hr IV Q8H [facility]; Protocol Stop: 06/19/25 15:59 Loratadine (Loratadine 10 Mg Tab) 10 mg PO DAILY PRN PRN Reason: Allergy Symptoms Stop: 07/09/25 02:09 Losartan Potassium (Losartan Potassium 25 Mg Tab) [facility] [place]: 07/09/25 08:59 Last Admin: 06/09/25 09:40 Dose: 25 mg Metoprolol Tartrate (Metoprolol Tartrate 1 Mg/Ml Vial) 5 mg IV Q6 [facility] Stop: 07/11/25 11:59 Last Admin: 06/14/25 12:00 Dose: 5 mg Morphine Sulfate (Morphine Sulfate 4 Mg/Ml 1 Ml Carp\Vial) 2 mg IV Q3H PRN PRN Reason: Moderate Pain (Scale 4, 5, 6) Stop: 06/25/25 15:47 Morphine Sulfate (Morphine Sulfate 4 Mg/Ml 1 Ml Carp\Vial) 4 mg IV Q3H PRN PRN Reason: Severe Pain (Scale 7, 8, 9,10) Stop: 06/25/25 15:41 Last Admin: 06/13/25 07:23 Dose: 4 mg Nitroglycerin (Nitroglycerin Sl 0.4 Mg/Tab Tab) 0.4 mg SL Q5M PRN PRN Reason: Chest Pain Stop: 07/09/25 02:09 Pantoprazole Sodium (Pantoprazole 40 Mg Tab) 40 mg PO BID [facility] Stop: 07/10/25 20:59 Last Admin: 06/11/25 08:21 Dose: Not Given Polyethylene Glycol (Polyethylene (Miralax) 17 Gm Pack) 17 gm PO DAILY PRN PRN Reason: Constipation Stop: 07/09/25 02:09 Last Admin: 06/10/25 08:35 Dose: 17 gm Sennosides (Senna 8.6 Mg Tab) 8.6 mg PO BID [facility] Stop: 07/09/25 08:59 Last Admin: 06/11/25 08:21 Dose: Not Given Tamsulosin HCl (Tamsulosin Hcl 0.4 Mg Cap) 0.4 mg PO DAILY PRN PRN Reason: TROUBLE URINATING Stop: 07/09/25 02:09 Last Admin: 06/10/25 08:38 Dose: 0.4 mg Tramadol HCl (Tramadol Hcl 50 Mg Tablet) 50 - 100 mg PO Q6 PRN PRN Reason: pain Stop: 07/09/25 02:09 Vitamin D (Cholecalciferol 25 Mcg (1000 Units) Tab) 50 mcg PO DAILY [facility] Stop: 07/09/25 08:59 Last Admin: 06/11/25 08:21 Dose: Not Given Coding Level of Care Code 60970 SUB INP/OBS CARE 2/35MIN Diagnoses Atrial flutter with rapid ventricular response I48.92 S/P total right hip arthroplasty Z96.641 Fever R50.9 Acute diverticulitis K57.92 Hyperlipidemia E78.5
--- NOTE | 2025-06-14 16:14 | Electrocardiogram Report ---
Test Reason : Blood Pressure : */* mmHG Vent. Rate : 101 BPM Atrial Rate : 101 BPM P-R Int : 168 ms QRS Dur : 148 ms QT Int : 388 ms P-R-T Axes : 29 -14 3 degrees QTcB Int : 503 ms Sinus tachycardia Right bundle branch block Minimal voltage criteria for LVH, may be normal variant ( R in aVL ) Abnormal ECG When compared with ECG of 10-Jun-2025 06:51, (unconfirmed) Premature atrial complexes are no longer Present Confirmed by Dewey Pickens ([id number]) on 06/14/2025 4:14:39 PM Referred By: REFERRED SELF Confirmed By: Dewey Pickens
[2025-06-14] MEDS: PIPERACILLIN/TAZOBACTAM 4.5 GM/100 ML BAG IV SCH (16:19)
[2025-06-14 17:42] LABS: ANTI-Xa, UFH(UnfractionatedHep 0.32 IU/ml (0.3-0.7)
[2025-06-15 06:13] LABS: Hematocrit (blood only) 27.0 % (42.0-52.0); Hemoglobin 9.2 g/dL (14.0-18.0); Mean Corpuscular Hemoglobin 33.0 pg (25.0-34.0); Mean Corpuscular Volume 96.8 fL (80.0-100.0); Platelet Count 182 K/uL (130-400); RDW Standard Deviation 47.7 fL (36.4-46.3); Red Blood Count 2.79 M/uL (4.70-6.10); White Blood Count 12.51 K/ul (4.8-10.8)
[2025-06-15 06:33] LABS: Anion Gap 7.0 (3-11); Blood Urea Nitrogen 8.0 mg/dl (6-23); Calcium 8.4 mg/dl (8.6-10.3); Carbon Dioxide 26.0 mmol/L (21-32); Chloride 108.0 mmol/L (98-107); Creatinine Clr Calc Pharmacy 95.5 ml/min; Glucose 137.0 mg/dl (70-99(Fasting)); Potassium 3.1 mmol/L (3.5-5.1); Sodium 141.0 mmol/L (136-145)
[2025-06-15 06:56] LABS: ANTI-Xa, UFH(UnfractionatedHep 0.32 IU/ml (0.3-0.7)
[2025-06-15] MEDS ORDERED: PIPERACILLIN/TAZOBACTAM 4.5 GM/100 ML BAG IV SCH (08:00)
--- NOTE | 2025-06-15 08:15 | Electrocardiogram Report ---
Test Reason : Blood Pressure : */* mmHG Vent. Rate : 80 BPM Atrial Rate : 80 BPM P-R Int : 176 ms QRS Dur : 156 ms QT Int : 458 ms P-R-T Axes : 38 -20 9 degrees QTcB Int : 528 ms Normal sinus rhythm Right bundle branch block Minimal voltage criteria for LVH, may be normal variant ( R in aVL ) Abnormal ECG When compared with ECG of 11-Jun-2025 06:45, (unconfirmed) No significant change was found Confirmed by Dewey Pickens ([id number]) on 06/15/2025 8:14:45 AM Referred By: REFERRED SELF Confirmed By: Dewey Pickens
[2025-06-15] MEDS: POTASSIUM CHLORIDE CRTAB 20 MEQ TABCR PO SCH (08:24)
--- NOTE | 2025-06-15 10:42 | Hospitalist Progress Note ---
Date of Service June 15, 2025 Assessment & Plan (1) Atrial flutter with rapid ventricular response: Plan: 74 yo M with past medical history significant for gout, dyslipidemia, allergic rhinitis, GERD, BPH, polymyalgia rheumatica, osteoarthritis, history of kidney stones presents with fevers and found to be in rapid A-Flutter Patient recently on 06/05/2025 had right hip replacement. #Diverticulitis #SBO -Bowel perforation secondary to complicated diverticulitis -Surgery consulted and elected to pursue conservative management -BM on 06/12 -Pain improving -Blood cultures NGTD -Afebrile Plan -Tolerating CLD. Advance diet per surgery -DC IVF -DC zosyn, deescalate to augmentin. can stop abx on discharge. -Possibly dc home with home care tomorrow if tolerating solids, his afib is controlled and Hgb is stable -Pain control -Encourage ambulation -Daily labs #A-flutter with RVR -Currently in NSR on amio drip Plan -Now that he is tolerating PO, switch to PO toprol -Currently on amio drip, appreciate cardio input regarding what dose of PO amio to switch to -Continue heparin drip for now until he is discharged -Switch back to eliquis upon discharge -Cardiac monitoring #Anemia -POA -No s/s acute blood loss -Hgb 9.2, likely dilutional component -Follow Hgb closely while on AC #Hypokalemia -Replace and follow -Mg normal #Prolonged QTc Avoid QT prolonging drugs Follow repeat EKG. #Hyperlipidemia On statin #Hypertension Resume home losartan #Recent Right hip replacement Orthopedics consulted - no concern at this time about R hip DVT prophylaxis Eliquis --> to IV heparin Disposition Telemetry Full code. I spent a total of 53 minutes coordinating, documenting, and providing care for this patient excluding time spent in the performance of separately billed services. This included personally reviewing all current laboratories and imaging studies, medical reconciliation, outpatient chart review and discussion with specialists Admission and Anticipated Discharge Date Admission Date: June 08, 2025 Subjective Feeling very well today. eating without issue. no pain. passing gas. happy to have the ng tube out Physical Exam Physical Exam: Vitals and labs reviewed General: Well appearing, NAD HEENT: EOMI, PERRLA Neck: Supple Cardiac: RRR no rubs gallops or murmurs Lungs: CTA no rhonchi wheezing or rales Abd: NG tube is removed. Abd improving distention. bs positive. no TTP : Deffered MSK: Full ROM. No obvious deformities Ext: No Edema cyanosis Skin: Warm, Dry Neuro: AOx3 No focal deficits. Psych: Normal Mood Results & Data Results & Data Vital Signs (Past 12 Hours) Vital Signs Temp Pulse Pulse Resp BP BP Pulse Ox 06/15/25 07:26 76 06/15/25 07:19 37.0 C 73 20 148/79 H 96 06/15/25 06:00 80 147/80 H 06/15/25 03:28 37.1 C 88 16 147/72 H 94 06/15/25 01:56 80 138/63 06/15/25 00:04 85 153/65 H 06/15/25 00:00 37.1 C 85 18 153/65 H 96 06/14/25 23:26 85 O2 Del Method 06/15/25 07:26 06/15/25 07:19 Room Air 06/15/25 06:00 06/15/25 03:28 Room Air 06/15/25 01:56 06/15/25 00:04 06/15/25 00:00 Room Air 06/14/25 23:26 Laboratory Results Abnormal lab results 06/15/25 Range/Units 05:17 WBC 12.51 H (4.8-10.8) K/ul RBC 2.79 L (4.70-6.10) M/uL Hgb 9.2 L (14.0-18.0) g/dL Hct 27.0 L (42.0-52.0) % RDW Std Deviation 47.7 H (36.4-46.3) fL Potassium 3.1 L (3.5-5.1) mmol/L Chloride 108 H (98-107) mmol/L BUN/Creatinine Ratio 9.8 L (10-20) Glucose 137 H (70-99(Fasting)) mg/dl Calcium 8.4 L (8.6-10.3) mg/dl
--- NOTE | 2025-06-15 11:29 | Surgery Progress Note ---
Date of Service June 15, 2025 Assessment & Plan (1) Pneumoperitoneum: (2) Acute diverticulitis: (3) Small bowel obstruction: Plan afebrile vss minimal abdominal pain, more Right hip pain requiring one time dose of Morphine + two bowel movements since yesterday evening, + flatus tolerating clears leukocytosis mild 12.5K today Plan: Continue clear liquids Full liquids for dinner but advised to revert back if bloating with clears at lunch continue pain management for hip as needed Continue IV abx, will need to repeat am cbc to ensure no rising leukocytosis, if rising need to determine repeat scan to rule out abscess given extent of perforation. once diet advanced, recommend up to low fiber diet and then low fiber diet for 2-3 weeks on discharge Oral antibiotics on discharge, 7-10 days? needs two week total course of abx (IV and oral) surgical follow-up in 2-3 weeks, our office information provided on discharge instructions [place] [facility] on for the weekend. Admission and Anticipated Discharge Date Admission Date: June 08, 2025 Subjective feeling good no increase in abdominal pain tolerating clears but did feel bloated last night, ate them too fast still having bowel movements and flatus (2 bowel movements since last evening) no fevers or chills minimal nausea, no vomiting hip pain Physical Exam Constitutional: WD/WN, vitals as above cooperative and comfortable; no acute distress, not ill appearing and not in distress Respiratory: normal respiratory effort; no respiratory distress, no labored breathing and no retractions Gastrointestinal (Abdomen): Inspection/Auscultation: abdomen normal to inspection and + hypoactive bowel sounds; abdomen not distended and + abnormal bowel sounds Percussion/Palpation: + abdomen tender (RLQ on deep palpation, continues to improve) and abdomen soft; no guarding, abdomen not rigid and abdomen not firm Skin: no rashes, warm and dry Psychiatric: Orientation: alert and oriented x 3 Results & Data Vital Signs (Past 12 Hours) Vital Signs Temp Pulse Pulse Resp BP BP Pulse Ox 06/15/25 07:26 76 06/15/25 07:19 37.0 C 73 20 148/79 H 96 06/15/25 06:00 80 147/80 H 06/15/25 03:28 37.1 C 88 16 147/72 H 94 06/15/25 01:56 80 138/63 06/15/25 00:04 85 153/65 H 06/15/25 00:00 37.1 C 85 18 153/65 H 96 06/14/25 23:26 85 O2 Del Method 06/15/25 07:26 06/15/25 07:19 Room Air 06/15/25 06:00 06/15/25 03:28 Room Air 06/15/25 01:56 06/15/25 00:04 06/15/25 00:00 Room Air 06/14/25 23:26 Laboratory Results 06/15/25 06/14/25 Range/Units 05:17 16:52 WBC 12.51 H (4.8-10.8) K/ul RBC 2.79 L (4.70-6.10) M/uL Hgb 9.2 L (14.0-18.0) g/dL Hct 27.0 L (42.0-52.0) % MCV 96.8 (80.0-100.0) fL MCH 33.0 (25.0-34.0) pg MCHC 34.1 (32.0-36.0) g/dL RDW Std Deviation 47.7 H (36.4-46.3) fL RDW Coeff of Chinyere 13.3 (11.5-14.5) % Plt Count 182 (130-400) K/uL MPV 11.3 (9.4-12.4) fL Heparin Anti-Xa, Unfract 0.32 0.32 (0.3-0.7) IU/ml Sodium 141 (136-145) mmol/L Potassium 3.1 L (3.5-5.1) mmol/L Chloride 108 H (98-107) mmol/L Carbon Dioxide 26 (21-32) mmol/L Anion Gap 7 (3-11) BUN 8 (6-23) mg/dl Creatinine 0.82 (0.6-1.4) mg/dl Est Cr Clr Drug Dosing 95.5 ml/min eGFR 91.61 BUN/Creatinine Ratio 9.8 L (10-20) Glucose 137 H (70-99(Fasting)) mg/dl Calcium 8.4 L (8.6-10.3) mg/dl
[2025-06-15] MEDS: METOPROLOL SUCC 25MG EXT REL TAB PO SCH (11:55)
--- NOTE | 2025-06-15 12:03 | Cardiology Progress Note ---
Date of Service June 15, 2025 Assessment & Plan (1) Atrial flutter with rapid ventricular response: (2) S/P total right hip arthroplasty: (3) Fever: (4) Acute diverticulitis: (5) Hyperlipidemia: Plan Assessment: 74 year old male with recent Right Total hip replacement (06/05/25) found to have Atrial flutter intraoperatively, spontaneously converted to NSR, then re-admitted with acute concerns of fever and abdominal pain. EKG at time of admission demonstrated Atrial flutter with RVR and chronic Right BBB. Cardiology consulted for further evaluation/recommendations. Ultimately diagnosed with acute diverticulitis, now with possible small perforation and SBO. Plan: 1. Atrial flutter with RVR in setting of acute diverticulitis/Small bowel obstruction/pneumoperitoneum: -Initially diagnosed intraoperatively for total hip replacement on 06/05/2025. PAF Transient in nature and had spontaneously converted. Echocardiogram demonstrated normal LVEF, no wall motion abnormalities and no significant valvular disease. Patient was discharged home on Metoprolol succinate 25mg PO QAM and Eliquis 5mg PO BID. -recurrent afib in the setting of acute diverticulitis, converting to NSR with IV amiodarone. -Acute abdomen improving with conservative therapies. NG tube removed. Tolerating clear liquids and meds. -Stop IV amiodarone. Transition to oral amiodarone 200 mg daily today. -transition IV metoprolol to oral metoprolol succinate 25 mg daily -Continue IV heparin for now, and verify he is tolerating the diet advancements. Prior to discharge transition to Eliquis 5 mg BID -Final blood cultures negative, continued management of acute diverticulitis per Primary team. Antibiotics per hospitalist and surgical teams. -resume losartan and atorvastatin -patient is currently wearing a zio monitor. If patient needs surgery, this can be removed if needed. He will return when he returns home. Case discussed with Dr. Whitney. Stable cardiac symptoms. Will sign off Please contact button reclaimer cardiology provider with additional questions or concerns. Specialty Impression: PAF in setting of hip replacement and acute diverticulitis. Discharge in NSR Recommended medication(s) at discharge: Amiodarone 200 mg daily Metoprolol succinate 25 mg daily Eliquis 5 mg BID Along with his normal antihypertensive, statin Follow- up in Specialty Clinic: Will arrange cardiology follow up in approx 4 weeks Admission and Anticipated Discharge Date Admission Date: June 08, 2025 Supervising Physician Co-Signing Physician Notes I have personally performed a history and physical examination on the patient. I have reviewed the advance practitioner's documentation, and I agree with, and take responsibility for the plan of care. Remains in sinus rhythm. Transitioned back to oral atorvastatin, losartan, metoprolol succinate. Amiodarone transitioned from infusion to 200 mg p.o. daily. Continue heparin for now, when confidently tolerating oral medications without increased abdominal discomfort, transition back to Eliquis 5 mg twice daily. Cardiology to sign off as noted. Willow Whitney DO Subjective Patient ambulating in hallways this morning. Feeling better. NG tube removed. No abdominal pain. Tolerating clear liquids so far. No chest pain or SOB. remains NSR. Able to take oral meds at this point. Review of Systems Review of Systems: All systems reviewed & are unremarkable except as noted in HPI & below Physical Exam Constitutional: well developed and well nourished; no acute distress Neck: normal visual inspection and trachea midline Respiratory: normal respiratory effort, lungs clear to auscultation Cardiovascular: Rate/Rhythm: regular rhythm and + tachycardic Heart Sounds: normal S1 and normal S2 Vessels: dorsalis pedis pulses present; no JVD Extremities: no edema Skin: no rashes, warm and dry Psychiatric: A+Ox3, euthymic affect Results & Data Vital Signs (Past 12 Hours) Vital Signs Temp Pulse Pulse Resp BP BP Pulse Ox 06/15/25 07:26 76 06/15/25 07:19 37.0 C 73 20 148/79 H 96 06/15/25 06:00 80 147/80 H 06/15/25 03:28 37.1 C 88 16 147/72 H 94 06/15/25 01:56 80 138/63 06/15/25 00:04 85 153/65 H O2 Del Method 06/15/25 07:26 06/15/25 07:19 Room Air 06/15/25 06:00 06/15/25 03:28 Room Air 06/15/25 01:56 06/15/25 00:04 Laboratory Results CBC 06/15/25 Range/Units 05:17 WBC 12.51 H (4.8-10.8) K/ul RBC 2.79 L (4.70-6.10) M/uL Hgb 9.2 L (14.0-18.0) g/dL Hct 27.0 L (42.0-52.0) % Plt Count 182 (130-400) K/uL Comprehensive Metabolic Panel 06/15/25 Range/Units 05:17 Sodium 141 (136-145) mmol/L Potassium 3.1 L (3.5-5.1) mmol/L Chloride 108 H (98-107) mmol/L Carbon Dioxide 26 (21-32) mmol/L BUN 8 (6-23) mg/dl Creatinine 0.82 (0.6-1.4) mg/dl Glucose 137 H (70-99(Fasting)) mg/dl Calcium 8.4 L (8.6-10.3) mg/dl Intake and Output 06/14/25 06/15/25 06/15/25 22:59 06:59 14:59 Intake Total 625 / 3820.994 1327.827 / 3820.994 793.333 / 793.333 Output Total 600 / 800 Balance 625 / 3020.994 727.827 / 3020.994 793.333 / 793.333 Intake: IV 625 / 3820.994 1327.827 / 3820.994 793.333 / 793.333 Amiodarone / D5w 360 mg In 200 177.577 / 377.577 ml @ 0.5 MG/MIN 16.667 mls/hr IV .Q12H [facility] Rx#:[id number] D5w and Lactated Ringers 1,000 1000 / 2000 293.333 / 293.333 ml @ 80 mls/hr IV .[id number] [facility] Rx#:[id number] Heparin 34942 Unit/500 ml D5w 325 / 556.25 500 / 500 25,000 units In 500 ml @ 1,950 UNITS/HR 39 mls/hr IV .[id number] [facility] Rx#:[id number] Piperacillin/Tazobactam 4.5 gm 100 / 200 100 / 200 In 100 ml @ 25 mls/hr IV Q8H [facility] Rx#:[id number] Potassium Chloride / Wtr 10 meq 200 / 386.667 In 100 ml @ 100 mls/hr IV Q1H [facility] Rx#:[id number] Promethazine 6.25 mg In 50.25 50.25 / 100.50 ml @ 201 mls/hr IV Q6H PRN Rx#: [id number] Output: Urine 600 / 800 Other: # Unmeasured Voids 1 Weight 105.7 kg 107.365 kg Weight Measurement Method Built in [facility] Diagnostic Findings Telemetry reviewed: NSR, no atrial fibrillation or flutter Medications Administered Current Inpatient Medications Acetaminophen (Acetaminophen 325 Mg Tab) 650 mg PO Q4H PRN PRN Reason: Pain or Fever Stop: 07/09/25 02:09 Acetaminophen (Acetaminophen 500 Mg Tab) 1,000 mg PO TID [facility] Stop: 07/09/25 08:59 Last Admin: 06/10/25 19:56 Dose: 1,000 mg Amiodarone HCl (Amiodarone 200 Mg Tab) 200 mg PO QAM [facility] Stop: 07/15/25 11:59 Ascorbic Acid (Ascorbic Acid 500 Mg Tab) 500 mg PO DAILY [facility] Stop: 07/09/25 08:59 Last Admin: 06/11/25 08:20 Dose: Not Given Atorvastatin Calcium (Atorvastatin 20 Mg Tab) 20 mg PO HS [facility] Stop: 07/09/25 20:59 Last Admin: 06/14/25 19:44 Dose: Not Given Epinephrine HCl (Epinephrine Inj 1 Mg/Ml Amp) 0.3 mg IM Q4H PRN PRN Reason: Anaphylaxis Stop: 07/09/25 02:25 Heparin Sodium/Dextrose (Heparin 46622 Unit/500 Ml D5w) 25,000 units in 500 mls @ 39 mls/hr IV .[id number] [facility]; Protocol Stop: 07/11/25 08:59 Last Admin: 06/15/25 07:47 Dose: 1,950 units/hr, 39 mls/hr Promethazine HCl (Phenergan) 6.25 mg in 50.25 mls @ 201 mls/hr IV Q6H PRN PRN Reason: Nausea And Vomiting Stop: 07/11/25 09:48 Last Infusion: 06/15/25 01:57 Dose: Infused Ampicillin Sodium/Sulbactam Sodium (Unasyn) 3,000 mg in 100 mls @ 200 mls/hr IV Q6H [facility] Stop: 06/25/25 11:59 Loratadine (Loratadine 10 Mg Tab) 10 mg PO DAILY PRN PRN Reason: Allergy Symptoms Stop: 07/09/25 02:09 Losartan Potassium (Losartan Potassium 25 Mg Tab) 25 mg PO QAM [facility] Stop: 07/09/25 08:59 Last Admin: 06/09/25 09:40 Dose: 25 mg Metoprolol Succinate (Metoprolol Succ 25mg Ext Rel Tab) 25 mg PO QAM [facility] Stop: 07/15/25 10:44 Last Admin: 06/15/25 11:55 Dose: 25 mg Morphine Sulfate (Morphine Sulfate 4 Mg/Ml 1 Ml Carp\Vial) 2 mg IV Q3H PRN PRN Reason: Moderate Pain (Scale 4, 5, 6) Stop: 06/25/25 15:47 Morphine Sulfate (Morphine Sulfate 4 Mg/Ml 1 Ml Carp\Vial) 4 mg IV Q3H PRN PRN Reason: Severe Pain (Scale 7, 8, 9,10) Stop: 06/25/25 15:41 Last Admin: 06/15/25 00:36 Dose: 4 mg Nitroglycerin (Nitroglycerin Sl 0.4 Mg/Tab Tab) 0.4 mg SL Q5M PRN PRN Reason: Chest Pain Stop: 07/09/25 02:09 Pantoprazole Sodium (Pantoprazole 40 Mg Tab) 40 mg PO BID [facility] Stop: 07/10/25 20:59 Last Admin: 06/11/25 08:21 Dose: Not Given Polyethylene Glycol (Polyethylene (Miralax) 17 Gm Pack) 17 gm PO DAILY PRN PRN Reason: Constipation Stop: 07/09/25 02:09 Last Admin: 06/10/25 08:35 Dose: 17 gm Potassium Chloride (Potassium Chloride Crtab 20 Meq Tabcr) 40 meq PO BID [facility] Stop: 07/15/25 08:59 Last Admin: 06/15/25 08:24 Dose: 40 meq Sennosides (Senna 8.6 Mg Tab) 8.6 mg PO BID [facility] Stop: 07/09/25 08:59 Last Admin: 06/11/25 08:21 Dose: Not Given Tamsulosin HCl (Tamsulosin Hcl 0.4 Mg Cap) 0.4 mg PO DAILY PRN PRN Reason: TROUBLE URINATING Stop: 07/09/25 02:09 Last Admin: 06/10/25 08:38 Dose: 0.4 mg Tramadol HCl (Tramadol Hcl 50 Mg Tablet) 50 - 100 mg PO Q6 PRN PRN Reason: pain Stop: 07/09/25 02:09 Vitamin D (Cholecalciferol 25 Mcg (1000 Units) Tab) 50 mcg PO DAILY [facility] Stop: 07/09/25 08:59 Last Admin: 06/11/25 08:21 Dose: Not Given Coding Level of Care Code 54216 SUB INP/OBS CARE 3/50MIN Diagnoses Atrial flutter with rapid ventricular response I48.92 S/P total right hip arthroplasty Z96.641 Fever R50.9 Acute diverticulitis K57.92 Hyperlipidemia E78.5
[2025-06-15] MEDS: AMPICILLIN/SULBACTAM SOD 3,000 MG/100 ML BAG IV SCH (12:17)
[2025-06-15] MEDS: AMIODARONE 200 MG TAB PO SCH (12:20)
[2025-06-15] MEDS ORDERED: AMOXICILLIN/CLAVULANATE 875 MG TAB PO SCH (17:00)
[2025-06-15] MEDS: PROMETHAZINE 6.25 MG/50.25 ML BAG IV STA (21:45)
[2025-06-16 06:22] LABS: Hematocrit (blood only) 25.7 % (42.0-52.0); Hemoglobin 8.7 g/dL (14.0-18.0); Mean Corpuscular Hemoglobin 32.7 pg (25.0-34.0); Mean Corpuscular Volume 96.6 fL (80.0-100.0); Platelet Count 210 K/uL (130-400); RDW Standard Deviation 47.6 fL (36.4-46.3); Red Blood Count 2.66 M/uL (4.70-6.10); White Blood Count 13.77 K/ul (4.8-10.8)
[2025-06-16 06:38] LABS: Anion Gap 7.0 (3-11); Blood Urea Nitrogen 7.0 mg/dl (6-23); Calcium 8.3 mg/dl (8.6-10.3); Carbon Dioxide 27.0 mmol/L (21-32); Chloride 106.0 mmol/L (98-107); Creatinine Clr Calc Pharmacy 101.5 ml/min; Glucose 108.0 mg/dl (70-99(Fasting)); Potassium 3.6 mmol/L (3.5-5.1); Sodium 140.0 mmol/L (136-145)
[2025-06-16 06:46] LABS: ANTI-Xa, UFH(UnfractionatedHep 0.26 IU/ml (0.3-0.7)
[2025-06-16] MEDS: OPTIRAY 320 100ml IV ONE (09:11)
--- NOTE | 2025-06-16 10:01 | CT Scan Report ---
CT SCAN OF THE ABDOMEN AND PELVIS WITH IV CONTRAST CLINICAL HISTORY: Intestinal perforation. Leukocytosis COMPARISON STUDY: Abdominal CT scans dated 06/11/2025 and 06/08/2025. TECHNIQUE: Following the IV administration of 94 cc of Optiray 320, CT scan of the abdomen and pelvi s is performed from the lung bases to the proximal femora. Images are reviewed in the axial, sagittal , and coronal planes. IV contrast was administered without complication. A dose lowering technique wa s utilized adhering to the principles of ALARA. There is streak artifact from the right arm which cou ld not be elevated above the abdomen. There is also motion artifact. CT DOSE: 1465.17 mGy.cm FINDINGS: Lung bases: The heart is mildly enlarged and without pericardial effusion. The coronary arteries are densely calcified. There is trace right pleural effusion with dependent atelectasis. A calcified gran uloma seen at the left lung base. A small hiatal hernia is observed. Liver: The contrast-enhanced liver is normal in size, contour, and attenuation. There is no intrahepa tic biliary ductal dilatation. The hepatic veins and portal veins are patent. Gallbladder: Unremarkable. Spleen: Normal in size and attenuation. Pancreas: The pancreas is moderately atrophic. Scattered parenchymal calcifications suggest chronic p ancreatitis. Adrenal glands: Unremarkable. Kidneys: The contrast enhanced kidneys are normal in size and without hydronephrosis. The kidneys enh ance symmetrically. There are at least 3 nonobstructing left renal calculi which measure up to 4 mm. A 2.6 cm cyst arises from the right upper pole. A circumaortic left renal vein is incidentally noted. Abdominal vasculature: The abdominal aorta is normal in course and caliber noting mild atheroscleroti c calcification. Bowel: There is moderate diverticulosis of the left colon. There is a large inflammatory process in t he right lower quadrant with significantly thick-walled and tethered loops of small bowel seen on axi al image #237. There are 2 gas and fluid containing collections which appear to be extraluminal. An a pproximately 4 x 4.5 cm pocket of gas and fluid is seen on axial image #229 and an approximately 7 x 5.5 cm pocket is seen on image #247. The appendix is normal as visualized. There are distended and f luid-filled loops of proximal small bowel which measure up to 5 cm. There is a transition at the infl ammatory process in the right lower quadrant, PA and the distal small bowel is decompressed. This lik wisam represents at least a partial small bowel obstruction secondary to inflammatory process. Peritoneum: There is a small amount of intraperitoneal free air below the right hemidiaphragm seen on axial image #67. Intraperitoneal free air has decreased from 06/11/2025. There is a 5.1 x 3.8 x 2.4 cm thick-walled collection of the anterior right upper pelvis seen on image #283. There is an approxi mately 9 x 4 x 2.5 cm thick-walled collection in the right inguinal hernia seen on axial image #358. This approximates bowel along its superior margin. Pelvic ascites is observed. Lymphadenopathy: None. Pelvic viscera: Evaluation of the pelvis is degraded by streak artifact from bilateral hip arthroplas ties. The prostate gland is diminutive and heterogeneous. The bladder is mildly distended, and the wa ll appears thickened/trabeculated indicating chronic outlet obstruction. There are bilateral fat-cont aining groin hernias. Skeletal structures: The skeletal structures are osteopenic. Degenerative and postsurgical change is noted in the lumbar spine with grade 1 anterolisthesis at L4-L5. Mild sclerotic change is noted in th e sacroiliac joints. No lytic or blastic lesions are seen. Bilateral hip arthroplasties are in place. IMPRESSION: 1. There is a large inflammatory process in the right lower quadrant with thick walled and tethered a ppearing adjacent small bowel loops. Additionally, there is diverticulosis of the adjacent sigmoid co petr. There is evidence of visceral perforation, and it is unclear if this is related to the inflamed small bowel loops or the sigmoid colon. 2. There are 2 large organizing gas and fluid containing collections with surrounding inflamed small bowel loops in the right lower quadrant mesentery. These are consistent with developing abscesses, an d are not amenable to percutaneous drainage given the location/adjacent bowel. Fistula formation in t his region is not excluded. 3. There is an additional thick walled fluid collection in the ventral right upper pelvis which likel y resents abscess. 4. There is a large thick walled pocket of fluid within the right inguinal hernia which has significa ntly increased from 06/09/2025 and could also represent abscess. Note that small bowel closely approxi mates the superior aspect of this collection. 5. The inflammatory process in the right lower quadrant causes at least a partial small bowel obstruc tion. See above. 6. Intraperitoneal free air is again noted. This has decreased from 06/20/2025. There is also pelvic ascites. 7. Cardiomegaly and small right pleural effusion. 8. Left-sided nephrolithiasis. 9. Additional findings as above. ACT 112: Negative or not required by law. Electronically signed by: Jeff Sosa M.D. 06/16/2025 9:58 AM
--- NOTE | 2025-06-16 11:50 | Surgery Progress Note ---
Date of Service June 16, 2025 Assessment & Plan (1) Diverticular disease of intestine with perforation and abscess: Plan: Diverticulitis with ileus versus obstruction, now with several developing abscesses. Some of the smaller abscesses are located deep in the abdomen are surrounded by bowel and are not amendable to IR drainage. 1 or 2 of these appear to be amenable to IR drainage. Continue IV antibiotics Recommend PICC for TPN and for long-term IV antibiotics Consult IR on Wednesday for possible drainage We will allow him to have full liquids today Surgical follow, call with questions or concerns (2) Atrial flutter with rapid ventricular response: (3) History of hip replacement: Admission and Anticipated Discharge Date Admission Date: June 08, 2025 Subjective Admitted with perforated diverticulitis. He is moving his bowels and is feeling much better. Feels like he has turned a corner. Physical Exam Constitutional: WD/WN, vitals as above + obese Gastrointestinal (Abdomen): Percussion/Palpation: + abdomen tender (Mild tenderness palpation in right lower quadrant > left lower quadrant) and abdomen soft; no guarding and abdomen not rigid Results & Data Vital Signs (Past 12 Hours) Vital Signs Temp Pulse Resp BP Pulse Ox O2 Del Method 06/16/25 07:59 37.4 C 87 18 149/75 H 94 Room Air 06/16/25 03:01 37.2 C 87 18 157/66 H 90 Room Air Laboratory Results Laboratory Results - last 24 hr 06/16/25 05:33 WBC 13.77 H RBC 2.66 L Hgb 8.7 L Hct 25.7 L MCV 96.6 MCH 32.7 MCHC 33.9 RDW Std Deviation 47.6 H RDW Coeff of Chiny[place] 13.4 Plt Count 210 MPV 10.8 Heparin Anti-Xa, Unfract 0.26 L Sodium 140 Potassium 3.6 Chloride 106 Carbon Dioxide 27 Anion Gap 7 BUN 7 Creatinine 0.77 Est Cr Clr Drug Dosing 101.5 eGFR 93.36 BUN/Creatinine Ratio 9.1 L Glucose 108 H Calcium 8.[address] scan personally viewed and interpreted and agree with the assessment of acute perforated diverticulitis, less pneumoperitoneum, however several developing fluid collections. 1 or 2 of these may be amenable to percutaneous drainage, the others are smaller and not amenable to drainage due to location and relationship to the bowel Abdomen/Pelvis CT 06/16/25 07:45 CT SCAN OF THE ABDOMEN AND PELVIS WITH IV CONTRAST CLINICAL HISTORY: Intestinal perforation. Leukocytosis COMPARISON STUDY: Abdominal CT scans dated 06/11/2025 and 06/08/2025. TECHNIQUE: Following the IV administration of 94 cc of Optiray 320, CT scan of the abdomen and pelvis is performed from the lung bases to the proximal femora. Images are reviewed in the axial, sagittal, and coronal planes. IV contrast was administered without complication. A dose lowering technique was utilized adhering to the principles of ALARA. There is streak artifact from the right arm which could not be elevated above the abdomen. There is also motion artifact. CT DOSE: 1465.17 mGy.cm FINDINGS: Lung bases: The heart is mildly enlarged and without pericardial effusion. The coronary arteries are densely calcified. There is trace right pleural effusion with dependent atelectasis. A calcified granuloma seen at the left lung base. A small hiatal hernia is observed. Liver: The contrast-enhanced liver is normal in size, contour, and attenuation. There is no intrahepatic biliary ductal dilatation. The hepatic veins and portal veins are patent. Gallbladder: Unremarkable. Spleen: Normal in size and attenuation. Pancreas: The pancreas is moderately atrophic. Scattered parenchymal calcifications suggest chronic pancreatitis. Adrenal glands: Unremarkable. Kidneys: The contrast enhanced kidneys are normal in size and without hydronephrosis. The kidneys enhance symmetrically. There are at least 3 nonobstructing left renal calculi which measure up to 4 mm. A 2.6 cm cyst arises from the right upper pole. A circumaortic left renal vein is incidentally noted. Abdominal vasculature: The abdominal aorta is normal in course and caliber noting mild atherosclerotic calcification. Bowel: There is moderate diverticulosis of the left colon. There is a large inflammatory process in the right lower quadrant with significantly thick-walled and tethered loops of small bowel seen on axial image #237. There are 2 gas and fluid containing collections which appear to be extraluminal. An approximately 4 x 4.5 cm pocket of gas and fluid is seen on axial image #229 and an approximately 7 x 5.5 cm pocket is seen on image #247. The appendix is normal as visualized. There are distended and fluid-filled loops of proximal small bowel which measure up to 5 cm. There is a transition at the inflammatory process in the right lower quadrant, PA and the distal small bowel is decompressed. This likely represents at least a partial small bowel obstruction secondary to inflammatory process. Peritoneum: There is a small amount of intraperitoneal free air below the right hemidiaphragm seen on axial image #67. Intraperitoneal free air has decreased from 06/11/2025. There is a 5.1 x 3.8 x 2.4 cm thick-walled collection of the anterior right upper pelvis seen on image #283. There is an approximately 9 x 4 x 2.5 cm thick-walled collection in the right inguinal hernia seen on axial image #358. This approximates bowel along its superior margin. Pelvic ascites is observed. Lymphadenopathy: None. Pelvic viscera: Evaluation of the pelvis is degraded by streak artifact from bilateral hip arthroplasties. The prostate gland is diminutive and heterogeneous. The bladder is mildly distended, and the wall appears thickened/trabeculated indicating chronic outlet obstruction. There are bilateral fat-containing groin hernias. Skeletal structures: The skeletal structures are osteopenic. Degenerative and postsurgical change is noted in the lumbar spine with grade 1 anterolisthesis at L4-L5. Mild sclerotic change is noted in the sacroiliac joints. No lytic or blastic lesions are seen. Bilateral hip arthroplasties are in place. IMPRESSION: 1. There is a large inflammatory process in the right lower quadrant with thick walled and tethered appearing adjacent small bowel loops. Additionally, there is diverticulosis of the adjacent sigmoid colon. There is evidence of visceral perforation, and it is unclear if this is related to the inflamed small bowel loops or the sigmoid colon. 2. There are 2 large organizing gas and fluid containing collections with surrounding inflamed small bowel loops in the right lower quadrant mesentery. These are consistent with developing abscesses, and are not amenable to percutaneous drainage given the location/adjacent bowel. Fistula formation in this region is not excluded. 3. There is an additional thick walled fluid collection in the ventral right upper pelvis which likely resents abscess. 4. There is a large thick walled pocket of fluid within the right inguinal hernia which has significantly increased from 06/09/2025 and could also represent abscess. Note that small bowel closely approximates the superior aspect of this collection. 5. The inflammatory process in the right lower quadrant causes at least a partial small bowel obstruction. See above. 6. Intraperitoneal free air is again noted. This has decreased from 06/20/2025. There is also pelvic ascites. 7. Cardiomegaly and small right pleural effusion. 8. Left-sided nephrolithiasis. 9. Additional findings as above. ACT 112: Negative or not required by law. Electronically signed by: Jeff Ssoa M.D. 06/16/2025 9:58 AM PG Care Time/CCT Total # of Minutes Spent Total Time Spent with Patient: Total time spent is greater than 50% in coordination of care (as documented) at patient's floor/unit and/or counseling patient: Coding Level of Care Code 15260 SUB INP/OBS CARE 2/35MIN Diagnoses Diverticular disease of intestine with perforation and abscess K57.80 Atrial flutter with rapid ventricular response I48.92 History of hip replacement Z96.649
--- NOTE | 2025-06-16 14:52 | Communication Note ---
Date of Service: June 16, 2025 Patient's family requested provider from General Surgery team. Hospitalist, Dr. Ruiz present as well. Patient's and sister present and had questions regarding patient's most recent CT scan. I reiterated that our current plan is to treat abscesses with IV antibiotics with possible evaluation by IR Wednesday to see if any are amenable to drainage. Patient's niece is a physician at [facility] and has requested CT imaging. Family may be interested in transfer. Dr. Ruiz is going to continue to manage IV antibiotics- discussed possible Infectious Disease consult.
--- NOTE | 2025-06-16 14:54 | Hospitalist Progress Note ---
Date of Service June 16, 2025 Assessment & Plan (1) Atrial flutter with rapid ventricular response: Plan: 74 yo M with past medical history significant for gout, dyslipidemia, allergic rhinitis, GERD, BPH, polymyalgia rheumatica, osteoarthritis, history of kidney stones presents with fevers and found to be in rapid A-Flutter Patient recently on 06/05/2025 had right hip replacement. #Diverticulitis #SBO -Bowel perforation secondary to complicated diverticulitis -Surgery consulted and elected to pursue conservative management -BM on 06/12 -Pain improving -Blood cultures NGTD -Afebrile -WBC has been slightly increased and after discussions with surgery, CT AP was performed on 06/16 -CT AP 06/16 images reviewed. showing 3 likely abscesses which are new. Also read as partial SBO however clinically no longer has a SBO given he is tole rating solids and having bowel movements Plan -Continue full liquid diet -Switch back to zosyn for empiric coverage. low suspicion for MRSA so risks of vanc outweigh benefits -Multiple d/w surgical team today, there is no strong indication for transfer -Surgery believes two of the abscesses may be amenable to IR drainage. Will consult IR on wednesday -Will also consult ID on wednesday to abx guidance/duration -Pain control -Encourage ambulation -Daily labs #A-flutter with RVR -Currently in NSR on amio drip Plan -Continue PO metoprolol -Continue PO amio -Continue heparin drip for now -Switch back to eliquis upon discharge -Cardiac monitoring #Anemia -POA -No s/s acute blood loss -Hgb 8.7, likely dilutional component -Follow Hgb closely while on AC #Scrotal edema -Secondary to IVF -Instructed to keep scrotum elevated when laying down -Encourage ambulation -This should improve as his condition improves -Should he develop pain, will ask urology to evaluate although doubtful there will be much they can do #Hypokalemia -Replace and follow -Mg normal #Prolonged QTc Avoid QT prolonging drugs Follow repeat EKG. #Hyperlipidemia On statin #Hypertension Resume home losartan #Recent Right hip replacement Orthopedics consulted - no concern at this time about R hip DVT prophylaxis Eliquis --> to IV heparin Disposition Telemetry Full code. I spent a total of 90 minutes coordinating, documenting, and providing care for this patient excluding time spent in the performance of separately billed services. This included personally reviewing all current laboratories and imaging studies, medical reconciliation, outpatient chart review and discussion with specialists Admission and Anticipated Discharge Date Admission Date: June 08, 2025 Subjective Patient seen and examined three times so far today. He is feeling very well. he is tolerating liquid diet. he had a bowel movement this afternoon. multiple lengthy conversations with family present in room and on the phone including patient's niece who is a ED physician. Also disucssed with Dr souza and the surgical ROSA darlene. He denies f/c cp palp dyspnea cough wheez abd pain nvd. endorses scrotal swelling Physical Exam Physical Exam: Vitals and labs reviewed General: Well appearing, NAD HEENT: EOMI, PERRLA Neck: Supple Cardiac: RRR no rubs gallops or murmurs Lungs: CTA no rhonchi wheezing or rales Abd: NG tube is removed. Abd improving distention. bs positive. no TTP : No yee. scrotal edema MSK: Full ROM. No obvious deformities Ext: No Edema cyanosis Skin: Warm, Dry Neuro: AOx3 No focal deficits. Psych: Normal Mood Results & Data Results & Data Vital Signs (Past 12 Hours) Vital Signs Temp Pulse Resp BP BP Pulse Ox O2 Del Method 06/16/25 12:32 37.5 C 80 16 136/71 96 Room Air 06/16/25 07:59 37.4 C 87 18 149/75 H 94 Room Air 06/16/25 03:01 37.2 C 87 18 157/66 H 90 Room Air Laboratory Results Abnormal lab results 06/16/25 Range/Units 05:33 WBC 13.77 H (4.8-10.8) K/ul RBC 2.66 L (4.70-6.10) M/uL Hgb 8.7 L (14.0-18.0) g/dL Hct 25.7 L (42.0-52.0) % RDW Std Deviation 47.6 H (36.4-46.3) fL Heparin Anti-Xa, Unfract 0.26 L (0.3-0.7) IU/ml BUN/Creatinine Ratio 9.1 L (10-20) Glucose 108 H (70-99(Fasting)) mg/dl Calcium 8.3 L (8.6-10.3) mg/dl
[2025-06-16] MEDS: PROMETHAZINE 12.5 MG/50.5 ML BAG IV PRN (17:05)
[2025-06-16] MEDS: PIPERACILLIN/TAZOBACTAM 4.5 GM/100 ML BAG IV SCH (17:32)
[2025-06-16 22:15] LABS: ANTI-Xa, UFH(UnfractionatedHep 0.25 IU/ml (0.3-0.7)
[2025-06-17 05:00] LABS: Hematocrit (blood only) 26.0 % (42.0-52.0); Hemoglobin 8.8 g/dL (14.0-18.0); Mean Corpuscular Hemoglobin 33.1 pg (25.0-34.0); Mean Corpuscular Volume 97.7 fL (80.0-100.0); Platelet Count 218 K/uL (130-400); RDW Standard Deviation 48.7 fL (36.4-46.3); Red Blood Count 2.66 M/uL (4.70-6.10); White Blood Count 14.80 K/ul (4.8-10.8)
[2025-06-17 05:15] LABS: Anion Gap 5.0 (3-11); Blood Urea Nitrogen 9.0 mg/dl (6-23); Calcium 8.0 mg/dl (8.6-10.3); Carbon Dioxide 27.0 mmol/L (21-32); Chloride 105.0 mmol/L (98-107); Creatinine Clr Calc Pharmacy 88.8 ml/min; Glucose 130.0 mg/dl (70-99(Fasting)); Potassium 4.0 mmol/L (3.5-5.1); Sodium 137.0 mmol/L (136-145)
[2025-06-17 05:36] LABS: ANTI-Xa, UFH(UnfractionatedHep 0.33 IU/ml (0.3-0.7)
--- NOTE | 2025-06-17 10:23 | Surgery Progress Note ---
Date of Service June 17, 2025 Assessment & Plan (1) Diverticular disease of intestine with perforation and abscess: Plan: Diverticulitis with abscess, currently stable but did have a fever and slightly increased leukocytosis. Continue IV antibiotics We will discuss with IR tomorrow regarding possibility of drainage of more accessible fluid collections N.p.o. after midnight, continue full liquids for today Hold heparin at midnight Patient's family had discussed possibility of transfer, this would be an option for him. If unable to drain percutaneously, may recommend exploration with Hair's procedure. Could also discussed with her colorectal surgeon tomorrow Surgical follow, call with questions or concerns Admission and Anticipated Discharge Date Admission Date: June 08, 2025 Subjective Admitted with diverticulitis, scan yesterday showed decreased pneumoperitoneum but organizing fluid collections. Did have a fever yesterday, felt some nausea. Pain is improved. Physical Exam Constitutional: WD/WN, vitals as above + obese Respiratory: normal respiratory effort, lungs clear to auscultation Cardiovascular: RRR, no murmur, no edema Gastrointestinal (Abdomen): Percussion/Palpation: + abdomen tender (Mild right greater than left lower quadrant tenderness) and abdomen soft; no guarding and abdomen not rigid Results & Data Vital Signs (Past 12 Hours) Vital Signs Temp Pulse Resp BP Pulse Ox O2 Del Method 06/17/25 07:16 37.6 C H 90 18 131/73 93 Room Air 06/17/25 03:41 37.7 C H 94 H 18 159/77 H 93 Room Air 06/16/25 23:02 38.5 C H 96 H 20 157/81 H 93 Room Air Laboratory Results Laboratory Results - last 24 hr 06/16/25 06/17/25 21:18 04:28 WBC 14.80 H RBC 2.66 L Hgb 8.8 L Hct 26.0 L MCV 97.7 MCH 33.1 MCHC 33.8 RDW Std Deviation 48.7 H RDW Coeff of Chinyere 13.5 Plt Count 218 MPV 10.8 Heparin Anti-Xa, Unfract 0.25 L 0.33 Sodium 137 Potassium 4.0 Chloride 105 Carbon Dioxide 27 Anion Gap 5 BUN 9 Creatinine 0.88 Est Cr Clr Drug Dosing 88.8 eGFR 89.67 BUN/Creatinine Ratio 10.2 Glucose 130 H Calcium 8.0 L PG Care Time/CCT Total # of Minutes Spent Total Time Spent with Patient: Total time spent is greater than 50% in coordination of care (as documented) at patient's floor/unit and/or counseling patient: Coding Level of Care Code 89305 SUB INP/OBS CARE MIN Diagnoses Diverticular disease of intestine with perforation and abscess K57.80
--- NOTE | 2025-06-17 11:35 | Hospitalist Progress Note ---
Date of Service June 17, 2025 Assessment & Plan (1) Atrial flutter with rapid ventricular response: Plan: 74 yo M with past medical history significant for gout, dyslipidemia, allergic rhinitis, GERD, BPH, polymyalgia rheumatica, osteoarthritis, history of kidney stones presents with fevers and found to be in rapid A-Flutter Patient recently on 06/05/2025 had right hip replacement. #Diverticulitis #SBO -Bowel perforation secondary to complicated diverticulitis -Moving bowels regularly -Tolerating PO -Blood cultures NGTD -Afebrile -WBC 14k today -CT AP 06/16 images reviewed. Showing 3 likely abscesses which are new. Plan -Continue full liquid diet. NPO after MN -Hold heparin drip at MN -Continue zosyn -Surgery believes two of the abscesses may be amenable to IR drainage. Will consult IR on wednesday -Will also consult ID on wednesday to abx guidance/duration -Pain control -Encourage ambulation -Daily labs #A-flutter with RVR -Currently in NSR on amio drip Plan -Continue PO metoprolol -Continue PO amio -Continue heparin drip for now -Switch back to eliquis upon discharge -Cardiac monitoring #Anemia -POA -No s/s acute blood loss -Hgb 8.8 stable -Follow Hgb closely while on AC #Scrotal edema -Secondary to IVF -Instructed to keep scrotum elevated when laying down -Encourage ambulation -This should improve as his condition improves -Should he develop pain, will ask urology to evaluate although doubtful there will be much they can do #Hypokalemia -Replace and follow -Mg normal #Prolonged QTc Avoid QT prolonging drugs Follow repeat EKG. #Hyperlipidemia On statin #Hypertension Resume home losartan #Recent Right hip replacement Orthopedics consulted - no concern at this time about R hip DVT prophylaxis Eliquis --> to IV heparin Disposition Telemetry Full code. I spent a total of 60 minutes coordinating, documenting, and providing care for this patient excluding time spent in the performance of separately billed services. This included personally reviewing all current laboratories and imaging studies, medical reconciliation, outpatient chart review and discussion with specialists Admission and Anticipated Discharge Date Admission Date: June 08, 2025 Subjective He states he is feeling very well today, the best he has felt since he was admitted. eating and drinking without pain or nausea. urinating and moving bowels. Physical Exam Physical Exam: Vitals and labs reviewed General: Well appearing, NAD HEENT: EOMI, PERRLA Neck: Supple Cardiac: RRR no rubs gallops or murmurs Lungs: CTA no rhonchi wheezing or rales Abd: NG tube is removed. Abd improving distention. bs positive. no TTP : No yee. scrotal edema-improved MSK: Full ROM. No obvious deformities Ext: No Edema cyanosis Skin: Warm, Dry Neuro: AOx3 No focal deficits. Psych: Normal Mood Results & Data Results & Data Vital Signs (Past 12 Hours) Vital Signs Temp Pulse Pulse Pulse Resp BP Pulse Ox 06/17/25 11:20 37.7 C H 86 20 128/68 95 06/17/25 08:15 89 06/17/25 07:16 37.6 C H 90 18 131/73 93 06/17/25 03:41 37.7 C H 94 H 18 159/77 H 93 O2 Del Method 06/17/25 11:20 Room Air 06/17/25 08:15 06/17/25 07:16 Room Air 06/17/25 03:41 Room Air Laboratory Results Abnormal lab results 06/16/25 06/17/25 Range/Units 21:18 04:28 WBC 14.80 H (4.8-10.8) K/ul RBC 2.66 L (4.70-6.10) M/uL Hgb 8.8 L (14.0-18.0) g/dL Hct 26.0 L (42.0-52.0) % RDW Std Deviation 48.7 H (36.4-46.3) fL Heparin Anti-Xa, Unfract 0.25 L (0.3-0.7) IU/ml Glucose 130 H (70-99(Fasting)) mg/dl Calcium 8.0 L (8.6-10.3) mg/dl
[2025-06-17] MEDS: ACETAMINOPHEN 325 MG TAB PO PRN (15:53)
[2025-06-17] MEDS: PROMETHAZINE HCL 25 MG TAB PO ONE (17:13)
[2025-06-18 05:45] LABS: Hematocrit (blood only) 25.0 % (42.0-52.0); Hemoglobin 8.4 g/dL (14.0-18.0); Mean Corpuscular Hemoglobin 33.3 pg (25.0-34.0); Mean Corpuscular Volume 99.2 fL (80.0-100.0); Platelet Count 230 K/uL (130-400); RDW Standard Deviation 47.9 fL (36.4-46.3); Red Blood Count 2.52 M/uL (4.70-6.10); White Blood Count 15.13 K/ul (4.8-10.8)
[2025-06-18 06:00] LABS: Anion Gap 5.0 (3-11); Blood Urea Nitrogen 11.0 mg/dl (6-23); Calcium 8.5 mg/dl (8.6-10.3); Carbon Dioxide 27.0 mmol/L (21-32); Chloride 106.0 mmol/L (98-107); Creatinine Clr Calc Pharmacy 81.8 ml/min; Glucose 109.0 mg/dl (70-99(Fasting)); Potassium 4.6 mmol/L (3.5-5.1); Sodium 138.0 mmol/L (136-145)
--- NOTE | 2025-06-18 10:59 | Surgery Progress Note ---
Date of Service June 18, 2025 Assessment & Plan (1) Diverticular disease of intestine with perforation and abscess: Plan: Diverticulitis with abscess, currently stable, no fevers overnight but slight increase in leukocytosis IR was planning to attempt drainage today, however patient is being transferred to [facility], therefore we will cancel From our standpoint can start back on liquid diet and restart heparin, however should discuss with physicians at excepting facility Surgery will follow while in house Admission and Anticipated Discharge Date Admission Date: June 08, 2025 Subjective Diverticulitis with abscess. Planning on IR drainage today, however family has requested transfer [facility] where the niece is a physician. This is currently being coordinated by the hospitalist. Feels about the same as yesterday, denies fevers. Physical Exam Constitutional: WD/WN, vitals as above Respiratory: normal respiratory effort, lungs clear to auscultation Cardiovascular: RRR, no murmur, no edema Gastrointestinal (Abdomen): Percussion/Palpation: + abdomen tender (Mildly tender to palpation RLQ>LLQ) and abdomen soft; no guarding and abdomen not rigid Results & Data Vital Signs (Past 12 Hours) Vital Signs Temp Pulse Pulse Resp BP Pulse Ox O2 Del Method 06/18/25 10:39 36.6 C 80 20 125/73 95 Room Air 06/18/25 07:53 88 06/18/25 07:21 37.2 C 83 18 115/74 94 Room Air 06/18/25 03:07 37.4 C 81 18 133/73 93 Room Air Laboratory Results Laboratory Results - last 24 hr 06/18/25 05:25 WBC 15.13 H RBC 2.52 L Hgb 8.4 L Hct 25.0 L MCV 99.2 MCH 33.3 MCHC 33.6 RDW Std Deviation 47.9 H RDW Coeff of Chinyere 13.2 Plt Count 230 MPV 10.6 Sodium 138 Potassium 4.6 Chloride 106 Carbon Dioxide 27 Anion Gap 5 BUN 11 Creatinine 0.96 Est Cr Clr Drug Dosing 81.8 eGFR 82.43 BUN/Creatinine Ratio 11.5 Glucose 109 H Calcium 8.5 L PG Care Time/CCT Total # of Minutes Spent Total Time Spent with Patient: Total time spent is greater than 50% in coordination of care (as documented) at patient's floor/unit and/or counseling patient: Coding Level of Care Code 57563 SUB INP/OBS CARE MIN Diagnoses Diverticular disease of intestine with perforation and abscess K57.80
--- NOTE | 2025-06-18 11:09 | Discharge Summary ---
Discharge Summary Date of Service June 18, 2025 Principal Dx & Hospital Course #1 = Principal Diagnosis (1) Atrial flutter with rapid ventricular response: 74 yo M with past medical history significant for gout, dyslipidemia, allergic rhinitis, GERD, BPH, polymyalgia rheumatica, osteoarthritis, history of kidney stones presents with fevers, abd pain and rapid A-Flutter Patient recently on 06/05/2025 had right hip replacement on 06/05. He was found to have Sigmoid diverticulitis with intestinal perforation and SBO. surgery was consulted, recommended conservative management. NG tube placed. Started on zosyn. He clinically improved and NG was removed on 06/14. He tolerated full liquids and has been having regular bowel movements. Regarding his afib, he was on amio drip while NPO but converted to NSR and was converted to PO amio when NG was removed. He developed worsening leukocytosis and repeat CT AP 06/16 showed multiple newly developing abscesses. It is unclear if IR would be able to access them. D/w surgical team over the weekend, they are ok with transferring for higher level of care. family insistent on transfer. Relative is an ED physician at [facility] who reviewed images with surgical team at [facility] who ultimately requested patient be transferred. patient and family agreeable for transfer. Accepted at [facility] under Dr Gayle. He remains on a heparin drip for stroke prophylaxis. It was held at [facility] last evening in case IR was going to try to drain the abscesses. Given that he is in NSR currently, risks of thromboembolism is low and he may go for surgery immediately this evening upon arrival so heparin drip will remain off as long as he is transferred this afternoon. Vitals remain stable. Blood cultures drawn on 06/17 due to fevers, NGTD. Last fever was afternoon on 06/17. #Diverticulitis #SBO -Bowel perforation secondary to complicated diverticulitis -Moving bowels regularly -Tolerating PO -Blood cultures NGTD -WBC 15k today -CT AP 06/16 images reviewed. Showing 3 likely abscesses which are new. #Afib/flutter Plan -Continue PO metoprolol -Continue PO amio -Continue heparin drip for now -Switch back to eliquis upon discharge -Cardiac monitoring #Anemia -POA -No s/s acute blood loss -Hgb 8.4 stable -Follow Hgb closely while on AC #Scrotal edema -Secondary to IVF -Instructed to keep scrotum elevated when laying down -Encourage ambulation -This should improve as his condition improves -Should he develop pain, will ask urology to evaluate although doubtful there will be much they can do #Hypokalemia -Replace and follow -Mg normal #Prolonged QTc Avoid QT prolonging drugs Follow repeat EKG. #Hyperlipidemia On statin #Hypertension Resume home losartan #Recent Right hip replacement Orthopedics consulted - no concern at this time about R hip DVT prophylaxis Eliquis --> to IV heparin Disposition Telemetry Full code. I spent a total of 75 minutes coordinating, documenting, and providing care for this patient excluding time spent in the performance of separately billed services. This included personally reviewing all current laboratories and imaging studies, medical reconciliation, outpatient chart review and discussion with specialists Notes For Next Care Provider Resume eliquis for afib/flutter when able Blood cultures from 06/17 NGTD Medication Changes From Visit as above Admission HPI Per Admitting Provider 74-year-old male with past medical history significant for gout, dyslipidemia, allergic rhinitis, GERD, BPH, polymyalgia rheumatica, osteoarthritis, history of kidney stones presents with fevers and found to be in rapid A-Flutter Patient recently on 06/05/2025 had right hip replacement. During the surgery patient went into a flutter which was responsive to beta-martina. Postoperatively he was asymptomatic but again went into rapid a flutter. During that admission he was seen by cardiology for new onset a flutter and was started on metoprolol succinate and also Eliquis. Patient was discharged on 06/06/2025. Patient had monitor placed today. Patient states since yesterday evening having fevers. His fevers are not getting better so he came to the ER today. In the ER he was found to be in rapid A-Flutter. Currently on Cardizem drip. Patient complains of some knotty feeling in his stomach and is having abdominal discomfort. Denies any chest pain or shortness of breath. No cough. No headache. No runny nose or sore throat. He has some watering and itching of the eyes. Appetite is okay. Normal bowel and bladder movements. Past medical history. As mentioned above. Past surgical history. Bilateral knee arthroplasties. Colonoscopy. Cystoscopy. Cystoscopy and stent removal. Bilateral cataracts. Repair of left inguinal hernia. Left total hip replacement in 2016. Right total hip replac ement 06/05/2025. Social history. . Quit smoking 1983. Smoked 1 pack a day for 15 years. Alcohol 1 or 2/week. No drug use. Family history. Father had arthritis. Subdural hematoma. Mother had diabetes. CHF. Cirrhosis. Discharge Exam Vitals and labs reviewed General: Well appearing, NAD HEENT: EOMI, PERRLA Neck: Supple Cardiac: RRR no rubs gallops or murmurs Lungs: CTA no rhonchi wheezing or rales Abd: NG tube is removed. Abd distention. bs positive. no TTP : No yee. scrotal edema-improved MSK: Full ROM. No obvious deformities Ext: No Edema cyanosis Skin: Warm, Dry Neuro: AOx3 No focal deficits. Psych: Normal Mood Updated Medication List Medication Instructions Recorded Confirmed Type loratadine 10 mg tablet (Claritin) 10 mg PO DAILY PRN Allergy Symptoms 12/13/20 06/08/25 History pantoprazole 40 mg tablet,delayed 40 mg PO HS PRN Heartburn 12/13/20 06/08/25 History release (Protonix) amoxicillin 500 mg tablet 2,000 mg PO DIRECTED PRN Dental 05/04/25 06/08/25 History Procedure ascorbic acid (vitamin C) 500 mg 500 mg PO DAILY 05/04/25 06/08/25 History tablet (Vitamin C) mluxsqr-jgqkrunndinre-qtomtidx 250 1 tab PO DAILY PRN Headaches 05/04/25 06/08/25 History mg-250 mg-65 mg tablet (Excedrin Extra Strength) atorvastatin 20 mg tablet 20 mg PO HS 05/04/25 06/08/25 History cholecalciferol (vitamin D3) 50 50 mcg PO DAILY 05/04/25 06/08/25 History mcg (2,000 unit) capsule (Vitamin D3) clobetasol 0.05 % topical ointment 1 applic topical DAILY PRN Skin 05/04/25 06/08/25 History Irritation epinephrine 0.3 mg/0.3 mL 0.3 mg IM Q4H PRN Anaphylaxis 05/04/25 06/08/25 History injection, auto-injector (EpiPen) fluorouracil 5 % topical cream 1 applic topical BID PRN UD 05/04/25 06/08/25 History Dermatology losartan 25 mg tablet 25 mg PO QAM 05/04/25 06/08/25 History acetaminophen 500 mg tablet 1,000 mg (2 x 500 mg) PO TID pain 06/01/25 06/08/25 Rx (Tylenol Extra Strength) 30 days #180 tabs ondansetron 4 mg disintegrating 4 mg PO Q8 PRN nausea #20 tabs 06/01/25 06/08/25 Rx tablet sennosides 8.6 mg tablet (Senokot) 8.6 mg PO BID prevent constipation 06/01/25 06/08/25 Rx 14 days #28 tabs tramadol 50 mg tablet 50 - 100 mg (1 - 2 x 50 mg) PO Q6 06/01/25 06/08/25 Rx PRN pain #40 tabs Amnio Acid Tablets 2 tab PO TID 06/08/25 06/08/25 History apixaban 5 mg tablet (Eliquis) 5 mg PO BID 06/08/25 06/08/25 History metoprolol succinate 25 mg 25 mg PO QAM 06/08/25 06/08/25 History tablet,extended release 24 hr tamsulosin 0.4 mg capsule (Flomax) 0.4 mg PO DAILY PRN TROUBLE 06/08/25 06/08/25 History URINATING Hospital Stay Data Consultations 06/08/25 22:44 ED Decision to Admit Stat 06/09/25 07:37 Consult Orthopedic Surgery Routine 06/09/25 08:00 Consult Cardiology Routine 06/11/25 03:55 Consult General Surgery Routine 06/16/25 12:36 Burn CD for patient Stat Diagnostic Imagining Performed 06/08/25 23:32 CT Abd and Pelvis [CT abd pelvis IV con only] Urgent CT angio chest PE protocol Urgent 06/11/25 02:21 CT Abd and Pelvis [CT abd pelvis IV con only] Urgent 06/16/25 07:45 CT abd pelvis IV con only Urgent 06/18/25 09:[address] periton/retro w/gdnce Routine Pending Results Patient Have Any Pending Studies at Discharge: No Discharge Instructions Given to Patient (Per Discharging Provider) Good luck at [facility] Total Time Total Time Spent Total Time Spent (In Minutes): 70
[2025-06-18 15:38] VITALS: RESP 18
[2025-06-18 19:31] VITALS: TEMP 98.8; O2SAT 93
[2025-06-18 21:15] VITALS: BP 128/72; PULSE 90
== END 2025-06-18 21:15 | disposition short-term general hospital (02) | DRG 982 ==
LOC: ED 19:47 → SUATTDRO 23:32 → 4W 23:32